=== PATIENT | male | born 1935 | race Caucasian/White ===

== ENCOUNTER → 2016-09-11 | Outpatient (CLI) | payer OTHER ==
[2016-09-11 16:39] LABS: HEMATOCRIT 44.3 % (42-52); MEAN CELL VOLUME 96.9 fL (80-100); MEAN CORPUSCULAR HEMOGLOBIN 31.5 pg (25-34); MEAN CORPUSCULAR HGB CONC 32.5 g/dl (32-36); MEAN PLATELET VOLUME 9.9 fL (7.4-10.4); PLATELET COUNT 173 K/uL (130-400); RED BLOOD COUNT 4.57 M/uL (4.7-6.1); WHITE BLOOD COUNT 7.94 K/uL (4.8-10.8)
[2016-09-11 16:55] LABS: ALB/GLOB RATIO 1.3 (0.9-2); ALKALINE PHOSPHATASE 63 U/L (45-117); ALT/SGPT 25 U/L (12-78); AST/SGOT 18 U/L (15-37); BLOOD UREA NITROGEN 26 mg/dl (7-18); BUN/CREATININE RATIO 16.5 (10-20); CALCIUM 8.9 mg/dl (8.5-10.1); CARBON DIOXIDE 25 mmol/L (21-32); CHLORIDE 108 mmol/L (98-107); GLUCOSE 122 mg/dl (70-99); HDL CHOLESTEROL 46 mg/dl; POTASSIUM 4.4 mmol/L (3.5-5.1); SODIUM 141 mmol/L (136-145)
[2016-09-11 17:07] LABS: CHOLESTEROL 115 mg/dl (0-200); CHOLESTEROL/HDL RATIO 2.5; LDL CHOLESTEROL CALCULATED 48 mg/dl; TRIGLYCERIDES 106 mg/dl (0-150); VERY LOW DENSITY LIPOPROT CALC 21 mg/dl
[2016-09-12 07:17] LABS: ESTIMATED AVERAGE GLUCOSE 134 mg/dl; HA1C FLAG Normal (Normal)
== END ==
LOC: C.LABBFT 10:20
PROVIDERS: ATTEND Internal Medicine
DX: E78.5 Hyperlipidemia, unspecified (principal); I10 Essential (primary) hypertension; E11.9 Type 2 diabetes mellitus without complications

== ENCOUNTER 2017-06-22 20:30 | Inpatient (IN) | payer OTHER ==
[~2017-06-22] VITALS: Ht 170.2 cm; Wt 76.0 kg
--- NOTE | 2017-06-22 21:04 | DIAGNOSTIC IMAGING REPORT ---
CHEST ONE VIEW PORTABLE CLINICAL HISTORY: 81 years-old Male presenting with fever. TECHNIQUE: Portable upright AP view of the chest was obtained. COMPARISON: None. FINDINGS: Atherosclerosis of aortic arch. Cardiac silhouette enlarged. Minimal basilar opacities. Apparent asymmetric radiolucency of the left [place] and upper lung may be due to the slight [place] rotated positioning. No pleural effusion or pneumothorax. Degenerative changes of the thoracic spine. Upper abdomen normal. IMPRESSION: 1. Minimal basilar atelectasis or scarring. No convincing evidence of acute cardiopulmonary disease. Electronically signed by: Jung Hayes M.D. 06/22/2017 9:02 PM Dictated Date/Time: 06/22/2017 9:01 PM
--- NOTE | 2017-06-22 21:06 | EMERGENCY ROOM VISIT NOTE ---
History First contact with patient: 20:42 Chief Complaint: FLU LIKE SX Stated Complaint: FLU SX, LOSS OF BALANCE,WEAKNESS History of Present Illness The patient is a 81 year old male who presents to the Emergency Room with complaints of fever, weakness which started a few days ago. The patient states that he has had a fever with chills, body aches and myalgias and he has been coughing and sneezing but denies any chest pain, shortness of breath, wheezing. States that he was exposed to his son who had the flu. Also states that he has been feeling extremely weak and fatigued and had multiple falls within the last 2 days but denies any injury to his head. He stated that he tripped over the carpet and fell but was not able to get himself up as he was very weak. He received the flu vaccine this year He lives with her son and has some issues with ambulation but does not use a cane or walker. Denies history of smoking/COPD/asthma. Denies any nausea, vomiting, abdominal pain, dysuria, frequency. Source of History: patient, family Associated Symptoms: + fevers, + chills, No nausea, No vomiting, No urinary symptoms Review of Systems See HPI for pertinent positives & negatives. A total of 10 systems reviewed and were otherwise negative. Past Medical/Surgical History Hypertension, diabetes, hyperlipidemia Social History Smoking Status: Former Smoker Current/Historical Medications Scheduled Amlodipine (Norvasc), 5 MG PO DAILY Glipizide (Glucotrol), 10 MG PO BID Multiple Vitamin (Multi Vitamin), 1 TAB PO DAILY Simvastatin (Zocor), 20 MG PO QPM Terazosin (Hytrin), 5 MG PO HS Physical Exam Vital Signs Date Time Temp Pulse Resp B/P (MAP) Pulse Ox O2 Delivery O2 Flow Rate FiO2 06/22/17 21:30 94 18 134/75 95 Room Air 06/22/17 20:33 38.1 113 18 131/76 96 Room Air Physical Exam GENERAL: Patient is in mild distress. HEENT: No acute trauma, normocephalic atraumatic, mucous membranes moist, no nasal congestion, no scleral icterus. NECK: No stridor, no adenopathy, no meningismus, trachea is midline. LUNGS: Clear to auscultation bilaterally, no wheeze, no rhonchi, breath sounds equal. HEART: Without murmurs gallops or rubs, tachycardia ABDOMEN: Soft, nontender, bowel sounds positive, no hernias, no peritonitis. EXTREMITIES: No cyanosis or edema, full range of motion of all the joints without pain or difficulty, no signs for acute trauma. NEUROLOGIC: Oriented x 3, no acute motor or sensory deficits, no focal weakness. SKIN: No rash, no jaundice, no diaphoresis. Medical Decision & Procedures Laboratory Results 06/22/17 21:15 Red Blood Count 4.41, Mean Corpuscular Volume 93.4, Mean Corpuscular Hemoglobin 32.4, Mean Corpuscular Hemoglobin Concent 34.7, Mean Platelet Volume 9.8, Neutrophils (%) (Auto) 72.4, Lymphocytes (%) (Auto) 14.6, Monocytes (%) (Auto) 12.7, Eosinophils (%) (Auto) 0.1, Basophils (%) (Auto) 0.1, Neutrophils # (Auto ) 4.94, Lymphocytes # (Auto) 1.00, Monocytes # (Auto) 0.87, Eosinophils # (Auto ) 0.01, Basophils # (Auto) 0.01 06/22/17 21:15 Test 06/22/17 21:15 06/22/17 21:20 06/22/17 21:24 06/22/17 21:27 White Blood Count 6.84 K/uL (4.8-10.8) Red Blood Count 4.41 M/uL (4.7-6.1) Hemoglobin 14.3 g/dL (14.0-18.0) Hematocrit 41.2 % (42-52) Mean Corpuscular Volume 93.4 fL (80-100) Mean Corpuscular Hemoglobin 32.4 pg (25-34) Mean Corpuscular Hemoglobin Concent 34.7 g/dl (32-36) Platelet Count 125 K/uL (130-400) Mean Platelet Volume 9.8 fL (7.4-10.4) Neutrophils (%) (Auto) 72.4 % Lymphocytes (%) (Auto) 14.6 % Monocytes (%) (Auto) 12.7 % Eosinophils (%) (Auto) 0.1 % Basophils (%) (Auto) 0.1 % Neutrophils # (Auto) 4.94 K/uL (1.4-6.5) Lymphocytes # (Auto) 1.00 K/uL (1.2-3.4) Monocytes # (Auto) 0.87 K/uL (0.11-0.59) Eosinophils # (Auto) 0.01 K/uL (0-0.5) Basophils # (Auto) 0.01 K/uL (0-0.2) RDW Standard Deviation 47.0 fL (36.4-46.3) RDW Coefficient of Variation 13.7 % (11.5-14.5) Immature Granulocyte % (Auto) 0.1 % Immature Granulocyte # (Auto) 0.01 K/uL (0.00-0.02) Prothrombin Time 10.9 SECONDS (9.0-12.0) Prothromb Time International Ratio 1.0 (0.9-1.1) Est Creatinine Clear Calc Drug Dose 34.4 ml/min Estimated GFR () 45.1 Estimated GFR (Non- 38.9 BUN/Creatinine Ratio 11.5 (10-20) Calcium Level 8.3 mg/dl (8.5-10.1) Magnesium Level 2.2 mg/dl (1.8-2.4) Total Bilirubin 1.2 mg/dl (0.2-1) Direct Bilirubin 0.3 mg/dl (0-0.2) Aspartate Amino Transf (AST/SGOT) 92 U/L (15-37) Alanine Aminotransferase (ALT/SGPT) 40 U/L (12-78) Alkaline Phosphatase 82 U/L (45-117) Total Creatine Kinase 2911 U/L (39-308) Creatine Kinase MB 10.1 ng/ml (0.5-3.6) Creatine Kinase MB Ratio 0.3 (0-3.0) Troponin I 0.114 ng/ml (0-0.045) Total Protein 7.0 gm/dl (6.4-8.2) Albumin 3.8 gm/dl (3.4-5.0) Influenza Type A (RT-PCR) POS for Influ A (NEG) Influenza Type B (RT-PCR) Neg for Influ B (NEG) Bedside Lactic Acid Venous 1.20 mmol/L (0.90-1.70) Bedside Hemoglobin 12.9 g/dl (14.0-18.0) Bedside Hematocrit 38 % (42-52) Bedside Sodium 138 mEq/L (135-144) Bedside Potassium 3.8 mEq/L (3.3-5.0) Bedside Chloride 102 mEq/L (101-112) Bedside Total CO2 21 mEq/l (24-31) Anion Gap 19.0 mmol/L (16-25) Bedside Blood Urea Nitrogen 19 mg/dl (7-18) Bedside Creatinine 1.5 mg/dl (0.6-1.3) Bedside Glucose (other) 104 mg/dl (70-99) Bedside Ionized Calcium ([place]) 1.08 mmol/l (1.12-1.32) Medications Administered Medications (Trade) Dose Ordered Sig/Gina Route Start Time Stop Time Status Last Admin Dose Admin Sodium Chloride 1,000 ml @ 999 mls/hr Q1H1M STAT IV 06/22/17 22:03 06/22/17 23:03 06/22/17 22:13 999 MLS/HR Acetaminophen (Tylenol Tab) 1,000 mg NOW STAT PO 06/22/17 22:03 06/22/17 22:04 DC 06/22/17 22:12 1,000 MG Oseltamivir Phosphate (Tamiflu Cap) 75 mg NOW STAT PO 06/22/17 22:03 06/22/17 22:09 DC 06/22/17 22:12 75 MG tamiflu 75 mg tylenol NSS ECG Indication: weakness Rate (beats per minute): 99 Rhythm: normal sinus Findings: other (RBBB, t wave abnormality) Medical Decision Prior records/ancillary studies reviewed. Triage Nursing notes reviewed. Additional history obtained from the patient's son The patient's history was concerning for weakness and fever. Differential diagnosis: Etiologies such as sepsis, influenza, UTI, pneumonia, metabolic, electrolyte abnormalities, cardiac sources, intracerebral event, toxicologic, neurologic, as well as others were entertained. Physical examination: As above. Vital signs reviewed and revealed temperature of 38.1F and tachycardia. ER treatment provided: CBC, CMP, UA/UC, troponin, influenza serology, PT/PTT, Blood and urine cultures were ordered CXR was also ordered On reassessment the patient vital signs improved. Diagnostics interpretation by me: ECG revealed NSR with left axis deviation, RBBB Serology was positive for influenza A. CBC is unremarkable, CMP revealed an elevated Cr at 1.6 which appears to be his baseline. CK was elevated at 2911 and trop was elevated at 0.11 Serum Lactate measurement was 1.2. Blood and urine cultures are pending. Imaging studies: Chest xray revealed : Minimal basilar atelectasis or scarring. No convincing evidence of acute cardiopulmonary disease. Consultation: A consultation was placed with the hospitalist. The case was discussed and diagnostics were reviewed. The patient was evaluated in the ER for further treatment. 81-year-old male presented with weakness, fatigue and fever associated with body aches and myalgias that started about 2 days ago. He was found to be positive for influenza A and was treated with IV fluids, Tylenol and Tamiflu. He had stated that he had tripped over a carpet and fell but was not able to pick himself up because of weakness. He was recommended to be admitted to the hospital and possible rehabilitation considering his weakness and inability to care for himself. He was found to have an elevated CPK and troponin. He will need to be admitted for further monitoring, IVF and assessment of need for rehab Impression Primary Impression: Influenza A Additional Impression: Multiple falls Departure Information Referrals Umair Adkins M.D. (PCP) Patient Instructions My [facility] Resident Tracking Resident Involvement: Resident Care Provided Care Provided: Adult ED Problem Qualifiers
[2017-06-22 21:37] LABS: HEMATOCRIT 41.2 % (42-52); HEMOGLOBIN 14.3 g/dL (14.0-18.0); MEAN CELL VOLUME 93.4 fL (80-100); MEAN CORPUSCULAR HEMOGLOBIN 32.4 pg (25-34); MEAN CORPUSCULAR HGB CONC 34.7 g/dl (32-36); MEAN PLATELET VOLUME 9.8 fL (7.4-10.4); PLATELET COUNT 125 K/uL (130-400); RED CELL DISTRIBUTION WIDTH CV 13.7 % (11.5-14.5); WHITE BLOOD COUNT 6.84 K/uL (4.8-10.8)
[2017-06-22 21:40] LABS: ISTAT CREATININE 1.5 mg/dl (0.6-1.3); ISTAT IONIZED CALCIUM 1.08 mmol/l (1.12-1.32); ISTAT POTASSIUM 3.8 mEq/L (3.3-5.0)
[2017-06-22] MEDS ORDERED: AMLO-110 PO (21:40)
[2017-06-22] MEDS ORDERED: GLIP5TAB11 PO (21:41)
[2017-06-22] MEDS ORDERED: MULT-1027 PO (21:43)
[2017-06-22] MEDS ORDERED: SIMV20TA2 PO (21:44)
[2017-06-22] MEDS ORDERED: TERA5CAP PO (21:45)
[2017-06-22 21:57] LABS: INFLUENZA A PCR POS for Influ A (NEG); INFLUENZA B PCR Neg for Influ B (NEG)
[2017-06-22 22:01] LABS: ALBUMIN 3.8 gm/dl (3.4-5.0); CALCIUM 8.3 mg/dl (8.5-10.1); CREATININE 1.62 mg/dl (0.60-1.40); POTASSIUM 3.7 mmol/L (3.5-5.1)
[2017-06-22] MEDS ORDERED: OSELTAMIVIR PHOSPHATE 75 MG CAP PO STA (22:03)
[2017-06-22] MEDS ORDERED: SODIUM CHLORIDE 0.9% 1000ML 1,000 ML IV STA (22:03)
[2017-06-22] MEDS ORDERED: ACETAMINOPHEN 500 MG TAB PO STA (22:03)
[2017-06-22] MEDS ORDERED: PATIENT'S ALLERGY INFO NEEDS ENTERED STA (22:09)
[2017-06-22 22:18] LABS: BASO % 0.1 %; BASO ABS # 0.01 K/uL (0-0.2); EOS % 0.1 %; EOS ABS # 0.01 K/uL (0-0.5); IG# 0.01 K/uL (0.00-0.02); LYMPH % 14.6 %; MONO % 12.7 %; MONO ABS # 0.87 K/uL (0.11-0.59); NEUT % 72.4 %; NEUT ABS # 4.94 K/uL (1.4-6.5)
[2017-06-22 22:20] LABS: CKMB 10.1 ng/ml (0.5-3.6)
[2017-06-22] MEDS ORDERED: D5NSS + 20MEQ KCL 1,000 ML IV SCH (23:00)
--- NOTE | 2017-06-22 23:02 | History and Physical ---
History & Physical Date & Time of Service: Jun 22, 2017 at 22:53 Chief Complaint: Flu Sx, Loss Of Balance,Weakness Primary Care Physician: Umair Adkins M.D. History of Present Illness Source: patient, hospital records 81 y/o M Hx HTN, HPL, DM II, CKD III. The pt reports a cough, fever and weakness over the past two days. He also reports multiple falls without significant trauma. He fell today however, and was unable to get up of his own accord. The pt states that his son has the flu and he was therefore exposed this past week. Initial labs are notable for a (+) influenza, an elevated CK and troponin and mild LFT abnormalities. He denies CP, denies N/V, diarrhea or dysuria. Past Medical/Surgical History 1) HTN 2) HPL 3) CKD III 4) DM II Family History Noncontributory to current case Social History No smoking history, occasional ETOH, retired [employer]or Smoking Status: Never Smoker Home Medications Scheduled Amlodipine (Norvasc), 5 MG PO DAILY Glipizide (Glucotrol), 10 MG PO BID Multiple Vitamin (Multi Vitamin), 1 TAB PO DAILY Simvastatin (Zocor), 20 MG PO QPM Terazosin (Hytrin), 5 MG PO HS Review of Systems Constitutional: + fever, + chills, + weakness, + fatigue Eyes: No worsening of vision ENT: + nasal symptoms, No hearing loss Respiratory: + cough, + sputum, + shortness of breath Cardiovascular: No chest pain, No orthopnea, No PND Abdomen: No pain, No nausea, No vomiting Musculoskeletal: No joint pain Genitourinary - Male: No hematuria, No dysuria Neurologic: + weakness, No memory loss Psychiatric: No depression symptoms Endocrine: + fatigue Hematologic / Lymphatic: No abnormal bleeding/bruising Integumentary: No rash Allergic / Immunologic: No environmental allergies Physical Exam Vital Signs Date Time Temp Pulse Resp B/P (MAP) Pulse Ox O2 Delivery O2 Flow Rate FiO2 06/22/17 22:39 38.1 06/22/17 21:30 94 18 134/75 95 Room Air 06/22/17 20:33 38.1 113 18 131/76 96 Room Air General Appearance: + pertinent finding (Irritable elderly male in no distress - does display weakness when asked to sit up) Head: normocephalic Eyes: normal inspection ENT: normal ENT inspection, pharynx normal Neck: supple, no JVD Respiratory/Chest: chest non-tender, lungs clear, no accessory muscle use Cardiovascular: regular rate, rhythm, no edema, no gallop Abdomen/GI: normal bowel sounds, non tender, soft Back: normal inspection, no CVA tenderness Extremities/Musculoskelatal: normal inspection, no calf tenderness, normal capillary refill Neurologic/Psych: senior physician II-XII nml as tested, no motor/sensory deficits, alert, oriented x 3 Skin: normal color Diagnostics Laboratory Results Results Past 24 Hours Test 06/22/17 21:15 06/22/17 21:20 06/22/17 21:24 06/22/17 21:27 Range/Units White Blood Count 6.84 4.8-10.8 K/uL Red Blood Count 4.41 4.7-6.1 M/uL Hemoglobin 14.3 14.0-18.0 g/dL Hematocrit 41.2 42-52 % Mean Corpuscular Volume 93.4 80-100 fL Mean Corpuscular Hemoglobin 32.4 25-34 pg Mean Corpuscular Hemoglobin Concent 34.7 32-36 g/dl Platelet Count 125 130-400 K/uL Mean Platelet Volume 9.8 7.4-10.4 fL Neutrophils (%) (Auto) 72.4 % Lymphocytes (%) (Auto) 14.6 % Monocytes (%) (Auto) 12.7 % Eosinophils (%) (Auto) 0.1 % Basophils (%) (Auto) 0.1 % Neutrophils # (Auto) 4.94 1.4-6.5 K/uL Lymphocytes # (Auto) 1.00 1.2-3.4 K/uL Monocytes # (Auto) 0.87 0.11-0.59 K/uL Eosinophils # (Auto) 0.01 0-0.5 K/uL Basophils # (Auto) 0.01 0-0.2 K/uL RDW Standard Deviation 47.0 36.4-46.3 fL RDW Coefficient of Variation 13.7 11.5-14.5 % Immature Granulocyte % (Auto) 0.1 % Immature Granulocyte # (Auto) 0.01 0.00-0.02 K/uL Prothrombin Time 10.9 9.0-12.0 SECONDS Prothromb Time International Ratio 1.0 0.9-1.1 Sodium Level 136 136-145 mmol/L Potassium Level 3.7 3.5-5.1 mmol/L Chloride Level 104 98-107 mmol/L Carbon Dioxide Level 21 21-32 mmol/L Anion Gap 11.0 19.0 16-25 mmol/L Blood Urea Nitrogen 19 7-18 mg/dl Creatinine 1.62 0.60-1.40 mg/dl Est Creatinine Clear Calc Drug Dose 34.4 ml/min Estimated GFR () 45.1 Estimated GFR (Non- 38.9 BUN/Creatinine Ratio 11.5 10-20 Random Glucose 98 70-99 mg/dl Calcium Level 8.3 8.5-10.1 mg/dl Magnesium Level 2.2 1.8-2.4 mg/dl Total Bilirubin 1.2 0.2-1 mg/dl Direct Bilirubin 0.3 0-0.2 mg/dl Aspartate Amino Transf (AST/SGOT) 92 15-37 U/L Alanine Aminotransferase (ALT/SGPT) 40 12-78 U/L Alkaline Phosphatase 82 45-117 U/L Total Creatine Kinase 2911 39-308 U/L Creatine Kinase MB 10.1 0.5-3.6 ng/ml Creatine Kinase MB Ratio 0.3 0-3.0 Troponin I 0.114 0-0.045 ng/ml Total Protein 7.0 6.4-8.2 gm/dl Albumin 3.8 3.4-5.0 gm/dl Influenza Type A (RT-PCR) POS for Influ A NEG Influenza Type B (RT-PCR) Neg for Influ B NEG Bedside Lactic Acid Venous 1.20 0.90-1.70 mmol/L Bedside Hemoglobin 12.9 14.0-18.0 g/dl Bedside Hematocrit 38 42-52 % Bedside Sodium 138 135-144 mEq/L Bedside Potassium 3.8 3.3-5.0 mEq/L Bedside Chloride 102 101-112 mEq/L Bedside Total CO2 21 24-31 mEq/l Bedside Blood Urea Nitrogen 19 7-18 mg/dl Bedside Creatinine 1.5 0.6-1.3 mg/dl Bedside Glucose (other) 104 70-99 mg/dl Bedside Ionized Calcium ([place]) 1.08 1.12-1.32 mmol/l Microbiology Results 06/22/17 Blood Culture, Received Pending 06/22/17 Blood Culture, Received Pending Diagnostic Radiology No infiltrates on CXR EKG Sinus tach, RBBB, ant T wv inversions Impression Assessment and Plan 81 y/o M Hx HTN, HPL, DM II, CKD III. The pt reports a cough, fever and weakness over the past two days. He also reports multiple falls without significant trauma. He fell today however, and was unable to get up of his own accord. The pt states that his son has the flu and he was therefore exposed this past week. Initial labs are notable for a (+) influenza, an elevated CK and troponin and mild LFT abnormalities. He denies CP, denies N/V, diarrhea or dysuria. 1) Fever,weakness and cough - influenza A (+) - Pt placed on Tamiflu, PRN breathing treatments, IVF and antipyretics. 2) Rhabdomyolysis - IVF provided. CK and electrolytes will be trended 3) Troponin is elevated marginally in context of high CK and renal impairment. We do not suspect acute ischemia. Trop will be trended, he will be monitored on telemetry overnight. 4) LFT elevation is likely related to rhabdo - does not report acute abdominal symptoms - will trend AM 5) DM II - placed on SS 6) CKD III - creat is at baseline 7) HPL - cont Zocor - would hold if rhabdo worsened 8) HTN - cont Norvasc Full code - Heparin prophylaxis Total time for this admit including review of labs, meds, imaging, EKG, records - discussion with pt , family , ER attending - 35 min Level of Care Med/Surg Resuscitation Status FULL RESUSCITATION VTE Prophylaxis Given or contraindicated: Unfractionated heparin SQ
[2017-06-22] MEDS ORDERED: ASPIRIN 81 MG CHEW PO STA (23:22)
[2017-06-22] MEDS ORDERED: ALUMINUM/MAGNESIUM/SIMETH (MAALOX MAX) 30 ML UDC PO PRN (23:45)
[2017-06-22] MEDS ORDERED: ALBUT/IPRATROP 3MG/0.5MG NEB 3 ML VIAL INH PRN (23:45)
[2017-06-22] MEDS ORDERED: ACETAMINOPHEN 325 MG TAB PO PRN (23:45)
[2017-06-22] MEDS ORDERED: MAGNESIUM HYDROXIDE SUSP 30 ML UDC PO PRN (23:45)
[2017-06-22] MEDS ORDERED: POLYETHYLENE (MIRALAX) 17 GM PACK PO PRN (23:45)
[2017-06-22] MEDS ORDERED: MoRPHine SULFATE 2 MG/ML CARP IV PRN (23:45)
[2017-06-22] MEDS ORDERED: ONDANSETRON INJ 2 MG/ML 2 ML VIAL IV PRN (23:45)
[2017-06-23] VITALS (10 sets, daily range): BP systolic 96–130; BP diastolic 45–70; PULSE 58–86; TEMP 36.5–37.6; O2SAT 93–98; Ht 170.2 cm; Wt 76.0 kg
[2017-06-23] MEDS ORDERED: PATIENT'S ALLERGY INFO NEEDS ENTERED STA (00:01)
--- NOTE | 2017-06-23 00:05 | EMERGENCY ROOM VISIT NOTE ---
History Report prepared by Erikaibaishwarya: Rocky Olivares Under the Supervision of: Dr. Kogn Majano D.O. First contact with patient: 20:42 Chief Complaint: FLU LIKE SX Stated Complaint: FLU SX, LOSS OF BALANCE,WEAKNESS History of Present Illness The patient is a 81 year old male who presents to the Emergency Room with complaints of intermittent falls that started yesterday. The patient states that he has had a cough for two days. He reports he has been experiencing rhinorrhea, a fever, and has a sore throat when he wakes up. The patient states that he has fallen twice in the last two days. The patient states that he fell forward and caught himself with his hands. His son states that yesterday the patient was not able to get up after falling. The patient denies LOC, hitting his head, taking blood thinners, dizziness, lightheadedness, headache, change in vision, chest pain, shortness of breath, nausea, vomiting, diarrhea, pain with urination, and melena. Source of History: patient Onset: yesterday Position: other (global) Quality: other (global) Timing: intermittent Associated Symptoms: + fevers, + sorethroat, + cough, No LOC, No chest pain , No SOB, No nausea, No vomiting, No melena, No diarrhea, No urinary symptoms Review of Systems See HPI for pertinent positives & negatives. A total of 10 systems reviewed and were otherwise negative. Past Medical & Surgical Medical Problems: (1) Diabetes (2) Hypertension (3) Rhabdomyolysis Family History Diabetes mellitus FH: cancer Hypertension Social History Smoking Status: Former Smoker Alcohol Use: occasionally Marital Status: single Housing Status: lives with family Occupation Status: retired Current/Historical Medications Scheduled Amlodipine (Norvasc), 5 MG PO DAILY Glipizide (Glucotrol), 10 MG PO BID Multiple Vitamin (Multi Vitamin), 1 TAB PO DAILY Simvastatin (Zocor), 20 MG PO QPM Terazosin (Hytrin), 5 MG PO HS Physical Exam Vital Signs Date Time Temp Pulse Resp B/P (MAP) Pulse Ox O2 Delivery O2 Flow Rate FiO2 06/22/17 23:45 37.9 75 18 91/57 95 Room Air 06/22/17 22:39 38.1 06/22/17 21:30 94 18 134/75 95 Room Air 06/22/17 20:33 38.1 113 18 131/76 96 Room Air Physical Exam GENERAL: Laying in bed, disheveled no distress, non-toxic, with an intermittent nonproductive cough EYE EXAM: normal conjunctiva. PERRL and EOM's grossly intact. OROPHARYNX: no exudate, no erythema, lips, buccal mucosa, and tongue normal and mucous membranes are dry HEAD: Normocephalic, atraumatic. NECK: supple, no nuchal rigidity, no adenopathy, non-tender LUNGS: Clear to auscultation. Normal chest wall mechanics HEART: no murmurs, S1 normal and S2 normal ABDOMEN: abdomen soft, non-tender, normo-active bowel sounds, no masses, no rebound or guarding. BACK: Back is symmetrical on inspection and there is no deformity, no midline tenderness, no CVA tenderness. SKIN: no rashes and no bruising UPPER EXTREMITIES: upper extremities are grossly normal. LOWER EXTREMITIES: No pitting edema. NEURO EXAM: Normal sensorium, cranial nerves II-XII grossly intact, normal speech, no gross weakness of arms, no gross weakness of legs. Gross sensation intact. Medical Decision & Procedures ER Provider Diagnostic Interpretation: Radiology results as stated below per my review and the radiologist's interpretation: CHEST ONE VIEW PORTABLE CLINICAL HISTORY: 81 years-old Male presenting with fever. TECHNIQUE: Portable upright AP view of the chest was obtained. COMPARISON: None. FINDINGS: Atherosclerosis of aortic arch. Cardiac silhouette enlarged. Minimal basilar opacities. Apparent asymmetric radiolucency of the left inupiat and upper lung may be due to the slight [place] rotated positioning. No pleural effusion or pneumothorax. Degenerative changes of the thoracic spine. Upper abdomen normal. IMPRESSION: 1. Minimal basilar atelectasis or scarring. No convincing evidence of acute cardiopulmonary disease. Electronically signed by: Jung Hayes M.D. 06/22/2017 9:02 PM Dictated Date/Time: 06/22/2017 9:01 PM Laboratory Results 06/22/17 21:15 Red Blood Count 4.41, Mean Corpuscular Volume 93.4, Mean Corpuscular Hemoglobin 32.4, Mean Corpuscular Hemoglobin Concent 34.7, Mean Platelet Volume 9.8, Neutrophils (%) (Auto) 72.4, Lymphocytes (%) (Auto) 14.6, Monocytes (%) (Auto) 12.7, Eosinophils (%) (Auto) 0.1, Basophils (%) (Auto) 0.1, Neutrophils # (Auto ) 4.94, Lymphocytes # (Auto) 1.00, Monocytes # (Auto) 0.87, Eosinophils # (Auto ) 0.01, Basophils # (Auto) 0.01 06/22/17 21:15 Test 06/22/17 21:15 06/22/17 21:20 06/22/17 21:24 06/22/17 21:27 White Blood Count 6.84 K/uL (4.8-10.8) Red Blood Count 4.41 M/uL (4.7-6.1) Hemoglobin 14.3 g/dL (14.0-18.0) Hematocrit 41.2 % (42-52) Mean Corpuscular Volume 93.4 fL (80-100) Mean Corpuscular Hemoglobin 32.4 pg (25-34) Mean Corpuscular Hemoglobin Concent 34.7 g/dl (32-36) Platelet Count 125 K/uL (130-400) Mean Platelet Volume 9.8 fL (7.4-10.4) Neutrophils (%) (Auto) 72.4 % Lymphocytes (%) (Auto) 14.6 % Monocytes (%) (Auto) 12.7 % Eosinophils (%) (Auto) 0.1 % Basophils (%) (Auto) 0.1 % Neutrophils # (Auto) 4.94 K/uL (1.4-6.5) Lymphocytes # (Auto) 1.00 K/uL (1.2-3.4) Monocytes # (Auto) 0.87 K/uL (0.11-0.59) Eosinophils # (Auto) 0.01 K/uL (0-0.5) Basophils # (Auto) 0.01 K/uL (0-0.2) RDW Standard Deviation 47.0 fL (36.4-46.3) RDW Coefficient of Variation 13.7 % (11.5-14.5) Immature Granulocyte % (Auto) 0.1 % Immature Granulocyte # (Auto) 0.01 K/uL (0.00-0.02) Prothrombin Time 10.9 SECONDS (9.0-12.0) Prothromb Time International Ratio 1.0 (0.9-1.1) Est Creatinine Clear Calc Drug Dose 34.4 ml/min Estimated GFR () 45.1 Estimated GFR (Non- 38.9 BUN/Creatinine Ratio 11.5 (10-20) Calcium Level 8.3 mg/dl (8.5-10.1) Magnesium Level 2.2 mg/dl (1.8-2.4) Total Bilirubin 1.2 mg/dl (0.2-1) Direct Bilirubin 0.3 mg/dl (0-0.2) Aspartate Amino Transf (AST/SGOT) 92 U/L (15-37) Alanine Aminotransferase (ALT/SGPT) 40 U/L (12-78) Alkaline Phosphatase 82 U/L (45-117) Total Creatine Kinase 2911 U/L (39-308) Creatine Kinase MB 10.1 ng/ml (0.5-3.6) Creatine Kinase MB Ratio 0.3 (0-3.0) Troponin I 0.114 ng/ml (0-0.045) Total Protein 7.0 gm/dl (6.4-8.2) Albumin 3.8 gm/dl (3.4-5.0) Influenza Type A (RT-PCR) POS for Influ A (NEG) Influenza Type B (RT-PCR) Neg for Influ B (NEG) Bedside Lactic Acid Venous 1.20 mmol/L (0.90-1.70) Bedside Hemoglobin 12.9 g/dl (14.0-18.0) Bedside Hematocrit 38 % (42-52) Bedside Sodium 138 mEq/L (135-144) Bedside Potassium 3.8 mEq/L (3.3-5.0) Bedside Chloride 102 mEq/L (101-112) Bedside Total CO2 21 mEq/l (24-31) Anion Gap 19.0 mmol/L (16-25) Bedside Blood Urea Nitrogen 19 mg/dl (7-18) Bedside Creatinine 1.5 mg/dl (0.6-1.3) Bedside Glucose (other) 104 mg/dl (70-99) Bedside Ionized Calcium (Valent[place]) 1.08 mmol/l (1.12-1.32) Laboratory results per my review. Medications Administered Medications (Trade) Dose Ordered Sig/Gina Route Start Time Stop Time Status Last Admin Dose Admin Sodium Chloride 1,000 ml @ 999 mls/hr Q1H1M STAT IV 06/22/17 22:03 06/22/17 23:03 DC 06/22/17 22:13 999 MLS/HR Acetaminophen (Tylenol Tab) 1,000 mg NOW STAT PO 06/22/17 22:03 06/22/17 22:04 DC 06/22/17 22:12 1,000 MG Oseltamivir Phosphate (Tamiflu Cap) 75 mg NOW STAT PO 06/22/17 22:03 06/22/17 22:09 DC 06/22/17 22:12 75 MG Aspirin (Aspirin Chew) 324 mg NOW STAT PO 06/22/17 23:22 06/22/17 23:23 DC 06/22/17 23:43 324 MG ECG Indication: weakness Rate (beats per minute): 99 Rhythm: sinus tachycardia Findings: Q waves (Inferior), RBBB, left axis deviation, other (Poor baseline) Change: Patient's electrocardiogram interpreted by me. ED Course ED COURSE: Vital signs were reviewed and showed The patients medical record was reviewed The above diagnostic studies were performed and reviewed. ED treatments and interventions as stated above. 2141: The patient was evaluated in room A09B. A complete history and physical examination was performed. 2203: Ordered Tamflu Cap 75 mg PO, Tylenol Tab 1000 mg PO, Sodium Chloride 1000 ml @ 999 mls/hr IV. 2220: I reevaluated the patient and he refuses to stay. He would like to go home. 2300: Ordered Potassium Chloride/ Sodium Chloride 1000 ml @ 100 mls/hr IV, Potassium Chloride/Dextrose/ Sod Cl 1000 ml @ 1000 mls/hr IV. 2322: Ordered Aspirin 324 mg PO. 2241: I discussed the patient's case with Dr. Hamilton, [facility] Hospitalist. He understands the patient's condition and agrees to accept the patient. The patient will be further evaluated. Medical Decision Differential diagnosis includes etiologies such as sepsis, UTI, pneumonia, metabolic, electrolyte abnormalities, cardiac sources, intracerebral event, toxicologic, neurologic, as well as others were entertained. Patient is an 81-year-old male who was seen independently in the resident presents to the ER for cough, runny nose and sore throat which started in the past 24-48 hours. He has also had 2 falls in the past 24 hours. He was unable to get himself up. He did lay on the floor for 3 hours. CBC and BMP were fairly unremarkable. Bili was slightly elevated. CK was elevated at 3000. Troponin was elevated at 0.1. EKG showed a right bundle branch block. Troponin is likely related to demand ischemia. Chest x-ray shows no acute infiltrate. He has no chest pain or shortness of breath while resting. Patient was given fluids and aspirin along with Tylenol. He was also given Tamiflu. He was discussed with internal medicine and admitted for influenza A, recurrent falls, demand ischemia and rhabdomyolysis. Medication Reconcilliation Current Medication List: was personally reviewed by me Blood Pressure Screening Patient's blood pressure: Elevated blood pressure Referred to Hospitalist Consults Time Called: 2237 Consulting Physician: Dr. Hamilton, [facility] Hospitalist Returned Call: 2240 I discussed the patient's case with Dr. Hamilton, [facility] Hospitalist. He understands the patient's condition and agrees to accept the patient. The patient will be further evaluated. Impression Primary Impression: Influenza A Additional Impressions: Recurrent falls Demand ischemia Rhabdomyolysis Scribe Attestation The scribe's documentation has been prepared under my direction and personally reviewed by me in its entirety. I confirm that the note above accurately reflects all work, treatment, procedures, and medical decision making performed by me. Departure Information Dispostion Being Evaluated By Hospitalist Referrals Umair Adkins M.D. (PCP) Patient Instructions My [facility] Problem Qualifiers Additional Impressions: Rhabdomyolysis Rhabdomyolysis type: non-traumatic Qualified Codes: M62.82 - Rhabdomyolysis
[2017-06-23] MEDS: NSS + 20MEQ KCL 1000ML 1,000 ML IV SCH ×2 (01:20→07:37)
[2017-06-23] MEDS ORDERED: PNEUMOCOCCAL ADMINISTRATION CHARGE ONE (01:45)
[2017-06-23] MEDS ORDERED: PNEUMOCOCCAL POLYSACCHARIDES 25 MCG/0.5 ML VIAL/SYR IM. ONE (01:45)
[2017-06-23 06:09] LABS: HEMATOCRIT 37.9 % (42-52); HEMOGLOBIN 12.9 g/dL (14.0-18.0); MEAN CELL VOLUME 94.3 fL (80-100); MEAN CORPUSCULAR HEMOGLOBIN 32.1 pg (25-34); RED CELL DISTRIBUTION WIDTH CV 13.9 % (11.5-14.5); RED CELL DISTRIBUTION WIDTH SD 47.8 fL (36.4-46.3); WHITE BLOOD COUNT 4.91 K/uL (4.8-10.8)
[2017-06-23] MEDS: HEPARIN SOD 5000 UNIT/0.5 ML CARP SQ SCH ×3 (06:23→21:18)
[2017-06-23 06:52] LABS: ALBUMIN 2.9 gm/dl (3.4-5.0); CALCIUM 7.4 mg/dl (8.5-10.1); CREATININE 1.34 mg/dl (0.60-1.40); POTASSIUM 3.5 mmol/L (3.5-5.1)
[2017-06-23 07:02] LABS: MEAN PLATELET VOLUME 9.4 fL (7.4-10.4); PLATELET COUNT 99 K/uL (130-400)
[2017-06-23 07:09] LABS: TOTAL PROTEIN 5.5 gm/dl (6.4-8.2)
[2017-06-23] MEDS: AMLODIPINE BESYLATE 5 MG TAB PO SCH (07:37)
[2017-06-23] MEDS: OSELTAMIVIR PHOSPHATE SUSP 30 MG/5 ML UDP PO SCH ×2 (07:37→21:18)
--- NOTE | 2017-06-23 10:18 | Progress Note ---
Subjective Date of Service: Jun 23, 2017. Subjective Pt evaluation today including: conversation w/ patient, physical exam Patient today is complaining of mild myalgias. Patient also has rhinorrhea. He states no significant complaints. Problem List Medical Problems: (1) Demand ischemia Status: Acute (2) Influenza A Status: Acute (3) Multiple falls Status: Acute (4) Recurrent falls Status: Acute Review of Systems Constitutional: + fever, No chills ENT: No hearing loss Respiratory: + cough, No sputum Cardiac: No chest pain, No orthopnea Abdomen: No pain, No nausea Neurologic: No memory loss Psychiatric: No depression symptoms Endo: No fatigue Skin: No rash, No itch All Other Systems: Reviewed and Negative Objective Vital Signs Date Time Temp Pulse Resp B/P (MAP) Pulse Ox O2 Delivery O2 Flow Rate FiO2 06/23/17 08:00 58 14 108/49 (68) 94 Room Air 06/23/17 08:00 Room Air 06/23/17 04:22 95 Room Air 06/23/17 04:18 58 14 96/45 (62) 96 Room Air 06/23/17 00:09 36.9 72 16 105/53 94 Room Air 06/22/17 23:45 37.9 75 18 91/57 95 Room Air 06/22/17 22:39 38.1 06/22/17 21:30 94 18 134/75 95 Room Air 06/22/17 20:33 38.1 113 18 131/76 96 Room Air Physical Exam Comments: General Appearance: WD/WN Head: normocephalic Eyes: normal inspection ENT: normal ENT inspection, pharynx normal Neck: supple, no JVD Respiratory/Chest: chest non-tender, lungs clear, no accessory muscle use Cardiovascular: regular rate, rhythm, no edema, no gallop Abdomen/GI: normal bowel sounds, non tender, soft Back: normal inspection, no CVA tenderness Extremities/Musculoskelatal: normal inspection, no calf tenderness, normal capillary refill 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, no motor/sensory deficits, alert, oriented x 3 Skin: normal color Laboratory Results Last 24 Hours Test 06/22/17 21:15 06/22/17 21:20 06/22/17 21:24 06/22/17 21:27 White Blood Count 6.84 K/uL Red Blood Count 4.41 M/uL Hemoglobin 14.3 g/dL Hematocrit 41.2 % Mean Corpuscular Volume 93.4 fL Mean Corpuscular Hemoglobin 32.4 pg Mean Corpuscular Hemoglobin Concent 34.7 g/dl Platelet Count 125 K/uL Mean Platelet Volume 9.8 fL Neutrophils (%) (Auto) 72.4 % Lymphocytes (%) (Auto) 14.6 % Monocytes (%) (Auto) 12.7 % Eosinophils (%) (Auto) 0.1 % Basophils (%) (Auto) 0.1 % Neutrophils # (Auto) 4.94 K/uL Lymphocytes # (Auto) 1.00 K/uL Monocytes # (Auto) 0.87 K/uL Eosinophils # (Auto) 0.01 K/uL Basophils # (Auto) 0.01 K/uL RDW Standard Deviation 47.0 fL RDW Coefficient of Variation 13.7 % Immature Granulocyte % (Auto) 0.1 % Immature Granulocyte # (Auto) 0.01 K/uL Prothrombin Time 10.9 SECONDS Prothromb Time International Ratio 1.0 Sodium Level 136 mmol/L Potassium Level 3.7 mmol/L Chloride Level 104 mmol/L Carbon Dioxide Level 21 mmol/L Anion Gap 11.0 mmol/L 19.0 mmol/L Blood Urea Nitrogen 19 mg/dl Creatinine 1.62 mg/dl Est Creatinine Clear Calc Drug Dose 34.4 ml/min Estimated GFR () 45.1 Estimated GFR (Non- 38.9 BUN/Creatinine Ratio 11.5 Random Glucose 98 mg/dl Calcium Level 8.3 mg/dl Magnesium Level 2.2 mg/dl Total Bilirubin 1.2 mg/dl Direct Bilirubin 0.3 mg/dl Aspartate Amino Transf (AST/SGOT) 92 U/L Alanine Aminotransferase (ALT/SGPT) 40 U/L Alkaline Phosphatase 82 U/L Total Creatine Kinase 2911 U/L Creatine Kinase MB 10.1 ng/ml Creatine Kinase MB Ratio 0.3 Troponin I 0.114 ng/ml Total Protein 7.0 gm/dl Albumin 3.8 gm/dl Influenza Type A (RT-PCR) POS for Influ A Influenza Type B (RT-PCR) Neg for Influ B Bedside Lactic Acid Venous 1.20 mmol/L Bedside Hemoglobin 12.9 g/dl Bedside Hematocrit 38 % Bedside Sodium 138 mEq/L Bedside Potassium 3.8 mEq/L Bedside Chloride 102 mEq/L Bedside Total CO2 21 mEq/l Bedside Blood Urea Nitrogen 19 mg/dl Bedside Creatinine 1.5 mg/dl Bedside Glucose (other) 104 mg/dl Bedside Ionized Calcium ([place]ent[place]) 1.08 mmol/l Test 06/23/17 00:48 06/23/17 05:56 Total Creatine Kinase 2230 U/L 1953 U/L Troponin I 0.120 ng/ml 0.120 ng/ml White Blood Count 4.91 K/uL Red Blood Count 4.02 M/uL Hemoglobin 12.9 g/dL Hematocrit 37.9 % Mean Corpuscular Volume 94.3 fL Mean Corpuscular Hemoglobin 32.1 pg Mean Corpuscular Hemoglobin Concent 34.0 g/dl RDW Standard Deviation 47.8 fL RDW Coefficient of Variation 13.9 % Platelet Count 99 K/uL Mean Platelet Volume 9.4 fL Platelet Estimate DECREASED Sodium Level 141 mmol/L Potassium Level 3.5 mmol/L Chloride Level 111 mmol/L Carbon Dioxide Level 21 mmol/L Anion Gap 9.0 mmol/L Blood Urea Nitrogen 19 mg/dl Creatinine 1.34 mg/dl Est Creatinine Clear Calc Drug Dose 39.7 ml/min Estimated GFR () 56.8 Estimated GFR (Non- 49.0 BUN/Creatinine Ratio 14.5 Random Glucose 72 mg/dl Calcium Level 7.4 mg/dl Magnesium Level 2.4 mg/dl Total Bilirubin 0.8 mg/dl Direct Bilirubin 0.3 mg/dl Aspartate Amino Transf (AST/SGOT) 65 U/L Alanine Aminotransferase (ALT/SGPT) 32 U/L Alkaline Phosphatase 66 U/L Total Protein 5.5 gm/dl Albumin 2.9 gm/dl Assessment and Plan 81 y/o M Hx HTN, HPL, DM II, CKD III. The pt reports a cough, fever and weakness over the past two days. He also reports multiple falls without significant trauma. He fell today however, and was unable to get up of his own accord. The pt states that his son has the flu and he was therefore exposed this past week. Initial labs are notable for a (+) influenza, an elevated CK and troponin and mild LFT abnormalities. He denies CP, denies N/V, diarrhea or dysuria. 1) Fever,weakness and cough - influenza A (+) - Continue on Tamiflu, PRN breathing treatments, IVF and antipyretics. -will downgrade to med/surg 2) Rhabdomyolysis - IVF provided. CK and electrolytes improved 3) Troponin is elevated marginally in context of high CK and renal impairment. We do not suspect acute ischemia. Trop will be trended, has remained at 0.12 today. 4) LFT elevation is likely related to rhabdo -improved. 5) DM II - placed on SS 6) CKD III - creat is at baseline 7) HPL - cont Zocor - would hold if rhabdo worsened 8) HTN - cont Norvasc Full code - Heparin prophylaxis will monitor overnight as patient is beginning Tamiflu and is being downgraded from unit. If he continues to do well tomorrow. will discharge. Continued [facility] stay due to: home environment unsafe for pt Discharge planning: home
[2017-06-23] MEDS ORDERED: SIMVASTATIN 20 MG TAB PO SCH (21:00)
[2017-06-24] MEDS: HEPARIN SOD 5000 UNIT/0.5 ML CARP SQ SCH (05:56)
[2017-06-24 07:10] VITALS: BP 106/64; PULSE 65; TEMP 37.4; O2SAT 97
--- NOTE | 2017-06-24 09:38 | Clinical Documentation Query ---
CLINICAL DOCUMENTATION QUERY 81 year old male who presents to the Emergency Room with complaints of fever & weakness, found to have influenza and mild rhabdo. In your clinical opinion is this patient being managed for: ( ) ROSI in setting of dehydration, rhabdo, and influenza. ( ) Not Agree ( ) Other explanation of clinical findings (Please Explain) ( ) Unable to determine (Please Define) ( ) Need to Discuss The medical record reflects the following clinical findings, treatment, and risk factors. Clinical Indicators: BUN 19, Creatinine 1.62, TCK 2911, Treatment: IVF's, daily PRP's, Risk Factors: Age, infection, rhabdo, and dehydration Please clarify and document your clinical opinion in the progress notes and discharge summary. Terms such as "probable", "suspected", "likely", "questionable", "possible", or "still to be ruled out" are acceptable. IF IN AGREEMENT, YOU MUST DOCUMENT ABOVE DIAGNOSTIC STATEMENT IN DAILY PROGRESS NOTES AND DISCHARGE SUMMARY. This document is not part of the patient's record. Thank You, Mateusz Bruno, RN [phone]
[2017-06-24] MEDS: AMLODIPINE BESYLATE 5 MG TAB PO SCH (09:58)
[2017-06-24] MEDS: OSELTAMIVIR PHOSPHATE SUSP 30 MG/5 ML UDP PO SCH (10:02)
[2017-06-24 10:44] LABS: BASO % 0.2 %; BASO ABS # 0.01 K/uL (0-0.2); EOS % 1.2 %; EOS ABS # 0.07 K/uL (0-0.5); HEMATOCRIT 39.8 % (42-52); HEMOGLOBIN 13.8 g/dL (14.0-18.0); IG# 0.01 K/uL (0.00-0.02); LYMPH % 22.5 %; LYMPH ABS # 1.33 K/uL (1.2-3.4); MEAN CELL VOLUME 93.6 fL (80-100); MEAN CORPUSCULAR HEMOGLOBIN 32.5 pg (25-34); MEAN CORPUSCULAR HGB CONC 34.7 g/dl (32-36); MEAN PLATELET VOLUME 9.6 fL (7.4-10.4); MONO % 10.5 %; MONO ABS # 0.62 K/uL (0.11-0.59); NEUT % 65.4 %; NEUT ABS # 3.87 K/uL (1.4-6.5); PLATELET COUNT 109 K/uL (130-400); RED CELL DISTRIBUTION WIDTH CV 13.8 % (11.5-14.5); RED CELL DISTRIBUTION WIDTH SD 47.1 fL (36.4-46.3); WHITE BLOOD COUNT 5.91 K/uL (4.8-10.8)
[2017-06-24 11:03] LABS: CALCIUM 8.3 mg/dl (8.5-10.1); CREATININE 1.28 mg/dl (0.60-1.40); POTASSIUM 3.9 mmol/L (3.5-5.1)
[2017-06-24] MEDS ORDERED: TMFUDL30 PO (13:44)
--- NOTE | 2017-06-24 13:45 | Discharge Instructions ---
Discharge Instructions Date of Service Jun 24, 2017. Admission Reason for Admission: Influenza A, Rhabdomyolysis Discharge Discharge Diagnosis / Problem: Influenza A, Rhadomyolysis Discharge Goals Goal(s): Decrease discomfort, Improve function, Improve disease control Activity Recommendations Activity Limitations: as noted below Lifting Limitations: gradually increase as tolerated . Current Hospital Diet Patient's current hospital diet: AHA Diet (Heart Healthy), Diabetes Type 2 Diet Discharge Diet Recommended Diet: AHA Diet (Heart Healthy), Diabetes Type 2 Diet Pending Studies Studies pending at discharge: no Medical Emergencies . Who to Call and When: Medical Emergencies: If at any time you feel your situation is an emergency, please call 911 immediately. . Non-Emergent Contact Non-Emergency issues call your: Primary Care Provider Call Non-Emergent contact if: temperature is above 101 . . "Provider Documentation" section prepared by Rich Underwood. . VTE Core Measure Inpt VTE Proph given/why not?: Unfractionated heparin SQ
[2017-06-24 14:12] VITALS: BP 106/64; PULSE 65; TEMP 37.4; O2SAT 97
--- NOTE | 2017-07-04 23:00 | Discharge Summary ---
Discharge Summary Date of Service Jun 24, 2017. Discharge Summary Admission Date: Jun 22, 2017 at 23:34 Discharge Date: Jun 24, 2017 Discharge Disposition: Home Principal Diagnosis: Flu Problems/Secondary Diagnoses: As noted below in hospital course. Medication Reconciliation New Medications: Oseltamivir Phosphate (Tamiflu) 6 Mg/Ml Bre 30 MG PO BID for 3 Days, #6 TAB 0 Refills Continued Medications: Amlodipine (Norvasc) 5 Mg Tab 5 MG PO DAILY, TAB Glipizide (Glucotrol) 5 Mg Tab 10 MG PO BID, TAB Multiple Vitamin (Multi Vitamin) 1 Tab Tab 1 TAB PO DAILY Simvastatin (Zocor) 20 Mg Tab 20 MG PO QPM, TAB Terazosin (Hytrin) 5 Mg Cap 5 MG PO HS, CAP Discharge Exam Review of Systems: Constitutional: No fever, No chills Eyes: No worsening of vision ENT: No hearing loss Respiratory: No cough, No sputum Cardiovascular: No chest pain, No orthopnea Abdomen: No pain, No nausea Musculoskeletal: No joint pain Neurologic: No memory loss Psychiatric: No depression symptoms Endocrine: No fatigue Hematologic / Lymphatic: No abnormal bleeding/bruising Integumentary: No rash Physical Exam: General Appearance: WD/WN, no apparent distress Neck: supple, no adenopathy Respiratory/Chest: chest non-tender, lungs clear, normal breath sounds Cardiovascular: regular rate, rhythm, no edema Abdomen / GI: normal bowel sounds, non tender, soft Neurologic/Psychiatric: alert, oriented x 3 Skin: normal color Lymphatic: no adenopathy Hospital Course 81 y/o M Hx HTN, HPL, DM II, CKD III. The pt reports a cough, fever and weakness over the past two days. He also reports multiple falls without significant trauma. He fell today however, and was unable to get up of his own accord. The pt states that his son has the flu and he was therefore exposed this past week. Initial labs are notable for a (+) influenza, an elevated CK and troponin and mild LFT abnormalities. He denies CP, denies N/V, diarrhea or dysuria. 1) Fever,weakness and cough - influenza A (+) - Continue on Tamiflu, PRN breathing treatments, IVF and antipyretics. -Patient continues to feel well. -No concerning events were noted during hospital stay. -will discharge. -patient refused home health. This was discussed with son. 2) Rhabdomyolysis - IVF provided. CK and electrolytes improved. 3) Troponin is elevated marginally in context of high CK and renal impairment. We do not suspect acute ischemia. Trop trended downward after peaking at .12 4) LFT elevation is likely related to rhabdo -improved. 5) DM II - placed on SS. will resume home meds. 6) CKD III - creat is at baseline 7) HPL - cont Zocor - 8) HTN - cont Norvasc Full code - Heparin prophylaxis Total Time Spent: Greater than 30 minutes This includes examination of the patient, discharge planning, medication reconciliation, and communication with other providers. Discharge Instructions Please refer to the electronic Patient Visit Report (Discharge Instructions) for additional information. Follow-Up as stated in discharged instructions.
== END 2017-06-24 14:34 | disposition home or self-care (01) | DRG 194 ==
LOC: C.EDB 20:32 → C.MSICU 23:34 → ENRESERV 23:43 → C.MSW 06-23 11:32
PROVIDERS: ADMIT Internal Medicine; ATTEND Internal Medicine Sports Medicine
DX: J10.1 Influenza due to other identified influenza virus with other respiratory manifestations (principal); M62.82 Rhabdomyolysis; R94.5 Abnormal results of liver function studies; R79.89 Other specified abnormal findings of blood chemistry; R29.6 Repeated falls; I12.9 Hypertensive chronic kidney disease with stage 1 through stage 4 chronic kidney disease, or unspecified chronic kidney disease; E11.22 Type 2 diabetes mellitus with diabetic chronic kidney disease; N18.3 Chronic kidney disease, stage 3 (moderate); E78.5 Hyperlipidemia, unspecified; Z79.84 Long term (current) use of oral hypoglycemic drugs; Z79.899 Other long term (current) drug therapy

== ENCOUNTER 2017-08-02 15:11 | Emergency (ER) | payer OTHER ==
[~2017-08-02] VITALS: Ht 167.6 cm; Wt 74.5 kg
[~2017-08-02 15:11] MED LIST: AMLO-110 PO; GLIP5TAB11 PO; MULT-1027 PO; SIMV20TA2 PO; TERA5CAP PO; TMFUDL30 PO
[2017-08-02] MEDS ORDERED: SODIUM CHLORIDE 0.9% 1000ML 1,000 ML IV STA (15:16)
--- NOTE | 2017-08-02 15:18 | EMERGENCY ROOM VISIT NOTE ---
ED Visit Note First contact with patient: 15:04 Resident Physician Supervision Note: I interviewed and examined the patient. Discussed with Dr. Gupta and agree with findings and plan as documented in the note. Documented By: Deangelo Caruso
[2017-08-02 15:20] VITALS: TEMP 37.8; Ht 167.6 cm; Wt 74.5 kg
[2017-08-02 15:32] VITALS: O2SAT 93
[2017-08-02 15:39] LABS: BASO % 0.1 %; BASO ABS # 0.01 K/uL (0-0.2); EOS % 0.1 %; EOS ABS # 0.01 K/uL (0-0.5); HEMATOCRIT 42.6 % (42-52); HEMOGLOBIN 14.7 g/dL (14.0-18.0); IG# 0.02 K/uL (0.00-0.02); MEAN CELL VOLUME 92.6 fL (80-100); MEAN CORPUSCULAR HGB CONC 34.5 g/dl (32-36); MEAN PLATELET VOLUME 9.6 fL (7.4-10.4); MONO % 4.9 %; MONO ABS # 0.33 K/uL (0.11-0.59); NEUT % 91.6 %; NEUT ABS # 6.14 K/uL (1.4-6.5); PLATELET COUNT 129 K/uL (130-400); RED CELL DISTRIBUTION WIDTH CV 14.2 % (11.5-14.5); RED CELL DISTRIBUTION WIDTH SD 47.9 fL (36.4-46.3); WHITE BLOOD COUNT 6.71 K/uL (4.8-10.8)
[2017-08-02 15:58] LABS: ALBUMIN 3.3 gm/dl (3.4-5.0); CREATININE 2.04 mg/dl (0.60-1.40); POTASSIUM 4.2 mmol/L (3.5-5.1)
[2017-08-02 16:12] LABS: CKMB 2.4 ng/ml (0.5-3.6); TOTAL PROTEIN 6.4 gm/dl (6.4-8.2)
--- NOTE | 2017-08-02 16:21 | EMERGENCY ROOM VISIT NOTE ---
History First contact with patient: 15:04 Chief Complaint: FALL Stated Complaint: FALL History of Present Illness The patient is a 81 year old male who presents to the Emergency Room with complaints of having fallen in his home earlier today. He says he was walking around his home when he suddenly felt "woozy" and lightheaded, and then weak, and then fell to his knees, and then to the ground. He denies loss of consciousness or residual weakness or hitting his head. Denies any break in his skin, or bleeding. Says that he has felt somewhat ill the day before as well, and had three bouts of loose stool. Here in the ED pt had incontinence of bowel x1 while in bed. Pt states that after he fell, he was not strong enough to get back up, and stayed on the ground for at least an hour until EMS arrived. Apparently the son had tried to call the house phone, and he did not answer, and so he called EMS. Pt lives with his son, and has done so for over ten years. Pt was recently admitted for obs here at end of Jun after he presented for weakness and multiple falls in the home and was found to be flu +. Review of Systems ROS See HPI for pertinent positives and negatives. Past Medical/Surgical History Medical Problems: (1) Diabetes (2) Hypertension (3) Rhabdomyolysis Family History Diabetes mellitus FH: cancer Hypertension Social History Smoking Status: Never Smoker Alcohol Use: occasionally Marital Status: single Housing Status: lives with family Occupation Status: retired Current/Historical Medications Scheduled Amlodipine (Norvasc), 5 MG PO DAILY Glipizide (Glucotrol), 10 MG PO BID Multiple Vitamin (Multi Vitamin), 1 TAB PO DAILY Simvastatin (Zocor), 20 MG PO QPM Terazosin (Hytrin), 5 MG PO HS Physical Exam Vital Signs Date Time Temp Pulse Resp B/P (MAP) Pulse Ox O2 Delivery O2 Flow Rate FiO2 08/02/17 16:54 98 20 118/70 96 Room Air 08/02/17 16:25 94 08/02/17 15:35 96 95/58 94/60 75/52 08/02/17 15:32 93 Room Air 08/02/17 15:20 37.8 101 20 130/61 95 Room Air Physical Exam GENERAL: Awake, alert, tired-appearing, in no distress. Moderately dry mucous membranes. HENT: Normocephalic, atraumatic. EYES: Normal conjunctiva. Sclera non-icteric. NECK: Supple. FROM. No JVD. RESPIRATORY: Clear to auscultation. CARDIAC: Regular rate, normal rhythm. Extremities warm and well perfused. Pulses equal. ABDOMEN: Soft, non-distended. No tenderness to palpation. No rebound or guarding. No masses. CHEST: No pain on palpation of ribs or chest. LOWER EXTREMITIES: Calves are equal size bilaterally and non-tender. No edema. No discoloration. NEURO: No motor deficits noted. Strength equal in all extremities. SKIN: No rash or jaundice noted. Medical Decision & Procedures Laboratory Results 08/02/17 15:25 Red Blood Count 4.60, Mean Corpuscular Volume 92.6, Mean Corpuscular Hemoglobin 32.0, Mean Corpuscular Hemoglobin Concent 34.5, Mean Platelet Volume 9.6, Neutrophils (%) (Auto) 91.6, Lymphocytes (%) (Auto) 3.0, Monocytes (%) (Auto) 4.9, Eosinophils (%) (Auto) 0.1, Basophils (%) (Auto) 0.1, Neutrophils # (Auto) 6.14, Lymphocytes # (Auto) 0.20, Monocytes # (Auto) 0.33, Eosinophils # (Auto) 0.01, Basophils # (Auto) 0.01 08/02/17 15:25 Test 08/02/17 15:25 White Blood Count 6.71 K/uL (4.8-10.8) Red Blood Count 4.60 M/uL (4.7-6.1) Hemoglobin 14.7 g/dL (14.0-18.0) Hematocrit 42.6 % (42-52) Mean Corpuscular Volume 92.6 fL (80-100) Mean Corpuscular Hemoglobin 32.0 pg (25-34) Mean Corpuscular Hemoglobin Concent 34.5 g/dl (32-36) Platelet Count 129 K/uL (130-400) Mean Platelet Volume 9.6 fL (7.4-10.4) Neutrophils (%) (Auto) 91.6 % Lymphocytes (%) (Auto) 3.0 % Monocytes (%) (Auto) 4.9 % Eosinophils (%) (Auto) 0.1 % Basophils (%) (Auto) 0.1 % Neutrophils # (Auto) 6.14 K/uL (1.4-6.5) Lymphocytes # (Auto) 0.20 K/uL (1.2-3.4) Monocytes # (Auto) 0.33 K/uL (0.11-0.59) Eosinophils # (Auto) 0.01 K/uL (0-0.5) Basophils # (Auto) 0.01 K/uL (0-0.2) RDW Standard Deviation 47.9 fL (36.4-46.3) RDW Coefficient of Variation 14.2 % (11.5-14.5) Immature Granulocyte % (Auto) 0.3 % Immature Granulocyte # (Auto) 0.02 K/uL (0.00-0.02) Anion Gap 11.0 mmol/L (3-11) Est Creatinine Clear Calc Drug Dose 25.2 ml/min Estimated GFR () 34.2 Estimated GFR (Non- 29.5 BUN/Creatinine Ratio 12.3 (10-20) Calcium Level 8.0 mg/dl (8.5-10.1) Total Bilirubin 1.0 mg/dl (0.2-1) Direct Bilirubin 0.2 mg/dl (0-0.2) Aspartate Amino Transf (AST/SGOT) 16 U/L (15-37) Alanine Aminotransferase (ALT/SGPT) 24 U/L (12-78) Alkaline Phosphatase 76 U/L (45-117) Total Creatine Kinase 177 U/L (39-308) Creatine Kinase MB 2.4 ng/ml (0.5-3.6) Creatine Kinase MB Ratio 1.4 (0-3.0) Troponin I 0.063 ng/ml (0-0.045) Total Protein 6.4 gm/dl (6.4-8.2) Albumin 3.3 gm/dl (3.4-5.0) Thyroid Stimulating Hormone (TSH) 1.010 uIu/ml (0.300-4.500) Medications Administered Medications (Trade) Dose Ordered Sig/Gina Route Start Time Stop Time Status Last Admin Dose Admin Sodium Chloride 1,000 ml @ 999 mls/hr Q1H1M STAT IV 08/02/17 15:16 08/02/17 16:16 DC 08/02/17 15:41 999 MLS/HR ED Course 1517 seen by attending, orders placed: NSS 1 L bolus x1 bag, troponin, ckmb, cpk , tsh, prp, liver profile, CBC, ECG. 1540 seen by resident. 1600 discussed results of lab work with pt and family at bedside, including elev Lasting Machine Operator 2.04. 1627 ordered ambulatory trial, which patient passed per nurse. Pt reports that he has an appointment with family PCP tomorrow, and understands that he is to keep this appointment. Pt also understands to increase his fluid intake. Medically stable for discharge. Medical Decision The patient is a 81 year old male who presents to the Emergency Room with complaints of having fallen in his home earlier today. He says he was walking around his home when he suddenly felt "woozy" and lightheaded, and then weak, and then fell to his knees, and then to the ground. He denies loss of consciousness or residual weakness or hitting his head. Denies any break in his skin, or bleeding. Says that he has felt somewhat ill the day before as well, and had three bouts of loose stool. Here in the ED pt had incontinence of bowel x1 while in bed. Pt states that after he fell, he was not strong enough to get back up, and stayed on the ground for at least an hour until EMS arrived. Apparently the son had tried to call the house phone, and he did not answer, and so he called EMS. Pt lives with his son, and has done so for over ten years. Pt was recently admitted for obs here at end of Jun after he presented for weakness and multiple falls in the home and was found to be flu +. Diff dx: diarrhea, orthostatic hypotension, viral illness, ROSI, weakness. Pt's labs remarkable for elev creatinine 2.04, and this is higher than his baseline 1.3-1.6. Pt's troponin also moderately elevated but this is lower than baseline 0.09-0.12, and pt does not report any anginal symptoms. Orthostatics are ++. Pt's ROSI likely 2/2 dehydration from decreased intake, loose stools. Pt was offered the option of staying overnight in the hospital to be observed but patient refused. Pt's family with him, and decided they could take him home, increase his fluid intake, and already has an appointment with PCP tomorrow morning that he will keep. Repeat PRP recommended at this visit to follow kidney function. Stress reaction of viral illness likely contributory to hyperglycemia (200). Recommend close follow up in outpatient setting. Medication Reconcilliation Current Medication List: was personally reviewed by me Blood Pressure Screening Patient's blood pressure: Low blood pressure Impression Primary Impression: Orthostatic hypertension Additional Impressions: Dehydration Diarrhea in adult patient Acute kidney injury Departure Information Dispostion Home / Self-Care Condition GOOD Referrals Umair Adkins M.D. (PCP) Patient Instructions [facility] Additional Instructions You were admitted due to a fall in your home. Your weakness and lightheadedness is found to be partially due to dehydration. Your kidney numbers show evidence of acute kidney injury. We gave you fluids here through your IV. We discussed with you the option of staying here for observation and more fluids. It is VERY important to maintain good fluid hydration at home. You should aim for at least 60 ounces of water intake per day. Also make sure to eat three square meals with lean meats and dark green veggies. You are likely suffering from a viral stomach bug which is giving you some loose stool. Please make sure to see your primary doctor in1-3 days. They will need to repeat a test to see how your kidney is doing. This is called a BMP test, and it is blood work. Please be careful when you are home, keep a cell phone in your pocket. Get up from lying to sitting slowly, wait a minute, and then get up slowly from sitting to standing. Resident Tracking Resident Involvement: Resident Care Provided Care Provided: Adult ED Problem Qualifiers
[2017-08-02 16:54] VITALS: BP 118/70; PULSE 98; O2SAT 96
--- NOTE | 2017-08-06 10:56 | EDITING REQUIRED CODING QUERY ---
CODING QUERY To promote full compliance with coding requirements relating to patient care, provider participation is requested in all cases of appellate law clerk uncertainty. Please assist us with the question(s) below: Coding Question(s): Primary Impression: Orthostatic Hypertension. Patient's blood pressure screening: Low blood pressure. Please clarify if Primary Impression should be Orthostatic Hypertension or Orthostatic Hypotension. Physician's Response(s): orthostatic hypotension Addendum made. Thank you Alpa Chester Principal Diagnosis: "_that condition established after study, to be chiefly responsible for occasioning the admission of the patient to the hospital for care." Co-Existing Principal Diagnosis: "_when two or more diagnoses equally meet the criteria for principal diagnosis as determined by the circumstances of admission, diagnostic work up, and/or therapy provided, and the Alphabetic Index, Tabular List, or another coding guideline does not provide sequencing direction, any one of the diagnoses may be sequenced first." "When the physician has documented what appears to be a current diagnosis in the body of the record, but has not included the diagnosis in the final diagnostic statement, the physician should be asked whether the diagnosis should be added." (Source Coding [facility] 2 QTR90. p3-4)
== END 2017-08-02 17:05 | disposition home or self-care (01) ==
LOC: EDBD 15:11 → C.EDB 15:12
DX: I95.1 Orthostatic hypotension (principal); E86.0 Dehydration; N17.9 Acute kidney failure, unspecified; R19.7 Diarrhea, unspecified; E11.65 Type 2 diabetes mellitus with hyperglycemia; Z79.84 Long term (current) use of oral hypoglycemic drugs; I10 Essential (primary) hypertension; M62.82 Rhabdomyolysis; Z83.3 Family history of diabetes mellitus; Z82.49 Family history of ischemic heart disease and other diseases of the circulatory system

== ENCOUNTER → 2017-08-11 | Outpatient (CLI) | payer OTHER ==
[~2017-08-11] MED LIST changes: -TMFUDL30 PO
[2017-08-11 13:07] LABS: BLOOD UREA NITROGEN 20 mg/dl (7-18); CARBON DIOXIDE 23 mmol/L (21-32); CREATININE 1.43 mg/dl (0.60-1.40); GLUCOSE 145 mg/dl (70-99); POTASSIUM 3.9 mmol/L (3.5-5.1); SODIUM 141 mmol/L (136-145)
== END | disposition home or self-care (01) ==
LOC: C.LABBFT 09:50
PROVIDERS: ATTEND Physician Assistant Medical
DX: N18.3 Chronic kidney disease, stage 3 (moderate) (principal)

== ENCOUNTER → 2017-09-10 | Outpatient (CLI) | payer OTHER ==
[2017-09-10 17:21] LABS: ALBUMIN 3.5 gm/dl (3.4-5.0); ALT/SGPT 25 U/L (12-78); AST/SGOT 17 U/L (15-37); BLOOD UREA NITROGEN 19 mg/dl (7-18); CALCIUM 8.8 mg/dl (8.5-10.1); CARBON DIOXIDE 24 mmol/L (21-32); CHOLESTEROL 112 mg/dl (0-200); CREATININE 1.46 mg/dl (0.60-1.40); GLUCOSE 128 mg/dl (70-99); POTASSIUM 4.1 mmol/L (3.5-5.1); SODIUM 139 mmol/L (136-145)
[2017-09-10 17:24] LABS: ALKALINE PHOSPHATASE 78 U/L (45-117); LDL CHOLESTEROL CALCULATED 45 mg/dl; TOTAL PROTEIN 6.8 gm/dl (6.4-8.2)
[2017-09-11 07:44] LABS: HEMOGLOBIN A1C 6.2 % (4.5-5.6)
== END | disposition home or self-care (01) ==
LOC: C.LABBFT 11:17
PROVIDERS: ATTEND Physician Assistant Medical
DX: E11.9 Type 2 diabetes mellitus without complications (principal)

== ENCOUNTER 2019-08-21 21:17 | Inpatient (IN) ==
[2019-08-21] MEDS ORDERED: ACETAMINOPHEN 500 MG TAB PO STA (21:29)
[2019-08-21 22:15] LABS: Appearance Urine Clear (Clear); Bilirubin Urine Negative (Negative); Blood Urine Negative (Negative); Color Urine Yellow; Glucose Urine UA Negative (Negative); Ketones Urine Trace (Negative); Leukocyte Esterase Urine Negative (Negative); Nitrite Urine Negative (Negative); Protein Urine Negative (Negative); Specific Gravity Urine 1.018 (1.000-1.030); Urobilinogen Urine Negative (Negative)
[2019-08-21 22:42] LABS: Basophils # (auto) 0.01 K/uL (0-0.2); Basophils % (auto) 0.1 %; Eosinophils # (auto) 0.02 K/uL (0-0.5); Eosinophils % (auto) 0.2 %; Hematocrit (blood only) 44.5 % (42-52); Hemoglobin 15.2 g/dL (14.0-18.0); Immature Granulocytes # (auto) 0.05 K/uL (0.00-0.02); Immature Granulocytes % (auto) 0.4 %; Lymphocytes # (auto) 0.69 K/uL (1.2-3.4); Lymphocytes % (auto) 5.2 %; Mean Corpuscular Hemoglobin 32.9 pg (25-34); Mean Corpuscular Hgb Conc 34.2 g/dL (32-36); Mean Corpuscular Volume 96.3 fL (80-100); Mean Platelet Volume 10.3 fL (7.4-10.4); Monocytes # (auto) 0.88 K/uL (0.11-0.59); Monocytes % (auto) 6.6 %; Neutrophils # (auto) 11.63 K/uL (1.4-6.5); Neutrophils % (auto) 87.5 %; Platelet Count 138 K/uL (130-400); RDW Coefficient of Variation 13.1 % (11.5-14.5); RDW Standard Deviation 45.1 fL (36.4-46.3); Red Blood Count 4.62 M/uL (4.7-6.1); White Blood Count 13.28 K/uL (4.8-10.8)
--- NOTE | 2019-08-21 22:47 | Emergency Department Note ---
History of Present Illness General Chief complaint: Weakness Stated complaint: WEAKNESS, FEVER Time Seen by Provider: 08/21/19 21:22 Source: patient Mode of arrival: EMS Limitations: no limitations History of Present Illness The patient is an 84-year-old male who presented to the emergency department for an evaluation of generalized weakness. The patient was noted to have a fever. He was not feeling well over the last 2 days. He denies having any chest pain but does complain of cough and fever. He complains of generalized weakness. He denies having any dysuria or frequency. He denies having any back pain or abdominal pain. He is had no nausea or vomiting. He has no sick contacts as far as he knows. He was not seen by his primary care physician for the symptoms. The patient states that he did not take any Motrin or Tylenol prior to arrival. He did not see his primary care physician for these complaints. Home Medications Home Medications Medication Instructions Recorded Confirmed Type glipizide 5 mg tablet 10 mg PO BID #360 tab 01/17/19 08/21/19 Rx simvastatin 20 mg tablet 20 mg PO HS #90 tab 01/30/19 08/21/19 Rx terazosin 5 mg capsule 5 mg PO HS #90 cap 02/23/19 08/21/19 Rx diclofenac sodium 4 gm TOP QID PRN 08/21/19 08/21/19 History aspirin 81 mg PO DAILY #30 tab 08/22/19 Rx doxycycline hyclate 100 mg PO BID 7 Days #14 cap 08/22/19 Rx nitroglycerin 0.4 mg SUBLINGUAL Q5M PRN #30 tab 08/22/19 Rx Allergies Allergy/AdvReac Type Severity Reaction Status Date / Time No Known Allergies Allergy Verified 08/21/19 22:07 Past Med/Surg History Medical History (Updated 08/22/19 @ 05:07 by Teofilo Paiz MD) Acute kidney injury superimposed on chronic kidney disease Bilateral knee pain (Chronic) BPH (benign prostatic hyperplasia) Controlled type 2 diabetes mellitus with chronic kidney disease Diabetes (Chronic) Gait disorder (Chronic) Hypercholesteremia (Chronic) Hypertension (Chronic) Influenza A (Inactive) Rhabdomyolysis Type 2 diabetes mellitus (Chronic) Social History Preferred Language: Sami Communication Ability: Effective 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 and A total of 10 systems reviewed and were otherwise negative Physical Exam Vital Signs Vital Signs - 24 hr 08/21/19 21:29 08/21/19 21:30 08/21/19 21:35 Temperature 38.1 C H Temperature Source Oral Pulse Rate 112 H 83 Pulse Rate [Right Finger] Pulse Rate from SpO2 Sensor Respiratory Rate 22 20 Respiratory Depth Blood Pressure 131/66 146/53 H Blood Pressure [Right Arm] Blood Pressure Mean 97 84 Blood Pressure Mean [Right Arm] Blood Pressure Position [Right Arm] Pulse Oximetry 93 Oxygen Delivery Method Room Air Room Air Sepsis Recent Fever Within 48 Hours Yes Sepsis New/Unexplained Change in Mental Status No Sepsis Action Taken by Nursing No Action Required 08/21/19 22:00 08/21/19 22:30 08/22/19 00:29 Temperature Temperature Source Pulse Rate 103 H 92 H Pulse Rate [Right Finger] 74 Pulse Rate from SpO2 Sensor 100 H 92 H Respiratory Rate 18 28 H 16 Respiratory Depth Normal Blood Pressure 132/65 116/69 Blood Pressure [Right Arm] 92/43 L Blood Pressure Mean 81 91 Blood Pressure Mean [Right Arm] 59 Blood Pressure Position [Right Arm] Lying Pulse Oximetry 95 92 94 Oxygen Delivery Method Room Air Room Air Room Air Sepsis Recent Fever Within 48 Hours Sepsis New/Unexplained Change in Mental Status Sepsis Action Taken by Nursing GENERAL: Patient is awake alert in no acute distress patient is resting comfortably and showing no signs of anxiety EYES: The conjunctivae are clear. The pupils are round and reactive. EARS, NOSE, MOUTH AND THROAT: The nose is without any evidence of any deformity. Mucous membranes are moist. Tongue is midline. NECK: The neck is nontender and supple. RESPIRATORY: Diminished breath sounds are noted at both bases. There were faint rales at the right base. There was mild tachypnea but no conversational dyspnea. CARDIOVASCULAR: Regular rate and rhythm noted there no murmurs rubs or gallops normal S1 normal S2. GASTROINTESTINAL: The abdomen is soft. Abdomen is nontender. MUSCULOSKELETAL/EXTREMITIES: There is no evidence of gross deformity full range of motion is noted in the hips and shoulders. SKIN: There is no obvious evidence of any rash. Pedal edema was noted bilaterally. NEUROLOGIC: Patient is awake alert and oriented x3. Course Course 2350: I discussed this case with Dr. Hilario. He is agreed to evaluate the patient in the emergency department for further management and disposition. Administered Medications Discontinued Medications Acetaminophen (Tylenol) 1,000 mg PO NOW [facility] Stop: 08/21/19 21:30 Last Admin: 08/21/19 22:00 Dose: 1,000 mg Documented by: [id number] Aspirin (Ecotrin Ectab) 81 mg PO QAM [facility] Stop: 09/21/19 08:59 Last Admin: 08/22/19 08:08 Dose: 81 mg Documented by: [id number] Heparin Sodium (Porcine) (Heparin Sodium (Porcine)) 5,000 units SQ Q12 [facility] Stop: 09/21/19 08:59 Last Admin: 08/22/19 08:15 Dose: 5,000 units Documented by: [id number] Cosigned by: [id number] Insulin Aspart (Novolog Flexpen) 0 units SC ACHS [facility] Stop: 09/21/19 07:29 Last Admin: 08/22/19 11:45 Dose: Not Given Documented by: [id number] Cosigned by: [id number] Admin: 08/22/19 08:15 Dose: Not Given Documented by: [id number] Cosigned by: [id number] Medical Decision Making Differential Diagnosis Viral syndrome, otitis, pharyngitis, pneumonia, influenza, meningitis, urinary tract infection, sepsis, bacteremia, as well as other pathologies. Medical Records Attestation: I reviewed the patient's medical records. Home Medications Current Medication List: was personally reviewed by me Laboratory Data Attestation: I reviewed the patient's lab results. Result diagrams: 08/22/19 05:30 08/22/19 05:30 Lab Results 08/21/19 08/21/19 08/21/19 Range/Units 21:50 21:50 22:28 WBC 13.28 H (4.8-10.8) K/uL RBC 4.62 L (4.7-6.1) M/uL Hgb 15.2 (14.0-18.0) g/dL Hct 44.5 (42-52) % MCV 96.3 (80-100) fL MCH 32.9 (25-34) pg MCHC 34.2 (32-36) g/dL RDW Std Deviation 45.1 (36.4-46.3) fL RDW Coeff of Glenn 13.1 (11.5-14.5) % Plt Count 138 (130-400) K/uL MPV 10.3 (7.4-10.4) fL Immature Gran % (Auto) 0.4 % Neut % (Auto) 87.5 % Lymph % (Auto) 5.2 % Meagher % (Auto) 6.6 % Eos % (Auto) 0.2 % Baso % (Auto) 0.1 % Immature Gran # (Auto) 0.05 H (0.00-0.02) K/uL Neut # (Auto) 11.63 H (1.4-6.5) K/uL Lymph # (Auto) 0.69 L (1.2-3.4) K/uL Meagher # (Auto) 0.88 H (0.11-0.59) K/uL Eos # (Auto) 0.02 (0-0.5) K/uL Baso # (Auto) 0.01 (0-0.2) K/uL ESR (0-14) mm/hr PT (9.0-12.0) Seconds INR (0.9-1.1) APTT (21.0-31.0) Seconds PTT Ratio Sodium (136-145) mmol/L Potassium (3.5-5.1) mmol/L Chloride (98-107) mmol/L Carbon Dioxide (21-32) mmol/L Anion Gap (3-11) BUN (7-18) mg/dl Creatinine (0.6-1.4) mg/dl Est Cr Clr Drug Dosing ml/min Est GFR ( Amer) Est GFR (Non-Af Amer) BUN/Creatinine Ratio (10-20) Glucose (70-99) mg/dl Estimat Average Glucose mg/dl Hemoglobin A1c (4.5-5.6) % Lactate (0.4-2.0) mmol/L Calcium (8.5-10.1) mg/dl Magnesium (1.8-2.4) mg/dl Total Bilirubin (0.2-1) mg/dl AST (15-37) U/L ALT (12-78) U/L Alkaline Phosphatase (45-117) U/L Troponin I (0-0.045) ng/ml C-Reactive Protein (0-0.29) mg/dl Total Protein (6.4-8.2) gm/dl Albumin (3.4-5.0) gm/dl Globulin (2.5-4.0) gm/dl Albumin/Globulin Ratio (0.9-2) Procalcitonin (0-0.5) ng/ml Urine Color Yellow Urine Appearance Clear (Clear) Urine pH 5.0 (4.5-7.5) Ur Specific [place] 1.018 (1.000-1.030) Urine Protein Negative (Negative) Urine Glucose (UA) Negative (Negative) Urine Ketones Trace H (Negative) Urine Blood Negative (Negative) Urine Nitrite Negative (Negative) Urine Bilirubin Negative (Negative) Urine Urobilinogen Negative (Negative) Ur Leukocyte Esterase Negative (Negative) Adenovirus (PCR) (NotDetected) B. pertussis DNA (PCR) (NotDetected) B.parapertussis DNA PCR (NotDetected) C. pneumoniae DNA (PCR) (NotDetected) Coronavirus OC43 (PCR) (NotDetected) Coronavirus HKU1 (PCR) (NotDetected) Coronavirus 229E (PCR) (NotDetected) Coronavirus NL63 (PCR) (NotDetected) Human Metapneumovir PCR (NotDetected) Influenza Type A (PCR) Neg for Influ A (Neg) Influenza Type B (PCR) Neg for Influ B (Neg) M. pneumoniae (PCR) (NotDetected) Parainfluenza 1 (PCR) (NotDetected) Parainfluenza 2 (PCR) (NotDetected) Parainfluenza 3 (PCR) (NotDetected) Parainfluenza 4 (PCR) (NotDetected) RSV (PCR) (NotDetected) Entero/Rhino (PCR) (NotDetected) 08/21/19 08/21/19 08/21/19 Range/Units 22:28 22:28 22:28 WBC (4.8-10.8) K/uL RBC (4.7-6.1) M/uL Hgb (14.0-18.0) g/dL Hct (42-52) % MCV (80-100) fL MCH (25-34) pg MCHC (32-36) g/dL RDW Std Deviation (36.4-46.3) fL RDW Coeff of Glenn (11.5-14.5) % Plt Count (130-400) K/uL MPV (7.4-10.4) fL Immature Gran % (Auto) % Neut % (Auto) % Lymph % (Auto) % Meagher % (Auto) % Eos % (Auto) % Baso % (Auto) % Immature Gran # (Auto) (0.00-0.02) K/uL Neut # (Auto) (1.4-6.5) K/uL Lymph # (Auto) (1.2-3.4) K/uL Meagher # (Auto) (0.11-0.59) K/uL Eos # (Auto) (0-0.5) K/uL Baso # (Auto) (0-0.2) K/uL ESR (0-14) mm/hr PT 11.8 (9.0-12.0) Seconds INR 1.1 (0.9-1.1) APTT 27.7 (21.0-31.0) Seconds PTT Ratio 1.0 Sodium 138 (136-145) mmol/L Potassium 4.1 (3.5-5.1) mmol/L Chloride 108 H (98-107) mmol/L Carbon Dioxide 21 (21-32) mmol/L Anion Gap 9.0 (3-11) BUN 27 H (7-18) mg/dl Creatinine 1.46 H (0.6-1.4) mg/dl Est Cr Clr Drug Dosing 36.2 ml/min Est GFR ( Amer) 50.1 Est GFR (Non-Af Amer) 43.2 BUN/Creatinine Ratio 18.6 (10-20) Glucose 132 H (70-99) mg/dl Estimat Average Glucose mg/dl Hemoglobin A1c (4.5-5.6) % Lactate 1.7 (0.4-2.0) mmol/L Calcium 8.5 (8.5-10.1) mg/dl Magnesium 2.1 (1.8-2.4) mg/dl Total Bilirubin 1.2 H (0.2-1) mg/dl AST 17 (15-37) U/L ALT 28 (12-78) U/L Alkaline Phosphatase 68 (45-117) U/L Troponin I 0.075 H* (0-0.045) ng/ml C-Reactive Protein 0.70 H (0-0.29) mg/dl Total Protein 6.3 L (6.4-8.2) gm/dl Albumin 3.6 (3.4-5.0) gm/dl Globulin 2.7 (2.5-4.0) gm/dl Albumin/Globulin Ratio 1.3 (0.9-2) Procalcitonin (0-0.5) ng/ml Urine Color Urine Appearance (Clear) Urine pH (4.5-7.5) Ur Specific [place] (1.000-1.030) Urine Protein (Negative) Urine Glucose (UA) (Negative) Urine Ketones (Negative) Urine Blood (Negative) Urine Nitrite (Negative) Urine Bilirubin (Negative) Urine Urobilinogen (Negative) Ur Leukocyte Esterase (Negative) Adenovirus (PCR) (NotDetected) B. pertussis DNA (PCR) (NotDetected) B.parapertussis DNA PCR (NotDetected) C. pneumoniae DNA (PCR) (NotDetected) Coronavirus OC43 (PCR) (NotDetected) Coronavirus HKU1 (PCR) (NotDetected) Coronavirus 229E (PCR) (NotDetected) Coronavirus NL63 (PCR) (NotDetected) Human Metapneumovir PCR (NotDetected) Influenza Type A (PCR) (Neg) Influenza Type B (PCR) (Neg) M. pneumoniae (PCR) (NotDetected) Parainfluenza 1 (PCR) (NotDetected) Parainfluenza 2 (PCR) (NotDetected) Parainfluenza 3 (PCR) (NotDetected) Parainfluenza 4 (PCR) (NotDetected) RSV (PCR) (NotDetected) Entero/Rhino (PCR) (NotDetected) 08/21/19 08/21/19 08/21/19 Range/Units 22:28 22:28 22:28 WBC (4.8-10.8) K/uL RBC (4.7-6.1) M/uL Hgb (14.0-18.0) g/dL Hct (42-52) % MCV (80-100) fL MCH (25-34) pg MCHC (32-36) g/dL RDW Std Deviation (36.4-46.3) fL RDW Coeff of Glenn (11.5-14.5) % Plt Count (130-400) K/uL MPV (7.4-10.4) fL Immature Gran % (Auto) % Neut % (Auto) % Lymph % (Auto) % Meagher % (Auto) % Eos % (Auto) % Baso % (Auto) % Immature Gran # (Auto) (0.00-0.02) K/uL Neut # (Auto) (1.4-6.5) K/uL Lymph # (Auto) (1.2-3.4) K/uL Meagher # (Auto) (0.11-0.59) K/uL Eos # (Auto) (0-0.5) K/uL Baso # (Auto) (0-0.2) K/uL ESR 10 (0-14) mm/hr PT (9.0-12.0) Seconds INR (0.9-1.1) APTT (21.0-31.0) Seconds PTT Ratio Sodium (136-145) mmol/L Potassium (3.5-5.1) mmol/L Chloride (98-107) mmol/L Carbon Dioxide (21-32) mmol/L Anion Gap (3-11) BUN (7-18) mg/dl Creatinine (0.6-1.4) mg/dl Est Cr Clr Drug Dosing ml/min Est GFR ( Amer) Est GFR (Non-Af Amer) BUN/Creatinine Ratio (10-20) Glucose (70-99) mg/dl Estimat Average Glucose 143 mg/dl Hemoglobin A1c 6.6 H (4.5-5.6) % Lactate (0.4-2.0) mmol/L Calcium (8.5-10.1) mg/dl Magnesium (1.8-2.4) mg/dl Total Bilirubin (0.2-1) mg/dl AST (15-37) U/L ALT (12-78) U/L Alkaline Phosphatase (45-117) U/L Troponin I (0-0.045) ng/ml C-Reactive Protein (0-0.29) mg/dl Total Protein (6.4-8.2) gm/dl Albumin (3.4-5.0) gm/dl Globulin (2.5-4.0) gm/dl Albumin/Globulin Ratio (0.9-2) Procalcitonin 0.14 (0-0.5) ng/ml Urine Color Urine Appearance (Clear) Urine pH (4.5-7.5) Ur Specific [place] (1.000-1.030) Urine Protein (Negative) Urine Glucose (UA) (Negative) Urine Ketones (Negative) Urine Blood (Negative) Urine Nitrite (Negative) Urine Bilirubin (Negative) Urine Urobilinogen (Negative) Ur Leukocyte Esterase (Negative) Adenovirus (PCR) (NotDetected) B. pertussis DNA (PCR) (NotDetected) B.parapertussis DNA PCR (NotDetected) C. pneumoniae DNA (PCR) (NotDetected) Coronavirus OC43 (PCR) (NotDetected) Coronavirus HKU1 (PCR) (NotDetected) Coronavirus 229E (PCR) (NotDetected) Coronavirus NL63 (PCR) (NotDetected) Human Metapneumovir PCR (NotDetected) Influenza Type A (PCR) (Neg) Influenza Type B (PCR) (Neg) M. pneumoniae (PCR) (NotDetected) Parainfluenza 1 (PCR) (NotDetected) Parainfluenza 2 (PCR) (NotDetected) Parainfluenza 3 (PCR) (NotDetected) Parainfluenza 4 (PCR) (NotDetected) RSV (PCR) (NotDetected) Entero/Rhino (PCR) (NotDetected) 08/22/19 Range/Units 00:53 WBC (4.8-10.8) K/uL RBC (4.7-6.1) M/uL Hgb (14.0-18.0) g/dL Hct (42-52) % MCV (80-100) fL MCH (25-34) pg MCHC (32-36) g/dL RDW Std Deviation (36.4-46.3) fL RDW Coeff of Glenn (11.5-14.5) % Plt Count (130-400) K/uL MPV (7.4-10.4) fL Immature Gran % (Auto) % Neut % (Auto) % Lymph % (Auto) % Meagher % (Auto) % Eos % (Auto) % Baso % (Auto) % Immature Gran # (Auto) (0.00-0.02) K/uL Neut # (Auto) (1.4-6.5) K/uL Lymph # (Auto) (1.2-3.4) K/uL Meagher # (Auto) (0.11-0.59) K/uL Eos # (Auto) (0-0.5) K/uL Baso # (Auto) (0-0.2) K/uL ESR (0-14) mm/hr PT (9.0-12.0) Seconds INR (0.9-1.1) APTT (21.0-31.0) Seconds PTT Ratio Sodium (136-145) mmol/L Potassium (3.5-5.1) mmol/L Chloride (98-107) mmol/L Carbon Dioxide (21-32) mmol/L Anion Gap (3-11) BUN (7-18) mg/dl Creatinine (0.6-1.4) mg/dl Est Cr Clr Drug Dosing ml/min Est GFR ( Amer) Est GFR (Non-Af Amer) BUN/Creatinine Ratio (10-20) Glucose (70-99) mg/dl Estimat Average Glucose mg/dl Hemoglobin A1c (4.5-5.6) % Lactate (0.4-2.0) mmol/L Calcium (8.5-10.1) mg/dl Magnesium (1.8-2.4) mg/dl Total Bilirubin (0.2-1) mg/dl AST (15-37) U/L ALT (12-78) U/L Alkaline Phosphatase (45-117) U/L Troponin I (0-0.045) ng/ml C-Reactive Protein (0-0.29) mg/dl Total Protein (6.4-8.2) gm/dl Albumin (3.4-5.0) gm/dl Globulin (2.5-4.0) gm/dl Albumin/Globulin Ratio (0.9-2) Procalcitonin (0-0.5) ng/ml Urine Color Urine Appearance (Clear) Urine pH (4.5-7.5) Ur Specific [place] (1.000-1.030) Urine Protein (Negative) Urine Glucose (UA) (Negative) Urine Ketones (Negative) Urine Blood (Negative) Urine Nitrite (Negative) Urine Bilirubin (Negative) Urine Urobilinogen (Negative) Ur Leukocyte Esterase (Negative) Adenovirus (PCR) Not Detected (NotDetected) B. pertussis DNA (PCR) Not Detected (NotDetected) B.parapertussis DNA PCR Not Detected (NotDetected) C. pneumoniae DNA (PCR) Not Detected (NotDetected) Coronavirus OC43 (PCR) Not Detected (NotDetected) Coronavirus HKU1 (PCR) Not Detected (NotDetected) Coronavirus 229E (PCR) Not Detected (NotDetected) Coronavirus NL63 (PCR) Not Detected (NotDetected) Human Metapneumovir PCR Not Detected (NotDetected) Influenza Type A (PCR) Not Detected (Neg) Influenza Type B (PCR) Not Detected (Neg) M. pneumoniae (PCR) Not Detected (NotDetected) Parainfluenza 1 (PCR) Not Detected (NotDetected) Parainfluenza 2 (PCR) Not Detected (NotDetected) Parainfluenza 3 (PCR) Not Detected (NotDetected) Parainfluenza 4 (PCR) Not Detected (NotDetected) RSV (PCR) Not Detected (NotDetected) Entero/Rhino (PCR) Not Detected (NotDetected) Imaging Data Radiologist's Impression: XR chest 1V portable CLINICAL HISTORY: SEPSIS dyspnea COMPARISON STUDY: 06/22/2017 FINDINGS: Minimal chronic bibasilar atelectatic/interstitial change. No evidence for an acute or superimposed infiltrate. Pulmonary apices are clear. Diaphragms are smooth. IMPRESSION: Chronic basilar change. No acute process. ACT 112: Negative or not required by law. The above report was generated using voice recognition software. It may contain grammatical, syntax or spelling errors. Electronically signed by: Cristóbal Cruz M.D. 08/21/2019 10:55 PM Dictated: [id number] Transcribed: [id number]/[id number] ECG Data Attestation: I personally reviewed and interpreted this ECG as follows: Indication: + weakness Rate (beats per minute): 96 Additional Comments: EKG was obtained in the emergency department. My interpretation is normal sinus rhythm at 96 bpm. LVH was noted by voltage criteria. Diffuse T wave abnormalities were noted. There were no PVCs. There is no significant change compared to a tracing from August 02, 2017. Blood Pressure Blood Pressure Findings: Normal blood pressure MDM Narrative The patient is an 84-year-old male who presented to the emergency department for an evaluation of generalized weakness. The patient was found to have a fever. He states his symptoms began approximately 24 hours ago. The patient denies any specific exposures. He has had no recent traveling. The patient has been complaining of a cough. He denies any dysuria or frequency. He does have an abnormal EKG with a mild elevation in troponin but his EKG shows no change from previous in a review of the patient's previous electronic medical records does show an abnormal troponin in the past. I discussed the patient's laboratory and radiographic studies with him. Given his laboratory findings I also discussed his case with the on-call [facility] hospitalist. They have agreed to evaluate the patient in the emergency department for further management and disposition. I discussed the patient's condition with his son Yane on the phone. He is aware that he has to continue to monitor any close contacts for fever or other symptoms consistent with coronavirus infection. Impression & Plan Weakness, Fever, Elevated troponin I level Discharge Plan Visit Data *Final* Discharge Date/Time: 08/22/19 01:56 Chief Complaint: Weakness Stated Complaint: WEAKNESS, FEVER ED Provider: Lorne Moe Discharge Problem: Weakness, Fever, Elevated troponin I level Patient Disposition: Admitted As Inpatient Condition: Good Discharge Instructions Interventions: ED Discharge Assessment Last Done: 08/22/19 01:56 Discharge Problem: Fever Qualifiers: Fever type: unspecified Qualified Code(s): R50.9 - Fever, unspecified
[2019-08-21 22:56] LABS: INR 1.1 (0.9-1.1); Partial Thromboplastin Time 27.7 Seconds (21.0-31.0); Prothrombin Time 11.8 Seconds (9.0-12.0)
--- NOTE | 2019-08-21 22:57 | XRay Report ---
XR chest 1V portable CLINICAL HISTORY: SEPSIS dyspnea COMPARISON STUDY: 06/22/2017 FINDINGS: Minimal chronic bibasilar atelectatic/interstitial change. No evidence for an acute or supe rimposed infiltrate. Pulmonary apices are clear. Diaphragms are smooth. IMPRESSION: Chronic basilar change. No acute process. ACT 112: Negative or not required by law. The above report was generated using voice recognition software. It may contain grammatical, syntax or spelling errors. Electronically signed by: Cristóbal Cruz M.D. 08/21/2019 10:55 PM
[2019-08-21 22:59] LABS: Albumin Level 3.6 gm/dl (3.4-5.0); Calcium 8.5 mg/dl (8.5-10.1); Magnesium 2.1 mg/dl (1.8-2.4); Potassium 4.1 mmol/L (3.5-5.1)
[2019-08-21 23:00] LABS: BUN Creatinine Ratio 18.6 (10-20); Creatinine Clr Calc Pharmacy 36.2 ml/min; Est GFR (African American) 50.1; Est GFR (Non-African American) 43.2
[2019-08-21 23:08] LABS: Albumin Globulin Ratio 1.3 (0.9-2); Bilirubin,Total 1.2 mg/dl (0.2-1); C Reactive Protein 0.7 mg/dl (0-0.29); Globulin 2.7 gm/dl (2.5-4.0); Total Protein 6.3 gm/dl (6.4-8.2); Troponin I 0.075 ng/ml (0-0.045)
[2019-08-21 23:13] LABS: Influenza A virus by PCR Neg for Influ A (Neg); Influenza B virus by PCR Neg for Influ B (Neg)
--- NOTE | 2019-08-22 01:13 | History & Physical Report ---
Date of Service August 22, 2019 Assessment & Plan (1) Elevated troponin I level: Troponin level 0.075 upon admission. Patient with febrile illness, and elevated creatinine, with signs of dehydration. The patient will be admitted to telemetry for serial cardiac enzymes, serial EKG's, cardiac rhythm monitoring and a 2-D echocardiogram with Dopplers. Consult cardiology Present on Admission?: Yes (2) Weakness: Generalized weakness with fever, cough and neutrophilic leukocytosis. No other signs of infection such as associated with BPH/UTI. Influenza a and B-. Biofire negative. We will admit to negative pressure room, to be decided by pulmonology in a.m. if COVID testing acute versus subacute will be ordered. Patient is hard of hearing, which also makes HPI/review of systems more difficult to interpret. Present on Admission?: Yes (3) Fever: See above Present on Admission?: Yes (4) Neutrophilic leukocytosis: See above Present on Admission?: Yes (5) Type 2 diabetes mellitus: Hold glipizide 10 mg p.o. twice daily. Placed on Accu-Cheks before meals and at bedtime with NovoLog coverage for scale Check hemoglobin A1c Present on Admission?: Yes (6) Acute kidney injury superimposed on chronic kidney disease: Creatinine 1.46 upon admission, with range 1.18-2.04. Gentle rehydration with normal saline, and reassess in the a.m. Present on Admission?: Yes (7) Hypercholesteremia: Continue simvastatin 20 mg at bedtime Present on Admission?: Yes (8) BPH (benign prostatic hyperplasia): Continue terazosin 5 mg at bedtime. No complaint of urinary dysfunction, and urinalysis is negative. Prostatitis can still be considered in the differential as a cause of his febrile illness. Present on Admission?: Yes Admission and Anticipated Discharge Date Admission Date: 08/22/2019 Anticipated date of discharge: 08/24/19 History of Present Illness Chief Complaint: The patient presents to the emergency department via EMS due to family concerns regarding generalized weakness, cough and fever over the past 2 days. Primary Care Provider: Umair Adkins MD The patient is an 84-year-old male with a past medical history including dialysis, hypertension, diabetes mellitus, bilateral knee pain, gait disorder, diabetes mellitus type 2, hypercholesterolemia and BPH. He presents with 2 days of generalized weakness and cough, and was found to have a temperature when checked by family at home today. He denies any recent travels or sick exposures. His son did call the answering service, and was advised to come to the emergency department if he developed any worsening symptoms. Allergies Allergy/AdvReac Type Severity Reaction Status Date / Time No Known Allergies Allergy Verified 08/21/19 22:07 Home Medications Home Medications Medication Instructions Recorded Confirmed Type glipizide 5 mg tablet 10 mg PO BID #360 tab 01/17/19 08/21/19 Rx simvastatin 20 mg tablet 20 mg PO HS #90 tab 01/30/19 08/21/19 Rx terazosin 5 mg capsule 5 mg PO HS #90 cap 02/23/19 08/21/19 Rx diclofenac sodium 4 gm TOP QID PRN 08/21/19 08/21/19 History Past Med/Surg History Social History Preferred Language: Slovenian Communication Ability: Effective Judge'S Clerk Required: No Beliefs That Will Affect Care: None marital status: / Current Living Situation: Family Other Information That Helps Us Care for You: Yes Feels Safe at Home: Yes Smoking Status: Never smoker Do You Dip or Chew Tobacco: No ; Second Hand Exposure: No ; Tobacco Cessation Education Requested by Patient: No Hx Alcohol Use: No Hx Substance Use: No Sunscreen Use: No Review of Systems Review of Systems: The patient denies chest pain, palpitations, lower extremity swelling, sore throat, chills, sweats, nausea, vomiting, diarrhea , constipation, abdominal pain, pelvic pain, blood in urine or stool, dysuria, urinary frequency or urgency, lightheadedness, dizziness, headache, loss of consciousness, rash, abnormal bruising or bleeding, imbalance, focal weakness, numbness or tingling in arms or legs, neck pain, or night sweats. The review of systems is otherwise negative other than for that already noted above, and at least 10 systems have been reviewed. Physical Exam Physical Exam: The patient is awake, alert and oriented 3, well developed and well nourished, normocephalic and atraumatic, lying in bed and in no acute distress. Hard of hearing HEENT--PERRL, EOMI, mucous membranes and oropharynx normal. Neck--supple. No JVD. No bruits. Thyroid normal, trachea midline, no adenopathy. Heart--normal S1 and S2. No murmurs, rubs or gallops. Lungs--clear bilaterally but diminished throughout. no respiratory distress, no accessory muscle use. Abdomen--normal bowel sounds and soft. Nontender. Nondistended. Extremities--no cyanosis or clubbing. No edema. Dermatologic--normal skin turgor, normal color, no abnormal lymph nodes, no rash. Neurologic--cranial nerves II through XII grossly intact. Rheumatologic--normal range of motion. Psychiatric--normal affect. Results & Data Results & Data ([facility]) Vital Signs (Past 12 Hours) Vital Signs Temp Pulse Pulse Resp BP BP Pulse Ox 08/22/19 00:29 74 16 92/43 L 94 08/21/19 22:30 92 H 28 H 116/69 92 08/21/19 22:00 103 H 18 132/65 95 08/21/19 21:35 100.6 F H 83 20 146/53 H 93 08/21/19 21:30 112 H 22 131/66 Laboratory Results Laboratory Results WBC 13.28 K/uL (4.8-10.8) H 08/21/19 22: RBC 4.62 M/uL (4.7-6.1) L 08/21/19: Hgb 15.2 g/dL (14.0-18.0) 08/21/19 22: Hct 44.5 % (42-52) 08/21/19: MCV 96.3 fL (80-100) 08/21/19: MCH 32.9 pg (25-34) 08/21/19: MCHC 34.2 g/dL (32-36) 08/21/19: RDW Std Deviation 45.1 fL (36.4-46.3) 08/21/19: RDW Coeff of Glenn 13.1 % (11.5-14.5) 08/21/19: Plt Count 138 K/uL (130-400) 08/21/19: MPV 10.3 fL (7.4-10.4) 08/21/19: Immature Gran % (Auto) 0.4 % 08/21/19: Neut % (Auto) 87.5 % 08/21/19: Lymph % (Auto) 5.2 % 08/21/19: [place] % (Auto) 6.6 % 08/21/19: Eos % (Auto) 0.2 % 08/21/19: Baso % (Auto) 0.1 % 08/21/19: Immature Gran # (Auto) 0.05 K/uL (0.00-0.02) H 08/21/19: Neut # (Auto) 11.63 K/uL (1.4-6.5) H 08/21/19: Lymph # (Auto) 0.69 K/uL (1.2-3.4) L 08/21/19: [place] # (Auto) 0.88 K/uL (0.11-0.59) H 08/21/19: Eos # (Auto) 0.02 K/uL (0-0.5) 08/21/19: Baso # (Auto) 0.01 K/uL (0-0.2) 08/21/19: ESR 10 mm/hr (0-14) 08/21/19: PT 11.8 Seconds (9.0-12.0) 08/21/19: INR 1.1 (0.9-1.1) 08/21/19: APTT 27.7 Seconds (21.0-31.0) 08/21/19: PTT Ratio 1.0 08/21/19: Sodium 138 mmol/L (136-145) 08/21/19: Potassium 4.1 mmol/L (3.5-5.1) 08/21/19: Chloride 108 mmol/L (98-107) H 08/21/19: Carbon Dioxide 21 mmol/L (21-32) 08/21/19 Anion Gap 9.0 (3-11) 08/21/19: BUN 27 mg/dl (7-18) H 08/21/19: Creatinine 1.46 mg/dl (0.6-1.4) H 08/21/19 Est Cr Clr Drug Dosing 36.2 ml/min 08/21/19 22:28 Est GFR ( Amer) 50.1 08/21/19 22:28 Est GFR (Non-Af Amer) 43.2 08/21/19 22:28 BUN/Creatinine Ratio 18.6 (10-20) 08/21/19 22:28 Glucose 132 mg/dl (70-99) H 08/21/19 22:28 Lactate 1.7 mmol/L (0.4-2.0) 08/21/19 22: Calcium 8.5 mg/dl (8.5-10.1) 08/21/19 22: Magnesium 2.1 mg/dl (1.8-2.4) 08/21/19: Total Bilirubin 1.2 mg/dl (0.2-1) H 08/21/19 22:28 AST 17 U/L (15-37) 08/21/19 22: ALT 28 U/L (12-78) 08/21/19 22: Alkaline Phosphatase 68 U/L (45-117) 08/21/19 22:28 Troponin I 0.075 ng/ml (0-0.045) H* 08/21/19 22:28 C-Reactive Protein 0.70 mg/dl (0-0.29) H 08/21/19 22:28 Total Protein 6.3 gm/dl (6.4-8.2) L 08/21/19 22:28 Albumin 3.6 gm/dl (3.4-5.0) 08/21/19: Globulin 2.7 gm/dl (2.5-4.0) 08/21/19 22: Albumin/Globulin Ratio 1.3 (0.9-2) 08/21/19 22: Procalcitonin 0.14 ng/ml (0-0.5) 08/21/19 22:28 Urine Color Yellow 08/21/19 21:50 Urine Appearance Clear (Clear) 08/21/19 21:50 Urine pH 5.0 (4.5-7.5) 08/21/19 21:50 Ur Specific [place] 1.018 (1.000-1.030) 08/21/19 21:50 Urine Protein Negative (Negative) 08/21/19 21:50 Urine Glucose (UA) Negative (Negative) 08/21/19 21:50 Urine Ketones Trace (Negative) H 08/21/19 21:50 Urine Blood Negative (Negative) 08/21/19 21:50 Urine Nitrite Negative (Negative) 08/21/19 21:50 Urine Bilirubin Negative (Negative) 08/21/19 21:50 Urine Urobilinogen Negative (Negative) 08/21/19 21:50 Ur Leukocyte Esterase Negative (Negative) 08/21/19 21:50 Adenovirus (PCR) Not Detected (NotDetected) 08/22/19 00:53 B. pertussis DNA (PCR) Not Detected (NotDetected) 08/22/19 00:53 B.parapertussis DNA PCR Not Detected (NotDetected) 08/22/19 00:53 C. pneumoniae DNA (PCR) Not Detected (NotDetected) 08/22/19 00:53 Coronavirus OC43 (PCR) Not Detected (NotDetected) 08/22/19 00:53 Coronavirus HKU1 (PCR) Not Detected (NotDetected) 08/22/19 00:53 Coronavirus 229E (PCR) Not Detected (NotDetected) 08/22/19 00:53 Coronavirus NL63 (PCR) Not Detected (NotDetected) 08/22/19 00:53 Human Metapneumovir PCR Not Detected (NotDetected) 08/22/19 00:53 Influenza Type A (PCR) Not Detected (NotDetected) 08/22/19 00:53 Influenza Type B (PCR) Not Detected (NotDetected) 08/22/19 00:53 M. pneumoniae (PCR) Not Detected (NotDetected) 08/22/19 00:53 Parainfluenza 1 (PCR) Not Detected (NotDetected) 08/22/19 00:53 Parainfluenza 2 (PCR) Not Detected (NotDetected) 08/22/19 00:53 Parainfluenza 3 (PCR) Not Detected (NotDetected) 08/22/19 00:53 Parainfluenza 4 (PCR) Not Detected (NotDetected) 08/22/19 00:53 RSV (PCR) Not Detected (NotDetected) 08/22/19 00:53 Entero/Rhino (PCR) Not Detected (NotDetected) 08/22/19 00:53 [phone] Report Patient: JOSS ROMERO Date: 08/21/19 MR#: [id number]: [id number] Acct ID:[id number]: [facility] [place] [place] [id number] Age: 84Location: ED Sex: M Room/Bed: Att Phy:Diagnosis: WEAKNESS, FEVER Brit Phy: Umair Adkins, III, MDService Date: 08/21/19 Fam Phy:Interpreting Phy: Cristóbal Cruz MD Admit Phy: Ordering Phy: Lorne Moe DO cc: ~ XR chest 1V portable CLINICAL HISTORY: SEPSIS dyspnea COMPARISON STUDY: 06/22/2017 FINDINGS: Minimal chronic bibasilar atelectatic/interstitial change. No evidence for an acute or superimposed infiltrate. Pulmonary apices are clear. Diaphragms are smooth. IMPRESSION: Chronic basilar change. No acute process. ACT 112: Negative or not required by law. The above report was generated using voice recognition software. It may contain grammatical, syntax or spelling errors. Electronically signed by: Cristóbal Cruz M.D. 08/21/2019 10:55 PM Dictated: [id number]/[id number] Transcribed: 08/21/192253 Code Status & VTE Plan Code Status Full code VTE Prophylaxis Plan VTE Prophylaxis will be ordered: Yes PG Care Time/CCT Total # of Minutes Spent Total Time Spent with Patient: Total time spent is greater than 50% in coordination of care (as documented) at patient's floor/unit and/or counseling patient: Coding Level of Care Code 17876 Initial Inpt Care Lvl 3 Diagnoses Elevated troponin I level R79.89 Weakness R53.1 Fever R50.9 Fever type: unspecified Neutrophilic leukocytosis D72.9 Type 2 diabetes mellitus E11.9 Acute kidney injury superimposed on chronic kidney disease N17.9; N18.9 Hypercholesteremia E78.00 BPH (benign prostatic hyperplasia) N40.0 (1) Fever Fever type: unspecified Qualified Code(s): R50.9 - Fever, unspecified
[2019-08-22 02:08] LABS: Adenovirus PCR Not Detected (NotDetected); Bordetella parapertussis PCR Not Detected (NotDetected); Bordetella pertussis PCR Not Detected (NotDetected); Chlamydia pneumoniae PCR Not Detected (NotDetected); Coronavirus 229E PCR Not Detected (NotDetected); Coronavirus HKU1 PCR Not Detected (NotDetected); Coronavirus NL63 PCR Not Detected (NotDetected); Coronavirus OC43PCR Not Detected (NotDetected); Human Metapneumovirus PCR Not Detected (NotDetected); Influenza A PCR Not Detected (NotDetected); Influenza B PCR Not Detected (NotDetected); Mycoplasma pneumoniae PCR Not Detected (NotDetected); Parainfluenza Virus 1 PCR Not Detected (NotDetected); Parainfluenza Virus 2 PCR Not Detected (NotDetected); Parainfluenza Virus 3 PCR Not Detected (NotDetected); Parainfluenza Virus 4 PCR Not Detected (NotDetected); Respiratory Syncytial VirusPCR Not Detected (NotDetected); Rhinovirus/Enterovirus PCR Not Detected (NotDetected)
[2019-08-22] MEDS ORDERED: DEXTROSE 50% 50 ML SYRINGE IV PRN (02:35)
[2019-08-22] MEDS ORDERED: GLUCOSE 40% GEL 15 GM TUBE PO PRN (02:35)
[2019-08-22] MEDS ORDERED: ONDANSETRON INJ 2 MG/ML 2 ML VIAL IV PRN (02:35)
[2019-08-22] MEDS ORDERED: ACETAMINOPHEN 325 MG TAB PO PRN (02:35)
[2019-08-22] MEDS ORDERED: GLUCAGON FOR INJ 1 MG VIAL SQ PRN (02:35)
[2019-08-22] MEDS ORDERED: CARBOHYDRATES FOR HYPOGLYCEMIA PO PRN (02:35)
[2019-08-22] MEDS ORDERED: GLUCOSE 10 TABS/TUBE PO PRN (02:35)
[2019-08-22] MEDS ORDERED: MAGNESIUM HYDROXIDE SUSP 30 ML UDC PO PRN (02:35)
[2019-08-22] MEDS ORDERED: ALUMINUM/MAGNESIUM SUSP 30 ML UDC PO PRN (02:35)
[2019-08-22 05:55] LABS: Basophils # (auto) 0.01 K/uL (0-0.2); Basophils % (auto) 0.1 %; Eosinophils % (auto) 0.8 %; Hematocrit (blood only) 42.7 % (42-52); Hemoglobin 14.4 g/dL (14.0-18.0); Immature Granulocytes # (auto) 0.02 K/uL (0.00-0.02); Immature Granulocytes % (auto) 0.2 %; Lymphocytes # (auto) 2.07 K/uL (1.2-3.4); Lymphocytes % (auto) 16.1 %; Mean Corpuscular Hemoglobin 32.7 pg (25-34); Mean Corpuscular Hgb Conc 33.7 g/dL (32-36); Mean Corpuscular Volume 96.8 fL (80-100); Mean Platelet Volume 10.2 fL (7.4-10.4); Monocytes # (auto) 0.94 K/uL (0.11-0.59); Monocytes % (auto) 7.3 %; Neutrophils # (auto) 9.72 K/uL (1.4-6.5); Neutrophils % (auto) 75.5 %; Platelet Count 122 K/uL (130-400); RDW Coefficient of Variation 13.1 % (11.5-14.5); RDW Standard Deviation 46.3 fL (36.4-46.3); Red Blood Count 4.41 M/uL (4.7-6.1); White Blood Count 12.86 K/uL (4.8-10.8)
[2019-08-22 06:01] LABS: Estimated Average Glucose 143 mg/dl; Hemoglobin A1C 6.6 % (4.5-5.6)
[2019-08-22 06:06] LABS: INR 1.1 (0.9-1.1); Prothrombin Time 11.9 Seconds (9.0-12.0)
[2019-08-22 06:23] LABS: Albumin Level 3.1 gm/dl (3.4-5.0); BUN Creatinine Ratio 17.8 (10-20); Calcium 8.3 mg/dl (8.5-10.1); Creatinine Clr Calc Pharmacy 36.1 ml/min; Est GFR (African American) 52.7; Est GFR (Non-African American) 45.5; Potassium 4.5 mmol/L (3.5-5.1)
[2019-08-22 06:26] LABS: Albumin Globulin Ratio 1.1 (0.9-2); Bilirubin,Total 1.4 mg/dl (0.2-1); Globulin 2.9 gm/dl (2.5-4.0)
[2019-08-22] MEDS: INSULIN ASPART 100 UNITS/ML 3 ML PEN SC SCH ×2 (08:15→11:45)
[2019-08-22] MEDS ORDERED: HEPARIN SOD 5,000 UNIT/0.5 ML VIAL SQ SCH (09:00)
[2019-08-22] MEDS ORDERED: ASPIRIN 81 MG ECTAB PO SCH (09:00)
--- NOTE | 2019-08-22 15:58 | Electrocardiogram Report ---
Test Reason : Blood Pressure : / mmHG Vent. Rate : 096 BPM Atrial Rate : 096 BPM P-R Int : 192 ms QRS Dur : 116 ms QT Int : 384 ms P-R-T Axes : 047 -47 098 degrees QTc Int : 485 ms Normal sinus rhythm Left anterior fascicular block Right bundle branch block Left ventricular hypertrophy with repolarization abnormality T wave abnormality, consider lateral ischemia Cannot rule out Septal infarct (cited on or before 02-AUG-2017) Abnormal ECG When compared with ECG of 02-AUG-2017 15:41, Questionable change in initial forces of Septal leads T wave inversion now evident in Lateral leads Confirmed by Gen Wesley ([id number]) on 08/22/2019 3:58:11 PM Referred By: REFERRED SELF Confirmed By:Gen Wesley
--- NOTE | 2019-08-22 16:34 | Discharge Summary ---
Date of Service August 22, 2019 Admission HPI Per Admitting Provider The patient is an 84-year-old male with a past medical history including dialysis, hypertension, diabetes mellitus, bilateral knee pain, gait disorder, diabetes mellitus type 2, hypercholesterolemia and BPH. He presents with 2 days of generalized weakness and cough, and was found to have a temperature when checked by family at home today. He denies any recent travels or sick exposures. His son did call the answering service, and was advised to come to the emergency department if he developed any worsening symptoms. Principal Diagnosis infectious process, mild demand ischemia - see "hospital course" Discharge Exam gen [facility] [place] at mmm breathing unlabored no accessory muscles good effort skin no rashes no pallor or icterus neuro no focal deficits skin no rashes no pallor or icterus Discharge Data Allergies Allergy/AdvReac Type Severity Reaction Status Date / Time No Known Allergies Allergy Verified 08/21/19 22:07 Consultations 08/21/19 23:47 ED Decision to Admit Stat 08/22/19 02:35 Consult Cardiology Routine Consult Case Management - Discharge Planning Routine 08/22/19 05:11 Consult Cardiology Routine Hospital Course (1) Fever: febrile illness nonspecific -flu neg, biofire negative --> d/w night coverage and covid was ordered (determination was in[facility]house vs [facility]) --> later personally d/w infection control who noted the same - that his sample was in the lab pending disposition on where to run. safe to go home with covid pending - d/w pt and son both verbally and in writing isolation precautions until test returns. clinically speaking, i am more suspicious of a bronchitis type process (fever, cough, but sl elevation in WBC, no elevation in LFT, no hypoxia, and actually through the day not much of any cough) --> given age and enough illness to cause some demand ischemia - treat for atypicals w doxycycline -again now afebrile, breathing well, able to get around in room - appearing safe to go home - but covid pending as above (2) Neutrophilic leukocytosis: See above (3) Elevated troponin I level: d/w cardiology - w covid status pending and no [place] will hold on formal consult and echo given that nominal trop and no classic angina makes need for im mediate intervention null -started asa, nitro prn - instructed on use -consider beta angelique but wtih recent weakness + age did not want to make too many med changes at once, especially since troponin elevation was nominal and sx more c/w febrile illness than angina -consider change of simvastatin to atorvastatin but will defer to outpt in this regard given age and already making med changes w asa/doxy right now (4) Weakness: Generalized weakness with fever, cough and neutrophilic leukocytosis. -see above otherwise. but feels much better/feels stronger/feels good to go home (5) Type 2 diabetes mellitus: stable for home, A1c 6.6 - can consider dc glipizide but will defer to PCP (6) Acute kidney injury superimposed on chronic kidney disease: creatinine around baseline (7) Hypercholesteremia: Continue simvastatin for now - as above noted may end up changing to atorvastatin as outpt (8) BPH (benign prostatic hyperplasia): terazosin Total Time Total Time Spent Total Time Spent (In Minutes): >30 Discharge Plan Discharge Items Patient Disposition: Home - Self-Care Reason For Visit: STEMI, FEBRILE ILLNESS Discharge Diagnosis: febrile illness (see below for more details) Condition on Discharge: Good Activity: Resume your previous activity Non-emergency contact: Primary Care Provider and Head Swamper Call non-emergency contact if: you have any medication questions Follow-up/Referrals: Umair Adkins III, MD [Primary Care Provider] - Diet: Regular Addtl Attending Provider Instructions: febrile illness: -the exact cause of your febrile illness is still a "work in progress" but it is safe to get you out of the hospital -most likely - given your fever, and slight elevation of white count, as well as a cough, it fits the best with a bronchitis type picture (and in fact, if we did not have a world where COVID19 was a pandemic, this would fit almost totally with a bronchitis) --to that end we will treat as we would for a bronchitis that was bad enough to land you in the hospital. while most bronchitis illnesses are viral, there can be enough of a propensity to have some "bacterial overgrowth" that we'll treat to cover for that. we'll have you on an antibiotic called doxycycline for the next 7 days to cover for this. Doxycycline is usually quite well tolerated - sometimes it can be upsetting to the stomach so it's OK to take with food; also in an odd way it can make you more sensitive to the sun - even to the point of getting a pretty significant sunburn even from fairly minimal exposure -- so even though it's [place] in aug[place], wear protective clothing and sunblock as though [place] -you were swabbed for COVID19, and having talked with infection control they were still determining if your test would be run in-house or sent out to [facility] -- these are decisions that are out of my hands -- but either way [facility] infection control should be getting back to you once the test is back. while it is pending, to be safe work on the assumption that this is COVID19 (even if it's not) to prevent spread to your son or other people. (see below for the more formal recommendations pulled from the CDC, but the "common sense" of it is that COVID appears predominantly spread through droplet and fomite -- which basically means that you would want to view your spit and snot as very contagious -- and each time you cough or sneeze you can spray a cloud that halos for about 6 feet around you before slowly dropping to the ground; and anything that that "cloud" settles on - as well as anything that you touch after touching your mouth, nose, or eyes - can be infectious. to that end, if you stay physically removed from y our son, and wear a mask to block spit/snot from coming out, and you guys wash any frequently touched surfaces regularly, and you try hard to not touch your face (believe me, the itch on your nose will go away on its own!) then you should do well to prevent spread of infection -again, as the COVID19 swab comes back, expect the infection control department to call with the results strain on your heart -as is frequently the case, when someone who's a little older with reasons to have some blocked arteries (in your case the diabetes and high cholesterol) gets sick with anything that causes extra physical stress, it's easy to have a little bit of strain on your heart -- think of it like a "failed stress test" but under very unfair conditions -fortunately the level of strain on your heart was minimal as evidenced by your VERY LOW levels of elevation of cardiac enzymes - which immediately came down -to protect you, we'll have you start taking an 81mg aspirin daily, and we'll get you set up with the cardiologists in the office -- from there they may add one or two other medications to take strain off your heart, probably will change control manager your simvastatin to atorvastatin, and possibly might need to do a more formal stress test (such as on a treadmill) but that will depend mostly on how you're doing otherwise -if you were to feel any chest tightness/pressure when you're doing something, sit down and rest. if sitting and resting for five minutes doesn't take the pressure away, then we'll have also sent a prescription for nitroglycerin. if the pressure or pain doesn't go away within five minutes of rest, then take a nitro under your tongue. if the pain/pressure hasn't gone away five minutes after the nitro, then take a second one. at this point if the pain/pressure doesn't immediately go away, then call 911; you can take a third nitro 5 minutes after the second one, but given this would be so "off the beaten path" for you, if you even need the second one it would be time to call 911. Formal Home Isolation COVID-19 Instructions The following information about Home Isolation is from the CDC Website: https://www.cdc.gov/coronavirus/2019-ncov/hcp/phhzsvuy-srkjehh-worsqi.html Stay home except to get medical care People who are mildly ill with COVID-19 are able to isolate at home during their illness. You should restrict activities outside your home, except for getting medical care. Do not go to work, school, or public areas. Avoid using public transportation, ride-sharing, or taxis. Separate yourself from other people and animals in your home People: As much as possible, you should stay in a specific room and away from other people in your home. Also, you should use a separate bathroom, if available. Animals: You should restrict contact with pets and other animals while you are sick with COVID-19, just like you would around other people. Although there have not been reports of pets or other animals becoming sick with COVID-19, it is still recommended that people sick with COVID-19 limit contact with animals until more information is known about the virus. When possible, have another member of your household care for your animals while you are sick. If you are sick with COVID-19, avoid contact with your pet, including petting, snuggling, being kissed or licked, and sharing food. If you must care for your pet or be around animals while you are sick, wash your hands before and after you interact with pets and wear a face mask. Call ahead before visiting your doctor If you have a medical appointment, call the healthcare provider and tell them that you have or may have COVID-19. This will help the healthcare providers office take steps to keep other people from getting infected or exposed. Wear a face mask You should wear a face mask when you are around other people (e.g., sharing a room or vehicle) or pets and before you enter a healthcare providers office. If you are not able to wear a face mask (for example, because it causes trouble breathing), then people who live with you should not stay in the same room with you, or they should wear a face mask if they enter your room. Cover your coughs and sneezes Cover your mouth and nose with a tissue when you cough or sneeze. Throw used tissues in a lined trash can. Immediately wash your hands with soap and water for at least 20 seconds or, if soap and water are not available, clean your hands with an alcohol-based hand route sales trainee that contains at least 60% alcohol. Clean your hands often Wash your hands often with soap and water for at least 20 seconds, especially after blowing your nose, coughing, or sneezing; going to the bathroom; and before eating or preparing food. If soap and water are not readily available, use an alcohol-based hand route sales trainee with at least 60% alcohol, covering all surfaces of your hands and rubbing them together until they feel dry. Soap and water are the best option if hands are visibly dirty. Avoid touching your eyes, nose, and mouth with unwashed hands. Avoid sharing personal household items You should not share dishes, drinking glasses, cups, eating utensils, towels, or bedding with other people or pets in your home. After using these items, they should be washed thoroughly with soap and water. Clean all high-touch surfaces everyday High touch surfaces include counters, tabletops, doorknobs, bathroom fixtures, toilets, phones, keyboards, tablets, and bedside tables. Also, clean any surfaces that may have blood, stool, or body fluids on them. Use a household cleaning spray or wipe, according to the label instructions. Labels contain instructions for safe and effective use of the cleaning product including precautions you should take when applying the product, such as wearing gloves and making sure you have good ventilation during use of the product. Monitor your symptoms Seek prompt medical attention if your illness is worsening (e.g., difficulty breathing).Beforeseeking care, call your healthcare provider and tell them that you have, or are being evaluated for, COVID-19. Put on a face mask before you enter the facility. These steps will help the healthcare providers office to keep other people in the office or waiting room from getting infected or exposed. Ask your healthcare provider to call the local or state health department. Persons who are placed under active monitoring or facilitated self- monitoring should follow instructions provided by their local health department or occupational health professionals, as appropriate. When working with your local health department check their available hours. If you have a medical emergency and need to call 911, notify the dispatch personnel that you have, or are being evaluated for COVID-19. If possible, put on a face mask before emergency medical services arrive. Discontinuing home isolation Patients with confirmed COVID-19 should remain under home isolation precautions until the risk of secondary transmission to others is thought to be low. The decision to discontinue home isolation precautions should be made on a [id number] basis, in consultation with healthcare providers and state and local health departments. Pending Studies at Discharge: Yes (COVID19 swab - infection control should contact w results) Stand-Alone Forms: My [facility], Smoking Cessation Medications and DC Order Prescriptions: New doxycycline hyclate 100 mg capsule 100 mg PO BID 7 Days Qty: 14 RF: 0 aspirin 81 mg tablet,delayed release (DR/EC) 81 mg PO DAILY Qty: 30 RF: 0 nitroglycerin 0.4 mg tablet, sublingual 0.4 mg sublingual Q5M PRN (Reason: chest pain) Qty: 30 RF: 0 Continued glipizide 5 mg tablet 10 mg PO BID Qty: 360 RF: 3 simvastatin 20 mg tablet 20 mg PO HS Qty: 90 RF: 3 terazosin 5 mg capsule 5 mg PO HS Qty: 90 RF: 3 diclofenac sodium 1 % gel 4 gm TOP QID PRN (Reason: Pain) RF: 0 Discharge Orders: Discharge Order (Routine); Ordered 08/22/19 Ordered By: Kong Wyatt Admission Data Admit Date/Time: 08/22/19 01:00 Attending Provider: Kong Wyatt Admit Provider: Teofilo Paiz Primary Care Provider: Umair Adkins III Other Providers: Teofilo Paiz ; Gen Wesley Other Interventions: Discharge Summary Assessment (RN) Last Done: 08/22/19 12:29 DC Date/Time DO NOT enter until pt leaves facility: 08/22/19 14:20 Coding Level of Care Code D/C Day Management >30 mins Diagnoses Fever R50.9 Fever type: unspecified Neutrophilic leukocytosis D72.9 Elevated troponin I level R79.89 Weakness R53.1 Type 2 diabetes mellitus E11.9 Acute kidney injury superimposed on chronic kidney disease N17.9; N18.9 Hypercholesteremia E78.00 BPH (benign prostatic hyperplasia) N40.0
[2019-08-22] MEDS ORDERED: SIMVASTATIN 20 MG TAB PO SCH (21:00)
[2019-08-22] MEDS ORDERED: TERAZOSIN HCL 5 MG CAP PO SCH (21:00)
[2019-08-24 04:15] LABS: SARS CoV2 RNA (COVID-19) NOT DETECTED (NOT DETECTED)
== END 2019-08-22 14:20 | disposition home or self-care (01) | DRG 864 ==
LOC: ED 21:17 → SUATTDRO 08-22 01:00 → 2S 08-22 01:00

== ENCOUNTER 2022-01-24 22:21 | Inpatient (IN) ==
[2022-01-24 23:25] LABS: Hematocrit (blood only) 42.3 % (40.1-51.0); Hemoglobin 14.5 g/dl (14.0-18.0); Mean Corpuscular Hemoglobin 32.4 pg (25.0-34.0); Mean Corpuscular Hgb Conc 34.3 g/dL (32.0-36.0); Mean Corpuscular Volume 94.6 fL (80.0-100.0); Platelet Count 127 K/uL (130-400); RDW Coefficient of Variation 13.4 % (11.5-14.5); RDW Standard Deviation 46.8 fL (36.4-46.3); Red Blood Count 4.47 M/uL (4.63-6.08); White Blood Count 6.21 K/ul (4.8-10.8)
[2022-01-24 23:39] LABS: Alanine Aminotransferase 19 U/L (7-52); Albumin Globulin Ratio 1.9 (0.9-2); Albumin Level 3.7 gm/dl (3.4-5.0); Alkaline Phosphatase 64 U/L (34-104); Anion Gap 10 (3-11); Aspartate Aminotransferase 26 U/L (13-39); BUN Creatinine Ratio 14.8 (10-20); Bilirubin,Total 1.4 mg/dl (0.2-1.0); Blood Urea Nitrogen 21 mg/dl (6-23); Calcium 8.5 mg/dl (8.5-10.1); Carbon Dioxide 21 mmol/L (21-32); Chloride 106 mmol/L (98-107); Est GFR (African American) 51.1 ml/min; Est GFR (Non-African American) 44.1 ml/min; Glucose 101 mg/dl (70-99(Fasting)); Sodium 137 mmol/L (136-145); Total Protein 5.7 gm/dl (6.0-8.3)
[2022-01-24 23:56] LABS: Basophils # (auto) 0.02 K/uL (0-0.2); Basophils % (auto) 0.3 %; Eosinophils # (auto) 0.01 K/uL (0-0.50); Eosinophils % (auto) 0.2 %; Immature Granulocytes # (auto) 0.02 K/uL (0.00-0.02); Immature Granulocytes % (auto) 0.3 %; Lymphocytes # (auto) 0.84 K/uL (1.2-3.4); Lymphocytes % (auto) 13.5 %; Monocytes % (auto) 14.5 %; Neutrophils # (auto) 4.42 K/uL (1.4-6.5); Neutrophils % (auto) 71.2 %
[2022-01-25] MEDS ORDERED: ACETAMINOPHEN 325 MG TAB PO STA (00:07)
--- NOTE | 2022-01-25 02:17 | History & Physical Report ---
Date of Service January 25, 2022 Assessment & Plan (1) COVID-19: Plan: COVID-19 infection/generalized weakness/decreased oral intake- Place on dexamethasone 6 mg IV daily for adrenal support NSS + KCl 20 mill equivalents at 60 mils per hour x1 L Nutritional support Has had intermittent brief hypoxia, would not pursue antivirals at this time Vitamin D high 25 mcg p.o. daily (2) Fever: Plan: Low-grade temp, treat subjectively with Tylenol (3) Acute kidney injury superimposed on CKD: Plan: Creatinine 1.42, with baseline 1.29 Placed on NSS + KCl 20 mill equivalents at 60 mils per hour x1 L Repeat laboratories in a.m. (4) Chronic kidney disease, stage III (moderate): Plan: See above (5) Hypertension: Plan: Continue terazosin at that time monitor for symptoms of orthostasis as possibly contributing to generalized weakness and fatigue (6) Type 2 diabetes mellitus: Plan: Hold glipizide 10 mg p.o. twice daily Is possible a part of his symptomatology may be related to episodes of hypoglycemia, and would avoid this medication in this patient Placed on Accu-Cheks before meals and at bedtime with NovoLog coverage per scale Check hemoglobin A1c (7) Hypercholesteremia: Plan: Continue simvastatin 20 mg at bedtime (8) BPH (benign prostatic hyperplasia): Plan: Continue terazosin 5 mg at bedtime History of Present Illness Chief Complaint: The patient presents to the emergency department after family notes issues with worsening fatigue, generalized weakness, shortness of breath and decreased oral intake over the past few days Primary Care Provider: Devorah Martínez DO The patient is an 86-year-old male with a past medical history including CKD stage III, laryngeal pharyngeal reflux, hypertension, that is modest type II, hypercholesterolemia and BPH. He has been exposed to multiple family numbers with COVID-19, 1 of which was a son who was reportedly very sick. Family was concerned about the patient having COVID-19, and have had more difficulty taking care of him at home due to worsening symptoms as above. Of note, post patient was COVID-19 positive in the emergency department this evening, and it did show intermittent mild hypoxia duet to a low of 91%. Main significant abnormal laboratory, was creatinine 1.42, with his base of 1.29. Patient does have pending a left lower extremity venous Doppler Allergies Allergy/AdvReac Type Severity Reaction Status Date / Time No Known Allergies Allergy Verified 11/17/21 09:27 Home Medications Medication Instructions Recorded Confirmed Type nitroglycerin 0.4 mg sublingual 0.4 mg sublingual Q5M PRN chest 08/22/19 11/17/21 Rx tablet pain #30 tabs OneTouch Verio test strips (blood #200 ea 03/14/21 11/17/21 Rx sugar diagnostic) blood-glucose meter (OneTouch #1 ea 03/14/21 11/17/21 Rx Verio Meter) lancets (OneTouch UltraSoft #200 ea 03/14/21 11/17/21 Rx Lancets) metronidazole 1 % topical gel 1 applic topical BID #60 grams 03/14/21 11/17/21 Rx glipizide 5 mg tablet 10 mg PO BID #360 tabs 10/21/21 11/17/21 Rx simvastatin 20 mg tablet 20 mg PO HS #90 tabs 11/18/21 Rx ipratropium bromide 21 mcg (0.03 2 spray intranasal TID #90 mL 11/21/21 Rx %) nasal spray terazosin 5 mg capsule See Rx Instructions .Route 01/06/22 Rx .COMPLEX #90 caps Past Med/Surg History Medical History BPH (benign prostatic hyperplasia) Controlled type 2 diabetes mellitus with chronic kidney disease Diabetes Hypercholesteremia Hypertension Neutrophilic leukocytosis Rhabdomyolysis Type 2 diabetes mellitus Surgical History History of wisdom tooth extraction Status post open reduction and internal fixation (ORIF) of fracture Family History Daughter Breast cancer Father No problems noted. Mother No problems noted. Other COPD (chronic obstructive pulmonary disease) Denies family history of Ovarian cancer Prostate cancer Myocardial infarction Colorectal cancer Social History Smoking Status: Never smoker Tobacco Type: Cigarettes Second Hand Exposure: No; Hx Alcohol Use: No Hx Substance Use: No Preferred Language: Wolof Communication Ability: Effective Visual Impairment: No Limitations Hearing Ability: Hard of Hearing Allergy And Immunology Chief Required: No Beliefs That Will Affect Care: None marital status: / Current Living Situation: Family Current Living Situation Comment: lives w/ son current occupational status: retired How many Children do You have: 3 How many Children do You have Comment: 2 sons, 1 daughter ([place]) Feels Safe at Home: Yes Childhood Exposure to Second-Hand Smoke: Yes caffeine: Yes during the past year weight has: remained stable Dental Care, Regularly: No Physical Activity Frequency: Daily Seatbelt Use: always Sunscreen Use: No Assistive Devices: None Review of Systems Review of Systems: The patient denies chest pain, palpitations, cough, sore throat, fevers, chills, sweats, nausea, vomiting, diarrhea , constipation, abdominal pain, pelvic pain, blood in urine or stool, dysuria, urinary frequency or urgency, lightheadedness, dizziness, headache, loss of consciousness, rash, abnormal bruising or bleeding, focal weakness, numbness or tingling in arms or legs, generalized arthralgias or myalgias, back or neck pain, or night sweats. The review of systems is otherwise negative other than for that already noted above, and at least 10 systems have been reviewed. Physical Exam Physical Exam: The patient is awake, alert and oriented 3, well developed and well nourished, normocephalic and atraumatic, lying in bed and in no acute distress. HEENT--PERRL, EOMI, mucous membranes and oropharynx normal Neck--supple. No JVD. No bruits. Thyroid normal, trachea midline, no adenopathy. Heart--normal S1 and S2. No murmurs, rubs or gallops. Lungs--clear bilaterally, no respiratory distress, no accessory muscle use. Abdomen--normal bowel sounds and soft. Nontender. Nondistended, no hernias or masses, no organomegaly. Extremities--no cyanosis or clubbing. 2+ left lower extremity pitting edema. There are good distal pulses b/l. Dermatologic--normal skin turgor, normal color, no abnormal lymph nodes, no rash. Neurologic--cranial nerves II through XII grossly intact. Rheumatologic--normal range of motion. Psychiatric--normal affect. Results & Data Results & Data ([facility]) Vital Signs (Past 12 Hours) Vital Signs Temp Pulse Resp BP Pulse Ox O2 Del Method 01/25/22 01:00 86 22 93 01/25/22 01:00 124/65 01/25/22 00:50 86 22 91 01/25/22 00:40 89 27 H 93 01/25/22 00:30 89 24 95 01/25/22 00:30 148/85 H 01/25/22 00:20 105 H 24 01/25/22 00:10 90 24 95 01/25/22 00:00 84 29 H 93 01/25/22 00:00 139/75 01/24/22 23:50 91 H 29 H 95 01/24/22 23:40 82 27 H 95 01/24/22 23:30 91 H 29 H 97 01/24/22 23:30 153/83 H 01/24/22 23:24 94 H 25 H 95 01/24/22 22:38 86 94 Room Air 01/24/22 22:08 37.7 C H 84 20 142/70 H 93 Room Air Laboratory Results Laboratory Results WBC 6.21 K/ul (4.8-10.8) 01/24/22 22:39 RBC 4.47 M/uL (4.63-6.08) L 01/24/22 22:39 Hgb 14.5 g/dl (14.0-18.0) 01/24/22 22:39 Hct 42.3 % (40.1-51.0) 01/24/22 22:39 MCV 94.6 fL (80.0-100.0) 01/24/22 22:39 MCH 32.4 pg (25.0-34.0) 01/24/22 22:39 MCHC 34.3 g/dL (32.0-36.0) 01/24/22 22:39 RDW Std Deviation 46.8 fL (36.4-46.3) H 01/24/22 22:39 RDW Coeff of Glenn 13.4 % (11.5-14.5) 01/24/22 22:39 Plt Count 127 K/uL (130-400) L 01/24/22 22:39 MPV 10.0 fL (9.4-12.4) 01/24/22 22:39 Immature Gran % (Auto) 0.3 % 01/24/22 22:39 Neut % (Auto) 71.2 % 01/24/22 22:39 Lymph % (Auto) 13.5 % 01/24/22 22:39 Winkler % (Auto) 14.5 % 01/24/22 22:39 Eos % (Auto) 0.2 % 01/24/22 22:39 Baso % (Auto) 0.3 % 01/24/22 22:39 Neut # (Auto) 4.42 K/uL (1.4-6.5) 01/24/22 22:39 Lymph # (Auto) 0.84 K/uL (1.2-3.4) L 01/24/22 22:39 Winkler # (Auto) 0.90 K/uL (0.24-0.82) H 01/24/22 22:39 Eos # (Auto) 0.01 K/uL (0-0.50) 01/24/22 22:39 Baso # (Auto) 0.02 K/uL (0-0.2) 01/24/22 22:39 Immature Gran # (Auto) 0.02 K/uL (0.00-0.02) 01/24/22 22:39 Sodium 137 mmol/L (136-145) 01/24/22 22:39 Potassium 4.0 mmol/L (3.5-5.1) 01/24/22 22:39 Chloride 106 mmol/L (98-107) 01/24/22 22:39 Carbon Dioxide 21 mmol/L (21-32) 01/24/22 22:39 Anion Gap 10 (3-11) 01/24/22 22:39 BUN 21 mg/dl (6-23) 01/24/22 22:39 Creatinine 1.42 mg/dl (0.6-1.4) H 01/24/22 22:39 Est Cr Clr Drug Dosing Not Reportable 01/24/22 22:39 Est GFR ( Amer) 51.1 ml/min 01/24/22 22:39 Est GFR (Non-Af Amer) 44.1 ml/min 01/24/22 22:39 BUN/Creatinine Ratio 14.8 (10-20) 01/24/22 22:39 Glucose 101 mg/dl (70-99(Fasting)) H 01/24/22 22:39 Calcium 8.5 mg/dl (8.5-10.1) 01/24/22 22:39 Total Bilirubin 1.4 mg/dl (0.2-1.0) H 01/24/22 22:39 AST 26 U/L (13-39) 01/24/22 22:39 ALT 19 U/L (7-52) 01/24/22 22:39 Alkaline Phosphatase 64 U/L (34-104) 01/24/22 22:39 Total Protein 5.7 gm/dl (6.0-8.3) L 01/24/22 22:39 Albumin 3.7 gm/dl (3.4-5.0) 01/24/22 22:39 Globulin 2.0 gm/dl (2.5-4.0) L 01/24/22 22:39 Albumin/Globulin Ratio 1.9 (0.9-2) 01/24/22 22:39 TSH 1.770 uIu/ml (0.300-4.500) 01/24/22 22:39 SARS-CoV-2 (PCR) POSITIVE (Negative) A* 01/24/22 22:58 SARS-CoV-2, RNA, NAAT Cancelled 01/24/22 23:00 Code Status & VTE Plan Code Status Full code VTE Prophylaxis Plan VTE Prophylaxis will be ordered: Yes PG Care Time/CCT Total # of Minutes Spent Total Time Spent with Patient: Total time spent is greater than 50% in coordination of care (as documented) at patient's floor/unit and/or counseling patient: Coding Level of Care Code 22730 Initial Inpt Care Lvl 3 Diagnoses COVID-19 U07.1 Fever R50.9 Acute kidney injury superimposed on CKD N17.9; N18.9 Chronic kidney disease, stage III (moderate) N18.32 Chronic kidney disease stage 3 subtype: stage 3b (GFR 30-44) Hypertension I10 Type 2 diabetes mellitus E11.9 Hypercholesteremia E78.00 BPH (benign prostatic hyperplasia) N40.1; R35.1 Lower urinary tract symptom presence: symptoms present Lower urinary tract symptom detail: nocturia (1) Chronic kidney disease, stage III (moderate) Chronic kidney disease stage 3 subtype: stage 3b (GFR 30-44) Qualified Code(s ): N18.32 - Chronic kidney disease, stage 3b (2) BPH (benign prostatic hyperplasia) Lower urinary tract symptom presence: symptoms present Lower urinary tract symptom detail: nocturia Qualified Code(s): N40.1 - Benign prostatic hyperplasia with lower urinary tract symptoms; R35.1 - Nocturia
[2022-01-25 05:33] LABS: Appearance Urine Clear (Clear); Bilirubin Urine Negative (Negative); Blood Urine Negative (Negative); Color Urine Yellow; Glucose Urine UA Negative (Negative); Ketones Urine 1+ (Negative); Leukocyte Esterase Urine Negative (Negative); Nitrite Urine Negative (Negative); Protein Urine Negative (Negative); Specific Gravity Urine 1.022 (1.000-1.030); Urobilinogen Urine Negative (Negative)
[2022-01-25] MEDS ORDERED: GLUCOSE 40% GEL 15 GM TUBE PO PRN (07:04)
[2022-01-25] MEDS ORDERED: CARBOHYDRATES FOR HYPOGLYCEMIA PO PRN (07:04)
[2022-01-25] MEDS ORDERED: ACETAMINOPHEN 325 MG TAB PO PRN (07:04)
[2022-01-25] MEDS ORDERED: GLUCAGON FOR INJ 1 MG VIAL SQ PRN (07:04)
[2022-01-25] MEDS ORDERED: GLUCOSE 10 TAB/TUBE PO PRN (07:04)
[2022-01-25] MEDS ORDERED: NITROGLYCERIN SL 0.4 MG/TAB TAB SL PRN (07:04)
[2022-01-25] MEDS ORDERED: ONDANSETRON INJ 2 MG/ML 2 ML VIAL IV PRN (07:04)
[2022-01-25] MEDS ORDERED: DEXTROSE 50% 50 ML SYRINGE IV PRN (07:04)
[2022-01-25] MEDS ORDERED: Patient's HEIGHT &/or WEIGHT Needed SCH (07:30)
--- NOTE | 2022-01-25 07:48 | XRay Report ---
XR chest 1V portable HISTORY: weakness COMPARISON: Chest 08/21/2019. FINDINGS: No pneumothorax. There are low lung volumes. Bibasilar interstitial thickening and linear d ensities persist. This is likely chronic. No new focal lung consolidations to suggest pneumonia. No e vidence for pulmonary edema. The heart remains mildly enlarged. IMPRESSION: No significant change compared to the prior study. No acute process. ACT 112: Negative or not required by law. Electronically signed by: Je Sarkar M.D. 01/25/2022 7:46 AM
[2022-01-25] MEDS ORDERED: METOPROLOL TARTRATE 1 MG/ML VIAL IV PRN (08:54)
[2022-01-25] MEDS ORDERED: NSS + 20MEQ KCL 20 MEQ/1,000 ML BAG IV SCH (09:00)
--- NOTE | 2022-01-25 09:00 | Communication Note ---
Date of Service: January 25, 2022 Patient was an after-midnight admission. Please see H+P for all history. Management otherwise as noted below: 86 yo M Hx CKD III, DM2, HTN presented with worsening fatigue, generalized weakness, shortness of breath and found to be COVID-19 positive with a mild ROSI. Exam with lungs CTA bilaterally saturating well on room air, heart RRR no murmurs, abdomen soft NTND COVID-19: Continue dexamethasone 6mg IV daily. PT and OT ordered to help with dispo planning, as patient endorsed weakness from baseline on admission. ROSI on CKD stage III: Repeat BMP tomorrow after receiving gentle fluids. HTN: not on medications for such in outpt. Lopressor 5mg IV as needed for SBP >160. Follow up outpatient regarding BP. DM2: Patient is insulin naive. Lantus 5u BID with SSI; adjust as necessary; patient is diabetic and on steroids for COVID-19. HLD: continue statin.
[2022-01-25] MEDS: dexAMETHasone 6 MG in SYRINGE 0 ML IV SCH (09:32)
[2022-01-25] MEDS: INSULIN ASPART PER UNIT SC SCH ×4 (09:32→21:09)
[2022-01-25] MEDS: CHOLECALCIFEROL 5,000 UNITS 125 MCG TAB PO SCH (11:01)
--- NOTE | 2022-01-25 11:34 | Ultrasound Report ---
US venous doppler LE LT CLINICAL HISTORY: edema of LLE TECHNIQUE: Left lower extremity real-time compression venous ultrasound with Color Doppler imaging. U tilizing real-time ultrasonic imaging multiple real time high-resolution ultrasonic images with compr ession and noncompression maneuvers of the deep venous system in addition to color doppler imaging we re performed from the common femoral vein through the proximal calf veins. COMPARISON: None available at the time of this dictation. FINDINGS: Currently there is normal compressibility of the deep venous system from the common femoral vein thro ugh the proximal calf veins. Right posterior medial knee fluid collection is seen which may represen t a popliteal cyst. Impression: No evidence of deep venous thrombus. ACT 112: Negative or not required by law. Electronically signed by: Jae Ball M.D. 01/25/2022 11:33 AM
--- NOTE | 2022-01-25 12:47 | Electrocardiogram Report ---
Test Reason : Blood Pressure : / mmHG Vent. Rate : 086 BPM Atrial Rate : 086 BPM P-R Int : 214 ms QRS Dur : 130 ms QT Int : 412 ms P-R-T Axes : 060 -67 082 degrees QTc Int : 493 ms Poor data quality, interpretation may be adversely affected Sinus rhythm with 1st degree A-V block Right bundle branch block Left anterior fascicular block Bifascicular block Septal infarct (cited on or before 02-AUG-2017) Abnormal ECG When compared with ECG of 21-AUG-2019 21:25, Right bundle branch block is now Present Confirmed by Lorne Melendrez ([id number]) on 01/25/2022 12:47:26 PM Referred By: REFERRED SELF Confirmed By:Lorne Melendrez
--- NOTE | 2022-01-25 13:11 | Emergency Department Note ---
Impression & Plan COVID-19, Fever ED Provider Note CHIEF COMPLAINT: COVID-19, fatigue HISTORY OF PRESENT ILLNESS: This 86-year-old male patient presents to the emergency department with complaints of fatigue and a recent COVID-19 diagnosis for his son with whom he lives. Patient arrives via ambulance stating he has been ill x 1-2 days. His children are concerned that he needed assistance to get to the bathroom today and was too fatigued to get up off of the couch. Pt states he may have had a fever. He only has SOB with exertion. Pt denies vomiting and diarrhea. REVIEW OF SYSTEMS: A review of systems was performed with positives and pertinent negatives listed in the history of present illness. 10 systems were reviewed and are otherwise negative. ALLERGIES: see below MEDICATIONS: see below PMH: see below SOCIAL HISTORY: see below DDx: Viral syndrome, otitis, pharyngitis, pneumonia, influenza, meningitis, urinary tract infection, sepsis, bacteremia, as well as other pathologies. PHYSICAL EXAM: Vital signs reviewed. General: Well-appearing 86 yo female, in no significant distress. HEENT: No scleral icterus, PERRLA, neck supple. MMM Cardiovascular: Regular rate and rhythm, no extra sounds. Pulmonary: Clear to auscultation bilaterally, normal work of breathing. Abdomen: Soft, nontender, nondistended, positive bowel sounds. Musculoskeletal: Atraumatic, no peripheral edema. Neurologic: Patient awake alert and oriented x 3, aware of recent events. Skin: Warm, dry, no rash EMERGENCY DEPARTMENT COURSE/MDM: This pt was evaluated and appeared to be no distress. IV access was was obtained and lab work was drawn. Pt was given tylenol for fever. He has tested positive for COVID 19. He has a mild renal insufficiency. CXR is clear. After discussions between nursing, pt's son, daughter in [place] and myself, it is clear that the pt is unable to return home as family is unable to help care for him. Dr. Hilario of the hospitalist service was consulted for further management. MONITORING: An order for cardiac monitoring was placed and the patient is noted to be in a first degree AV block at 86 beats per minute. RADIOLOGY: see below EKG:first degree AV block at 86 bpm, RBBB, left anterior fascicular block, septal infarct, Qtc 493. when compared to August 21, 2019 RBBB is now present. DISPOSITION: Admit. Past Med/Surg History Medical History BPH (benign prostatic hyperplasia) Controlled type 2 diabetes mellitus with chronic kidney disease Diabetes Hypercholesteremia Hypertension Neutrophilic leukocytosis Rhabdomyolysis Type 2 diabetes mellitus Surgical History History of wisdom tooth extraction Status post open reduction and internal fixation (ORIF) of fracture Family History Daughter Breast cancer Father No problems noted. Mother No problems noted. 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: No Beliefs That Will Affect Care: None marital status: / Current Living Situation: Family Current Living Situation Comment: lives w/ son current occupational status: retired How many Children do You have: 3 How many Children do You have Comment: 2 sons, 1 daughter ([place]) Other Information That Helps Us Care for You: No Feels Safe at Home: Yes Childhood Exposure to Second-Hand Smoke: Yes caffeine: Yes during the past year weight has: remained stable Dental Care, Regularly: No Physical Activity Frequency: Daily Seatbelt Use: always Sunscreen Use: No Assistive Devices: None Allergies Allergies Allergy/AdvReac Type Severity Reaction Status Date / Time No Known Allergies Allergy Verified 11/17/21 09:27 Home Meds Previous Rx's Medication Instructions Recorded nitroglycerin 0.4 mg sublingual 0.4 mg sublingual Q5M PRN chest 08/22/19 tablet pain #30 tabs OneTouch Verio test strips (blood #200 ea 03/14/21 sugar diagnostic) blood-glucose meter (OneTouch #1 ea 03/14/21 Verio Meter) lancets (OneTouch UltraSoft #200 ea 03/14/21 Lancets) metronidazole 1 % topical gel 1 applic topical BID #60 grams 03/14/21 glipizide 5 mg tablet 10 mg PO BID #360 tabs 10/21/21 simvastatin 20 mg tablet 20 mg PO HS #90 tabs 11/18/21 ipratropium bromide 21 mcg (0.03 2 spray intranasal TID #90 mL 11/21/21 %) nasal spray terazosin 5 mg capsule See Rx Instructions .Route 01/06/22 .COMPLEX #90 caps Results & Data (ED) Vital Signs Vital Signs - 24 hr 01/24/22 22:08 01/24/22 22:38 01/24/22 23:24 Temperature 37.7 C H Temperature Source Oral Pulse Rate 84 86 94 H Pulse Rate from SpO2 Sensor 93 H Pulse Rhythm Regular Respiratory Rate 20 25 H Respiratory Effort / Characteristics Non-Labored Respiratory Depth Normal Respiratory Pattern Regular Blood Pressure 142/70 H Blood Pressure Mean 94 Pulse Oximetry 93 94 95 Oxygen Delivery Method Room Air Room Air Sepsis Recent Fever Within 48 Hours Yes Sepsis New/Unexplained Change in Mental Status No Sepsis Action Taken by Nursing No Action Required 01/24/22 23:30 01/24/22 23:30 01/24/22 23:40 Temperature Temperature Source Pulse Rate 91 H 82 Pulse Rate from SpO2 Sensor 89 80 Pulse Rhythm Respiratory Rate 29 H 27 H Respiratory Effort / Characteristics Respiratory Depth Respiratory Pattern Blood Pressure 153/83 H Blood Pressure Mean 106 Pulse Oximetry 97 95 Oxygen Delivery Method Sepsis Recent Fever Within 48 Hours Sepsis New/Unexplained Change in Mental Status Sepsis Action Taken by Nursing 01/24/22 23:50 01/25/22 00:00 01/25/22 00:00 Temperature Temperature Source Pulse Rate 91 H 84 Pulse Rate from SpO2 Sensor 90 84 Pulse Rhythm Respiratory Rate 29 H 29 H Respiratory Effort / Characteristics Respiratory Depth Respiratory Pattern Blood Pressure 139/75 Blood Pressure Mean 96 Pulse Oximetry 95 93 Oxygen Delivery Method Sepsis Recent Fever Within 48 Hours Sepsis New/Unexplained Change in Mental Status Sepsis Action Taken by Nursing 01/25/22 00:10 01/25/22 00:20 01/25/22 00:30 Temperature Temperature Source Pulse Rate 90 105 H Pulse Rate from SpO2 Sensor 91 H Pulse Rhythm Respiratory Rate 24 24 Respiratory Effort / Characteristics Respiratory Depth Respiratory Pattern Blood Pressure 148/85 H Blood Pressure Mean 106 Pulse Oximetry 95 Oxygen Delivery Method Sepsis Recent Fever Within 48 Hours Sepsis New/Unexplained Change in Mental Status Sepsis Action Taken by Nursing 01/25/22 00:30 01/25/22 00:40 01/25/22 00:50 Temperature Temperature Source Pulse Rate 89 89 86 Pulse Rate from SpO2 Sensor 89 88 87 Pulse Rhythm Respiratory Rate 24 27 H 22 Respiratory Effort / Characteristics Respiratory Depth Respiratory Pattern Blood Pressure Blood Pressure Mean Pulse Oximetry 95 93 91 Oxygen Delivery Method Sepsis Recent Fever Within 48 Hours Sepsis New/Unexplained Change in Mental Status Sepsis Action Taken by Nursing 01/25/22 01:00 01/25/22 01:00 01/25/22 01:10 Temperature Temperature Source Pulse Rate 86 86 Pulse Rate from SpO2 Sensor 86 85 Pulse Rhythm Respiratory Rate 22 23 Respiratory Effort / Characteristics Respiratory Depth Respiratory Pattern Blood Pressure 124/65 Blood Pressure Mean 84 Pulse Oximetry 93 93 Oxygen Delivery Method Sepsis Recent Fever Within 48 Hours Sepsis New/Unexplained Change in Mental Status Sepsis Action Taken by Nursing 01/25/22 01:20 01/25/22 01:30 01/25/22 01:30 Temperature Temperature Source Pulse Rate 87 86 Pulse Rate from SpO2 Sensor 87 87 Pulse Rhythm Respiratory Rate 19 18 Respiratory Effort / Characteristics Respiratory Depth Respiratory Pattern Blood Pressure 114/60 Blood Pressure Mean 78 Pulse Oximetry 93 93 Oxygen Delivery Method Sepsis Recent Fever Within 48 Hours Sepsis New/Unexplained Change in Mental Status Sepsis Action Taken by Nursing 01/25/22 01:40 01/25/22 01:50 01/25/22 02:00 Temperature Temperature Source Pulse Rate 81 83 Pulse Rate from SpO2 Sensor 83 84 Pulse Rhythm Respiratory Rate 19 22 Respiratory Effort / Characteristics Respiratory Depth Respiratory Pattern Blood Pressure 113/61 Blood Pressure Mean 78 Pulse Oximetry 93 93 Oxygen Delivery Method Sepsis Recent Fever Within 48 Hours Sepsis New/Unexplained Change in Mental Status Sepsis Action Taken by Nursing 01/25/22 02:00 01/25/22 02:10 Temperature Temperature Source Pulse Rate 81 79 Pulse Rate from SpO2 Sensor 82 80 Pulse Rhythm Respiratory Rate 19 17 Respiratory Effort / Characteristics Respiratory Depth Respiratory Pattern Blood Pressure Blood Pressure Mean Pulse Oximetry 94 95 Oxygen Delivery Method Sepsis Recent Fever Within 48 Hours Sepsis New/Unexplained Change in Mental Status Sepsis Action Taken by Longterm Medications Current Medication List: was personally reviewed by me Laboratory Data Attestation: I reviewed the patient's lab results. Result diagrams: 01/24/22 22:39 01/24/22 22:39 Lab Results 01/24/22 01/24/22 01/24/22 Range/Units 22:39 22:39 22:39 WBC 6.21 (4.8-10.8) K/ul RBC 4.47 L (4.63-6.08) M/uL Hgb 14.5 (14.0-18.0) g/dl Hct 42.3 (40.1-51.0) % MCV 94.6 (80.0-100.0) fL MCH 32.4 (25.0-34.0) pg MCHC 34.3 (32.0-36.0) g/dL RDW Std Deviation 46.8 H (36.4-46.3) fL RDW Coeff of Glenn 13.4 (11.5-14.5) % Plt Count 127 L (130-400) K/uL MPV 10.0 (9.4-12.4) fL Immature Gran % (Auto) 0.3 % Neut % (Auto) 71.2 % Lymph % (Auto) 13.5 % [place] % (Auto) 14.5 % Eos % (Auto) 0.2 % Baso % (Auto) 0.3 % Neut # (Auto) 4.42 (1.4-6.5) K/uL Lymph # (Auto) 0.84 L (1.2-3.4) K/uL [place] # (Auto) 0.90 H (0.24-0.82) K/uL Eos # (Auto) 0.01 (0-0.50) K/uL Baso # (Auto) 0.02 (0-0.2) K/uL Immature Gran # (Auto) 0.02 (0.00-0.02) K/uL Sodium 137 (136-145) mmol/L Potassium 4.0 (3.5-5.1) mmol/L Chloride 106 (98-107) mmol/L Carbon Dioxide 21 (21-32) mmol/L Anion Gap 10 (3-11) BUN 21 (6-23) mg/dl Creatinine 1.42 H (0.6-1.4) mg/dl Est Cr Clr Drug Dosing Not Reportable Est GFR ( Amer) 51.1 ml/min Est GFR (Non-Af Amer) 44.1 ml/min BUN/Creatinine Ratio 14.8 (10-20) Glucose 101 H (70-99(Fasting)) mg/dl Calcium 8.5 (8.5-10.1) mg/dl Total Bilirubin 1.4 H (0.2-1.0) mg/dl AST 26 (13-39) U/L ALT 19 (7-52) U/L Alkaline Phosphatase 64 (34-104) U/L Total Protein 5.7 L (6.0-8.3) gm/dl Albumin 3.7 (3.4-5.0) gm/dl Globulin 2.0 L (2.5-4.0) gm/dl Albumin/Globulin Ratio 1.9 (0.9-2) TSH 1.770 (0.300-4.500) uIu/ml SARS-CoV-2 (PCR) (Negative) SARS-CoV-2, RNA, NAAT 01/24/22 01/24/22 Range/Units 22:58 23:00 WBC (4.8-10.8) K/ul RBC (4.63-6.08) M/uL Hgb (14.0-18.0) g/dl Hct (40.1-51.0) % MCV (80.0-100.0) fL MCH (25.0-34.0) pg MCHC (32.0-36.0) g/dL RDW Std Deviation (36.4-46.3) fL RDW Coeff of Glenn (11.5-14.5) % Plt Count (130-400) K/uL MPV (9.4-12.4) fL Immature Gran % (Auto) % Neut % (Auto) % Lymph % (Auto) % Stonewall % (Auto) % Eos % (Auto) % Baso % (Auto) % Neut # (Auto) (1.4-6.5) K/uL Lymph # (Auto) (1.2-3.4) K/uL [place]wall # (Auto) (0.24-0.82) K/uL Eos # (Auto) (0-0.50) K/uL Baso # (Auto) (0-0.2) K/uL Immature Gran # (Auto) (0.00-0.02) K/uL Sodium (136-145) mmol/L Potassium (3.5-5.1) mmol/L Chloride (98-107) mmol/L Carbon Dioxide (21-32) mmol/L Anion Gap (3-11) BUN (6-23) mg/dl Creatinine (0.6-1.4) mg/dl Est Cr Clr Drug Dosing Est GFR ( Amer) ml/min Est GFR (Non-Af Amer) ml/min BUN/Creatinine Ratio (10-20) Glucose (70-99(Fasting)) mg/dl Calcium (8.5-10.1) mg/dl Total Bilirubin (0.2-1.0) mg/dl AST (13-39) U/L ALT (7-52) U/L Alkaline Phosphatase (34-104) U/L Total Protein (6.0-8.3) gm/dl Albumin (3.4-5.0) gm/dl Globulin (2.5-4.0) gm/dl Albumin/Globulin Ratio (0.9-2) TSH (0.300-4.500) uIu/ml SARS-CoV-2 (PCR) POSITIVE A* (Negative) SARS-CoV-2, RNA, NAAT Cancelled Administered Medications Potassium Chloride/Sodium Chloride (Normal Saline W/20 Meq Kcl) 20 meq in 1,000 mls @ 60 mls/hr IV .[id number] ISAURO Stop: 01/26/22 01:39 Last Admin: 01/25/22 09:32 Dose: 60 mls/hr Documented By: ILIA Dexamethasone 6 mg/ Syringe 1.5 mls @ 1 mls/min IV Q24H ISAURO Stop: 02/24/22 08:59 Last Admin: 01/25/22 09:32 Dose: 1 mls/min Documented By: ILIA Insulin Aspart (Insulin Aspart Per Unit) 0 units SC ACHS ISAURO Stop: 02/24/22 07:29 Last Admin: 01/25/22 09:32 Dose: Not Given Documented By: ILIA Vitamin D (Cholecalciferol 5,000 Units 125 Mcg Tab) 5,000 units PO QAM ISAURO Stop: 02/24/22 08:59 Last Admin: 01/25/22 11:01 Dose: 5,000 units Documented By: ILIA Discontinued Medications Acetaminophen (Acetaminophen 325 Mg Tab) 650 mg PO NOW STA Stop: 01/25/22 00:08 Last Admin: 01/25/22 00:23 Dose: 650 mg Documented By: ELI Miscellaneous (Patient's Height &/Or Weight Needed) 1 each N/A Q2H ISAURO Stop: 02/24/22 07:29 Last Admin: 01/25/22 08:48 Dose: 1 each Documented By: ILIA Imaging Data Radiologist's Impression: Chest X-Ray 01/24/22 22:38 XR chest 1V portable HISTORY: weakness COMPARISON: Chest 08/21/2019. FINDINGS: No pneumothorax. There are low lung volumes. Bibasilar interstitial thickening and linear densities persist. This is likely chronic. No new focal lung consolidations to suggest pneumonia. No evidence for pulmonary edema. The heart remains mildly enlarged. IMPRESSION: No significant change compared to the prior study. No acute process. ACT 112: Negative or not required by law. Electronically signed by: Je Sarkar M.D. 01/25/2022 7:46 AM Blood Pressure Blood Pressure Findings: Elevated blood pressure Blood Pressure Disposition: elevated BP felt to be situational Discharge Plan Visit Data Chief Complaint: Illness Stated Complaint: COVID +/WEAKNESS/NOT WELL ED Provider: Mariam Ross Discharge Problem: COVID-19, Fever Patient Disposition: Home - Self-Care Condition: Good Discharge Instructions Interventions: ED Discharge Assessment Last Done: 01/25/22 06:45
[2022-01-25] MEDS: TERAZOSIN HCL 5 MG CAP PO SCH (19:45)
[2022-01-25] MEDS: SIMVASTATIN 20 MG TAB PO SCH (19:45)
[2022-01-25] MEDS: LANTUS PER UNIT CHARGE SQ SCH (21:17)
[2022-01-26 08:15] LABS: Albumin Globulin Ratio 1.9 (0.9-2); Albumin Level 3.4 gm/dl (3.4-5.0); BUN Creatinine Ratio 19.3 (10-20); Bilirubin,Total 0.9 mg/dl (0.2-1.0); Calcium 8.2 mg/dl (8.5-10.1); Creatinine Clr Calc Pharmacy 33.5 ml/min; Est GFR (Non-African American) 44.9 ml/min; Globulin 1.8 gm/dl (2.5-4.0); Potassium 4.6 mmol/L (3.5-5.1); Total Protein 5.2 gm/dl (6.0-8.3)
[2022-01-26] MEDS: INSULIN ASPART PER UNIT SC SCH ×4 (09:13→20:52)
[2022-01-26] MEDS: LANTUS PER UNIT CHARGE SQ SCH (09:14)
[2022-01-26] MEDS: dexAMETHasone 6 MG in SYRINGE 0 ML IV SCH (09:18)
[2022-01-26] MEDS: CHOLECALCIFEROL 5,000 UNITS 125 MCG TAB PO SCH (09:19)
[2022-01-26 09:20] LABS: Mean Corpuscular Hemoglobin 31.9 pg (25.0-34.0); Mean Corpuscular Hgb Conc 34.1 g/dL (32.0-36.0); Mean Corpuscular Volume 93.4 fL (80.0-100.0); Mean Platelet Volume 10.1 fL (9.4-12.4); Platelet Count 112 K/uL (130-400); RDW Coefficient of Variation 12.9 % (11.5-14.5); RDW Standard Deviation 44.3 fL (36.4-46.3); Red Blood Count 4.39 M/uL (4.63-6.08); White Blood Count 6.39 K/ul (4.8-10.8)
[2022-01-26 09:34] LABS: Basophils # (auto) 0.01 K/uL (0-0.2); Basophils % (auto) 0.2 %; Immature Granulocytes # (auto) 0.03 K/uL (0.00-0.02); Immature Granulocytes % (auto) 0.5 %; Lymphocytes # (auto) 1.23 K/uL (1.2-3.4); Lymphocytes % (auto) 19.2 %; Monocytes # (auto) 0.77 K/uL (0.24-0.82); Monocytes % (auto) 12.1 %; Neutrophils # (auto) 4.35 K/uL (1.4-6.5)
[2022-01-26 13:04] LABS: Estimated Average Glucose 146 mg/dl; Hemoglobin A1C 6.7 % (4.5-5.6)
--- NOTE | 2022-01-26 14:12 | Hospitalist Progress Note ---
Date of Service January 26, 2022 Assessment & Plan (1) COVID-19: Plan: COVID-19 infection/generalized weakness/decreased oral intake. - Nutritional support - Has had intermittent brief hypoxia, would not pursue antivirals at this time (2) Fever: Plan: Low-grade temp, treat subjectively with Tylenol (3) Acute kidney injury superimposed on CKD: Plan: Creatinine 1.3 - 1.4, CKD Stage III. - Monitor (4) Chronic kidney disease, stage III (moderate): Plan: See above (5) Hypertension: Plan: BP today is 135/85. - Continue terazosin at that time (6) Type 2 diabetes mellitus: Plan: A1c is 6.7%. - Hold glipizide - Sliding scale insulin -> 90 - 140 over last 24 hours. (7) Hypercholesteremia: Plan: - Continue simvastatin 20 mg at bedtime (8) BPH (benign prostatic hyperplasia): Plan: Denies LUTS today. - Continue terazosin 5 mg at bedtime Admission and Anticipated Discharge Date Admission Date: January 25, 2022 Subjective Doing well today. No complaints. Says that he thinks he is doing fine and wants to go home. Reports no fevers/chills, chest pain, shortness of breath, abdominal pain, nausea, or vomiting. Says he wouldn't be here except that he got Covid and minimizes any issues. Physical Exam Constitutional: WD/WN, vitals as above Eyes: EOM intact bilaterally; no conjunctival abnormality ENMT: external ear and nose normal, oropharynx normal Neck: trachea midline, no thyromegaly normal visual inspection Respiratory: normal respiratory effort, lungs clear to auscultation no respiratory distress Cardiovascular: RRR, no murmur, no edema Gastrointestinal (Abdomen): Inspection/Auscultation: abdomen normal to inspection; abdomen not distended Musculoskeletal: no cyanosis or clubbing, extremities motor strength 5/5 Skin: no rashes, warm and dry Neurologic: moves all extremities and awake Psychiatric: Orientation: alert, oriented to person and cooperative Results & Data Results & Data ([facility]) Vital Signs (Past 12 Hours) Vital Signs Temp Pulse Resp BP Pulse Ox O2 Del Method 01/26/22 12:06 36.7 C 59 L 18 136/84 96 Room Air 01/26/22 10:36 Room Air 01/26/22 07:46 36.5 C 62 18 114/57 L 97 Room Air 01/26/22 03:18 36.5 C 71 18 139/65 95 Room Air PG Care Time/CCT Total # of Minutes Spent Total Time Spent with Patient: Total time spent is greater than 50% in coordination of care (as documented) at patient's floor/unit and/or counseling patient: Coding Level of Care Code 76078 Subseq Hosp Care Lvl 3 Diagnoses COVID-19 U07.1 Fever R50.9 Acute kidney injury superimposed on CKD N17.9; N18.9 Chronic kidney disease, stage III (moderate) N18.32 Chronic kidney disease stage 3 subtype: stage 3b (GFR 30-44) Hypertension I10 Type 2 diabetes mellitus E11.9 Hypercholesteremia E78.00 BPH (benign prostatic hyperplasia) N40.1; R35.1 Lower urinary tract symptom detail: nocturia Lower urinary tract symptom presence: symptoms present (1) BPH (benign prostatic hyperplasia) Lower urinary tract symptom detail: nocturia Lower urinary tract symptom presence: symptoms present Qualified Code(s): N40.1 - Benign prostatic hyperplasia with lower urinary tract symptoms; R35.1 - Nocturia (2) Chronic kidney disease, stage III (moderate) Chronic kidney disease stage 3 subtype: stage 3b (GFR 30-44) Qualified Code(s): N18.32 - Chronic kidney disease, stage 3b
[2022-01-26] MEDS: TERAZOSIN HCL 5 MG CAP PO SCH (21:49)
[2022-01-26] MEDS: SIMVASTATIN 20 MG TAB PO SCH (21:49)
[2022-01-27 04:18] LABS: Basophils # (auto) 0.01 K/uL (0-0.2); Basophils % (auto) 0.1 %; Echinocytes 1+; Hematocrit (blood only) 43.2 % (40.1-51.0); Hemoglobin 14.9 g/dl (14.0-18.0); Immature Granulocytes # (auto) 0.06 K/uL (0.00-0.02); Immature Granulocytes % (auto) 0.6 %; Lymphocytes # (auto) 0.82 K/uL (1.2-3.4); Lymphocytes % (auto) 8.5 %; Mean Corpuscular Hgb Conc 34.5 g/dL (32.0-36.0); Mean Corpuscular Volume 92.7 fL (80.0-100.0); Mean Platelet Volume 9.9 fL (9.4-12.4); Monocytes # (auto) 0.73 K/uL (0.24-0.82); Monocytes % (auto) 7.6 %; Neutrophils # (auto) 7.98 K/uL (1.4-6.5); Neutrophils % (auto) 83.2 %; Platelet Count 117 K/uL (130-400); Platelet Estimate Decreased (Normal); RDW Coefficient of Variation 13.1 % (11.5-14.5); RDW Standard Deviation 44.5 fL (36.4-46.3); Red Blood Count 4.66 M/uL (4.63-6.08)
[2022-01-27 04:19] LABS: Albumin Globulin Ratio 1.8 (0.9-2); Albumin Level 3.5 gm/dl (3.4-5.0); BUN Creatinine Ratio 23.6 (10-20); Bilirubin,Total 0.9 mg/dl (0.2-1.0); Calcium 8.2 mg/dl (8.5-10.1); Creatinine Clr Calc Pharmacy 31.7 ml/min; Est GFR (African American) 48.6 ml/min; Est GFR (Non-African American) 41.9 ml/min; Potassium 4.1 mmol/L (3.5-5.1); Total Protein 5.5 gm/dl (6.0-8.3)
[2022-01-27] MEDS: INSULIN ASPART PER UNIT SC SCH ×3 (08:22→17:02)
[2022-01-27] MEDS ORDERED: LACTATED RINGER'S 500 ML IV ONE (14:55)
--- NOTE | 2022-01-27 14:59 | Hospitalist Progress Note ---
Date of Service January 27, 2022 Assessment & Plan (1) COVID-19: Plan: COVID-19 infection/generalized weakness/decreased oral intake. - Nutritional support - Has had intermittent brief hypoxia, would not pursue antivirals at this time. Was transiently on dexamethasone, but now he is 95% on room air, so this was stopped on 01/26. (2) Acute kidney injury superimposed on CKD: Plan: Creatinine 1.3 - 1.4, CKD Stage III. - Monitor -> Presently 1.5. Not really rising to meet ROSI definition. - Gentle IV fluids. (3) Chronic kidney disease, stage III (moderate): Plan: See above (4) Hypertension: Plan: BP today is 125/85. - Continue terazosin at that time (5) Type 2 diabetes mellitus: Plan: A1c is 6.7%. - Hold glipizide - Sliding scale insulin -> 90 - 140 over last 24 hours. (6) Hypercholesteremia: Plan: - Continue simvastatin 20 mg at bedtime (7) BPH (benign prostatic hyperplasia): Plan: Denies LUTS today. - Continue terazosin 5 mg at bedtime Admission and Anticipated Discharge Date Admission Date: January 25, 2022 Subjective Doing well today. Had some transient O2 need, but now on room air. More amenable to working with PT and OT today, I think he recognizes that he will need to work with them to convince his son he can go home. Physical Exam Constitutional: WD/WN, vitals as above Eyes: EOM intact bilaterally; no conjunctival abnormality ENMT: external ear and nose normal, oropharynx normal Neck: trachea midline, no thyromegaly normal visual inspection Respiratory: normal respiratory effort, lungs clear to auscultation no respiratory distress Cardiovascular: RRR, no murmur, no edema Gastrointestinal (Abdomen): Inspection/Auscultation: abdomen normal to inspection; abdomen not distended Musculoskeletal: no cyanosis or clubbing, extremities motor strength 5/5 Skin: no rashes, warm and dry Neurologic: moves all extremities and awake Psychiatric: Orientation: alert, oriented to person and cooperative Results & Data Results & Data ([facility]) Vital Signs (Past 12 Hours) Vital Signs Temp Pulse Pulse Resp BP Pulse Ox Pulse Ox 01/27/22 13:29 01/27/22 10:53 36.8 C 70 18 127/72 95 01/27/22 10:52 01/27/22 10:49 90 01/27/22 09:52 71 01/27/22 07:00 95 01/27/22 07:44 36.6 C 74 18 103/62 92 01/27/22 03:22 37.1 C 93 H 22 132/70 90 Pulse Ox Pulse Ox Pulse Ox O2 Del Method O2 Del Method O2 Flow Rate O2 Flow Rate 01/27/22 13:29 92 94 90 01/27/22 10:53 Nasal Cannula 2 01/27/22 10:52 Nasal Cannula 2 01/27/22 10:49 01/27/22 09:52 01/27/22 07:00 Nasal Cannula 2 01/27/22 07:44 Room Air 01/27/22 03:22 Room Air O2 Flow Rate O2 Flow Rate O2 Flow Rate 01/27/22 13:29 0 0 0 01/27/22 10:53 01/27/22 10:52 01/27/22 10:49 01/27/22 09:52 01/27/22 07:00 01/27/22 07:44 01/27/22 03:22 PG Care Time/CCT Total # of Minutes Spent Total Time Spent with Patient: Total time spent is greater than 50% in coordination of care (as documented) at patient's floor/unit and/or counseling patient: Coding Level of Care Code 35200 Subseq Hosp Care Lvl 2 Diagnoses COVID-19 U07.1 Acute kidney injury superimposed on CKD N17.9; N18.9 Chronic kidney disease, stage III (moderate) N18.32 Chronic kidney disease stage 3 subtype: stage 3b (GFR 30-44) Hypertension I10 Type 2 diabetes mellitus E11.9 Hypercholesteremia E78.00 BPH (benign prostatic hyperplasia) N40.1; R35.1 Lower urinary tract symptom presence: symptoms present Lower urinary tract symptom detail: nocturia (1) Chronic kidney disease, stage III (moderate) Chronic kidney disease stage 3 subtype: stage 3b (GFR 30-44) Qualified Code(s): N18.32 - Chronic kidney disease, stage 3b (2) BPH (benign prostatic hyperplasia) Lower urinary tract symptom presence: symptoms present Lower urinary tract symptom detail: nocturia Qualified Code(s): N40.1 - Benign prostatic hyperplasia with lower urinary tract symptoms; R35.1 - Nocturia
--- NOTE | 2022-01-27 15:33 | Discharge Summary ---
Date of Service January 27, 2022 Admission HPI Per Admitting Provider The patient is an 86-year-old male with a past medical history including CKD stage III, laryngeal pharyngeal reflux, hypertension, that is modest type II, hypercholesterolemia and BPH. He has been exposed to multiple family numbers with COVID-19, 1 of which was a son who was reportedly very sick. Family was concerned about the patient having COVID-19, and have had more difficulty taking care of him at home due to worsening symptoms as above. Of note, post patient was COVID-19 positive in the emergency department this evening, and it did show intermittent mild hypoxia duet to a low of 91%. Main significant abnormal laboratory, was creatinine 1.42, with his base of 1.29. Patient does have pending a left lower extremity venous Doppler Principal Diagnosis Covid-19 Weakness Discharge Exam Constitutional WD/WN, vitals as above Eyes EOM intact bilaterally; no conjunctival abnormality ENMT external ear and nose normal, oropharynx normal Neck trachea midline, no thyromegaly normal visual inspection Respiratory normal respiratory effort, lungs clear to auscultation no respiratory distress Cardiovascular RRR, no murmur, no edema Gastrointestinal (Abdomen) Inspection/Auscultation: abdomen normal to inspection; abdomen not distended Musculoskeletal no cyanosis or clubbing, extremities motor strength 5/5 Skin no rashes, warm and dry Neurologic moves all extremities and awake Psychiatric Orientation: alert, oriented to person and cooperative Discharge Data Allergies Allergy/AdvReac Type Severity Reaction Status Date / Time No Known Allergies Allergy Verified 11/17/21 09:27 Consultations 01/25/22 00:54 ED Decision to Admit Stat Ordered Studies 01/25/22 02:53 US venous doppler [facility] Stat Hospital Course (1) COVID-19: COVID-19 infection/generalized weakness/decreased oral intake. - Nutritional support - Has had intermittent brief hypoxia, would not pursue antivirals at this time. Was transiently on dexamethasone, but now he is 95% on room air, so this was stopped on 01/26. - Worked with PT/OT on 01/27 who recommended home with home PT/OT. Arranged by case management. (2) Acute kidney injury superimposed on CKD: Creatinine 1.3 - 1.4, CKD Stage III. - Monitor -> Presently 1.5. (3) Chronic kidney disease, stage III (moderate): See above (4) Hypertension: BP today is 125/85. - Continue terazosin at that time (5) Type 2 diabetes mellitus: A1c is 6.7%. - Held glipizide -> Reduced dose on discharge as he is on max dose for his CKD and A1c is actually below target for his age. Can f/u with PCP. (6) Hypercholesteremia: - Continue simvastatin 20 mg at bedtime (7) BPH (benign prostatic hyperplasia): Denies LUTS today. - Continue terazosin 5 mg at bedtime Total Time Total Time Spent Total Time Spent (In Minutes): 35 Discharge Plan Discharge Items Patient Disposition: Home - Home Health Services Reason For Visit: COVID-19 INFECTION, GENERALIZED WEAKNESS, HYPOXIA Discharge Diagnosis: Covid-19 infection causing weakness Condition on Discharge: Good Activity: Resume your previous activity Non-emergency contact: Primary Care Provider Call non-emergency contact if: your symptoms worsen Follow-up/Referrals: Devorah Martínez DO [Primary Care Provider] - Diet: Carb Consistent or DM2 Addtl Attending Provider Instructions: Mr. Domingo, You were admitted to the hospital with weakness from Covid-19. You were on oxygen for a very short time, but have not needed it at all today, and only a short time yesterday. As you recover from Covid, I think your strength will get better. We have arranged home PT for you to visit you at home and try to ensure you are getting some exercise and staying strong at home. One note, I would recommend you lower your dose of glipizide. At 86, the [place] [employer] recommends a looser blood sugar target because low blood sugars can actually cause more trouble than high blood sugars. Your A1c is actually slightly below goal, so to avoid low blood sugars, cutting your dose probably makes sense. If you are concerned about the change, please speak with your PCP. Pending Studies at Discharge: No Stand-Alone Forms: My [employer], Smoking Cessation Medications and DC Order Prescriptions: Continued simvastatin 20 mg tablet 20 mg PO HS Qty: 90 3RF ipratropium bromide 21 mcg (0.03 %) spray,non-aerosol 2 spray intranasal TID Qty: 90 3RF Rx Instructions: administer into each nostril terazosin 5 mg capsule See Rx Instructions .ROUTE .COMPLEX Qty: 90 3RF Dose Instruction: TAKE ONE CAPSULE BY MOUTH AT BEDTIME Rx Instructions: TAKE ONE CAPSULE BY MOUTH AT BEDTIME (DME) blood-glucose meter [OneTouch Verio Meter] Misc See Rx Instructions .Route Qty: 1 0RF Rx Instructions: As directed- test twice daily (DME) OneTouch Verio test strips Strip See Rx Instructions .Route Qty: 200 3RF Rx Instructions: use to test 2-3 times daily (DME) lancets [OneTouch UltraSoft Lancets] Misc See Rx Instructions .Route Qty: 200 3RF Rx Instructions: As directed twice per day metronidazole 1 % gel 1 applic topical BID Qty: 60 5RF nitroglycerin 0.4 mg tablet, sublingual 0.4 mg sublingual Q5M PRN (Reason: chest pain) Qty: 30 0RF Changed glipizide 5 mg tablet 5 mg PO BID Qty: 360 3RF Discharge Orders: Discharge Order (Routine); Ordered 01/27/22 Ordered By: Keyon Louis/Other Patient Handouts: High Blood Sugar (Hyperglycemia), Hypoglycemia (Low Blood Sugar), Managing Type 2 Diabetes Admission Data Admit Date/Time: 01/25/22 02:16 Attending Provider: Keyon Martinez Admit Provider: Teofilo Paiz Primary Care Provider: Devorah Martínez Other Providers: Marilee Thompson ; Teofilo Paiz Coding Level of Care Code D/C DAY MANAGEMENT >30 MINS Diagnoses COVID-19 U07.1 Acute kidney injury superimposed on CKD N17.9; N18.9 Chronic kidney disease, stage III (moderate) N18.32 Chronic kidney disease stage 3 subtype: stage 3b (GFR 30-44) Hypertension I10 Type 2 diabetes mellitus E11.9 Hypercholesteremia E78.00 BPH (benign prostatic hyperplasia) N40.1; R35.1 Lower urinary tract symptom presence: symptoms present Lower urinary tract symptom detail: nocturia
--- NOTE | 2022-01-27 16:22 | Electrocardiogram Report ---
Test Reason : Blood Pressure : / mmHG Vent. 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
== END 2022-01-27 20:28 | disposition home health service (06) | DRG 178 ==
LOC: ED 22:21 → SUATTDRO 01-25 02:16 → EDINP 01-25 02:16 → 2S 01-25 06:45 → 2W 01-26 16:21

== ENCOUNTER 2023-06-07 13:18 | Inpatient (IN) ==
--- NOTE | 2023-06-07 13:31 | Emergency Department Note ---
Impression & Plan Fall, Closed fracture of left hip, Pleural effusion on right ED Provider Note Provider: Tyler Gonzalez MD DATE OF SERVICE: 06/07/2023 CHIEF COMPLAINT: Fall, left hip pain HISTORY OF PRESENT ILLNESS: Patient is a 87-year-old gentleman history of diabetes, CKD, BPH presenting here today after fall. Evidently tripped and fell on a box earlier at home today onto his left hip. Denies striking his head. [place] loss conscious. Denies head neck or back pain. Pain localized to the left lateral hip and unable to walk. EMS noted to be somewhat shortened. Intact sensation of left leg without tenderness to left knee lower leg ankle or foot. Denies injury to the arms or the right leg or hip. No chest pain, shortness of breath, or abdominal pain reported by the patient. Patient did take some Tylenol before coming in but is not reportedly on blood thinners. No history of hip injury previously on the left. PAST MEDICAL HISTORY: As noted above MEDICATIONS: Reviewed home medications SOCIAL HISTORY: Resides at home PHYSICAL EXAM: GENERAL: alert and oriented in no acute distress on stretcher Head: normocephalic and atraumatic EYES: No injection, discharge or icterus. EOMI. NECK: Trachea midline. Supple. ENT: Mucous membranes pink and moist. LUNGS: Airway patent. No retractions. Breath sounds clear with good air entry bilaterally. HEART: Regular rate and rhythm. No chest wall tenderness or crepitus appreciated including on the right side of the chest ABDOMEN: Soft and non-tender, without guarding or rebound. SKIN: Acyanotic, warm, dry, without rashes EXTREMITIES: Without swelling, tenderness or deformity other than some swelling to the left lateral hip and pain with any ROM or palpation in this area. No open wounds here but a slight skin tear towards the right elbow. Slight skin tear to the left elbow. No tenderness to this area of the right upper extremity or left upper extremity NEUROLOGICAL: No focal deficits. No aphasia. No facial droop or slurred speech. Normal strength and tone in the extremities. Sensation to gross touch normal. EK bpm normal sinus rhythm with a right bundle branch block and left anterior fascicular block. QTc 512. Some scattered T wave changes without acute ST segment elevation. CONTINUOUS CARDIAC MONITORING: was ordered and showed a heart rate of 80s to 90s bpm in normal sinus rhythm GCS 15. Patient's laboratory studies and imaging reviewed. Differential includes Fracture, dislocation, contusion, intra-abdominal, pneumothorax, intrathoracic, intracranial, neurologic, compartment syndrome, rhabdomyolysis, as well as other pathologies. IMPRESSION/MEDICAL DECISION MAKING: Some taken by the mouth prior to arrival. Given a small Dupont fentanyl here for pain. Will obtain x-rays of the pelvis and left hip/femur as concern for fracture is high. Lower suspicion for dislocation in this 87-year-old with a the [place] hip. No evidence of any large open lacerations only very small skin tears in the bilateral forearms. No significant pelvic instability or evidence of compartment syndrome or deformity of the lower extremities otherwise noted. No evidence of significant injury to the upper extremities. Did not strike his has not a high risk anticoagulants or blood thinners. No LOC. No believe any additional imaging beyond the pelvis hip and a chest x-ray obtained. Basic labs and EKG were obtained. Based on imaging unfortunately hip appears to be broken. Discussed with patient and son. Will reach out to orthopedics. No established prior relationships. Will need to come in for surgical repair. Given a small amount of additional morphine for pain control. Leukocytosis likely reactive. Chest x-ray surprisingly shows concerning findings for possible pleural effusion and rib fractures on the right but the patient has no pain or tenderness on exam. Will complete full trauma CTs. CT head and cervical spine per report without significant traumatic injury noted. CT of the chest shows chronic/subacute right-sided rib fractures with healing subacute nondisplaced right T6-T12 transverse process fractures and a large right pleural effusion without pneumothorax. Consistent with the patient's lack of pain but does indicate he likely had more significant fall in the last month or 2. He is unable to tell me if this occurred but son states the patient has had some falls. Did reach out to pulmonary to discuss given the significant effusion and his need for hip surgery. Will evaluate for possible thoracentesis and drainage prior to surgery. Neurovascular intact in left lower extremity with intact left DP pulse. Discussed with hospitalist team for medical admission given his age and comorbidities. Discussed with orthopedics who recommended n.p.o. at midnight and likely surgery tomorrow. Orthopedics physician assistant sales director evaluating in the emergency department. DIAGNOSIS: Fall, left hip fracture, right pleural effusion with chronic rib fractures DISPOSITION: Hospitalist will evaluate Patient was agreeable with this plan. Past Med/Surg History Medical History (Updated 06/07/23 @ 18:14 by Davin Triana MD) Diabetes mellitus with neuropathy Neutrophilic leukocytosis BPH (benign prostatic hyperplasia) Controlled type 2 diabetes mellitus with chronic kidney disease Hypercholesteremia Type 2 diabetes mellitus Rhabdomyolysis Hypertension Surgical History Status post open reduction and internal fixation (ORIF) of fracture L ankle History of wisdom tooth extraction Family History Daughter Breast cancer Father No problems noted. Mother No problems noted. Other COPD (chronic obstructive pulmonary disease) Denies family history of Ovarian cancer Prostate cancer Myocardial infarction Colorectal cancer Social History Smoking Status: Never smoker Second Hand Exposure: No; Do You Dip or Chew Tobacco: No; Hx Alcohol Use: Yes Alcohol type: beer Alcohol Intake Frequency: 2-3 x/Week Alcohol Intake Frequency Comment: 1-2 cans per week Hx Substance Use: No Preferred Language: Pashto Communication Ability: Effective Visual Impairment: No Limitations Hearing Ability: Hard of Hearing Motion Picture Scene Builder Required: No Beliefs That Will Affect Care: None marital status: / Current Living Situation: Family Current Living Situation Comment: lives w/ son current occupational status: retired How many Children do You have: 3 How many Children do You have Comment: 2 sons, 1 daughter ([place]) Feels Safe at Home: Yes Childhood Exposure to Second-Hand Smoke: Yes Diet: regular Diet Comment: Regular caffeine: Yes during the past year weight has: remained stable Dental Care, Regularly: No Physical Activity Frequency: Daily Seatbelt Use: always Sunscreen Use: No Assistive Devices: Walker Allergies Allergies Allergy/AdvReac Type Severity Reaction Status Date / Time No Known Allergies Allergy Verified 06/07/23 15:29 Home Meds Home Medications Medication Instructions Recorded Confirmed glipizide 5 mg tablet 5 mg PO BID 06/07/23 06/07/23 terazosin 5 mg capsule 5 mg PO HS 06/07/23 06/07/23 Previous Rx's Medication Instructions Recorded nitroglycerin 0.4 mg sublingual 0.4 mg sublingual Q5M PRN chest 08/22/19 tablet pain #30 tabs ipratropium bromide 21 mcg (0.03 2 spray intranasal TID #90 mL 09/30/22 %) nasal spray simvastatin 20 mg tablet 20 mg PO HS #90 tabs 12/23/22 OneTouch Verio test strips (blood #200 ea 03/05/23 sugar diagnostic) blood-glucose meter #1 ea 03/05/23 lancets #200 ea 03/05/23 walker #1 ea 03/30/23 diclofenac sodium 1 % topical gel 2 g topical QID #100 grams 05/25/23 (Voltaren Arthritis Pain) Results & Data (ED) Vital Signs Vital Signs - 24 hr 06/07/23 13:28 06/07/23 13:32 06/07/23 15:27 Temperature 36.9 C Temperature Source Oral Pulse Rate 98 H 88 Pulse Rate [Right Finger] 90 Pulse Rhythm Regular Pulse Strength Normal Respiratory Rate 20 19 Respiratory Effort / Characteristics Non-Labored Spontaneous Respiratory Depth Normal Respiratory Pattern Regular Blood Pressure 122/88 Blood Pressure [Left Arm] 131/84 Blood Pressure Mean 99 Blood Pressure Mean [Left Arm] 99 Pulse Oximetry 96 97 Oxygen Delivery Method Room Air Room Air Sepsis Recent Fever Within 48 Hours No Sepsis New/Unexplained Change in Mental Status No Sepsis Action Taken by Nursing No Action Required 06/07/23 16:13 Temperature Temperature Source Pulse Rate Pulse Rate [Right Finger] 88 Pulse Rhythm Pulse Strength Respiratory Rate 16 Respiratory Effort / Characteristics Respiratory Depth Respiratory Pattern Blood Pressure Blood Pressure [Left Arm] 123/72 Blood Pressure Mean Blood Pressure Mean [Left Arm] 89 Pulse Oximetry 95 Oxygen Delivery Method Room Air Sepsis Recent Fever Within 48 Hours Sepsis New/Unexplained Change in Mental Status Sepsis Action Taken by Nursing Laboratory Data 06/07/23 13:45 06/07/23 15:02 Lab Results 06/07/23 06/07/23 Range/Units 13:45 15:02 WBC 13.99 H (4.8-10.8) K/ul RBC 4.46 L (4.70-6.10) M/uL Hgb 14.2 (14.0-18.0) g/dl Hct 43.2 (42.0-52.0) % MCV 96.9 (80.0-100.0) fL MCH 31.8 (25.0-34.0) pg MCHC 32.9 (32.0-36.0) g/dL RDW Std Deviation 46.5 H (36.4-46.3) fL RDW Coeff of Glenn 13.0 (11.5-14.5) % Plt Count 211 (130-400) K/uL MPV 9.8 (9.4-12.4) fL Immature Gran % (Auto) 0.5 % Neut % (Auto) 82.9 % Lymph % (Auto) 8.6 % Rankin % (Auto) 7.6 % Eos % (Auto) 0.1 % Baso % (Auto) 0.3 % Neut # (Auto) 11.59 H (1.40-6.50) K/uL Lymph # (Auto) 1.21 (1.20-3.40) K/uL Rankin # (Auto) 1.06 H (0.11-0.59) K/uL Eos # (Auto) 0.02 (0.00-0.50) K/uL Baso # (Auto) 0.04 (0.00-0.20) K/uL Immature Gran # (Auto) 0.07 (0.01-0.20) K/uL PT Cancelled 11.6 INR Cancelled 1.1 Sodium Cancelled 137 Potassium Cancelled 4.4 Chloride Cancelled 108 H Carbon Dioxide Cancelled 19 L Anion Gap Cancelled 10 BUN Cancelled 29 H Creatinine Cancelled 1.18 Est Cr Clr Drug Dosing Cancelled Not Reportable Est GFR ( Amer) Cancelled 63.5 Est GFR (Non-Af Amer) Cancelled 54.8 BUN/Creatinine Ratio Cancelled 24.6 H Glucose Cancelled 200 H Calcium Cancelled 8.7 Total Bilirubin Cancelled 1.2 H AST Cancelled 16 ALT Cancelled 13 Alkaline Phosphatase Cancelled 75 Total Protein Cancelled 5.3 L Albumin Cancelled 3.3 L Globulin Cancelled 2.0 L Albumin/Globulin Ratio Cancelled 1.7 SARS-CoV-2, RNA, NAAT NEGATIVE (NEGATIVE) Administered Medications Lactated Ringer's (Lr) 1,000 mls @ 125 mls/hr IV .Q8H ISAURO Stop: 07/07/23 16:59 Last Admin: 06/07/23 17:12 Dose: 125 mls/hr Documented By: ASW Discontinued Medications Fentanyl Citrate (Fentanyl Citrate Pf 100 Mcg/2 Ml Vial) 50 mcg IV NOW STA Stop: 06/07/23 13:25 Last Admin: 06/07/23 14:05 Dose: 50 mcg Documented By: ANGUS Ioversol (Optiray 320 500ml) 90 ml IV ONCE ONE Stop: 06/07/23 15:51 Last Admin: 06/07/23 15:50 Dose: 90 ml Documented By: INOCENCIO Morphine Sulfate (Morphine Sulfate 2 Mg/Ml Carp) 2 mg IV NOW STA Stop: 06/07/23 15:16 Last Admin: 06/07/23 15:27 Dose: 2 mg Documented By: CORDELIAW Imaging Data Radiologist's Impression: Chest X-Ray 06/07/23 13:23 SINGLE VIEW CHEST CLINICAL HISTORY: Fall. FINDINGS: An AP supine chest radiograph is compared to study dated 03/25/2023. The heart is enlarged noting atherosclerotic calcification of the thoracic aorta. There is prominence of the pulmonary vasculature. There is a moderate to large volume of pleural fluid on the right with atelectasis of the right lung. The left lung appears clear noting basilar atelectasis. No pneumothorax is seen. There are acute appearing right posterior rib fractures. Arthritic change is seen in the shoulders. IMPRESSION: 1. There are numerous acute-appearing right-sided rib fractures. 2. There is a moderate to large volume of pleural fluid with atelectasis of the right lung. In the setting of acute rib fractures hemothorax is not excluded. 3. No pneumothorax is identified. 4. The left lung appears clear. 5. Cardiomegaly with prominence of the pulmonary vasculature. Correlate clinically for evidence of fluid overload/congestive change. ACT 112: Negative or not required by law. Electronically signed by: Stanislaw Tang M.D. 06/07/2023 2:55 PM Femur X-Ray 06/07/23 13:23 XR femur LT 2V routine CLINICAL HISTORY: fall COMPARISON STUDY: None. FINDINGS: Comminuted and mildly displaced intertrochanteric fracture within the proximal left femur. The visualized pelvic bones are intact. The femoral fracture demonstrates up to 1.6 cm of superior displacement. No dislocation of the femoral head. Soft tissue swelling within the left hip. IMPRESSION: Comminuted and mildly displaced intertrochanteric fracture within the proximal left femur. ACT 112: Negative or not required by law. Electronically signed by: Je Sarkar M.D. 06/07/2023 3:04 PM Hip/Pelvis X-Ray 06/07/23 13:23 XR hip LT 2V w pelvis HISTORY: 87 years-old Male fall, pain acute left hip pain COMPARISON: Femur radiographs of same day TECHNIQUE: AP view of the pelvis with 2 views of the left hip FINDINGS: Mild ostial arthritis of the hips. There is acute and comminuted intratrochanteric left femoral fracture which demonstrates impaction/foreshortening with 1.6 m superior displacement. No dislocation. Mild soft tissue swelling. IMPRESSION: Acute, comminuted and displaced intertrochanteric left femoral fracture. ACT 112: Negative or not required by law. The above report was generated using voice recognition software. It may contain grammatical, syntax or spelling errors. Electronically signed by: Deny Escamilla M.D. 06/07/2023 3:[address] 06/07/23 15:31 CT cervical spine wo con CLINICAL HISTORY: 87 years-old Male with fall. Acute neck pain status post fall COMPARISON: Chest radiograph of same day. TECHNIQUE: Multiple axial CT images of the cervical spine were obtained without contrast. A dose lowering technique was utilized adhering to the principles of ALARA. FINDINGS: Right pleural effusion with right lung volume loss. Demineralized appearance of the bones. 30% superior endplate compression at T1 without retropulsion is likely chronic. Multilevel degenerative changes include severe C3-C4 and moderate C5-C6 intervertebral disc space narrowing. Moderate multilevel spondylotic spurring and facet arthrosis. No acute cervical spine fracture or subluxation identified. Unremarkable soft tissues. No acute intracranial abnormality identified. IMPRESSION: 1. No acute cervical spine fracture or subluxation identified. 2. Partially imaged large right pleural effusion. ACT 112: Negative or not required by law. The above report was generated using voice recognition software. It may contain grammatical, syntax or spelling errors. Electronically signed by: Deny Escamilla M.D. 06/07/2023 4:[address] 06/07/23 15:31 CT SCAN OF THE BRAIN WITHOUT IV CONTRAST CLINICAL HISTORY: Fall. COMPARISON STUDY: No priors. TECHNIQUE: Unenhanced axial CT scan of the brain is performed from the vertex to the skull base. A dose lowering technique was utilized adhering to the principles of ALARA. 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 There is age-related involutional change noting moderate subcortical and periventricular microangiopathic disease. There is no hemorrhage, mass effect, or evidence of acute territorial ischemia by CT criteria. Ponce-white matter differentiation is preserved. No extra-axial fluid collection is seen. Ventricles, sulci, cisterns: Prominent secondary to involutional change. Intracranial vasculature: There is atherosclerotic calcification of the cavernous carotid arteries. Calvarium: The skeletal structures are osteopenic. No depressed calvarial fracture is seen. Sinuses and mastoids: The visualized paranasal sinuses are clear. The mastoid air cells are well pneumatized. Orbits: The bony orbits are grossly intact. IMPRESSION: There is no hemorrhage, mass effect, or evidence of acute territorial ischemia by CT criteria. ACT 112: Negative or not required by law. Electronically signed by: Stanislaw Tang M.D. 06/07/2023 4:08 PM Abdomen/Pelvis CT 06/07/23 15:[address] WITH IV CONTRAST CT DOSE: HISTORY: fall TECHNIQUE: Multiaxial CT images of the abdomen and pelvis were performed following the use of intravenous contrast. A dose lowering technique was utilized adhering to the principles of ALARA. COMPARISON STUDY: None. FINDINGS: The lung bases will be reported on the same day chest CTA. There is a large right pleural effusion resulting in compressive atelectasis of the right middle lobe and right lower lobe. There are multiple subacute/healing right- sided rib fractures. There are old, healed left-sided rib fractures. No pneumoperitoneum. No pneumatosis. There are healing right seventh T8-T10 transverse process fractures noted. Small fat-containing bilateral inguinal hernias. There is a comminuted and displaced intertrochanteric fracture within the proximal left femur. The lesser trochanter fragment abuts and slightly displaces the proximal left superficial femoral artery. However, no active arterial extravasation to suggest an arterial injury. This is best seen on axial image 372. The liver, gallbladder, pancreas, spleen, and adrenal glands are unremarkable. Mild bilateral cortical renal scarring. There is a 3.5 cm left lower pole renal cyst. No hydronephrosis. The main portal vein is patent. Calcified plaque within the normal caliber abdominal aorta. No retroperitoneal hematoma or lymphadenopathy identified. The bladder is unremarkable. The prostate gland is mildly enlarged. Colonic diverticulosis. No evidence for acute diverticulitis. No bowel wall thickening or obstruction. Normal appendix. IMPRESSION: 1. Acute comminuted and displaced intertrochanteric fracture of the proximal left femur. The lesser trochanter bony fragment abuts and slightly displaces the proximal left superficial femoral artery. However, no evidence for active arterial extravasation to suggest an acute arterial injury. 2. Large right pleural effusion and multiple subacute right rib and thoracic transverse process fractures are better appreciated on the same day chest CT. 3. Additional findings as described above. ACT 112: Negative or not required by law. Electronically signed by: Je Sarkar M.D. 06/07/2023 4:[address] 06/07/23 15:[address] WITH CONTRAST CT DOSE: 2683.6 mGy.cm HISTORY: Acute chest trauma status post fall fall TECHNIQUE: Multiaxial CT images of the chest were performed following the IV administration of 90 cc of Optiray. A dose lowering technique was utilized adhering to the principles of ALARA. COMPARISON: Chest radiograph of same day FINDINGS: Unremarkable thyroid. There is no lymphadenopathy. Extensive coronary artery calcifications. The heart is mildly enlarged. Unremarkable thoracic aorta with moderate atherosclerosis. The opacified pulmonary artery is unremarkable. The study is degraded by respiratory motion. There is a large right pleural effusion. Right lung volume loss with compressive atelectasis. Near complete collapse of the right lower and middle lobes. Tracheobronchial secretions with mucous plugging. Patchy left basilar densities suggestive of atelectasis. Mild left upper lung scarring. No acute upper abdominal abnormality identified. Degenerative changes of the shoulders and spine. Subacute nondisplaced healing fractures of the right T6-T10 transverse processes. Chronic appearing nondisplaced fractures of the anterior right second, third and fourth ribs. Subacute fractures of the anterior right fifth through seventh ribs without displacement. Additionally, there are subacute mildly displaced fractures of the posterolateral right fourth through 10th ribs. No acute vertebral body fracture identified. IMPRESSION: 1. Chronic and subacute right-sided rib fractures as above with healing subacute nondisplaced fractures of the right T6-T10 transverse processes. 2. Large right pleural effusion with partial collapse of the right lung. 3. No pneumothorax. 4. Please refer to the CT abdomen and pelvis study of same day for additional findings. ACT 112: Negative or not required by law. Electronically signed by: Deny Escamilla M.D. 06/07/2023 4:14 PM Discharge Plan Visit Data Chief Complaint: Hip Pain Stated Complaint: FALL W/ lt LEG PAIN (HIP) SHORTENING/ROTATION ED Provider: Tyler Gonzalez Discharge Problem: Fall, Closed fracture of left hip, Pleural effusion on right Patient Disposition: Being Evaluated by Hospitalist Discharge Instructions Interventions: ED Discharge Assessment Last Done: 06/07/23 17:30 Discharge Problem: Fall Qualifiers: Encounter type: initial encounter Qualified Code(s): W19.XXXA - Unspecified fall, initial encounter Closed fracture of left hip Qualifiers: Encounter type: initial encounter Qualified Code(s): S72.002A - Fracture of unspecified part of neck of left femur, initial encounter for closed fracture
[2023-06-07] MEDS: fentaNYL citrate PF 100 MCG/2 ML VIAL IV STA (14:05)
[2023-06-07 14:13] LABS: Basophils # (auto) 0.04 K/uL (0.00-0.20); Basophils % (auto) 0.3 %; Eosinophils # (auto) 0.02 K/uL (0.00-0.50); Eosinophils % (auto) 0.1 %; Hematocrit (blood only) 43.2 % (42.0-52.0); Hemoglobin 14.2 g/dl (14.0-18.0); Immature Granulocytes # (auto) 0.07 K/uL (0.01-0.20); Immature Granulocytes % (auto) 0.5 %; Lymphocytes # (auto) 1.21 K/uL (1.20-3.40); Lymphocytes % (auto) 8.6 %; Mean Corpuscular Hemoglobin 31.8 pg (25.0-34.0); Mean Corpuscular Hgb Conc 32.9 g/dL (32.0-36.0); Mean Corpuscular Volume 96.9 fL (80.0-100.0); Mean Platelet Volume 9.8 fL (9.4-12.4); Monocytes # (auto) 1.06 K/uL (0.11-0.59); Monocytes % (auto) 7.6 %; Neutrophils # (auto) 11.59 K/uL (1.40-6.50); Neutrophils % (auto) 82.9 %; Platelet Count 211 K/uL (130-400); RDW Standard Deviation 46.5 fL (36.4-46.3); Red Blood Count 4.46 M/uL (4.70-6.10); White Blood Count 13.99 K/ul (4.8-10.8)
--- NOTE | 2023-06-07 14:57 | XRay Report ---
SINGLE VIEW CHEST CLINICAL HISTORY: Fall. FINDINGS: An AP supine chest radiograph is compared to study dated 03/25/2023. The heart is enlarged noting atherosclerotic calcification of the thoracic aorta. There is prominence of the pulmonary vasc ulature. There is a moderate to large volume of pleural fluid on the right with atelectasis of the ri ght lung. The left lung appears clear noting basilar atelectasis. No pneumothorax is seen. There are acute appearing right posterior rib fractures. Arthritic change is seen in the shoulders. IMPRESSION: 1. There are numerous acute-appearing right-sided rib fractures. 2. There is a moderate to large volume of pleural fluid with atelectasis of the right lung. In the se tting of acute rib fractures hemothorax is not excluded. 3. No pneumothorax is identified. 4. The left lung appears clear. 5. Cardiomegaly with prominence of the pulmonary vasculature. Correlate clinically for evidence of fl uid overload/congestive change. ACT 112: Negative or not required by law. Electronically signed by: Stanislaw Tang M.D. 06/07/2023 2:55 PM
--- NOTE | 2023-06-07 14:59 | Electrocardiogram Report ---
Test Reason : Blood Pressure : / mmHG Vent. Rate : 093 BPM Atrial Rate : 093 BPM P-R Int : 192 ms QRS Dur : 124 ms QT Int : 412 ms P-R-T Axes : 036 -51 081 degrees QTc Int : 512 ms Normal sinus rhythm Right bundle branch block Left anterior fascicular block Bifascicular block Abnormal ECG When compared with ECG of 27-JAN-2022 01:23, Fusion complexes are no longer Present Right bundle branch block has replaced RSR' pattern in V1 Confirmed by Lorne Melendrez ([id number]) on 06/07/2023 2:59:52 PM Referred By: REFERRED SELF Confirmed By:Lorne Melendrez
--- NOTE | 2023-06-07 15:05 | XRay Report ---
XR femur LT 2V routine CLINICAL HISTORY: fall COMPARISON STUDY: None. FINDINGS: Comminuted and mildly displaced intertrochanteric fracture within the proximal left femur. The visualized pelvic bones are intact. The femoral fracture demonstrates up to 1.6 cm of superior di splacement. No dislocation of the femoral head. Soft tissue swelling within the left hip. IMPRESSION: Comminuted and mildly displaced intertrochanteric fracture within the proximal left femu r. ACT 112: Negative or not required by law. Electronically signed by: Je Sarkar M.D. 06/07/2023 3:04 PM
[2023-06-07] MEDS: MoRPHine SULFATE 2 MG/ML CARP IV STA (15:27)
--- NOTE | 2023-06-07 15:27 | XRay Report ---
XR hip LT 2V w pelvis HISTORY: 87 years-old Male fall, pain acute left hip pain COMPARISON: Femur radiographs of same day TECHNIQUE: AP view of the pelvis with 2 views of the left hip FINDINGS: Mild ostial arthritis of the hips. There is acute and comminuted intratrochanteric left femoral fract ure which demonstrates impaction/foreshortening with 1.6 m superior displacement. No dislocation. Mil d soft tissue swelling. IMPRESSION: Acute, comminuted and displaced intertrochanteric left femoral fracture. ACT 112: Negative or not required by law. The above report was generated using voice recognition software. It may contain grammatical, syntax o r spelling errors. Electronically signed by: Deny Escamilla M.D. 06/07/2023 3:25 PM
[2023-06-07 15:35] LABS: Alanine Aminotransferase 13 U/L (7-52); Albumin Globulin Ratio 1.7 (0.9-2); Albumin Level 3.3 gm/dl (3.4-5.0); Alkaline Phosphatase 75 U/L (34-104); Anion Gap 10 (3-11); Aspartate Aminotransferase 16 U/L (13-39); BUN Creatinine Ratio 24.6 (10-20); Bilirubin,Total 1.2 mg/dl (0.2-1.0); Blood Urea Nitrogen 29 mg/dl (6-23); Calcium 8.7 mg/dl (8.6-10.3); Carbon Dioxide 19 mmol/L (21-32); Chloride 108 mmol/L (98-107); Est GFR (African American) 63.5 ml/min; Est GFR (Non-African American) 54.8 ml/min; Glucose 200 mg/dl (70-99(Fasting)); Potassium 4.4 mmol/L (3.5-5.1); Sodium 137 mmol/L (136-145); Total Protein 5.3 gm/dl (6.0-8.3)
[2023-06-07] MEDS: OPTIRAY 320 500ml IV ONE (15:50)
[2023-06-07 15:53] LABS: INR 1.1 (0.9-1.1); Prothrombin Time 11.6 Seconds (9.0-12.0)
--- NOTE | 2023-06-07 16:07 | CT Scan Report ---
CT cervical spine wo con CLINICAL HISTORY: 87 years-old Male with fall. Acute neck pain status post fall COMPARISON: Chest radiograph of same day. TECHNIQUE: Multiple axial CT images of the cervical spine were obtained without contrast. A dose low ering technique was utilized adhering to the principles of ALARA. FINDINGS: Right pleural effusion with right lung volume loss. Demineralized appearance of the bones. 30% superior endplate compression at T1 without retropulsion is likely chronic. Multilevel degenerati ve changes include severe C3-C4 and moderate C5-C6 intervertebral disc space narrowing. Moderate mult ilevel spondylotic spurring and facet arthrosis. No acute cervical spine fracture or subluxation iden tified. Unremarkable soft tissues. No acute intracranial abnormality identified. IMPRESSION: 1. No acute cervical spine fracture or subluxation identified. 2. Partially imaged large right pleural effusion. ACT 112: Negative or not required by law. The above report was generated using voice recognition software. It may contain grammatical, syntax o r spelling errors. Electronically signed by: Deny Escamilla M.D. 06/07/2023 4:05 PM
--- NOTE | 2023-06-07 16:10 | CT Scan Report ---
CT SCAN OF THE BRAIN WITHOUT IV CONTRAST CLINICAL HISTORY: Fall. COMPARISON STUDY: No priors. TECHNIQUE: Unenhanced axial CT scan of the brain is performed from the vertex to the skull base. A do se lowering technique was utilized adhering to the principles of ALARA. 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 Ther e is age-related involutional change noting moderate subcortical and periventricular microangiopathic disease. There is no hemorrhage, mass effect, or evidence of acute territorial ischemia by CT criter ia. Ponce-white matter differentiation is preserved. No extra-axial fluid collection is seen. Ventricles, sulci, cisterns: Prominent secondary to involutional change. Intracranial vasculature: There is atherosclerotic calcification of the cavernous carotid arteries. Calvarium: The skeletal structures are osteopenic. No depressed calvarial fracture is seen. Sinuses and mastoids: The visualized paranasal sinuses are clear. The mastoid air cells are well pneu matized. Orbits: The bony orbits are grossly intact. IMPRESSION: There is no hemorrhage, mass effect, or evidence of acute territorial ischemia by CT darnell young. ACT 112: Negative or not required by law. Electronically signed by: Stanislaw Tang M.D. 06/07/2023 4:08 PM
--- NOTE | 2023-06-07 16:15 | CT Scan Report ---
CHEST CT WITH CONTRAST CT DOSE: 2683.6 mGy.cm HISTORY: Acute chest trauma status post fall fall TECHNIQUE: Multiaxial CT images of the chest were performed following the IV administration of 90 cc of Optiray. A dose lowering technique was utilized adhering to the principles of ALARA. COMPARISON: Chest radiograph of same day FINDINGS: Unremarkable thyroid. There is no lymphadenopathy. Extensive coronary artery calcifications . The heart is mildly enlarged. Unremarkable thoracic aorta with moderate atherosclerosis. The opacif ied pulmonary artery is unremarkable. The study is degraded by respiratory motion. There is a large right pleural effusion. Right lung volume loss with compressive atelectasis. Near co mplete collapse of the right lower and middle lobes. Tracheobronchial secretions with mucous plugging . Patchy left basilar densities suggestive of atelectasis. Mild left upper lung scarring. No acute upper abdominal abnormality identified. Degenerative changes of the shoulders and spine. Sub acute nondisplaced healing fractures of the right T6-T10 transverse processes. Chronic appearing nond isplaced fractures of the anterior right second, third and fourth ribs. Subacute fractures of the ant erior right fifth through seventh ribs without displacement. Additionally, there are subacute mildly displaced fractures of the posterolateral right fourth through 10th ribs. No acute vertebral body fra cture identified. IMPRESSION: 1. Chronic and subacute right-sided rib fractures as above with healing subacute nondisplaced fractur es of the right T6-T10 transverse processes. 2. Large right pleural effusion with partial collapse of the right lung. 3. No pneumothorax. 4. Please refer to the CT abdomen and pelvis study of same day for additional findings. ACT 112: Negative or not required by law. Electronically signed by: Deny Escamilla M.D. 06/07/2023 4:14 PM
--- NOTE | 2023-06-07 16:37 | CT Scan Report ---
ABDOMEN AND PELVIS CT WITH IV CONTRAST CT DOSE: HISTORY: fall TECHNIQUE: Multiaxial CT images of the abdomen and pelvis were performed following the use of intrave nous contrast. A dose lowering technique was utilized adhering to the principles of ALARA. COMPARISON STUDY: None. FINDINGS: The lung bases will be reported on the same day chest CTA. There is a large right pleural e ffusion resulting in compressive atelectasis of the right middle lobe and right lower lobe. There are multiple subacute/healing right-sided rib fractures. There are old, healed left-sided rib fractures. No pneumoperitoneum. No pneumatosis. There are healing right seventh T8-T10 transverse process fract ures noted. Small fat-containing bilateral inguinal hernias. There is a comminuted and displaced inte rtrochanteric fracture within the proximal left femur. The lesser trochanter fragment abuts and sligh tly displaces the proximal left superficial femoral artery. However, no active arterial extravasation to suggest an arterial injury. This is best seen on axial image 372. The liver, gallbladder, pancrea s, spleen, and adrenal glands are unremarkable. Mild bilateral cortical renal scarring. There is a 3. 5 cm left lower pole renal cyst. No hydronephrosis. The main portal vein is patent. Calcified plaque within the normal caliber abdominal aorta. No retroperitoneal hematoma or lymphadenopathy identified. The bladder is unremarkable. The prostate gland is mildly enlarged. Colonic diverticulosis. No evide nce for acute diverticulitis. No bowel wall thickening or obstruction. Normal appendix. IMPRESSION: 1. Acute comminuted and displaced intertrochanteric fracture of the proximal left femur. The lesser t rochanter bony fragment abuts and slightly displaces the proximal left superficial femoral artery. Ho wever, no evidence for active arterial extravasation to suggest an acute arterial injury. 2. Large right pleural effusion and multiple subacute right rib and thoracic transverse process fract ures are better appreciated on the same day chest CT. 3. Additional findings as described above. ACT 112: Negative or not required by law. Electronically signed by: Je Sarkar M.D. 06/07/2023 4:34 PM
--- NOTE | 2023-06-07 17:10 | History & Physical Report ---
Date of Service June 07, 2023 Assessment & Plan (1) Closed fracture of left hip: Plan: Acetaminophen 1st line, morphine 2nd line for pain relief NPO after midnight, IV fluids Consult orthopedics for surgical management Defer medical clearance/optimization for surgery pending repeat CXR in AM following thoracentesis and pulmonology consult (2) Fracture of rib of right side: Plan: Multiple rib fractures without pain therefore do not suspect acute although new since 2022 Associated large right sided pleural effusion (3) Pleural effusion, right: Plan: Suspect traumatic given rib fractures Does not appear acute with no pain, shortness of breath or hypoxia although again new since March 2023 Consult pulmonology for thoracentesis (4) Fall: Plan: No concerning findings prior to falling needing further workup Skin tears following fall, will consult wound care nurse (5) Type 2 diabetes mellitus: Plan: Hemoglobin A1c 6.1 [05/25/2023], no need to repeat this Hold glipizide Novolog: --Goal BSG Range: Low 110 mg/dL, High 140 mg/dL --Correction Factor: 45 mg/dL/unit --Carbohydrate ratio = 15 g/unit --BSGs ACHS if eating, q6h if npo Add basal dosing if glucose remains high (6) Hypercholesteremia: Plan: Continue simvastatin (7) BPH (benign prostatic hyperplasia): Plan: Continue terazosin Plan VTE prophylaxis - deferred pre-operatively Diet - T2DM, NPO after midnight Disposition - admit to PCU Admission and Anticipated Discharge Date Admission Date: June 07, 2023 History of Present Illness Chief Complaint: Left hip pain Primary Care Provider: DO Jung Motta Chayo is an 87-year-old male who presents to the ER after falling and injuring his left hip. No loss of consciousness. No antiplatelets or anticoagulation. He was kicking a box of coins on the floor when he tripped and fell. No chest pain, shortness of breath or dizziness prior to the fall. In the ER his routine preop chest x-ray showed a new right-sided large pneumothorax with multiple subacute rib fractures. Subsequent CT chest confirmed these rib fractures are subacute to chronic however the presumed traumatic pleural effusion is new since chest x-ray in March 2023. ER physician discussed with pulmonology and given this is not acute this will be managed here and no need to transfer to a trauma center at this time. The patient denies any fall onto his right side, no shortness of breath, no right sided chest pain. Allergies Allergy/AdvReac Type Severity Reaction Status Date / Time No Known Allergies Allergy Verified 06/07/23 15:29 Home Medications Medication Instructions Recorded Confirmed Type nitroglycerin 0.4 mg sublingual 0.4 mg sublingual Q5M PRN chest 08/22/19 06/07/23 Rx tablet pain #30 tabs ipratropium bromide 21 mcg (0.03 2 spray intranasal TID #90 mL 09/30/22 06/07/23 Rx %) nasal spray simvastatin 20 mg tablet 20 mg PO HS #90 tabs 12/23/22 06/07/23 Rx OneTouch Verio test strips (blood #200 ea 03/05/23 06/07/23 Rx sugar diagnostic) blood-glucose meter #1 ea 03/05/23 06/07/23 Rx lancets #200 ea 03/05/23 06/07/23 Rx walker #1 ea 03/30/23 06/07/23 Rx diclofenac sodium 1 % topical gel 2 g topical QID #100 grams 05/25/23 06/07/23 Rx (Voltaren Arthritis Pain) glipizide 5 mg tablet 5 mg PO BID 06/07/23 06/07/23 History terazosin 5 mg capsule 5 mg PO HS 06/07/23 06/07/23 History Past Med/Surg History Medical History (Updated 06/07/23 @ 18:14 by Davin Triana MD) Diabetes mellitus with neuropathy Neutrophilic leukocytosis BPH (benign prostatic hyperplasia) Controlled type 2 diabetes mellitus with chronic kidney disease Hypercholesteremia Type 2 diabetes mellitus Rhabdomyolysis Hypertension Surgical History Status post open reduction and internal fixation (ORIF) of fracture L ankle History of wisdom tooth extraction Family History Daughter Breast cancer Father No problems noted. Mother No problems noted. Other COPD (chronic obstructive pulmonary disease) Denies family history of Ovarian cancer Prostate cancer Myocardial infarction Colorectal cancer Social History Smoking Status: Unknown if ever smoked Second Hand Exposure: No; Do You Dip or Chew Tobacco: No; Hx Alcohol Use: No Hx Substance Use: No Preferred Language: Hungarian Communication Ability: Effective Visual Impairment: No Limitations Hearing Ability: Hard of Hearing Electron Gun Inspector Required: No Beliefs That Will Affect Care: None marital status: / Current Living Situation: Family Current Living Situation Comment: lives w/ son current occupational status: retired How many Children do You have: 3 How many Children do You have Comment: 2 sons, 1 daughter ([place]) Feels Safe at Home: Yes Childhood Exposure to Second-Hand Smoke: Yes Diet: regular Diet Comment: Regular caffeine: Yes during the past year weight has: remained stable Dental Care, Regularly: No Physical Activity Frequency: Daily Seatbelt Use: always Sunscreen Use: No Assistive Devices: None Review of Systems Review of Systems: All systems reviewed & are unremarkable except as noted in HPI & below Physical Exam Constitutional: WD/WN, vitals as above Eyes: PERRL, conjunctivae normal, anicteric sclerae ENMT: external ear and nose normal, oropharynx normal Respiratory: normal respiratory effort; no respiratory distress Auscultation: + diminished lung sounds (right sided); breath sounds present, no crackles, no rales, no rhonchi and no wheezes Cardiovascular: RRR, no murmur, no edema Gastrointestinal (Abdomen): normal bowel sounds, soft, nontender, no hepatosplenomegaly Musculoskeletal: shortened and external rotated left leg with good DP and PT pulses Skin: no rashes, warm and dry Neurologic: moves all extremities and awake; not confused Psychiatric: A+Ox3, euthymic affect Genitourinary: no CVA tenderness Results & Data Results & Data Vital Signs (Past 12 Hours) Vital Signs Temp Pulse Pulse Resp BP BP Pulse Ox 06/07/23 16:13 88 16 123/72 95 06/07/23 15:27 90 19 131/84 97 06/07/23 13:28 36.9 C 98 H 20 122/88 96 O2 Del Method 06/07/23 16:13 Room Air 06/07/23 15:27 Room Air 06/07/23 13:28 Room Air Laboratory Results Abnormal lab results 06/07/23 06/07/23 Range/Units 13:45 15:02 WBC 13.99 H (4.8-10.8) K/ul RBC 4.46 L (4.70-6.10) M/uL RDW Std Deviation 46.5 H (36.4-46.3) fL Neut # (Auto) 11.59 H (1.40-6.50) K/uL [place] # (Auto) 1.06 H (0.11-0.59) K/uL Chloride 108 H (98-107) mmol/L Carbon Dioxide 19 L (21-32) mmol/L BUN 29 H (6-23) mg/dl BUN/Creatinine Ratio 24.6 H (10-20) Glucose 200 H (70-99(Fasting)) mg/dl Total Bilirubin 1.2 H (0.2-1.0) mg/dl Total Protein 5.3 L (6.0-8.3) gm/dl Albumin 3.3 L (3.4-5.0) gm/dl Globulin 2.0 L (2.5-4.0) gm/dl Diagnostic Findings CT SCAN OF THE BRAIN WITHOUT IV CONTRAST CLINICAL HISTORY: Fall. COMPARISON STUDY: No priors. TECHNIQUE: Unenhanced axial CT scan of the brain is performed from the vertex to the skull base. A dose lowering technique was utilized adhering to the principles of ALARA. 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 There is age-related involutional change noting moderate subcortical and periventricular microangiopathic disease. There is no hemorrhage, mass effect, or evidence of acute territorial ischemia by CT criteria. Ponce-white matter differentiation is preserved. No extra-axial fluid collection is seen. Ventricles, sulci, cisterns: Prominent secondary to involutional change. Intracranial vasculature: There is atherosclerotic calcification of the cavernous carotid arteries. Calvarium: The skeletal structures are osteopenic. No depressed calvarial fracture is seen. Sinuses and mastoids: The visualized paranasal sinuses are clear. The mastoid air cells are well pneumatized. Orbits: The bony orbits are grossly intact. IMPRESSION: There is no hemorrhage, mass effect, or evidence of acute territorial ischemia by CT criteria. CT cervical spine wo con CLINICAL HISTORY: 87 years-old Male with fall. Acute neck pain status post fall COMPARISON: Chest radiograph of same day. TECHNIQUE: Multiple axial CT images of the cervical spine were obtained without contrast. A dose lowering technique was utilized adhering to the principles of ALARA. FINDINGS: Right pleural effusion with right lung volume loss. Demineralized appearance of the bones. 30% superior endplate compression at T1 without retropulsion is likely chronic. Multilevel degenerative changes include severe C3-C4 and moderate C5-C6 intervertebral disc space narrowing. Moderate multilevel spondylotic spurring and facet arthrosis. No acute cervical spine fracture or subluxation identified. Unremarkable soft tissues. No acute intracranial abnormality identified. IMPRESSION: 1. No acute cervical spine fracture or subluxation identified. 2. Partially imaged large right pleural effusion. CHEST CT WITH CONTRAST CT DOSE: 2683.6 mGy.cm HISTORY: Acute chest trauma status post fall fall TECHNIQUE: Multiaxial CT images of the chest were performed following the IV administration of 90 cc of Optiray. A dose lowering technique was utilized adhering to the principles of ALARA. COMPARISON: Chest radiograph of same day FINDINGS: Unremarkable thyroid. There is no lymphadenopathy. Extensive coronary artery calcifications. The heart is mildly enlarged. Unremarkable thoracic aorta with moderate atherosclerosis. The opacified pulmonary artery is unremarkable. The study is degraded by respiratory motion. There is a large right pleural effusion. Right lung volume loss with compressive atelectasis. Near complete collapse of the right lower and middle lobes. Tracheobronchial secretions with mucous plugging. Patchy left basilar densities suggestive of atelectasis. Mild left upper lung scarring. No acute upper abdominal abnormality identified. Degenerative changes of the shoulders and spine. Subacute nondisplaced healing fractures of the right T6-T10 transverse processes. Chronic appearing nondisplaced fractures of the anterior right second, third and fourth ribs. Subacute fractures of the anterior right fifth through seventh ribs without displacement. Additionally, there are subacute mildly displaced fractures of the posterolateral right fourth through 10th ribs. No acute vertebral body fracture identified. IMPRESSION: 1. Chronic and subacute right-sided rib fractures as above with healing subacute nondisplaced fractures of the right T6-T10 transverse processes. 2. Large right pleural effusion with partial collapse of the right lung. 3. No pneumothorax. 4. Please refer to the CT abdomen and pelvis study of same day for additional findings. ABDOMEN AND PELVIS CT WITH IV CONTRAST CT DOSE: HISTORY: fall TECHNIQUE: Multiaxial CT images of the abdomen and pelvis were performed following the use of intravenous contrast. A dose lowering technique was utilized adhering to the principles of ALARA. COMPARISON STUDY: None. FINDINGS: The lung bases will be reported on the same day chest CTA. There is a large right pleural effusion resulting in compressive atelectasis of the right middle lobe and right lower lobe. There are multiple subacute/healing right- sided rib fractures. There are old, healed left-sided rib fractures. No pneumoperitoneum. No pneumatosis. There are healing right seventh T8-T10 transverse process fractures noted. Small fat-containing bilateral inguinal hernias. There is a comminuted and displaced intertrochanteric fracture within the proximal left femur. The lesser trochanter fragment abuts and slightly disp laces the proximal left superficial femoral artery. However, no active arterial extravasation to suggest an arterial injury. This is best seen on axial image 372. The liver, gallbladder, pancreas, spleen, and adrenal glands are unremarkable. Mild bilateral cortical renal scarring. There is a 3.5 cm left lower pole renal cyst. No hydronephrosis. The main portal vein is patent. Calcified plaque within the normal caliber abdominal aorta. No retroperitoneal hematoma or lymphadenopathy identified. The bladder is unremarkable. The prostate gland is mildly enlarged. Colonic diverticulosis. No evidence for acute diverticulitis. No bowel wall thickening or obstruction. Normal appendix. IMPRESSION: 1. Acute comminuted and displaced intertrochanteric fracture of the proximal left femur. The lesser trochanter bony fragment abuts and slightly displaces the proximal left superficial femoral artery. However, no evidence for active arterial extravasation to suggest an acute arterial injury. 2. Large right pleural effusion and multiple subacute right rib and thoracic transverse process fractures are better appreciated on the same day chest CT. 3. Additional findings as described above. Medications Administered ER medications given: Fentanyl 50 mcg IV Morphine 2 mg IV ECG Rate (beats per minute): 93 Rhythm: normal sinus Findings: + other (Bifascicular block), + LAFB and + RBBB Comparison ECG Date: from (January 27, 2022) Change: the following changes noted (Right bundle with new as QRS now greater than 120) Code Status & VTE Plan Code Status Full VTE Prophylaxis Plan VTE Prophylaxis will be ordered: Yes PG Care Time/CCT Total # of Minutes Spent Total Time Spent with Patient: Total time spent is greater than 50% in coordination of care (as documented) at patient's floor/unit and/or counseling patient: Coding Level of Care Code 87050 INT INP/OBS CARE 3/75MIN Diagnoses Closed fracture of left hip S72.002A Encounter type: initial encounter Fracture of rib of right side S22.31XA Pleural effusion, right J90 Fall W19.XXXA Encounter type: initial encounter Type 2 diabetes mellitus E11.9 Hypercholesteremia E78.00 Benign prostatic hyperplasia with nocturia N40.1; R35.1 Lower urinary tract symptom detail: nocturia Lower urinary tract symptom presence: symptoms present (1) Closed fracture of left hip Encounter type: initial encounter Qualified Code(s): S72.002A - Fracture of unspecified part of neck of left femur, initial encounter for closed fracture (4) Fall Encounter type: initial encounter Qualified Code(s): W19.XXXA - Unspecified fall, initial encounter (7) BPH (benign prostatic hyperplasia) Lower urinary tract symptom detail: nocturia Lower urinary tract symptom presence: symptoms present Qualified Code(s): N40.1 - Benign prostatic hyperplasia with lower urinary tract symptoms; R35.1 - Nocturia
[2023-06-07] MEDS: LACTATED RINGER'S 1,000 ML IV SCH (17:12)
[2023-06-07] MEDS ORDERED: NALOXONE HCL 0.4 MG/1 ML VIAL/CARP IV PRN (17:33)
[2023-06-07] MEDS ORDERED: MAGNESIUM HYDROXIDE SUSP 30 ML UDC PO PRN (17:33)
[2023-06-07] MEDS ORDERED: bisacodyL 10 MG SUPP PR PRN (17:33)
--- NOTE | 2023-06-07 17:38 | Orthopedic Consultation ---
Date of Consultation June 07, 2023 Assessment & Plan (1) Closed fracture of left hip: He has a left intertrochanteric hip fracture. This will require surgical intervention and plans for open reduction internal fixation of his left hip is for tomorrow afternoon. Patient was seen and evaluated today by myself as well as Dr. Barrow. He will need to remain bedrest until his procedure. I made him n.p.o. after midnight and prescribed preoperative antibiotics and TXA for bleeding prophylaxis. Informed consent was obtained after going over the risks and benefits which include but are not limited to infection, pain, bleeding, scarring, nerve and blood vessel damage, wound problems, weakness, stiffness, incomplete relief of symptoms, hardware failure, fracture, malunion, nonunion, tendon or ligament injury, blood clots, embolism, heart attack, stroke and . He will need something postoperatively for DVT prophylaxis. Patient understands and agrees with surgical intervention and informed consent was signed. He is not on a chronic blood thinner. He does have evidence of a pleural effusion on the right lung and some chronic healed right rib fractures. According to the emergency room physician pulmonology consult will be obtained and plans for aspiration of the effusion tomorrow morning prior to surgery. Apparently this should not delay his procedure but will wait for the pulmonology note to be present. Patient will be admitted by hospitalist service. He understands and agrees with the plan. All questions were answered today. Supervising Physician Co-Signing Physician Notes Report patient seen and evaluated with Joslyn. Further details refer to her dictation. Jung fell earlier today injuring his left hip. Radiographs show an intertrochanteric fracture. He ambulates minimally. We talked about the pros and cons of surgery versus not and he wishes to proceed with an operation. Joslyn has obtained informed consent. Plan for a rebel nail. DP and PT pulses are dopplerable. He has intact ankle dorsiflexion plantarflexion difficulty with inversion but he can linda the foot with good strength and sensation is intact. The leg is shortened and externally rotated. History of Present Illness Reason for Consultation: Left intertrochanteric hip fracture status post fall Attending Physician: Davin Triana MD History of Present Illness Patient is a pleasant 87-year-old male who was brought to the emergency room after sustaining a fall in his home. He states that he was moving boxes of coins around in his room and went to kick 1 and his shoe caught on his other shoe. He immediately fell down onto his left hip. He denies any other injuries. Denies any previous left hip pain. He states he normally walks around without any assistive device although he does have a walker if he would need it for long distances. He lives with his son. He was brought to the emergency room and had x-rays of his left hip and was found to have an intertrochanteric hip fracture. Due to these findings orthopedic consultation was obtained. Denies any loss of consciousness. Denies any lightheadedness or dizziness. He did not have chest pain or shortness of breath prior to the fall. Allergies Allergy/AdvReac Type Severity Reaction Status Date / Time No Known Allergies Allergy Verified 06/07/23 15:29 Home Medications Medication Instructions Recorded Confirmed Type nitroglycerin 0.4 mg sublingual 0.4 mg sublingual Q5M PRN chest 08/22/19 06/07/23 Rx tablet pain #30 tabs ipratropium bromide 21 mcg (0.03 2 spray intranasal TID #90 mL 09/30/22 06/07/23 Rx %) nasal spray simvastatin 20 mg tablet 20 mg PO HS #90 tabs 12/23/22 06/07/23 Rx OneTouch Verio test strips (blood #200 ea 03/05/23 06/07/23 Rx sugar diagnostic) blood-glucose meter #1 ea 03/05/23 06/07/23 Rx lancets #200 ea 03/05/23 06/07/23 Rx walker #1 ea 03/30/23 06/07/23 Rx diclofenac sodium 1 % topical gel 2 g topical QID #100 grams 05/25/23 06/07/23 Rx (Voltaren Arthritis Pain) glipizide 5 mg tablet 5 mg PO BID 06/07/23 06/07/23 History terazosin 5 mg capsule 5 mg PO HS 06/07/23 06/07/23 History Patient History Medical History (Updated 06/07/23 @ 15:18 by Tyler Gonzalez M.D.) Diabetes mellitus with neuropathy Neutrophilic leukocytosis BPH (benign prostatic hyperplasia) Controlled type 2 diabetes mellitus with chronic kidney disease Hypercholesteremia Type 2 diabetes mellitus Rhabdomyolysis Hypertension Surgical History Status post open reduction and internal fixation (ORIF) of fracture L ankle History of wisdom tooth extraction Family History Daughter Breast cancer Father No problems noted. Mother No problems noted. Other COPD (chronic obstructive pulmonary disease) Denies family history of Ovarian cancer Prostate cancer Myocardial infarction Colorectal cancer Social History Smoking Status: Never smoker Second Hand Exposure: No; Do You Dip or Chew Tobacco: No; Hx Alcohol Use: Yes Alcohol type: beer Alcohol Intake Frequency: 2-3 x/Week Alcohol Intake Frequency Comment: 1-2 cans per week Hx Substance Use: No Preferred Language: Indonesian Communication Ability: Effective Visual Impairment: No Limitations Hearing Ability: Hard of Hearing Claim Specialist Required: No Beliefs That Will Affect Care: None marital status: / Current Living Situation: Family Current Living Situation Comment: lives w/ son current occupational status: retired How many Children do You have: 3 How many Children do You have Comment: 2 sons, 1 daughter ([place]) Feels Safe at Home: Yes Childhood Exposure to Second-Hand Smoke: Yes Diet: regular Diet Comment: Regular caffeine: Yes during the past year weight has: remained stable Dental Care, Regularly: No Physical Activity Frequency: Daily Seatbelt Use: always Sunscreen Use: No Assistive Devices: Walker Review of Systems Review of Systems: As per HPI. Physical Exam Musculoskeletal: Exam of his left lower extremity: His left leg is shortened and held in external rotation position. There is no distal edema. Dorsalis pedis and posterior tibial pulses are dopplerable. Tolerates gentle range of motion of the toes and ankle. Calf is supple and nontender. His left knee is nontender with palpation with no effusion. No range of motion was attempted the left hip. His skin is healthy and intact with no skin abrasions or ecchymosis. Exam of his right leg: No edema. He has a small superficial abrasion on the anterior knee over the patella. There is no effusion to the knee joint or prepatellar effusion. He tolerates gentle active range of motion of the ankle and knee on the right side. He tolerates logrolling of the right hip. Exam of his bilateral upper extremities: He has an abrasion on the right elbow with age-indeterminate ecchymotic areas of the right wrist and forearm. He has full range of motion of the fingers bilaterally, wrist, elbow and shoulders. Results & Data Vital Signs (Past 12 Hours) Vital Signs Temp Pulse Pulse Resp BP BP Pulse Ox 06/07/23 17:12 104 H 21 132/72 95 06/07/23 16:13 88 16 123/72 95 06/07/23 15:27 90 19 131/84 97 06/07/23 13:32 88 06/07/23 13:28 36.9 C 98 H 20 122/88 96 O2 Del Method 06/07/23 17:12 Room Air 06/07/23 16:13 Room Air 06/07/23 15:27 Room Air 06/07/23 13:32 06/07/23 13:28 Room Air Laboratory Results 06/07/23 06/07/23 Range/Units 15:02 13:45 WBC 13.99 H (4.8-10.8) K/ul RBC 4.46 L (4.70-6.10) M/uL Hgb 14.2 (14.0-18.0) g/dl Hct 43.2 (42.0-52.0) % MCV 96.9 (80.0-100.0) fL MCH 31.8 (25.0-34.0) pg MCHC 32.9 (32.0-36.0) g/dL RDW Std Deviation 46.5 H (36.4-46.3) fL RDW Coeff of Glenn 13.0 (11.5-14.5) % Plt Count 211 (130-400) K/uL MPV 9.8 (9.4-12.4) fL Immature Gran % (Auto) 0.5 % Neut % (Auto) 82.9 % Lymph % (Auto) 8.6 % [place] % (Auto) 7.6 % Eos % (Auto) 0.1 % Baso % (Auto) 0.3 % Neut # (Auto) 11.59 H (1.40-6.50) K/uL Lymph # (Auto) 1.21 (1.20-3.40) K/uL [place] # (Auto) 1.06 H (0.11-0.59) K/uL Eos # (Auto) 0.02 (0.00-0.50) K/uL Baso # (Auto) 0.04 (0.00-0.20) K/uL Immature Gran # (Auto) 0.07 (0.01-0.20) K/uL PT 11.6 Cancelled INR 1.1 Cancelled Sodium 137 Cancelled Potassium 4.4 Cancelled Chloride 108 H Cancelled Carbon Dioxide 19 L Cancelled Anion Gap 10 Cancelled BUN 29 H Cancelled Creatinine 1.18 Cancelled Est Cr Clr Drug Dosing Not Reportable Cancelled Est GFR ( Amer) 63.5 Cancelled Est GFR (Non-Af Amer) 54.8 Cancelled BUN/Creatinine Ratio 24.6 H Cancelled Glucose 200 H Cancelled Calcium 8.7 Cancelled Total Bilirubin 1.2 H Cancelled AST 16 Cancelled ALT 13 Cancelled Alkaline Phosphatase 75 Cancelled Total Protein 5.3 L Cancelled Albumin 3.3 L Cancelled Globulin 2.0 L Cancelled Albumin/Globulin Ratio 1.7 Cancelled SARS-CoV-2, RNA, NAAT NEGATIVE (NEGATIVE) Diagnostic Findings CHEST CT WITH CONTRAST CT DOSE: 2683.6 mGy.cm HISTORY: Acute chest trauma status post fall fall TECHNIQUE: Multiaxial CT images of the chest were performed following the IV administration of 90 cc of Optiray. A dose lowering technique was utilized adhering to the principles of ALARA. COMPARISON: Chest radiograph of same day FINDINGS: Unremarkable thyroid. There is no lymphadenopathy. Extensive coronary artery calcifications. The heart is mildly enlarged. Unremarkable thoracic aorta with moderate atherosclerosis. The opacified pulmonary artery is unremarkable. The study is degraded by respiratory motion. There is a large right pleural effusion. Right lung volume loss with compressive atelectasis. Near complete collapse of the right lower and middle lobes. Tracheobronchial secretions with mucous plugging. Patchy left basilar densities suggestive of atelectasis. Mild left upper lung scarring. No acute upper abdominal abnormality identified. Degenerative changes of the shoulders and spine. Subacute nondisplaced healing fractures of the right T6-T10 transverse processes. Chronic appearing nondisplaced fractures of the anterior right second, third and fourth ribs. Subacute fractures of the anterior right fifth through seventh ribs without displacement. Additionally, there are subacute mildly displaced fractures of the posterolateral right fourth through 10th ribs. No acute vertebral body fracture identified. IMPRESSION: 1. Chronic and subacute right-sided rib fractures as above with healing subacute nondisplaced fractures of the right T6-T10 transverse processes. 2. Large right pleural effusion with partial collapse of the right lung. 3. No pneumothorax. 4. Please refer to the CT abdomen and pelvis study of same day for additional findings. ABDOMEN AND PELVIS CT WITH IV CONTRAST CT DOSE: HISTORY: fall TECHNIQUE: Multiaxial CT images of the abdomen and pelvis were performed following the use of intravenous contrast. A dose lowering technique was utilized adhering to the principles of ALARA. COMPARISON STUDY: None. FINDINGS: The lung bases will be reported on the same day chest CTA. There is a large right pleural effusion resulting in compressive atelectasis of the right middle lobe and right lower lobe. There are multiple subacute/healing right- sided rib fractures. There are old, healed left-sided rib fractures. No pneumoperitoneum. No pneumatosis. There are healing right seventh T8-T10 transverse process fractures noted. Small fat-containing bilateral inguinal hernias. There is a comminuted and displaced intertrochanteric fracture within the proximal left femur. The lesser trochanter fragment abuts and slightly displaces the proximal left superficial femoral artery. However, no active arterial extravasation to suggest an arterial injury. This is best seen on axial image 372. The liver, gallbladder, pancreas, spleen, and adrenal glands are unremarkable. Mild bilateral cortical renal scarring. There is a 3.5 cm left lower pole renal cyst. No hydronephrosis. The main portal vein is patent. Calcified plaque within the normal caliber abdominal aorta. No retroperitoneal hematoma or lymphadenopathy identified. The bladder is unremarkable. The prostate gland is mildly enlarged. Colonic diverticulosis. No evidence for acute diverticulitis. No bowel wall thickening or obstruction. Normal appendix. IMPRESSION: 1. Acute comminuted and displaced intertrochanteric fracture of the proximal left femur. The lesser trochanter bony fragment abuts and slightly displaces the proximal left superficial femoral artery. However, no evidence for active arterial extravasation to suggest an acute arterial injury. 2. Large right pleural effusion and multiple subacute right rib and thoracic transverse process fractures are better appreciated on the same day chest CT. 3. Additional findings as described above. CT SCAN OF THE BRAIN WITHOUT IV CONTRAST CLINICAL HISTORY: Fall. COMPARISON STUDY: No priors. TECHNIQUE: Unenhanced axial CT scan of the brain is performed from the vertex to the skull base. A dose lowering technique was utilized adhering to the principles of ALARA. 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 There is age-related involutional change noting moderate subcortical and periventricular microangiopathic disease. There is no hemorrhage, mass effect, or evidence of acute territorial ischemia by CT criteria. Ponce-white matter differentiation is preserved. No extra-axial fluid collection is seen. Ventricles, sulci, cisterns: Prominent secondary to involutional change. Intracranial vasculature: There is atherosclerotic calcification of the cav ernous carotid arteries. Calvarium: The skeletal structures are osteopenic. No depressed calvarial fracture is seen. Sinuses and mastoids: The visualized paranasal sinuses are clear. The mastoid air cells are well pneumatized. Orbits: The bony orbits are grossly intact. IMPRESSION: There is no hemorrhage, mass effect, or evidence of acute territorial ischemia by CT criteria. XR hip LT 2V w pelvis HISTORY: 87 years-old Male fall, pain acute left hip pain COMPARISON: Femur radiographs of same day TECHNIQUE: AP view of the pelvis with 2 views of the left hip FINDINGS: Mild ostial arthritis of the hips. There is acute and comminuted intratrochanteric left femoral fracture which demonstrates impaction/foreshortening with 1.6 m superior displacement. No dislocation. Mild soft tissue swelling. IMPRESSION: Acute, comminuted and displaced intertrochanteric left femoral fracture. T cervical spine wo con CLINICAL HISTORY: 87 years-old Male with fall. Acute neck pain status post fall COMPARISON: Chest radiograph of same day. TECHNIQUE: Multiple axial CT images of the cervical spine were obtained without contrast. A dose lowering technique was utilized adhering to the principles of ALARA. FINDINGS: Right pleural effusion with right lung volume loss. Demineralized appearance of the bones. 30% superior endplate compression at T1 without retropulsion is likely chronic. Multilevel degenerative changes include severe C3-C4 and moderate C5-C6 intervertebral disc space narrowing. Moderate multilevel spondylotic spurring and facet arthrosis. No acute cervical spine fracture or subluxation identified. Unremarkable soft tissues. No acute intracranial abnormality identified. IMPRESSION: 1. No acute cervical spine fracture or subluxation identified. 2. Partially imaged large right pleural effusion. XR femur LT 2V routine CLINICAL HISTORY: fall COMPARISON STUDY: None. FINDINGS: Comminuted and mildly displaced intertrochanteric fracture within the proximal left femur. The visualized pelvic bones are intact. The femoral fracture demonstrates up to 1.6 cm of superior displacement. No dislocation of the femoral head. Soft tissue swelling within the left hip. IMPRESSION: Comminuted and mildly displaced intertrochanteric fracture within the proximal left femur. SINGLE VIEW CHEST CLINICAL HISTORY: Fall. FINDINGS: An AP supine chest radiograph is compared to study dated 03/25/2023. The heart is enlarged noting atherosclerotic calcification of the thoracic aorta. There is prominence of the pulmonary vasculature. There is a moderate to large volume of pleural fluid on the right with atelectasis of the right lung. The left lung appears clear noting basilar atelectasis. No pneumothorax is seen. There are acute appearing right posterior rib fractures. Arthritic change is seen in the shoulders. IMPRESSION: 1. There are numerous acute-appearing right-sided rib fractures. 2. There is a moderate to large volume of pleural fluid with atelectasis of the right lung. In the setting of acute rib fractures hemothorax is not excluded. 3. No pneumothorax is identified. 4. The left lung appears clear. 5. Cardiomegaly with prominence of the pulmonary vasculature. Correlate clinically for evidence of fluid overload/congestive change. (1) Closed fracture of left hip Encounter type: initial encounter Qualified Code(s): S72.002A - Fracture of unspecified part of neck of left femur, initial encounter for closed fracture
[2023-06-07] MEDS ORDERED: ACETAMINOPHEN 325 MG TAB PO PRN (17:53)
[2023-06-07] MEDS ORDERED: GLUCOSE 10 TAB/TUBE PO PRN (17:54)
[2023-06-07] MEDS ORDERED: GLUCOSE 40% GEL 15 GM TUBE PO PRN (17:54)
[2023-06-07] MEDS ORDERED: CARBOHYDRATES FOR HYPOGLYCEMIA PO PRN (17:54)
[2023-06-07] MEDS ORDERED: GLUCAGON FOR INJ 1 MG VIAL SQ PRN (17:54)
--- NOTE | 2023-06-07 18:21 | Pulmonary Consultation ---
Date of Consultation June 07, 2023 Assessment & Plan (1) Pleural effusion, right: Plan Impression: 87-year-old male status post fall with left-sided hip fracture and multiple subacute right-sided rib fractures with right-sided effusion of unclear etiology. CT scan did show some cardiomegaly and prominence of the pulmonary vasculature. Recommendations: 1. Pleural effusion: The patient will undergo diagnostic/therapeutic thoracentesis on the right. Fluid will be sent for routine microbiologic and cytologic analysis. Will check chest x-ray postprocedure. Do not think this should delay his going to the OR with orthopedics for repair of his hip fracture. Additional recommendations will depend on follow-up chest x-ray and fluid characteristics. 2. Would recommend obtaining echocardiogram, assessment of BMP etc. for evaluation of pleural effusion per primary admitting service 3. From a pulmonary perspective, the patient should be able to undergo general anesthesia and the proposed orthopedic procedure. Would recommend DVT prophylaxis per operative team. Early ambulation recommended. Postoperative incentive spirometry. Will continue to follow with results of the pleural fluid as they become available. Feel free to contact us with questions or concerns. History of Present Illness Attending Physician: Davin Triana MD History of Present Illness Asked by hospitalist to assist in evaluation management this patient status post fall with large right-sided pleural effusion. History is obtained from discussion with the patient as well as review the electronic medical record. Patient is an 87-year-old male with a history of diabetes chronic kidney disease and hyperlipidemia who presented to the emergency room today after a fall. He reports this was a mechanical fall as he tripped over a box and fell onto his left hip. No loss of consciousness or head injury. No neck or back pain. Pain was localized to the left hip. He was noted to have an abnormal exam and hip fracture was verified on imaging. As part of the patient's trauma evaluation he had CTs of the head neck chest and abdomen. This revealed multiple subacute rib fractures with a large right-sided effusion. The patient was not short of breath hypoxemic or complaining of any chest discomfort and denies any chest trauma. He has been seen by orthopedics and they plan on taking him for a ORIF of his hip pending pulmonary clearance and evaluation. The patient denies any prior history of cardiac disease. He has a remote history of tobacco exposure. 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 No significant occupational or environmental exposures. Allergies Allergy/AdvReac Type Severity Reaction Status Date / Time No Known Allergies Allergy Verified 06/07/23 15:29 Home Medications Medication Instructions Recorded Confirmed Type nitroglycerin 0.4 mg sublingual 0.4 mg sublingual Q5M PRN chest 08/22/19 06/07/23 Rx tablet pain #30 tabs ipratropium bromide 21 mcg (0.03 2 spray intranasal TID #90 mL 09/30/22 06/07/23 Rx %) nasal spray simvastatin 20 mg tablet 20 mg PO HS #90 tabs 12/23/22 06/07/23 Rx OneTouch Verio test strips (blood #200 ea 03/05/23 06/07/23 Rx sugar diagnostic) blood-glucose meter #1 ea 03/05/23 06/07/23 Rx lancets #200 ea 03/05/23 06/07/23 Rx walker #1 ea 03/30/23 06/07/23 Rx diclofenac sodium 1 % topical gel 2 g topical QID #100 grams 05/25/23 06/07/23 Rx (Voltaren Arthritis Pain) glipizide 5 mg tablet 5 mg PO BID 06/07/23 06/07/23 History terazosin 5 mg capsule 5 mg PO HS 06/07/23 06/07/23 History Patient History Medical History (Updated 06/07/23 @ 18:14 by Davin Triana MD) Diabetes mellitus with neuropathy Neutrophilic leukocytosis BPH (benign prostatic hyperplasia) Controlled type 2 diabetes mellitus with chronic kidney disease Hypercholesteremia Type 2 diabetes mellitus Rhabdomyolysis Hypertension Surgical History Status post open reduction and internal fixation (ORIF) of fracture L ankle History of wisdom tooth extraction Family History Daughter Breast cancer Father No problems noted. Mother No problems noted. 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 Beliefs That Will Affect Care: None marital status: / Current Living Situation: Family Current Living Situation Comment: lives w/ son current occupational status: retired How many Children do You have: 3 How many Children do You have Comment: 2 sons, 1 daughter ([place]) Feels Safe at Home: Yes Childhood Exposure to Second-Hand Smoke: Yes Diet: regular Diet Comment: Regular caffeine: Yes during the past year weight has: remained stable Dental Care, Regularly: No Physical Activity Frequency: Daily Seatbelt Use: always Sunscreen Use: No Assistive Devices: Walker Review of Systems Review of Systems: Please refer to admission H&P. No additions or deletions Physical Exam Constitutional: WD/WN, vitals as above Neck: trachea midline, no thyromegaly Respiratory: no respiratory distress, no labored breathing, no cough and not tachypneic Auscultation: + diminished lung sounds; no crackles and no wheezes Diminished breath sounds throughout the right hemithorax Cardiovascular: RRR, no murmur, no edema Gastrointestinal (Abdomen): normal bowel sounds, soft, nontender, no hepatosplenomegaly Musculoskeletal: Left-sided hip fracture Skin: no rashes, warm and dry Neurologic: Nonfocal exam Lymphatic: no cervical lymphadenopathy Results & Data Results & Data Vital Signs (Past 12 Hours) Vital Signs Temp Pulse Pulse Resp BP BP Pulse Ox 06/07/23 17:37 06/07/23 17:37 104 H 19 94 06/07/23 17:12 104 H 21 132/72 95 06/07/23 16:13 88 16 123/72 95 06/07/23 15:27 90 19 131/84 97 06/07/23 13:32 88 06/07/23 13:28 36.9 C 98 H 20 122/88 96 Pulse Ox O2 Del Method O2 Del Method 06/07/23 17:37 94 Room Air 06/07/23 17:37 Room Air 06/07/23 17:12 Room Air 06/07/23 16:13 Room Air 06/07/23 15:27 Room Air 06/07/23 13:32 06/07/23 13:28 Room Air Critical Care Results & Data Vital Signs (Past 12 Hours) Vital Signs Temp Pulse Pulse Resp BP BP Pulse Ox 06/07/23 17:37 06/07/23 17:37 104 H 19 94 06/07/23 17:12 104 H 21 132/72 95 06/07/23 16:13 88 16 123/72 95 06/07/23 15:27 90 19 131/84 97 06/07/23 13:32 88 06/07/23 13:28 36.9 C 98 H 20 122/88 96 Pulse Ox O2 Del Method O2 Del Method 06/07/23 17:37 94 Room Air 06/07/23 17:37 Room Air 06/07/23 17:12 Room Air 06/07/23 16:13 Room Air 06/07/23 15:27 Room Air 06/07/23 13:32 06/07/23 13:28 Room Air Lab & Micro Results (Past 24 Hours) RBC 4.46 M/uL (4.70-6.10) L 06/07/23 WBC 13.99 K/ul (4.8-10.8) H 06/07/23 Hgb 14.2 g/dl (14.0-18.0) 06/07/23 Hct 43.2 % (42.0-52.0) 06/07/23 MCV 96.9 fL (80.0-100.0) 06/07/23 MCH 31.8 pg (25.0-34.0) 06/07/23 MCHC 32.9 g/dL (32.0-36.0) 06/07/23 RDW Standard Deviation 46.5 fL (36.4-46.3) H 06/07/23 RDW Coefficient of Variation 13.0 % (11.5-14.5) 06/07/23 Plt Count 211 K/uL (130-400) 06/07/23 MPV 9.8 fL (9.4-12.4) 06/07/23 Neutrophils (%) (Auto) 82.9 % 06/07/23 Lymphocytes (%) (Auto) 8.6 % 06/07/23 Monocytes # (Auto) 1.06 K/uL (0.11-0.59) H 06/07/23 Eosinophils # (Auto) 0.02 K/uL (0.00-0.50) 06/07/23 Immature Granulocyte % (Auto) 0.5 % 06/07/23 Neutrophils # (Auto) 11.59 K/uL (1.40-6.50) H 06/07/23 Lymphocytes # (Auto) 1.21 K/uL (1.20-3.40) 06/07/23 Monocytes # (Auto) 1.06 K/uL (0.11-0.59) H 06/07/23 Eosinophils # (Auto) 0.02 K/uL (0.00-0.50) 06/07/23 Basophils # (Auto) 0.04 K/uL (0.00-0.20) 06/07/23 Immature Granulocyte # (Auto) 0.07 K/uL (0.01-0.20) 4 Na 137 mmol/L (136-145) 06/07/23 K 4.4 mmol/L (3.5-5.1) 06/07/23 Cl 108 mmol/L (98-107) H 06/07/23 CO2 19 mmol/L (21-32) L 06/07/23 Anion Gap 10 (3-11) 06/07/23 BUN 29 mg/dl (6-23) H 06/07/23 Creatinine 1.18 mg/dl (0.6-1.4) 06/07/23 Estimated GFR ( Amer) 63.5 ml/min 06/07/23 Estimated GFR (Non-Af Amer) 54.8 ml/min 06/07/23 BUN/Creatinine Ratio 24.6 (10-20) H 06/07/23 Glu 200 mg/dl (70-99(Fasting)) H 06/07/23 Ca 8.7 mg/dl (8.6-10.3) 06/07/23 Total Bilirubin 1.2 mg/dl (0.2-1.0) H 06/07/23 AST 16 U/L (13-39) 06/07/23 ALT 13 U/L (7-52) 06/07/23 Alkaline Phosphatase 75 U/L (34-104) 06/07/23 TP 5.3 gm/dl (6.0-8.3) L 06/07/23 Albumin 3.3 gm/dl (3.4-5.0) L 06/07/23 Globulin 2.0 gm/dl (2.5-4.0) L 06/07/23 Albumin/Globulin Ratio 1.7 (0.9-2) 06/07/23 Calcium Level 8.7 mg/dl (8.6-10.3) 06/07/23 15:02 Prothromb Time International Ratio 1.1 (0.9-1.1) 06/07/23 15:0 2 Diagnostic Findings (Past 24 Hours) Chest X-Ray 06/07/23 13:23 SINGLE VIEW CHEST CLINICAL HISTORY: Fall. FINDINGS: An AP supine chest radiograph is compared to study dated 03/25/2023. The heart is enlarged noting atherosclerotic calcification of the thoracic aor ta. There is prominence of the pulmonary vasculature. There is a moderate to large volume of pleural fluid on the right with atelectasis of the right lung. The left lung appears clear noting basilar atelectasis. No pneumothorax is seen. There are acute appearing right posterior rib fractures. Arthritic change is seen in the shoulders. IMPRESSION: 1. There are numerous acute-appearing right-sided rib fractures. 2. There is a moderate to large volume of pleural fluid with atelectasis of the right lung. In the setting of acute rib fractures hemothorax is not excluded. 3. No pneumothorax is identified. 4. The left lung appears clear. 5. Cardiomegaly with prominence of the pulmonary vasculature. Correlate clinically for evidence of fluid overload/congestive change. ACT 112: Negative or not required by law. Electronically signed by: Stanislaw Tang M.D. 06/07/2023 2:55 PM Femur X-Ray 06/07/23 13:23 XR femur LT 2V routine CLINICAL HISTORY: fall COMPARISON STUDY: None. FINDINGS: Comminuted and mildly displaced intertrochanteric fracture within the proximal left femur. The visualized pelvic bones are intact. The femoral fracture demonstrates up to 1.6 cm of superior displacement. No dislocation of the femoral head. Soft tissue swelling within the left hip. IMPRESSION: Comminuted and mildly displaced intertrochanteric fracture within the proximal left femur. ACT 112: Negative or not required by law. Electronically signed by: Je Sarkar M.D. 06/07/2023 3:04 PM Hip/Pelvis X-Ray 06/07/23 13:23 XR hip LT 2V w pelvis HISTORY: 87 years-old Male fall, pain acute left hip pain COMPARISON: Femur radiographs of same day TECHNIQUE: AP view of the pelvis with 2 views of the left hip FINDINGS: Mild ostial arthritis of the hips. There is acute and comminuted intratrochanteric left femoral fracture which demonstrates impaction/foreshortening with 1.6 m superior displacement. No dislocation. Mild soft tissue swelling. IMPRESSION: Acute, comminuted and displaced intertrochanteric left femoral fracture. ACT 112: Negative or not required by law. The above report was generated using voice recognition software. It may contain grammatical, syntax or spelling errors. Electronically signed by: Deny Escamilla M.D. 06/07/2023 3:[address] 06/07/23 15:31 CT cervical spine wo con CLINICAL HISTORY: 87 years-old Male with fall. Acute neck pain status post fall COMPARISON: Chest radiograph of same day. TECHNIQUE: Multiple axial CT images of the cervical spine were obtained without contrast. A dose lowering technique was utilized adhering to the principles of ALARA. FINDINGS: Right pleural effusion with right lung volume loss. Demineralized appearance of the bones. 30% superior endplate compression at T1 without retropulsion is likely chronic. Multilevel degenerative changes include severe C3-C4 and moderate C5-C6 intervertebral disc space narrowing. Moderate multilevel spondylotic spurring and facet arthrosis. No acute cervical spine fracture or subluxation identified. Unremarkable soft tissues. No acute intracranial abnormality identified. IMPRESSION: 1. No acute cervical spine fracture or subluxation identified. 2. Partially imaged large right pleural effusion. ACT 112: Negative or not required by law. The above report was generated using voice recognition software. It may contain grammatical, syntax or spelling errors. Electronically signed by: Deny Escamilla M.D. 06/07/2023 4:[address] 06/07/23 15:31 CT SCAN OF THE BRAIN WITHOUT IV CONTRAST CLINICAL HISTORY: Fall. COMPARISON STUDY: No priors. TECHNIQUE: Unenhanced axial CT scan of the brain is performed from the vertex to the skull base. A dose lowering technique was utilized adhering to the principles of ALARA. 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 There is age-related involutional change noting moderate subcortical and periventricular microangiopathic disease. There is no hemorrhage, mass effect, or evidence of acute territorial ischemia by CT criteria. Ponce-white matter differentiation is preserved. No extra-axial fluid collection is seen. Ventricles, sulci, cisterns: Prominent secondary to involutional change. Intracranial vasculature: There is atherosclerotic calcification of the cavernous carotid arteries. Calvarium: The skeletal structures are osteopenic. No depressed calvarial fracture is seen. Sinuses and mastoids: The visualized paranasal sinuses are clear. The mastoid air cells are well pneumatized. Orbits: The bony orbits are grossly intact. IMPRESSION: There is no hemorrhage, mass effect, or evidence of acute territorial ischemia by CT criteria. ACT 112: Negative or not required by law. Electronically signed by: Stanislaw Tang M.D. 06/07/2023 4:08 PM Abdomen/Pelvis CT 06/07/23 15:[address] WITH IV CONTRAST CT DOSE: HISTORY: fall TECHNIQUE: Multiaxial CT images of the abdomen and pelvis were performed following the use of intravenous contrast. A dose lowering technique was utilized adhering to the principles of ALARA. COMPARISON STUDY: None. FINDINGS: The lung bases will be reported on the same day chest CTA. There is a large right pleural effusion resulting in compressive atelectasis of the right middle lobe and right lower lobe. There are multiple subacute/healing right- sided rib fractures. There are old, healed left-sided rib fractures. No pneumoperitoneum. No pneumatosis. There are healing right seventh T8-T10 transverse process fractures noted. Small fat-containing bilateral inguinal hernias. There is a comminuted and displaced intertrochanteric fracture within the proximal left femur. The lesser trochanter fragment abuts and slightly displaces the proximal left superficial femoral artery. However, no active arterial extravasation to suggest an arterial injury. This is best seen on axial image 372. The liver, gallbladder, pancreas, spleen, and adrenal glands are unremarkable. Mild bilateral cortical renal scarring. There is a 3.5 cm left lower pole renal cyst. No hydronephrosis. The main portal vein is patent. Calcified plaque within the normal caliber abdominal aorta. No retroperitoneal hematoma or lymphadenopathy identified. The bladder is unremarkable. The prostate gland is mildly enlarged. Colonic diverticulosis. No evidence for acute diverticulitis. No bowel wall thickening or obstruction. Normal appendix. IMPRESSION: 1. Acute comminuted and displaced intertrochanteric fracture of the proximal left femur. The lesser trochanter bony fragment abuts and slightly displaces the proximal left superficial femoral artery. However, no evidence for active arterial extravasation to suggest an acute arterial injury. 2. Large right pleural effusion and multiple subacute right rib and thoracic transverse process fractures are better appreciated on the same day chest CT. 3. Additional findings as described above. ACT 112: Negative or not required by law. Electronically signed by: Je Sarkar M.D. 06/07/2023 4:[address] 06/07/23 15:[address] WITH CONTRAST CT DOSE: 2683.6 mGy.cm HISTORY: Acute chest trauma status post fall fall TECHNIQUE: Multiaxial CT images of the chest were performed following the IV administration of 90 cc of Optiray. A dose lowering technique was utilized adhering to the principles of ALARA. COMPARISON: Chest radiograph of same day FINDINGS: Unremarkable thyroid. There is no lymphadenopathy. Extensive coronary artery calcifications. The heart is mildly enlarged. Unremarkable thoracic aorta with moderate atherosclerosis. The opacified pulmonary artery is unremarkable. The study is degraded by respiratory motion. There is a large right pleural effusion. Right lung volume loss with compressive atelectasis. Near complete collapse of the right lower and middle lobes. Tracheobronchial secretions with mucous plugging. Patchy left basilar densities suggestive of atelectasis. Mild left upper lung scarring. No acute upper abdominal abnormality identified. Degenerative changes of the shoulders and spine. Subacute nondisplaced healing fractures of the right T6-T10 transverse processes. Chronic appearing nondisplaced fractures of the anterior right second, third and fourth ribs. Subacute fractures of the anterior right fifth through seventh ribs without displacement. Additionally, there are subacute mildly displaced fractures of the posterolateral right fourth through 10th ribs. No acute vertebral body fracture identified. IMPRESSION: 1. Chronic and subacute right-sided rib fractures as above with healing subacute nondisplaced fractures of the right T6-T10 transverse processes. 2. Large right pleural effusion with partial collapse of the right lung. 3. No pneumothorax. 4. Please refer to the CT abdomen and pelvis study of same day for additional findings. ACT 112: Negative or not required by law. Electronically signed by: Deny Escamilla M.D. 06/07/2023 4:14 PM RT Ventilator Mngmt (Last Documented) Ventilator Ordered Settings Respiratory Rate 19 06/07/23 17:37 Ventilator - PT Measurements Respiratory Rate 19 PG Care Time/CCT Total # of Minutes Spent Total Time Spent with Patient: Total time spent is greater than 50% in coordination of care (as documented) at patient's floor/unit and/or counseling patient: Coding Level of Care Code 83227 IN/OBS CONSULT LVL 4,60M Diagnoses Pleural effusion, right J90
--- NOTE | 2023-06-07 18:22 | Procedure Note ---
Procedure Note Date of Service June 07, 2023 Note Procedure: Diagnostic therapeutic ultrasound-guided catheter thoracentesis, right Bandmill Operator: Dr. Jourdan Jiménez Indication: Pleural effusion Consent: Signed by patient and verified with timeout prior to procedure Anesthesia: 8 mL's 1% lidocaine without epinephrine local. Procedure: Consent was verified and timeout performed. Appropriate imaging studies were reviewed prior to the procedure. Given the patient's hip fracture, he was placed in an upright seated position and thoracic ultrasound was performed in the anterior and mid axillary lines lateral to the nipple. Fluid was identified with lung flap noted. Site appropriate for thoracentesis was selected. The skin was prepped and draped in normal sterile fashion. Lidocaine was used for local analgesia. Fluid was aspirated via the finder needle. A small skin reyna was made with the scalpel and the catheter over the needle apparatus was advanced over the rib into the pleural space. Using the syringe one-way valve system, a total of 1700 mL's of loy-brown fluid was removed. Procedure was terminated due to having withdrawn over 1.5 L. The catheter was removed and observed to be intact. A sterile dressing was applied. Post procedure chest x- ray was ordered. Fluid was sent for cytology, cell count differential, Gram stain and culture, LDH, pH, total protein, and glucose. The patient tolerated the procedure well without obvious complication Coding CPT Codes Pulmonary/Thoracic - Pulmonary and Thoracic: 76003 Thoracentesis w imaging ([id number]) [facility] [place]odes (Charges) Pulmonary/Thoracic Procedure 1: Pulmonary and Thoracic: 04593 Thoracentesis w imaging
[2023-06-07 19:11] LABS: Total Protein Pleural Fluid 3.4 gm/dl
[2023-06-07 19:28] LABS: Appearance Pleural Fluid Hazy; Color Pleural Fluid Amber; Eosinophils, Fluid 15 %; Lymphocytes, Fluid 57 %; Mono,Macrophage,Mesothelial 28 %; Neutrophils, Fluid 0 %; RBC Pleural Fluid Auto 37000 /uL; Source Pleural Fluid Right Lung; WBC Pleural Fluid Auto 230 /uL
--- NOTE | 2023-06-07 19:47 | XRay Report ---
SINGLE VIEW CHEST CLINICAL HISTORY: Status post right thoracentesis FINDINGS: An AP, portable, upright chest radiograph is compared to chest x-ray and chest CT performed earlier the same day 06/07/2023. The heart is top normal for projection noting atherosclerotic calcif ication of the thoracic aorta. The pulmonary vasculature is noncongested. There is a small residual r ight pleural effusion with right basilar consolidation. The left lung appears clear noting basilar sc arring/atelectasis. No pneumothorax is seen. There are acute to subacute appearing right posterior ri b fractures. Arthritic change is seen in the shoulders. IMPRESSION: 1. There is a small residual right pleural effusion with right basilar consolidation. 2. No pneumothorax is identified post procedure. 3. Acute to subacute appearing right-sided rib fractures are again noted. ACT 112: Negative or not required by law. Electronically signed by: Stanislaw Tang M.D. 06/07/2023 7:46 PM
[2023-06-07] MEDS: LACTATED RINGER'S 1,000 ML IV ONE (21:48)
[2023-06-07] MEDS: SIMVASTATIN 20 MG TAB PO SCH (22:01)
[2023-06-07] MEDS: INSULIN ASPART PER UNIT CHARGE SC SCH (22:02)
[2023-06-07] MEDS: TERAZOSIN HCL 5 MG CAP PO SCH (22:21)
[2023-06-07] MEDS: LACTATED RINGER'S 500 ML IV ONE (22:29)
[2023-06-08] MEDS ORDERED: ceFAZolin 2000MG 2,000 MG/15 ML SYR IV ONE (06:00)
[2023-06-08 07:43] LABS: Hematocrit (blood only) 32.9 % (42.0-52.0); Hemoglobin 10.8 g/dl (14.0-18.0); Mean Corpuscular Hemoglobin 31.8 pg (25.0-34.0); Mean Corpuscular Hgb Conc 32.8 g/dL (32.0-36.0); Mean Corpuscular Volume 96.8 fL (80.0-100.0); Mean Platelet Volume 10.1 fL (9.4-12.4); Platelet Count 184 K/uL (130-400); RDW Coefficient of Variation 13.3 % (11.5-14.5); RDW Standard Deviation 47.2 fL (36.4-46.3); White Blood Count 8.05 K/ul (4.8-10.8)
[2023-06-08 07:44] LABS: Basophils # (auto) 0.02 K/uL (0.00-0.20); Basophils % (auto) 0.2 %; Eosinophils # (auto) 0.04 K/uL (0.00-0.50); Eosinophils % (auto) 0.5 %; Immature Granulocytes # (auto) 0.03 K/uL (0.01-0.20); Immature Granulocytes % (auto) 0.4 %; Lymphocytes # (auto) 1.72 K/uL (1.20-3.40); Lymphocytes % (auto) 21.4 %; Monocytes # (auto) 1.09 K/uL (0.11-0.59); Monocytes % (auto) 13.5 %; Neutrophils # (auto) 5.15 K/uL (1.40-6.50)
--- NOTE | 2023-06-08 07:45 | XRay Report ---
XR chest 1V portable HISTORY: s/p thoracentesis COMPARISON: Chest 06/07/2023. FINDINGS: No pneumothorax. A small right pleural effusion and basilar consolidation persists. Right-s ided rib fractures are again noted. The left lung is essentially clear. The heart remains mildly enla rged. No evidence for pulmonary edema. IMPRESSION: 1. No significant change compared to the prior study. 2. Small right pleural effusion and right basilar densities persist. 3. No pneumothorax. 4. Right-sided rib fractures again noted. ACT 112: Negative or not required by law. Electronically signed by: Je Sarkar M.D. 06/08/2023 7:43 AM
[2023-06-08 07:54] LABS: BUN Creatinine Ratio 23.4 (10-20); Calcium 8.5 mg/dl (8.6-10.3); Creatinine Clr Calc Pharmacy 32.7 ml/min; Est GFR (African American) 51.2 ml/min; Est GFR (Non-African American) 44.2 ml/min; Potassium 4.7 mmol/L (3.5-5.1)
[2023-06-08] MEDS ORDERED: Nursing to Pharmacy Communication SCH ×2 (08:15→20:45)
--- NOTE | 2023-06-08 08:16 | Pulmonology Progress Note ---
Date of Service June 08, 2023 Assessment & Plan (1) Pleural effusion, right: Plan Impression: 87-year-old male status post fall with left-sided hip fracture and multiple subacute right-sided rib fractures with right-sided effusion of unclear etiology. CT scan did show some cardiomegaly and prominence of the pulmonary vasculature. Recommendations: 1. Pleural effusion: Underwent diagnostic/therapeutic thoracentesis yesterday with removal of 1700 mL of loy-brown fluid. Final cultures pending at this time. Chest x-ray this morning shows stability and improvement of effusion status post thoracentesis. 2. Continue workup for assessment of source of effusion as per previously discussed. 3. From a pulmonary perspective, the patient should be able to undergo general anesthesia and the proposed orthopedic procedure. Would recommend DVT prophylaxis per operative team. Early ambulation recommended. Postoperative incentive spirometry. Will continue to follow with results of the pleural fluid as they become available. Thank you for allowing us to participate in the care of this pleasant patient. Pulmonary medicine will sign off at this time. Admission and Anticipated Discharge Date Admission Date: June 07, 2023 Supervising Physician Co-Signing Physician Notes Patient seen and examined. EMR reviewed. Discussed with critical care DEION. The patient is doing well this morning. He is n.p.o. for surgery. He is to go to the OR around 2 or 3:00 this afternoon. His pain is reasonably well-controlled. He is not having any chest pain or shortness of breath. His exam demonstrates the thoracentesis site to be clean dry and intact. Postprocedure chest x-ray was reviewed which shows improved aeration of the right lung with some residual pleural fluid. Pleural fluid studies including cytology are pending but it appears to be a lymphocytic exudate. 15% eosinophils were noted which can be related with pleural blood potentially related to the patient's history of rib fractures. Await cytology and cultures. Will follow peripherally once pleural fluid studies are available to update the patient with. Feel free to contact us with new or progressive respiratory issues Subjective Patient seen and evaluated at bedside today. He reports no complaints of shortness of breath, however notes that he did not have any significant shortness of breath prior to admission either. He offers no complaints of pain at this time. Offers no concerns otherwise. Review of Systems Review of Systems: As per HPI. Physical Exam Physical Exam: VITAL SIGNS - Vital signs and nursing notes were reviewed. GENERAL - 87-year-old male appearing his stated age who is in no acute distress. Communicates well with provider and answers questions appropriately. LUNGS - Chest wall evaluation demonstrates normal chest wall A:P diameter. Auscultation reveals clear breath sounds slightly diminished at the RIGHT sided base. CARDIAC - RRR with S1/S2. No murmur, rubs, or gallops appreciated. ABDOMEN - Abdominal inspection demonstrates no TTP. BS normoactive all four q uadrants. PSYCH - A&Ox3 and cooperates fully with examiner. Pt is very pleasant and interacts well with examiner. Results & Data Results & Data Vital Signs (Past 12 Hours) Vital Signs Temp Pulse Pulse Resp BP Pulse Ox Pulse Ox 06/08/23 07:08 36.6 C 76 17 108/61 91 06/08/23 05:00 95 06/08/23 04:22 36.5 C 86 18 123/68 95 06/08/23 01:00 95 06/07/23 23:34 95 H 06/07/23 22:36 86 16 126/101 H 98 O2 Del Method O2 Del Method 06/08/23 07:08 Room Air 06/08/23 05:00 Room Air 06/08/23 04:22 Room Air 06/08/23 01:00 Room Air 06/07/23 23:34 06/07/23 22:36 Room Air PG Care Time/CCT Total # of Minutes Spent Total Time Spent with Patient: Total time spent is greater than 50% in coordination of care (as documented) at patient's floor/unit and/or counseling patient: Coding Level of Care Code 47263 SUB INP/OBS CARE 2/35MIN Diagnoses Pleural effusion, right J90
--- NOTE | 2023-06-08 10:12 | Orthopedic Progress Note ---
Date of Service June 08, 2023 Assessment & Plan (1) Closed fracture of left hip: Plan: He has a left intertrochanteric hip fracture. He will need to remain bedrest until his procedure. I N.p.o. Orders for preoperative antibiotics and TXA have been placed. Informed consent was obtained yesterday Had thoracentesis performed yesterday by the pulmonary service and is cleared for surgical intervention today. Patient is admitted by hospitalist service. He understands and agrees with the plan. All questions were answered today. Admission and Anticipated Discharge Date Admission Date: June 07, 2023 Subjective This 87-year-old male is seen today for follow-up of a left hip fracture. Patient is on the OR schedule for later today. Currently he is resting comfortably in his bed. He denies chest pain, shortness of breath, fever, chills, sweats or numbness or tingling in his left lower extremity. He states that he only has pain if his leg is moved. He also denies nausea, vomiting, diarrhea or difficulty voiding. Consent has already been obtained. Review of Systems Review of Systems: All systems reviewed & are unremarkable except as noted in Subjective Physical Exam Physical Exam: Left lower extremity: Shortened and externally rotated. Knee is slightly flexed. Patient is able to actively dorsi and plantarflex foot. He does not tolerate light logroll testing. I did not attempt to flex his hip or internally, externally rotate. He does have tenderness to palpation just superior to the greater trochanter. He is able to detect light sensation to touch in the L 4, L5 and S1 dermatomes. He is neurovascularly intact in left lower extremity. Results & Data Vital Signs (Past 12 Hours) Vital Signs Temp Pulse Pulse Resp BP Pulse Ox Pulse Ox 06/08/23 07:08 36.6 C 76 17 108/61 91 06/08/23 05:00 95 06/08/23 04:22 36.5 C 86 18 123/68 95 06/08/23 01:00 95 06/07/23 23:34 95 H 06/07/23 22:36 86 16 126/101 H 98 O2 Del Method O2 Del Method 06/08/23 07:08 Room Air 06/08/23 05:00 Room Air 06/08/23 04:22 Room Air 06/08/23 01:00 Room Air 06/07/23 23:34 06/07/23 22:36 Room Air Diagnostic Findings Laboratory Results WBC 8.05 K/ul (4.8-10.8) 06/08/23 07:10 RBC 3.40 M/uL (4.70-6.10) L 06/08/23 07:10 Hgb 10.8 g/dl (14.0-18.0) L D 06/08/23 07:10 Hct 32.9 % (42.0-52.0) L 06/08/23 07:10 MCV 96.8 fL (80.0-100.0) 06/08/23 07:10 MCH 31.8 pg (25.0-34.0) 06/08/23 07:10 MCHC 32.8 g/dL (32.0-36.0) 06/08/23 07:10 RDW Std Deviation 47.2 fL (36.4-46.3) H 06/08/23 07:10 RDW Coeff of Glenn 13.3 % (11.5-14.5) 06/08/23 07:10 Plt Count 184 K/uL (130-400) 06/08/23 07:10 MPV 10.1 fL (9.4-12.4) 06/08/23 07:10 Immature Gran % (Auto) 0.4 % 06/08/23 07:10 Neut % (Auto) 64.0 % 06/08/23 07:10 Lymph % (Auto) 21.4 % 06/08/23 07:10 [place] % (Auto) 13.5 % 06/08/23 07:10 Eos % (Auto) 0.5 % 06/08/23 07:10 Baso % (Auto) 0.2 % 06/08/23 07:10 Neut # (Auto) 5.15 K/uL (1.40-6.50) 06/08/23 07:10 Lymph # (Auto) 1.72 K/uL (1.20-3.40) 06/08/23 07:10 [place] # (Auto) 1.09 K/uL (0.11-0.59) H 06/08/23 07:10 Eos # (Auto) 0.04 K/uL (0.00-0.50) 06/08/23 07:10 Baso # (Auto) 0.02 K/uL (0.00-0.20) 06/08/23 07:10 Immature Gran # (Auto) 0.03 K/uL (0.01-0.20) 06/08/23 07:10 PT 11.6 Seconds (9.0-12.0) 06/07/23 15:02 INR 1.1 (0.9-1.1) 06/07/23 15:02 Sodium 137 mmol/L (136-145) 06/08/23 07:10 Potassium 4.7 mmol/L (3.5-5.1) 06/08/23 07:10 Chloride 106 mmol/L (98-107) 06/08/23 07:10 Carbon Dioxide 25 mmol/L (21-32) 06/08/23 07:10 Anion Gap 6 (3-11) 06/08/23 07:10 BUN 33 mg/dl (6-23) H 06/08/23 07:10 Creatinine 1.41 mg/dl (0.6-1.4) H 06/08/23 07:10 Est Cr Clr Drug Dosing 32.7 ml/min 06/08/23 07:10 Est GFR ( Amer) 51.2 ml/min 06/08/23 07:10 Est GFR (Non-Af Amer) 44.2 ml/min 06/08/23 07:10 BUN/Creatinine Ratio 23.4 (10-20) H 06/08/23 07:10 Glucose 152 mg/dl (70-99(Fasting)) H 06/08/23 07:10 POC Glucose 168 mg/dl (70-99) H 06/07/23 21:43 Calcium 8.5 mg/dl (8.6-10.3) L 06/08/23 07:10 Total Bilirubin 1.2 mg/dl (0.2-1.0) H 06/07/23 15:02 AST 16 U/L (13-39) 06/07/23 15:02 ALT 13 U/L (7-52) 06/07/23 15:02 Alkaline Phosphatase 75 U/L (34-104) 06/07/23 15:02 Total Protein 5.3 gm/dl (6.0-8.3) L 06/07/23 15:02 Albumin 3.3 gm/dl (3.4-5.0) L 06/07/23 15:02 Globulin 2.0 gm/dl (2.5-4.0) L 06/07/23 15:02 Albumin/Globulin Ratio 1.7 (0.9-2) 06/07/23 15:02 25-OH Vitamin D Total 8.8 ng/ml (30-100) L 06/08/23 07:10 Procalcitonin 0.06 ng/ml (0-0.5) 06/07/23 13:45 Fluid Neutrophils % 0 % 06/07/23 Unknown Fluid Lymphocytes % 57 % 06/07/23 Unknown Fluid Eosinophils % 15 % 06/07/23 Unknown Fluid Meso/Macro/[place] % 28 % 06/07/23 Unknown Fluid Comment 06/07/23 Unknown Pleural Fluid Source Right Lung 06/07/23 Unknown Pleural Color Katya 06/07/23 Unknown Pleural Appearance Hazy 06/07/23 Unknown Pleural pH 7.44 (7.3-7.4) H 06/07/23 Unknown Pleural WBC (Auto) 230 /uL 06/07/23 Unknown Pleural RBC (Auto) 12325 /uL 06/07/23 Unknown Pleural Total Protein 3.4 gm/dl 06/07/23 Unknown Pleural LDH 147 U/L 06/07/23 Unknown Pleural Glucose 159 mg/dl 06/07/23 Unknown Nasal Screen MRSA (PCR) Negative (Negative) 06/07/23 Unknown SARS-CoV-2, RNA, NAAT NEGATIVE (NEGATIVE) 06/07/23 13:45 Impressions Femur X-Ray 06/07/23 13:23 XR femur LT 2V routine CLINICAL HISTORY: fall COMPARISON STUDY: None. FINDINGS: Comminuted and mildly displaced intertrochanteric fracture within the proximal left femur. The visualized pelvic bones are intact. The femoral fracture demonstrates up to 1.6 cm of superior displacement. No dislocation of the femoral head. Soft tissue swelling within the left hip. IMPRESSION: Comminuted and mildly displaced intertrochanteric fracture within the proximal left femur. ACT 112: Negative or not required by law. Electronically signed by: Je Sarkar M.D. 06/07/2023 3:04 PM Hip/Pelvis X-Ray 06/07/23 13:23 XR hip LT 2V w pelvis HISTORY: 87 years-old Male fall, pain acute left hip pain COMPARISON: Femur radiographs of same day TECHNIQUE: AP view of the pelvis with 2 views of the left hip FINDINGS: Mild ostial arthritis of the hips. There is acute and comminuted intratrochanteric left femoral fracture which demonstrates impaction/foresh ortening with 1.6 m superior displacement. No dislocation. Mild soft tissue swelling. IMPRESSION: Acute, comminuted and displaced intertrochanteric left femoral fracture. ACT 112: Negative or not required by law. The above report was generated using voice recognition software. It may contain grammatical, syntax or spelling errors. Electronically signed by: Deny Escamilla M.D. 06/07/2023 3:[address] 06/07/23 15:31 CT cervical spine wo con CLINICAL HISTORY: 87 years-old Male with fall. Acute neck pain status post fall COMPARISON: Chest radiograph of same day. TECHNIQUE: Multiple axial CT images of the cervical spine were obtained without contrast. A dose lowering technique was utilized adhering to the principles of ALARA. FINDINGS: Right pleural effusion with right lung volume loss. Demineralized appearance of the bones. 30% superior endplate compression at T1 without retropulsion is likely chronic. Multilevel degenerative changes include severe C3-C4 and moderate C5-C6 intervertebral disc space narrowing. Moderate multilevel spondylotic spurring and facet arthrosis. No acute cervical spine fracture or subluxation identified. Unremarkable soft tissues. No acute intracranial abnormality identified. IMPRESSION: 1. No acute cervical spine fracture or subluxation identified. 2. Partially imaged large right pleural effusion. ACT 112: Negative or not required by law. The above report was generated using voice recognition software. It may contain grammatical, syntax or spelling errors. Electronically signed by: Deny Escamilla M.D. 06/07/2023 4:[address] 06/07/23 15:31 CT SCAN OF THE BRAIN WITHOUT IV CONTRAST CLINICAL HISTORY: Fall. COMPARISON STUDY: No priors. TECHNIQUE: Unenhanced axial CT scan of the brain is performed from the vertex to the skull base. A dose lowering technique was utilized adhering to the principles of ALARA. 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 There is age-related involutional change noting moderate subcortical and periventricular microangiopathic disease. There is no hemorrhage, mass effect, or evidence of acute territorial ischemia by CT criteria. Ponce-white matter differentiation is preserved. No extra-axial fluid collection is seen. Ventricles, sulci, cisterns: Prominent secondary to involutional change. Intracranial vasculature: There is atherosclerotic calcification of the cavernous carotid arteries. Calvarium: The skeletal structures are osteopenic. No depressed calvarial fracture is seen. Sinuses and mastoids: The visualized paranasal sinuses are clear. The mastoid air cells are well pneumatized. Orbits: The bony orbits are grossly intact. IMPRESSION: There is no hemorrhage, mass effect, or evidence of acute territorial ischemia by CT criteria. ACT 112: Negative or not required by law. Electronically signed by: Stanislaw Tang M.D. 06/07/2023 4:08 PM Abdomen/Pelvis CT 06/07/23 15:[address] WITH IV CONTRAST CT DOSE: HISTORY: fall TECHNIQUE: Multiaxial CT images of the abdomen and pelvis were performed following the use of intravenous contrast. A dose lowering technique was utilized adhering to the principles of ALARA. COMPARISON STUDY: None. FINDINGS: The lung bases will be reported on the same day chest CTA. There is a large right pleural effusion resulting in compressive atelectasis of the right middle lobe and right lower lobe. There are multiple subacute/healing right- sided rib fractures. There are old, healed left-sided rib fractures. No pneumoperitoneum. No pneumatosis. There are healing right seventh T8-T10 t ransverse process fractures noted. Small fat-containing bilateral inguinal hernias. There is a comminuted and displaced intertrochanteric fracture within the proximal left femur. The lesser trochanter fragment abuts and slightly displaces the proximal left superficial femoral artery. However, no active arterial extravasation to suggest an arterial injury. This is best seen on axial image 372. The liver, gallbladder, pancreas, spleen, and adrenal glands are unremarkable. Mild bilateral cortical renal scarring. There is a 3.5 cm left lower pole renal cyst. No hydronephrosis. The main portal vein is patent. Calcified plaque within the normal caliber abdominal aorta. No retroperitoneal hematoma or lymphadenopathy identified. The bladder is unremarkable. The prostate gland is mildly enlarged. Colonic diverticulosis. No evidence for acute diverticulitis. No bowel wall thickening or obstruction. Normal appendix. IMPRESSION: 1. Acute comminuted and displaced intertrochanteric fracture of the proximal left femur. The lesser trochanter bony fragment abuts and slightly displaces the proximal left superficial femoral artery. However, no evidence for active arterial extravasation to suggest an acute arterial injury. 2. Large right pleural effusion and multiple subacute right rib and thoracic transverse process fractures are better appreciated on the same day chest CT. 3. Additional findings as described above. ACT 112: Negative or not required by law. Electronically signed by: Je Sarkar M.D. 06/07/2023 4:[address] 06/07/23 15:[address] WITH CONTRAST CT DOSE: 2683.6 mGy.cm HISTORY: Acute chest trauma status post fall fall TECHNIQUE: Multiaxial CT images of the chest were performed following the IV administration of 90 cc of Optiray. A dose lowering technique was utilized adhering to the principles of ALARA. COMPARISON: Chest radiograph of same day FINDINGS: Unremarkable thyroid. There is no lymphadenopathy. Extensive coronary artery calcifications. The heart is mildly enlarged. Unremarkable thoracic aorta with moderate atherosclerosis. The opacified pulmonary artery is unremarkable. The study is degraded by respiratory motion. There is a large right pleural effusion. Right lung volume loss with compressive atelectasis. Near complete collapse of the right lower and middle lobes. Tracheobronchial secretions with mucous plugging. Patchy left basilar densities suggestive of atelectasis. Mild left upper lung scarring. No acute upper abdominal abnormality identified. Degenerative changes of the shoulders and spine. Subacute nondisplaced healing fractures of the right T6-T10 transverse processes. Chronic appearing nondisplaced fractures of the anterior right second, third and fourth ribs. Subacute fractures of the anterior right fifth through seventh ribs without displacement. Additionally, there are subacute mildly displaced fractures of the posterolateral right fourth through 10th ribs. No acute vertebral body fracture identified. IMPRESSION: 1. Chronic and subacute right-sided rib fractures as above with healing subacute nondisplaced fractures of the right T6-T10 transverse processes. 2. Large right pleural effusion with partial collapse of the right lung. 3. No pneumothorax. 4. Please refer to the CT abdomen and pelvis study of same day for additional findings. ACT 112: Negative or not required by law. Electronically signed by: Deny Escamilla M.D. 06/07/2023 4:14 PM Chest X-Ray 06/08/23 07:00 XR chest 1V portable HISTORY: s/p thoracentesis COMPARISON: Chest 06/07/2023. FINDINGS: No pneumothorax. A small right pleural effusion and basilar consolidation persists. Right-sided rib fractures are again noted. The left lung is essentially clear. The heart remains mildly enlarged. No evidence for pulmonary edema. IMPRESSION: 1. No significant change compared to the prior study. 2. Small right pleural effusion and right basilar densities persist. 3. No pneumothorax. 4. Right-sided rib fractures again noted. ACT 112: Negative or not required by law. Electronically signed by: Je Sarkar M.D. 06/08/2023 7:43 AM (1) Closed fracture of left hip Encounter type: initial encounter Qualified Code(s): S72.002A - Fracture of unspecified part of neck of left femur, initial encounter for closed fracture
[2023-06-08] MEDS: MoRPHine SULFATE 4 MG/ML 1 ML CARP\\VIAL IV PRN (11:26)
[2023-06-08] MEDS: INSULIN ASPART PER UNIT CHARGE SC SCH ×2 (11:49→21:25)
--- NOTE | 2023-06-08 12:10 | Electrocardiogram Report ---
Test Reason : Blood Pressure : / mmHG Vent. Rate : 096 BPM Atrial Rate : 096 BPM P-R Int : 190 ms QRS Dur : 120 ms QT Int : 406 ms P-R-T Axes : 010 -55 069 degrees QTc Int : 512 ms Normal sinus rhythm Right bundle branch block Left anterior fascicular block Bifascicular block Minimal voltage criteria for LVH, may be normal variant ( R in aVL ) Abnormal ECG When compared with ECG of 07-JUN-2023 13:40, No significant change was found Confirmed by Lorne Melendrez ([id number]) on 06/08/2023 12:10:11 PM Referred By: REFERRED SELF Confirmed By:Lorne Melendrez
[2023-06-08] MEDS ORDERED: ATROPINE SULFATE 0.1 MG/ML 10ML SYR IV PRN (15:14)
[2023-06-08] MEDS ORDERED: ePHEDrine sulfate 50 MG/ML AMP IV PRN (15:14)
[2023-06-08] MEDS ORDERED: ONDANSETRON INJ 2 MG/ML 2 ML VIAL IV PRN (15:14)
[2023-06-08] MEDS ORDERED: fentaNYL citrate PF 100 MCG/2 ML VIAL IV PRN (15:14)
--- NOTE | 2023-06-08 15:14 | Anesthesiology Consultation ---
Date of Service June 08, 2023 Assessment & Plan (1) Encounter for pre-operative examination: Chart Review Chart Review: Acceptable Risk for Surgery and Patient NOT seen in Pre Admission Testing Consults Requested none History Surgery Operation Date: 06/08/23 08:25 Proposed Procedures p Left Hip Open Reduction Internal Fixation - Jung Barrow MD Height/Weight Height: 5 ft 6 in Weight: 65.5 kg Allergies Allergy/AdvReac Type Severity Reaction Status Date / Time No Known Allergies Allergy Verified 06/07/23 15:29 Medications Home Medications Medication Instructions Recorded Confirmed Last Taken nitroglycerin 0.4 mg sublingual 0.4 mg sublingual Q5M PRN chest 08/22/19 06/07/23 Unknown tablet pain #30 tabs ipratropium bromide 21 mcg (0.03 2 spray intranasal TID #90 mL 09/30/22 06/07/23 Unknown %) nasal spray simvastatin 20 mg tablet 20 mg PO HS #90 tabs 12/23/22 06/07/23 Unknown OneTouch Verio test strips (blood #200 ea 03/05/23 06/07/23 Unknown sugar diagnostic) blood-glucose meter #1 ea 03/05/23 06/07/23 Unknown lancets #200 ea 03/05/23 06/07/23 Unknown walker #1 ea 03/30/23 06/07/23 Unknown diclofenac sodium 1 % topical gel 2 g topical QID #100 grams 05/25/23 06/07/23 Unknown (Voltaren Arthritis Pain) glipizide 5 mg tablet 5 mg PO BID 06/07/23 06/07/23 Unknown terazosin 5 mg capsule 5 mg PO HS 06/07/23 06/07/23 Unknown Active Medications Generic Name Dose Route Start Last Admin Trade Name Freq PRN Reason Stop Dose Admin Lactated Ringer's 1,000 mls @ 125 mls/hr 06/07/23 17:00 06/08/23 08:57 Lr IV 07/07/23 16:59 125 mls/hr .Q8H ISAURO Administration Insulin Aspart 0 units 06/08/23 12:00 06/08/23 11:49 Insulin Aspart Per Unit Charge SC 07/07/23 20:59 Not Given Q6 ISAURO Morphine Sulfate 4 mg 06/07/23 17:33 06/08/23 11:26 Morphine Sulfate 4 Mg/Ml 1 Ml Carp\Vial IV 06/21/23 17:32 4 mg Q3H PRN Administration Pain (6,7,8,9,10) Simvastatin 20 mg 06/07/23 21:00 06/07/23 22:01 Simvastatin 20 Mg Tab PO 07/07/23 20:59 20 mg HS ISAURO Administration NPO Date Last Intake of Fluids: 06/07/23 Time Last Intake of Fluids: 00:00 Date Last Intake of Solids: 06/07/23 Time Last Intake of Solids: 00:00 Past Medical History Medical History Diabetes mellitus with neuropathy Neutrophilic leukocytosis BPH (benign prostatic hyperplasia) Controlled type 2 diabetes mellitus with chronic kidney disease Hypercholesteremia Type 2 diabetes mellitus Rhabdomyolysis Hypertension Past Family History Family History Daughter Breast cancer Father No problems noted. Mother No problems noted. Other COPD (chronic obstructive pulmonary disease) Denies family history of Ovarian cancer Prostate cancer Myocardial infarction Colorectal cancer Past Surgical History Surgical History Status post open reduction and internal fixation (ORIF) of fracture L ankle History of wisdom tooth extraction Social History Smoking Status: Unknown if ever smoked Do You Dip or Chew Tobacco: No Hx Alcohol Use: No Alcohol type: beer alcohol intake frequency: a few times a month Hx Substance Use: No Physical Exam Vital Signs Last Vital Signs Temp 98.4 F 06/08/23 15:05 Pulse 90 06/08/23 15:05 Resp 20 06/08/23 15:05 BP 150/71 H 06/08/23 15:05 Pulse Ox 95 06/08/23 15:05 O2 Del Method Room Air 06/08/23 15:05 Testing Laboratory Results 06/08/23 07:10 06/08/23 07:10 PT 11.6 Seconds (9.0-12.0) 06/07/23 15:02 INR 1.1 (0.9-1.1) 06/07/23 15:02 06/07/23 Unknown Gram Stain - Final Pleural Fluid Aerobic and Anaerobic Culture - Preliminary No growth to date. 06/08/23 06/08/23 15:09 11:40 POC Glucose 142 H 140 H Electrocardiogram Date: 06/07/23 Findings: + NSR @, + LBBB and + RBBB Chest X-Ray Date: 06/07/23 Findings: + NAD Small right pleural effusion and right basilar densities persist. 3. No pneumothorax. 4. Right-sided rib fractures again noted.
[2023-06-08] MEDS ORDERED: fentaNYL citrate PF 100 MCG/2 ML VIAL ONE ×2 (15:35→16:45)
[2023-06-08] MEDS ORDERED: ROCURONIUM BROMIDE 10 MG/ML 5 ML VIAL IV ONE (15:45)
[2023-06-08] MEDS ORDERED: LIDOCAINE 2% 2 ML VIAL/AMP(20MG/ML) INFIL ONE (15:45)
[2023-06-08] MEDS ORDERED: PROPOFOL IV EMULSION 10 MG/ML 20 ML VIAL IV ONE (15:45)
[2023-06-08] MEDS ORDERED: DEXAMETHASONE SOD INJ 4 MG/ML VIAL ONE (15:45)
[2023-06-08] MEDS ORDERED: ONDANSETRON INJ 2 MG/ML 2 ML VIAL ONE (15:45)
[2023-06-08] MEDS: ceFAZolin 2000MG 2,000 MG/15 ML SYR IV ONE (15:59)
[2023-06-08] MEDS: TRANEXAMIC ACID / 0.7% NACL 1,000 MG/100 ML BAG IV ONE (15:59)
[2023-06-08] MEDS ORDERED: ePHEDrine sulfate 50 MG/5 ML SYR ONE (16:42)
[2023-06-08] MEDS ORDERED: PHENYLEPHRINE HCL 10 MG/ML VIAL ONE (16:42)
[2023-06-08] MEDS ORDERED: ceFAZolin 330 MG/ML 1 GM VIAL ONE (16:56)
[2023-06-08] MEDS: ceFAZolin 1000MG 1,000 MG/7.5 ML SYR IV STA (17:03)
[2023-06-08] MEDS ORDERED: SUGAMMADEX SODIUM 200 MG/2 ML VIAL IV ONE (17:52)
[2023-06-08] MEDS: LIDOCAINE 1% LOCAL 20 ML VIAL ONE (18:06)
[2023-06-08] MEDS: BUPIVACAINE 0.5 % 5 MG/1 ML MPF 30ML VIAL ONE (18:06)
[2023-06-08] MEDS: TRANEXAMIC ACID / 0.7% NACL 1000MG/100ML BAG IV ONE (18:10)
--- NOTE | 2023-06-08 18:12 | Fluoroscopy Report ---
FL hip LT 2-3V CLINICAL HISTORY: LEFT TROCHNAIL COMPARISON STUDY: CT left femur 06/07/2023 FLUOROSCOPY TIME: 168.9 seconds FLUOROSCOPY IMAGES: 5 EXPOSURE DOSE: 37.11 mGy FINDINGS: Status post placement of an intratrochanteric nail with medullary karel fixating the acute in tertrochanteric fracture. There is persistent displacement of the lesser trochanteric fracture fragme nt. Expected postoperative soft tissue swelling with deep tissue air. Radiopaque sponge projects over the distal thigh on image 2. IMPRESSION: Fluoroscopic assistance as above. ACT 112: Negative or not required by law. Electronically signed by: Deny Escamilla M.D. 06/08/2023 6:11 PM
--- NOTE | 2023-06-08 18:14 | Operative Report ---
Post Operative Report Pre & Post Diagnosis Operation Date: 06/08/23 08:25 Pre-Op Diagnosis: Comminuted left intertrochanteric hip fracture Post-Op Diagnosis: Same I identified the patient and participated in the time-out.: Yes Procedure Operation Date: 06/08/23 08:25 Actual Procedures p Left Hip Closed reduction internal fixation with long trochanteric femoral nail(Left) - Jung Barrow MD Surgeon Jung Barrow MD Wall Taper Helper Joslyn Sorto no resident or fellow available Estimated Blood Loss 25 Findings Consistent with Post-Op Diagnosis Specimens None Drains None Anesthesia Type General Regional Complications none Disposition Accompanied Patient To Recovery: No Disposition: Recovery Room Indications Jung is 87. He fell and sustained a comminuted left hip intertrochanteric fracture. We talked about his options and he wishes to proceed with surgery. Description of Procedure Informed consent. Patient identified. He identified the operative site. I marked with my initials. A preop surgical timeout was performed. A preop dose of IV antibiotics was given. He was taken to the operating room positioned supine on the OR table. The anesthetic was administered. He was positioned supine. A padded perineal post used for traction. A Ross catheter was inserted. The arms were folded across his chest with padding and the IV was ensured to be functioning. The torso was secured to the table with 3 straps of silk tape with padding underneath. He initially was placed in longitudinal traction with the left lower extremity out straight and the right leg in 9090 position. He did not have much in the way of hip abduction or external rotation and therefore this made visualization difficult and I switched to the contralateral leg extended with scissors. The left leg was elevated. The right leg was lowered. Both legs were 80 ducted. Longitudinal traction and internal rotation were applied. The table was airplaned about 10 to 15 degrees away from the operative side. There was good alignment on the AP but posterior sag on the lateral which was easily corrected with a posterior to anterior directed force over the trochanter fracture site. Traction applied. The feet were abundantly padded. Scrub was done followed by routine prep and drape. DVT prophylaxis with SCDs intraoperatively. Postoperatively mobility mechanical devices and Eliquis.TXA given. Fluoroscopic guidance was utilized to localize the area of the incision. A 5 to 6 cm incision was made just proximal to and in line with the greater trochanter. Electrocautery was utilized down to the subcutaneous tissues and the gluteal fascia was divided in line with the incision. A guidewire was inserted by hand power and adjusted x 2 to be intramedullary in AP and lateral views. Pretty much at all times a posteriorly to anteriorly directed force over the trochanter was done to aid in reduction of the fracture. The large reamer was inserted followed by intramedullary guide karel confirmed to be within the canal and AP and lateral planes. The length of the karel was determined to be 360 and this karel was easily inserted after passing a 12.5 mm reamer. This was an 11 mm diameter by 360 mm karel. This was advanced down to the appropriate level in the rotation was determined on lateral view x-ray. The insertion arm was applied and an accessory and lateral incision was made and the trocar was introduced. The guidepin was adjusted x 2 to be more central in both the AP and lateral planes. This was confirmed fluoroscopically. A 105 mm length was selected. The lateral reamer followed by the triple reamer and then the 105 mm spiral bolt was inserted. Tip of the blade was within 7 mm of the apex of the femoral head in both the AP and lateral planes. The locking bolt bolt was advanced and then backed off a half turn for dynamic mode. Prior to that minor compression was applied. The proximal construct was removed and medical detail representative images were obtained. A distal interlocking screw was inserted in the static mode using the standard fashion with perfect circles and radiolucent drill. AP and lateral images were obtained. Irrigation performed. Hemostasis achieved. The distal 2 incisions were closed with 2-0 Vicryl and kristyn. The proximal incision was closed with #1 Vicryl on the gluteal fascia 0 on the fatty layer and 2-0 Vicryl in the dermal layer followed by kristyn. Local anesthetic was injected to the skin and subcu of the incisions. The leg was cleaned with wet dry sponges and a soft sterile dressing was applied Xeroform 4 x 4's ABD Tegaderm. Prior to inserting the distal interlocking screw traction was relieved and the leg was placed into neutral position. Patient was taken off the fracture table back onto the hospital bed. He was taken to recovery room in stable condition. No specimens or complications. Counts correct and blood loss estimated to be 25 cc. At the conclusion of the operation I spoke to patient's family informed of my findings postop instructions were given. Eliquis can begin the morning after surgery. He can weight-bear as tolerated. He may need acute care rehab versus intermediate. The components inserted were the Synthes 11 mm x 130 degree titanium trochanteric femoral nail 360 mm left a 105 mm blade and a 38 mm long by 5 mm diameter distal interlocking screw. I attest to the content of the Intraoperative Record and any orders documented therein. Any exceptions are noted below.
--- NOTE | 2023-06-08 18:34 | Operative Report ---
Post Operative Report Pre & Post Diagnosis Operation Date: 06/08/23 08:25 Pre-Op Diagnosis: Left hip fracture Post-Op Diagnosis: Left hip fracture I identified the patient and participated in the time-out.: Yes Procedure Operation Date: 06/08/23 08:25 Actual Procedures p Left Hip Open Reduction Internal Fixation(Left) - Jung Barrow MD Surgeon Jung Barrow M.D. Tile Mechanic Helper Joslyn Sorto no resident or fellow available Estimated Blood Loss 25 Findings Consistent with Post-Op Diagnosis left intertrochanteric hip fracture Specimens none Anesthesia Type General Description of Procedure Patient was taken to the operating room, placed under general anesthesia, time out performed, given 2 gm IV Ancef for surgical prophylaxis. Given 1gm IV TXA preoperatively for bleeding prophylaxis. I was present during the entire case, please see Dr. Barrow's operative report for further detail. Patient was awakened and taken to the recovery room in stable condition. I attest to the content of the Intraoperative Record and any orders documented therein. Any exceptions are noted below.
[2023-06-08] MEDS ORDERED: COUGH DROP (SUGAR FREE) LOZ 24 LOZ/1 BOX BUCCAL PRN (19:41)
--- NOTE | 2023-06-08 20:22 | Hospitalist Progress Note ---
Date of Service June 08, 2023 Assessment & Plan (1) Closed fracture of left hip: Plan: s/p mechanical fall now s/p ORIF 06/[address] Barrow Continue post op pain control with tylenol, oxycodone, and morphine prn DVT prophylaxis with SCDs and Eliquis 2.5mg po bid Follow CBC, BMP in AM PT/OT consults placed, will likely need rehab Ross to be removed once mobile-likely tomorrow Bowel regimen as needed Appreciate Orthopedics management (2) Fracture of rib of right side: Plan: Multiple rib fractures without pain therefore do not suspect acute although new since 2022 Associated large right sided pleural effusion now drained (3) Pleural effusion, right: Plan: Large right sided plerual effusion with compressive atelectasis found on admission Suspect traumatic given rib fractures Does not appear acute with no pain, shortness of breath or hypoxia although again new since March 2023 Consult pulmonology for thoracentesis appreciated-removed 1.7 L loy cloudy fluid, exudative, with cultures and cytology pending-likely from rib fractures Check ECHO, BNP in AM, follow cytology and pleural fluid cxs (4) Fall: Plan: No concerning findings prior to falling needing further workup Skin tears following fall, will consult wound care nurse (5) Type 2 diabetes mellitus: Plan: Hemoglobin A1c 6.1 [05/25/2023], no need to repeat this Hold glipizide Novolog: --Goal BSG Range: Low 110 mg/dL, High 140 mg/dL --Correction Factor: 45 mg/dL/unit --Carbohydrate ratio = 15 g/unit --BSGs ACHS if eating, q6h if npo Add basal dosing if glucose remains high (6) Hypercholesteremia: Plan: Continue simvastatin (7) BPH (benign prostatic hyperplasia): Plan: Continue terazosin Plan VTE prophylaxis -Eliquis, SCDs Disposition - continued stay on PCU but can likely downgrade to med/surg tomorrow if stable from PULM standpoint Admission and Anticipated Discharge Date Admission Date: June 07, 2023 Subjective Pt seen after return from hip surgery. He is sleeping but wakes up easily. Denies SOB. Has minimal pain in hip, denies pain elsewhere. Tele with sinus rhythm, 1st degree AVB, rates 70-80s Physical Exam Constitutional: WD/WN, vitals as above Respiratory: normal respiratory effort, lungs clear to auscultation Cardiovascular: RRR, no murmur, no edema Chest (Breasts): Chest: normal inspection of chest Gastrointestinal (Abdomen): normal bowel sounds, soft, nontender, no hepatosplenomegaly Musculoskeletal: Extremities: + extremities abnormal to inspection (left hip with dressing c/d/i), no cyanosis and no clubbing Skin: no rashes, warm and dry Neurologic: moves all extremities and awake; no focal motor deficits Lymphatic: no lymphedema Results & Data Results & Data Vital Signs (Past 12 Hours) Vital Signs Temp Pulse Pulse Pulse Resp BP BP 06/08/23 20:00 98 H 16 06/08/23 19:50 95 H 13 06/08/23 19:45 132/91 06/08/23 19:45 96 H 14 06/08/23 19:40 95 H 12 06/08/23 19:35 146/81 H 06/08/23 19:35 94 H 13 06/08/23 19:30 96 H 12 06/08/23 19:29 148/82 H 06/08/23 19:00 36.3 C L 90 16 139/70 06/08/23 18:50 87 12 124/67 06/08/23 18:40 88 12 122/70 06/08/23 18:30 90 16 129/73 06/08/23 18:23 36.0 C L 88 12 147/79 H 06/08/23 15:05 36.9 C 90 20 150/71 H 06/08/23 14:56 102 H 17 06/08/23 14:50 97 H 16 06/08/23 14:40 108 H 18 06/08/23 14:30 92 H 18 06/08/23 14:20 107 H 19 06/08/23 14:10 82 15 06/08/23 14:00 83 11 L 06/08/23 13:50 83 06/08/23 13:40 81 14 06/08/23 13:30 84 06/08/23 13:20 82 06/08/23 13:10 85 12 06/08/23 13:00 83 06/08/23 13:00 06/08/23 12:50 83 06/08/23 12:40 84 06/08/23 12:30 82 06/08/23 12:20 83 06/08/23 12:10 81 06/08/23 12:00 81 06/08/23 12:00 119/63 06/08/23 11:50 84 06/08/23 11:40 87 15 06/08/23 11:38 109/65 06/08/23 11:38 86 06/08/23 11:38 36.5 C 87 18 109/65 06/08/23 11:30 94 H 15 06/08/23 11:20 91 H 18 06/08/23 11:10 102 H 22 06/08/23 11:00 93 H 18 06/08/23 10:50 95 H 21 06/08/23 10:40 93 H 06/08/23 10:30 82 13 06/08/23 10:20 85 06/08/23 10:10 81 13 06/08/23 10:00 84 06/08/23 09:50 95 H 18 06/08/23 09:40 81 14 06/08/23 09:30 78 13 06/08/23 09:20 77 12 06/08/23 09:10 77 12 06/08/23 09:00 81 11 L 06/08/23 09:00 06/08/23 08:50 82 12 Pulse Ox Pulse Ox O2 Del Method O2 Del Method O2 Flow Rate 06/08/23 20:00 93 06/08/23 19:50 94 06/08/23 19:45 06/08/23 19:45 92 06/08/23 19:40 92 06/08/23 19:35 06/08/23 19:35 93 06/08/23 19:30 06/08/23 19:29 06/08/23 19:00 91 Room Air 06/08/23 18:50 91 Room Air 06/08/23 18:40 92 Room Air 06/08/23 18:30 94 Room Air 06/08/23 18:23 98 Oxymask 11 06/08/23 15:05 95 Room Air 06/08/23 14:56 06/08/23 14:50 06/08/23 14:40 06/08/23 14:30 06/08/23 14:20 06/08/23 14:10 95 06/08/23 14:00 94 06/08/23 13:50 94 06/08/23 13:40 95 06/08/23 13:30 95 06/08/23 13:20 95 06/08/23 13:10 95 06/08/23 13:00 96 06/08/23 13:00 95 Room Air 06/08/23 12:50 95 06/08/23 12:40 94 06/08/23 12:30 94 06/08/23 12:20 94 06/08/23 12:10 93 06/08/23 12:00 92 06/08/23 12:00 06/08/23 11:50 92 06/08/23 11:40 92 06/08/23 11:38 06/08/23 11:38 91 06/08/23 11:38 92 Room Air 06/08/23 11:30 92 06/08/23 11:20 93 06/08/23 11:10 06/08/23 11:00 93 06/08/23 10:50 06/08/23 10:40 95 06/08/23 10:30 06/08/23 10:20 06/08/23 10:10 06/08/23 10:00 06/08/23 09:50 06/08/23 09:40 06/08/23 09:30 100 06/08/23 09:20 100 06/08/23 09:10 98 06/08/23 09:00 98 06/08/23 09:00 95 Room Air 06/08/23 08:50 97 Laboratory Results CBC, BMP, pleural fluid cx and cell count, LDH, TProt reviewed PG Care Time/CCT Total # of Minutes Spent Total Time Spent with Patient: Total time spent is greater than 50% in coordination of care (as documented) at patient's floor/unit and/or counseling patient: Coding Level of Care Code 88927 SUB INP/OBS CARE 2/35MIN Diagnoses Closed fracture of left hip S72.002A Encounter type: initial encounter Fracture of rib of right side S22.31XA Pleural effusion, right J90 Fall W19.XXXA Encounter type: initial encounter Type 2 diabetes mellitus E11.9 Hypercholesteremia E78.00 Benign prostatic hyperplasia with nocturia N40.1; R35.1 Lower urinary tract symptom detail: nocturia Lower urinary tract symptom presence: symptoms present (1) Closed fracture of left hip Encounter type: initial encounter Qualified Code(s): S72.002A - Fracture of unspecified part of neck of left femur, initial encounter for closed fracture (4) Fall Encounter type: initial encounter Qualified Code(s): W19.XXXA - Unspecified fall, initial encounter (7) BPH (benign prostatic hyperplasia) Lower urinary tract symptom detail: nocturia Lower urinary tract symptom presence: symptoms present Qualified Code(s): N40.1 - Benign prostatic hyperplasia with lower urinary tract symptoms; R35.1 - Nocturia
--- NOTE | 2023-06-08 21:18 | Anesthesiology Progress Note ---
Date of Service June 08, 2023 Anesthesia Post Procedure Vital Signs Vital Signs: Temp Pulse Pulse Pulse Resp BP BP 06/08/23 20:00 98 H 16 06/08/23 19:50 95 H 13 06/08/23 19:45 132/91 06/08/23 19:45 96 H 14 06/08/23 19:40 95 H 12 06/08/23 19:35 146/81 H 06/08/23 19:35 94 H 13 06/08/23 19:30 96 H 12 06/08/23 19:29 148/82 H 06/08/23 19:00 97.3 F L 90 16 139/70 06/08/23 18:50 87 12 124/67 06/08/23 18:40 88 12 122/70 06/08/23 18:30 90 16 129/73 06/08/23 18:23 96.8 F L 88 12 147/79 H 06/08/23 15:05 98.4 F 90 20 150/71 H 06/08/23 14:56 102 H 17 06/08/23 14:50 97 H 16 06/08/23 14:40 108 H 18 06/08/23 14:30 92 H 18 06/08/23 14:20 107 H 19 06/08/23 14:10 82 15 06/08/23 14:00 83 11 L 06/08/23 13:50 83 06/08/23 13:40 81 14 06/08/23 13:30 84 06/08/23 13:20 82 06/08/23 13:10 85 12 06/08/23 13:00 83 06/08/23 13:00 06/08/23 12:50 83 06/08/23 12:40 84 06/08/23 12:30 82 06/08/23 12:20 83 06/08/23 12:10 81 06/08/23 12:00 81 06/08/23 12:00 119/63 06/08/23 11:50 84 06/08/23 11:40 87 15 06/08/23 11:38 109/65 06/08/23 11:38 86 06/08/23 11:38 97.7 F 87 18 109/65 06/08/23 11:30 94 H 15 06/08/23 11:20 91 H 18 06/08/23 11:10 102 H 22 06/08/23 11:00 93 H 18 06/08/23 10:50 95 H 21 06/08/23 10:40 93 H 06/08/23 10:30 82 13 06/08/23 10:20 85 06/08/23 10:10 81 13 06/08/23 10:00 84 06/08/23 09:50 95 H 18 06/08/23 09:40 81 14 06/08/23 09:30 78 13 06/08/23 09:20 77 12 06/08/23 09:10 77 12 06/08/23 09:00 81 11 L 06/08/23 09:00 06/08/23 08:50 82 12 06/08/23 08:00 80 06/08/23 07:08 97.9 F 76 17 108/61 06/08/23 05:00 06/08/23 04:22 97.7 F 86 18 123/68 06/08/23 01:00 06/07/23 23:34 95 H 06/07/23 22:36 86 16 126/101 H Pulse Ox Pulse Ox O2 Del Method O2 Del Method O2 Flow Rate 06/08/23 20:00 93 06/08/23 19:50 94 06/08/23 19:45 06/08/23 19:45 92 06/08/23 19:40 92 06/08/23 19:35 06/08/23 19:35 93 06/08/23 19:30 06/08/23 19:29 06/08/23 19:00 91 Room Air 06/08/23 18:50 91 Room Air 06/08/23 18:40 92 Room Air 06/08/23 18:30 94 Room Air 06/08/23 18:23 98 Oxymask 11 06/08/23 15:05 95 Room Air 06/08/23 14:56 06/08/23 14:50 06/08/23 14:40 06/08/23 14:30 06/08/23 14:20 06/08/23 14:10 95 06/08/23 14:00 94 06/08/23 13:50 94 06/08/23 13:40 95 06/08/23 13:30 95 06/08/23 13:20 95 06/08/23 13:10 95 06/08/23 13:00 96 06/08/23 13:00 95 Room Air 06/08/23 12:50 95 06/08/23 12:40 94 06/08/23 12:30 94 06/08/23 12:20 94 06/08/23 12:10 93 06/08/23 12:00 92 06/08/23 12:00 06/08/23 11:50 92 06/08/23 11:40 92 06/08/23 11:38 06/08/23 11:38 91 06/08/23 11:38 92 Room Air 06/08/23 11:30 92 06/08/23 11:20 93 06/08/23 11:10 06/08/23 11:00 93 06/08/23 10:50 06/08/23 10:40 95 06/08/23 10:30 06/08/23 10:20 06/08/23 10:10 06/08/23 10:00 06/08/23 09:50 06/08/23 09:40 06/08/23 09:30 100 06/08/23 09:20 100 06/08/23 09:10 98 06/08/23 09:00 98 06/08/23 09:00 95 Room Air 06/08/23 08:50 97 06/08/23 08:00 06/08/23 07:08 91 Room Air 06/08/23 05:00 95 Room Air 06/08/23 04:22 95 Room Air 06/08/23 01:00 95 Room Air 06/07/23 23:34 06/07/23 22:36 98 Room Air Pain Intensity Left Hip: Pain Intensity: 4 Transfer of Care Handoff Completed per policy Notes Mental Status: alert / awake / arousable and participated in evaluation Patient Amnestic to Procedure: Yes Nausea / Vomiting: adequately controlled Pain: adequately controlled Airway Patency, RR, SpO2: stable & adequate BP & HR: stable & adequate Hydration State: stable & adequate Anesthetic Complications: no major complications apparent and Pt Satisfied with anesthetic care
[2023-06-08] MEDS: TERAZOSIN HCL 5 MG CAP PO SCH (21:25)
[2023-06-09] MEDS: oxyCODONE HCL IR 5 MG TAB (IMMEDIATE RELEASE) PO PRN (00:54)
[2023-06-09] MEDS: TRANEXAMIC ACID / 0.7% NACL 1,000 MG/100 ML BAG IV SCH (00:55)
[2023-06-09] MEDS: ceFAZolin 1000MG 1,000 MG/7.5 ML SYR IV SCH (00:55)
[2023-06-09] MEDS: SODIUM CHLORIDE 0.9% 500 ML IV SCH (01:49)
[2023-06-09] MEDS ORDERED: ceFAZolin 2000MG 2,000 MG/15 ML SYR IV ONE ×2 (06:00)
[2023-06-09 07:01] LABS: Hematocrit (blood only) 27.8 % (42.0-52.0); Hemoglobin 9.1 g/dl (14.0-18.0); Immature Granulocytes # (auto) 0.03 K/uL (0.01-0.20); Immature Granulocytes % (auto) 0.3 %; Lymphocytes # (auto) 0.95 K/uL (1.20-3.40); Lymphocytes % (auto) 9.7 %; Mean Corpuscular Hemoglobin 31.6 pg (25.0-34.0); Mean Corpuscular Hgb Conc 32.7 g/dL (32.0-36.0); Mean Corpuscular Volume 96.5 fL (80.0-100.0); Mean Platelet Volume 10.4 fL (9.4-12.4); Monocytes # (auto) 1.02 K/uL (0.11-0.59); Monocytes % (auto) 10.4 %; Neutrophils # (auto) 7.84 K/uL (1.40-6.50); Neutrophils % (auto) 79.6 %; Platelet Count 159 K/uL (130-400); RDW Coefficient of Variation 12.9 % (11.5-14.5); RDW Standard Deviation 46.4 fL (36.4-46.3); Red Blood Count 2.88 M/uL (4.70-6.10); White Blood Count 9.84 K/ul (4.8-10.8)
[2023-06-09 07:03] LABS: BUN Creatinine Ratio 21.1 (10-20); Calcium 8.2 mg/dl (8.6-10.3); Creatinine Clr Calc Pharmacy 23.2 ml/min; Est GFR (African American) 33.7 ml/min; Est GFR (Non-African American) 29.1 ml/min; Potassium 5.2 mmol/L (3.5-5.1)
[2023-06-09] MEDS: CHOLECALCIFEROL 25 MCG (1000 UNITS) TAB PO SCH (08:00)
[2023-06-09] MEDS: APIXABAN 2.5 MG TAB PO SCH (08:00)
--- NOTE | 2023-06-09 09:20 | Orthopedic Progress Note ---
Date of Service June 09, 2023 Assessment & Plan (1) Closed fracture of left hip: Plan: Postop day 1-status post ORIF left hip with Dr. Barrow May be out of bed with assistance of walker today. Weight-bear as tolerated left lower extremity. No hip or questions necessary. May do full range of motion of the left hip, knee and ankle as tolerated. Keep dressings clean and intact. Reinforce as needed. Will plan to do dressing change tomorrow. Eliquis 2.5 mg twice daily started this morning for DVT prophylaxis. This will be continued for 2 to 4 weeks after surgery. Continue SCDs and RUBEN stockings bilateral lower extremities for DVT prophylaxis. PT and OT to start today. Ice and elevate left leg as needed for pain and swelling. Encourage patient to do exercises with gentle bending of the knee, gluteal squeezes and ankle pumps when in bed. Will continue to follow. Dr. Barrow present for today's visit. Case management for disposition. All questions were answered. Patient understands and agrees with plan. Admission and Anticipated Discharge Date Admission Date: June 07, 2023 Subjective Patient is sitting up in bed. Comfortable. States no significant pain in his left hip with no movement. States he is breathing fine. Denies any chest pain or shortness of breath. Physical Exam Musculoskeletal: Exam of his left lower extremity: Surgical dressings are clean, dry and intact. He does have some edema of his left thigh and into the knee. No distal edema into the foot or ankle. Dorsalis pedis pulse is 1+., Trace posterior tibial pulse. Limited ankle range of motion due to his previous injury. He is able to dorsiflex, plantarflex and linda the left foot. Strength is 5/5. Distal sensation is normal. Cap refill is brisk. Calf is supple and nontender. SCD in place. He is gently able to actively flex his knee about 5 degrees. This does reproduce pain in the hip and knee area. Results & Data Vital Signs (Past 12 Hours) Vital Signs Temp Pulse Pulse Resp BP BP Pulse Ox 06/09/23 07:21 36.5 C 94 H 16 110/64 94 06/09/23 04:39 06/09/23 04:00 94 H 06/09/23 04:00 128/71 06/09/23 03:47 36.4 C L 98 H 16 115/66 93 06/09/23 03:46 115/66 06/09/23 03:46 98 H 20 06/09/23 03:00 97 H 21 06/09/23 02:00 99 H 21 06/09/23 01:00 103 H 17 94 06/09/23 01:00 06/09/23 00:00 124/74 06/09/23 00:00 124/74 06/09/23 00:00 101 H 18 94 06/08/23 23:37 120/73 06/08/23 23:37 103 H 13 95 06/08/23 23:37 36.4 C L 105 H 14 120/73 95 06/08/23 23:00 105 H 14 93 06/08/23 22:00 112 H 15 93 Pulse Ox O2 Del Method O2 Del Method 06/09/23 07:21 Room Air 06/09/23 04:39 95 Room Air 06/09/23 04:00 06/09/23 04:00 06/09/23 03:47 Room Air 06/09/23 03:46 06/09/23 03:46 06/09/23 03:00 06/09/23 02:00 06/09/23 01:00 06/09/23 01:00 98 Room Air 06/09/23 00:00 06/09/23 00:00 06/09/23 00:00 06/08/23 23:37 06/08/23 23:37 06/08/23 23:37 Room Air 06/08/23 23:00 06/08/23 22:00 Laboratory Results 06/09/23 06/09/23 06/09/23 Range/Units 07:23 06:06 05:50 WBC 9.84 (4.8-10.8) K/ul RBC 2.88 L (4.70-6.10) M/uL Hgb 9.1 L (14.0-18.0) g/dl Hct 27.8 L (42.0-52.0) % MCV 96.5 (80.0-100.0) fL MCH 31.6 (25.0-34.0) pg MCHC 32.7 (32.0-36.0) g/dL RDW Std Deviation 46.4 H (36.4-46.3) fL RDW Coeff of Glenn 12.9 (11.5-14.5) % Plt Count 159 (130-400) K/uL MPV 10.4 (9.4-12.4) fL Immature Gran % (Auto) 0.3 % Neut % (Auto) 79.6 % Lymph % (Auto) 9.7 % Wirt % (Auto) 10.4 % Eos % (Auto) 0.0 % Baso % (Auto) 0.0 % Neut # (Auto) 7.84 H (1.40-6.50) K/uL Lymph # (Auto) 0.95 L (1.20-3.40) K/uL Wirt # (Auto) 1.02 H (0.11-0.59) K/uL Eos # (Auto) 0.00 (0.00-0.50) K/uL Baso # (Auto) 0.00 (0.00-0.20) K/uL Immature Gran # (Auto) 0.03 (0.01-0.20) K/uL Sodium 136 (136-145) mmol/L Potassium 5.2 H (3.5-5.1) mmol/L Chloride 104 (98-107) mmol/L Carbon Dioxide 23 (21-32) mmol/L Anion Gap 9 (3-11) BUN 42 H (6-23) mg/dl Creatinine 1.99 H D (0.6-1.4) mg/dl Est Cr Clr Drug Dosing 23.2 ml/min Est GFR ( Amer) 33.7 ml/min Est GFR (Non-Af Amer) 29.1 ml/min BUN/Creatinine Ratio 21.1 H (10-20) Glucose 206 H (70-99(Fasting)) mg/dl POC Glucose 186 H 215 H (70-99) mg/dl Calcium 8.2 L (8.6-10.3) mg/dl B-Natriuretic Peptide 48 (0-100) pg/ml 06/08/23 06/08/23 06/08/23 Range/Units 20:39 18:55 15:09 WBC (4.8-10.8) K/ul RBC (4.70-6.10) M/uL Hgb (14.0-18.0) g/dl Hct (42.0-52.0) % MCV (80.0-100.0) fL MCH (25.0-34.0) pg MCHC (32.0-36.0) g/dL RDW Std Deviation (36.4-46.3) fL RDW Coeff of Glenn (11.5-14.5) % Plt Count (130-400) K/uL MPV (9.4-12.4) fL Immature Gran % (Auto) % Neut % (Auto) % Lymph % (Auto) % Wirt % (Auto) % Eos % (Auto) % Baso % (Auto) % Neut # (Auto) (1.40-6.50) K/uL Lymph # (Auto) (1.20-3.40) K/uL Wirt # (Auto) (0.11-0.59) K/uL Eos # (Auto) (0.00-0.50) K/uL Baso # (Auto) (0.00-0.20) K/uL Immature Gran # (Auto) (0.01-0.20) K/uL Sodium (136-145) mmol/L Potassium (3.5-5.1) mmol/L Chloride (98-107) mmol/L Carbon Dioxide (21-32) mmol/L Anion Gap (3-11) BUN (6-23) mg/dl Creatinine (0.6-1.4) mg/dl Est Cr Clr Drug Dosing ml/min Est GFR ( Amer) ml/min Est GFR (Non-Af Amer) ml/min BUN/Creatinine Ratio (10-20) Glucose (70-99(Fasting)) mg/dl POC Glucose 160 H 153 H 142 H (70-99) mg/dl Calcium (8.6-10.3) mg/dl B-Natriuretic Peptide (0-100) pg/ml 06/08/23 Range/Units 11:40 WBC (4.8-10.8) K/ul RBC (4.70-6.10) M/uL Hgb (14.0-18.0) g/dl Hct (42.0-52.0) % MCV (80.0-100.0) fL MCH (25.0-34.0) pg MCHC (32.0-36.0) g/dL RDW Std Deviation (36.4-46.3) fL RDW Coeff of Glenn (11.5-14.5) % Plt Count (130-400) K/uL MPV (9.4-12.4) fL Immature Gran % (Auto) % Neut % (Auto) % Lymph % (Auto) % Wirt % (Auto) % Eos % (Auto) % Baso % (Auto) % Neut # (Auto) (1.40-6.50) K/uL Lymph # (Auto) (1.20-3.40) K/uL Wirt # (Auto) (0.11-0.59) K/uL Eos # (Auto) (0.00-0.50) K/uL Baso # (Auto) (0.00-0.20) K/uL Immature Gran # (Auto) (0.01-0.20) K/uL Sodium (136-145) mmol/L Potassium (3.5-5.1) mmol/L Chloride (98-107) mmol/L Carbon Dioxide (21-32) mmol/L Anion Gap (3-11) BUN (6-23) mg/dl Creatinine (0.6-1.4) mg/dl Est Cr Clr Drug Dosing ml/min Est GFR ( Amer) ml/min Est GFR (Non-Af Amer) ml/min BUN/Creatinine Ratio (10-20) Glucose (70-99(Fasting)) mg/dl POC Glucose 140 H (70-99) mg/dl Calcium (8.6-10.3) mg/dl B-Natriuretic Peptide (0-100) pg/ml (1) Closed fracture of left hip Encounter type: initial encounter Qualified Code(s): S72.002A - Fracture of unspecified part of neck of left femur, initial encounter for closed fracture
--- NOTE | 2023-06-09 11:04 | Pulmonology Progress Note ---
Date of Service June 09, 2023 Assessment & Plan (1) Pleural effusion, right: Plan Impression: 87-year-old male status post fall with left-sided hip fracture and multiple subacute right-sided rib fractures with right-sided effusion of unclear etiology. CT scan did show some cardiomegaly and prominence of the pulmonary vasculature. Pleural fluid showed borderline lymphocytic exudate with negative cytology Recommendations: 1. Pleural effusion: Underwent diagnostic/therapeutic thoracentesis. Discussed with pathology. Cytology is negative. Likely secondary to rib fractures. Would recommend follow-up chest x-ray in 2 to 4 weeks to ensure fluid is not reaccumulating. Pulmonary will sign off at this point in time. Feel free to contact us with questions or concerns Admission and Anticipated Discharge Date Admission Date: June 07, 2023 Subjective Patient seen and examined. EMR reviewed. The patient is status post ORIF of his hip. He did well postoperatively. He is not complaining of any chest pain or shortness of breath. He remains on room air. He is not coughing wheezing or expectorating any phlegm. Review of Systems 2 Review of Systems: All systems reviewed & are unremarkable except as noted in Subjective Physical Exam 2 Constitutional: WD/WN, vitals as above Neck: trachea midline, no thyromegaly Respiratory: no respiratory distress, no labored breathing, no cough and not tachypneic Auscultation: + diminished lung sounds; no crackles and no wheezes Cardiovascular: RRR, no murmur, no edema Gastrointestinal (Abdomen): normal bowel sounds, soft, nontender, no hepatosplenomegaly Skin: no rashes, warm and dry Lymphatic: no cervical lymphadenopathy Results & Data Results & Data Vital Signs (Past 12 Hours) Vital Signs Temp Pulse Pulse Resp BP BP Pulse Ox 06/09/23 07:56 98 H 06/09/23 07:21 36.5 C 94 H 16 110/64 94 06/09/23 04:39 06/09/23 04:00 94 H 06/09/23 04:00 128/71 06/09/23 03:47 36.4 C L 98 H 16 115/66 93 06/09/23 03:46 115/66 06/09/23 03:46 98 H 20 06/09/23 03:00 97 H 21 06/09/23 02:00 99 H 21 06/09/23 01:00 103 H 17 94 06/09/23 01:00 06/09/23 00:00 124/74 06/09/23 00:00 124/74 06/09/23 00:00 101 H 18 94 06/08/23 23:37 120/73 06/08/23 23:37 103 H 13 95 06/08/23 23:37 36.4 C L 105 H 14 120/73 95 Pulse Ox O2 Del Method O2 Del Method 06/09/23 07:56 06/09/23 07:21 Room Air 06/09/23 04:39 95 Room Air 06/09/23 04:00 06/09/23 04:00 06/09/23 03:47 Room Air 06/09/23 03:46 06/09/23 03:46 06/09/23 03:00 06/09/23 02:00 06/09/23 01:00 06/09/23 01:00 98 Room Air 06/09/23 00:00 06/09/23 00:00 06/09/23 00:00 06/08/23 23:37 06/08/23 23:37 06/08/23 23:37 Room Air Laboratory Results 06/09/23 05:50 06/09/23 05:50 PG Care Time/CCT Total # of Minutes Spent Total Time Spent with Patient: Total time spent is greater than 50% in coordination of care (as documented) at patient's floor/unit and/or counseling patient: Coding Level of Care Code 54905 SUB INP/OBS CARE 2/35MIN Diagnoses Pleural effusion, right J90
[2023-06-09] MEDS: MoRPHine SULFATE 2 MG/ML CARP IV PRN (12:14)
[2023-06-09] MEDS: SODIUM CHLORIDE 0.9% 250 ML IV ONE (14:31)
--- NOTE | 2023-06-09 14:32 | Hospitalist Progress Note ---
Date of Service June 09, 2023 Assessment & Plan (1) Closed fracture of left hip: Plan: s/p mechanical fall now s/p ORIF 06/[address] Barrow Continue post op pain control with tylenol, oxycodone, and morphine prn DVT prophylaxis with SCDs and Eliquis 2.5mg po bid Follow CBC, BMP in AM PT/OT consults placed, will need rehab Tomas to be removed once mobile and once ROSI and oliguria improve Bowel regimen as needed Appreciate Orthopedics management-WBAT, no hip restrictions (2) Acute kidney injury: Plan: [employer] further up today to 1.99 with associated hyperkalemia Tomas draining but has minimal output and bladder scan zero mL With orthostasis, drop in hgb--> hypovolemic Received 1000mL NS overnight into today--> will give NS 250mL bolus followed by another 1 L NS at 100 mL/hr Check BMP this afternoon and then again in AM If K+ further elevated, will treat Maintain Tomas (3) Acute blood loss anemia: Plan: hgb down further to 9.1 from 10.8 yesterday, with orthostasis 2/2 blood loss from hip fracture Giving IVFs Follow CBC in AM, transfuse if hgb<7-8 if remains symptomatic (4) Fracture of rib of right side: Plan: Multiple rib fractures without pain therefore do not suspect acute although new since 2022 Associated large right sided pleural effusion now drained (5) Pleural effusion, right: Plan: Large right sided plerual effusion with compressive atelectasis found on admission Suspect traumatic given rib fractures BNP normal, ECHP pending, but do not suspect from CHF Does not appear acute with no pain, shortness of breath or hypoxia although again new since March 2023 Consult pulmonology for thoracentesis appreciated-removed 1.7 L loy cloudy fluid, exudative, with cultures and cytology negative-likely from rib fractures Follow pleural fluid cxs Check CXR in 2-4 weeks as per PULM Appreciate PULM consult (6) Fall: Plan: No concerning findings prior to falling needing further workup Skin tears on elbow following fall, appreciate wound care nurse management (7) Type 2 diabetes mellitus: Plan: Hemoglobin A1c 6.1 [05/25/2023], no need to repeat this Hold glipizide Novolog: --Goal BSG Range: Low 110 mg/dL, High 140 mg/dL --Correction Factor: 45 mg/dL/unit --Carbohydrate ratio = 15 g/unit --BSGs ACHS if eating, q6h if npo Add basal dosing if glucose remains high (8) Hypercholesteremia: Plan: Continue simvastatin (9) BPH (benign prostatic hyperplasia): Plan: Continue terazosin Tomas in place Plan VTE prophylaxis -Milly Coulter Disposition - continued stay on PCU for ROSI, hyperkalemia, orthostasis PT/OT recommending acute rehab, needs referrals placed Admission and Anticipated Discharge Date Admission Date: June 07, 2023 Subjective Pt has some pain in hip but controlled with pain med. Stood up with PT and felt lightheaded, BP dropped to 70 systolic. He also has had very minimal urine output today and IVFs were given He denies CP, SOB Tele with NSR, PACs, rates 90s Physical Exam Constitutional: WD/WN, vitals as above Respiratory: normal respiratory effort, lungs clear to auscultation Cardiovascular: RRR, no murmur, no edema Chest (Breasts): Chest: normal inspection of chest Gastrointestinal (Abdomen): normal bowel sounds, soft, nontender, no hepatosplenomegaly Musculoskeletal: Extremities: + extremities abnormal to inspection (left hip with dressing c/d/i), no cyanosis and no clubbing Skin: no rashes, warm and dry Neurologic: moves all extremities and awake; no focal motor deficits Lymphatic: no lymphedema Results & Data Results & Data Vital Signs (Past 12 Hours) Vital Signs Temp Pulse Pulse Resp BP BP Pulse Ox 06/09/23 11:19 36.4 C L 103 H 16 127/71 92 06/09/23 07:56 98 H 06/09/23 07:21 36.5 C 94 H 16 110/64 94 06/09/23 04:39 06/09/23 04:00 94 H 06/09/23 04:00 128/71 06/09/23 03:47 36.4 C L 98 H 16 115/66 93 06/09/23 03:46 115/66 06/09/23 03:46 98 H 20 06/09/23 03:00 97 H 21 Pulse Ox O2 Del Method O2 Del Method 06/09/23 11:19 Room Air 06/09/23 07:56 06/09/23 07:21 Room Air 06/09/23 04:39 95 Room Air 06/09/23 04:00 06/09/23 04:00 06/09/23 03:47 Room Air 06/09/23 03:46 06/09/23 03:46 06/09/23 03:00 Laboratory Results CBC, BMP, BNP reviewed PG Care Time/CCT Total # of Minutes Spent Total Time Spent with Patient: Total time spent is greater than 50% in coordination of care (as documented) at patient's floor/unit and/or counseling patient: Coding Level of Care Code 96262 SUB INP/OBS CARE 3/50MIN Diagnoses Closed fracture of left hip S72.002A Encounter type: initial encounter Acute kidney injury N17.9 Acute blood loss anemia D62 Fracture of rib of right side S22.31XA Pleural effusion, right J90 Fall W19.XXXA Encounter type: initial encounter Type 2 diabetes mellitus E11.9 Hypercholesteremia E78.00 Benign prostatic hyperplasia with nocturia N40.1; R35.1 Lower urinary tract symptom presence: symptoms present Lower urinary tract symptom detail: nocturia (1) Closed fracture of left hip Encounter type: initial encounter Qualified Code(s): S72.002A - Fracture of unspecified part of neck of left femur, initial encounter for closed fracture (6) Fall Encounter type: initial encounter Qualified Code(s): W19.XXXA - Unspecified fall, initial encounter (9) BPH (benign prostatic hyperplasia) Lower urinary tract symptom presence: symptoms present Lower urinary tract symptom detail: nocturia Qualified Code(s): N40.1 - Benign prostatic hyperplasia with lower urinary tract symptoms; R35.1 - Nocturia
[2023-06-09] MEDS: SODIUM CHLORIDE 0.9% 1,000 ML IV SCH (14:52)
[2023-06-09 15:21] LABS: Potassium 4.7 mmol/L (3.5-5.1)
[2023-06-09 15:31] LABS: BUN Creatinine Ratio 20.2 (10-20); Creatinine Clr Calc Pharmacy 20.7 ml/min; Est GFR (African American) 29.4 ml/min; Est GFR (Non-African American) 25.4 ml/min
--- NOTE | 2023-06-09 19:45 | XCELERA ---
[id number]
[2023-06-10 10:42] LABS: Basophils # (auto) 0.01 K/uL (0.00-0.20); Basophils % (auto) 0.1 %; Eosinophils # (auto) 0.05 K/uL (0.00-0.50); Eosinophils % (auto) 0.5 %; Hematocrit (blood only) 23.1 % (42.0-52.0); Hemoglobin 7.5 g/dl (14.0-18.0); Immature Granulocytes # (auto) 0.05 K/uL (0.01-0.20); Immature Granulocytes % (auto) 0.5 %; Lymphocytes # (auto) 0.89 K/uL (1.20-3.40); Lymphocytes % (auto) 9.3 %; Mean Corpuscular Hemoglobin 31.5 pg (25.0-34.0); Mean Corpuscular Hgb Conc 32.5 g/dL (32.0-36.0); Mean Corpuscular Volume 97.1 fL (80.0-100.0); Monocytes # (auto) 0.88 K/uL (0.11-0.59); Monocytes % (auto) 9.2 %; Neutrophils # (auto) 7.67 K/uL (1.40-6.50); Neutrophils % (auto) 80.4 %; Platelet Count 153 K/uL (130-400); RDW Standard Deviation 45.8 fL (36.4-46.3); Red Blood Count 2.38 M/uL (4.70-6.10); White Blood Count 9.55 K/ul (4.8-10.8)
--- NOTE | 2023-06-10 10:52 | Orthopedic Progress Note ---
Date of Service June 10, 2023 Assessment & Plan (1) Closed fracture of left hip: Plan: Continue with PT. Continue DVT prophylaxis. His dressing was changed today by me. Wounds look good. He will likely need placement postoperatively. He continues to struggle with therapy. Will reevaluate tomorrow morning. Admission and Anticipated Discharge Date Admission Date: June 07, 2023 Subjective This 87-year-old male is seen today in his room. He is 2 days status post left hip ORIF. He has just finished working with therapy. He was not able to participate much secondary to dizziness and low BP. He states he is feeling okay. He is having some pain. He denies any nausea or vomiting. No chest pain or shortness of breath. No numbness or tingling. No other complaints. Physical Exam Physical Exam: General: Frail, elderly male, in no acute distress. Laying in bed. Alert and oriented. Conversive. Skin: Warm and dry with fair turgor. No rashes. He has postsurgical dressings in place on the left hip and thigh. Upon removal, there is a mild amount of drainage on the dressings. Margarita are in place. Wound edges are well- approximated. No erythema or warmth. No active bleeding. No active drainage. Expected postoperative ecchymosis. Minimal edema. Musculoskeletal: The patient has intact motor function to the left hip, knee, and ankle. He is able to actively flex and extend his hip and knee. Mild discomfort with logrolling of the hip. Neurologic: Gross sensation is intact across the lower extremities by soft touch. Full pulses are 2+. Results & Data Vital Signs (Past 12 Hours) Vital Signs Temp Pulse Resp BP Pulse Ox O2 Del Method O2 Flow Rate 06/10/23 08:00 Room Air 06/10/23 07:43 36.8 C 107 H 18 111/55 L 91 Room Air 06/10/23 03:36 37.0 C 97 H 16 115/62 93 Nasal Cannula 1.0 06/09/23 23:01 36.8 C 98 H 16 110/69 97 Nasal Cannula 1.0 Laboratory Results CBC obtained today shows a white count of 9.55. H&H of 7.5 and 23.1. This is dropped from yesterday with counts at 9.1 and 27.8. Platelets today are 153,00 0. BMP remains pending. (1) Closed fracture of left hip Encounter type: initial encounter Qualified Code(s): S72.002A - Fracture of unspecified part of neck of left femur, initial encounter for closed fracture
[2023-06-10 11:09] LABS: BUN Creatinine Ratio 23.3 (10-20); Calcium 7.3 mg/dl (8.6-10.3); Creatinine Clr Calc Pharmacy 20.3 ml/min; Est GFR (African American) 28.8 ml/min; Est GFR (Non-African American) 24.8 ml/min; Potassium 4.4 mmol/L (3.5-5.1)
[2023-06-10 11:40] LABS: Polychromasia 1+
[2023-06-10] MEDS ORDERED: SODIUM CHLORIDE 0.9% 250 ML IV PRN (12:54)
--- NOTE | 2023-06-10 12:58 | Hospitalist Progress Note ---
Date of Service June 10, 2023 Assessment & Plan (1) Closed fracture of left hip: Plan: s/p mechanical fall now s/p ORIF 06/[address] 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 and metabolic acidosis-hyperkalemia now improved Tomas draining and oliguria starting to improve With ongoing orthostasis, drop in hgb further to7.5--> hypovolemic despite 2 L NS yesterday Transfusing 1 unit PRBCs, no further IVFs today Maintain Tomas Follow BMP (3) Acute blood loss anemia: Plan: hgb down further to 7.5 with ongoing orthostasis, no new bleeding but likely from hip fracture Transfuse 1 unit PRBCs today Follow CBC in AM (4) Fracture of rib of right side: Plan: Multiple rib fractures without pain therefore do not suspect acute although new since 2022 Associated large right sided pleural effusion now drained (5) Pleural effusion, right: Plan: Large right sided pleural effusion with compressive atelectasis found on admission Suspect traumatic given rib fractures BNP normal, ECHO normal Does not appear acute with no pain, shortness of breath or hypoxia although again new since March 2023 Consult pulmonology for thoracentesis appreciated-removed 1.7 L loy cloudy fluid, exudative, with cultures and cytology negative-likely from rib fractures Follow pleural fluid cxs-no growth Check CXR in 2-4 weeks as per PULM Appreciate PULM consult (6) Fall: Plan: No concerning findings prior to falling needing further workup Skin tears on elbow following fall, appreciate wound care nurse management (7) Type 2 diabetes mellitus: Plan: Hemoglobin A1c 6.1 [05/25/2023], no need to repeat this Hold glipizide Novolog: --Goal BSG Range: Low 110 mg/dL, High 140 mg/dL --Correction Factor: 45 mg/dL/unit --Carbohydrate ratio = 15 g/unit --BSGs ACHS if eating, q6h if npo Add basal dosing if glucose remains high (8) Hypercholesteremia: Plan: Continue simvastatin (9) BPH (benign prostatic hyperplasia): Plan: Continue terazosin Tomas in place (10) Vitamin D deficiency: Plan: Vit D level severely low at 8 Started Vitamin D 1000uits once daily Plan VTE prophylaxis -Eliquis, SCDs Disposition - continued stay on PCU for ROSI, orthostasis PT/OT recommending acute rehab, needs referrals placed Discussed care with son at bedside on 06/10 Admission and Anticipated Discharge Date Admission Date: June 07, 2023 Subjective Pt had orthostasis again today with PT, BP dropped to 70s systolic w/ standing. Denies CP, SOB. He is agreeable to a blood transfusion No BM today Tele with NSR an ST, rates 90-120s Physical Exam Constitutional: WD/WN, vitals as above Respiratory: normal respiratory effort, lungs clear to auscultation Cardiovascular: RRR, no murmur, no edema Chest (Breasts): Chest: normal inspection of chest Gastrointestinal (Abdomen): normal bowel sounds, soft, nontender, no hepatosplenomegaly Musculoskeletal: Extremities: + extremities abnormal to inspection (left hip with dressing c/d/i), no cyanosis and no clubbing Skin: no rashes, warm and dry (no hematoma) Neurologic: moves all extremities and awake; no focal motor deficits Lymphatic: no lymphedema Results & Data Results & Data Vital Signs (Past 12 Hours) Vital Signs Temp Pulse Resp BP Pulse Ox O2 Del Method O2 Flow Rate 06/10/23 11:52 37.0 C 102 H 18 98/61 L 92 Room Air 06/10/23 08:00 Room Air 06/10/23 07:43 36.8 C 107 H 18 111/55 L 91 Room Air 06/10/23 03:36 37.0 C 97 H 16 115/62 93 Nasal Cannula 1.0 Laboratory Results CBC, BMP, Mag reviewed PG Care Time/CCT Total # of Minutes Spent Total Time Spent with Patient: Total time spent is greater than 50% in coordination of care (as documented) at patient's floor/unit and/or counseling patient: Coding Level of Care Code 70153 SUB INP/OBS CARE 3/50MIN Diagnoses Closed fracture of left hip S72.002A Encounter type: initial encounter Acute kidney injury N17.9 Acute blood loss anemia D62 Fracture of rib of right side S22.31XA Pleural effusion, right J90 Fall W19.XXXA Encounter type: initial encounter Type 2 diabetes mellitus E11.9 Hypercholesteremia E78.00 Benign prostatic hyperplasia with nocturia N40.1; R35.1 Lower urinary tract symptom presence: symptoms present Lower urinary tract symptom detail: nocturia Vitamin D deficiency E55.9 (1) Closed fracture of left hip Encounter type: initial encounter Qualified Code(s): S72.002A - Fracture of unspecified part of neck of left femur, initial encounter for closed fracture (6) Fall Encounter type: initial encounter Qualified Code(s): W19.XXXA - Unspecified fall, initial encounter (9) BPH (benign prostatic hyperplasia) Lower urinary tract symptom presence: symptoms present Lower urinary tract symptom detail: nocturia Qualified Code(s): N40.1 - Benign prostatic hyperplasia with lower urinary tract symptoms; R35.1 - Nocturia
[2023-06-11] MEDS: FUROSEMIDE INJ 20 MG/2 ML VIAL IV ONE ×2 (00:37→10:13)
--- NOTE | 2023-06-11 00:55 | Communication Note ---
Date of Service: June 11, 2023 Notified of patient's oxygen requirement increasing. Chest xray ordered- no significantly worsened from prior per my interpretation. Went to bedside, nolan swanson notes that patient is recorded as up >3kg in the past day and has visually appeared edematous. Per chart review, patient has right rib fractures and had ~1.7L removed from pleural effusion earlier in this admission. On physical exam, patient unable to take deep breaths during auscultation (likely due to his rib fractures) but did sound a bit wet. Per chart review, patient also received 1u PRBCs in the afternoon due to hgb of 7.5- is still within window of respiratory status change secondary to transfusion reaction. Reviewed most recent metabolic panel (patient does have an ROSI), ultimately decided to give dose of IV lasix to see if oxygen requirement improved with diuresis. Patient was also placed on HFNC at that time and oxygen saturation did improve. Resident Activity Tracking Resident Involvement: Resident Care Provided Care Provided: [facility]
[2023-06-11] MEDS: CHOLECALCIFEROL 25 MCG (1000 UNITS) TAB PO SCH (07:51)
--- NOTE | 2023-06-11 08:17 | XRay Report ---
SINGLE VIEW CHEST CLINICAL HISTORY: Dyspnea. FINDINGS: An AP, portable, upright chest radiograph is compared to study dated 06/08/2023 and correlat ed with chest CT dated 06/07/2023. The examination is degraded by portable technique and patient rotat ion. The cardiomediastinal silhouette is top normal for projection. Chronic interstitial thickening i s similar to previous. There are right larger than left pleural effusions with dependent consolidatio n. Fluid is seen along the minor fissure. No pneumothorax is seen. The skeletal structures are osteop enic. There are acute subacute right-sided rib fractures. Arthritic change is noted in the shoulders. IMPRESSION: 1. Right larger than left pleural effusions with dependent consolidation. 2. Right-sided rib fractures are again noted. ACT 112: Negative or not required by law. Electronically signed by: Stanislaw Tang M.D. 06/11/2023 8:16 AM
[2023-06-11 09:28] LABS: BUN Creatinine Ratio 26.9 (10-20); Calcium 7.6 mg/dl (8.6-10.3); Creatinine Clr Calc Pharmacy 26.3 ml/min; Est GFR (African American) 39.4 ml/min; Potassium 4.2 mmol/L (3.5-5.1)
[2023-06-11 09:30] LABS: Hematocrit (blood only) 27.7 % (42.0-52.0); Hemoglobin 9.6 g/dl (14.0-18.0); Immature Granulocytes # (auto) 0.03 K/uL (0.01-0.20); Immature Granulocytes % (auto) 0.3 %; Lymphocytes # (auto) 0.76 K/uL (1.20-3.40); Lymphocytes % (auto) 7.8 %; Mean Corpuscular Hemoglobin 31.9 pg (25.0-34.0); Mean Corpuscular Hgb Conc 34.7 g/dL (32.0-36.0); Mean Platelet Volume 9.9 fL (9.4-12.4); Monocytes # (auto) 0.68 K/uL (0.11-0.59); Monocytes % (auto) 6.9 %; Neutrophils # (auto) 8.32 K/uL (1.40-6.50); Platelet Count 171 K/uL (130-400); RDW Coefficient of Variation 14.1 % (11.5-14.5); RDW Standard Deviation 47.7 fL (36.4-46.3); Red Blood Count 3.01 M/uL (4.70-6.10); White Blood Count 9.79 K/ul (4.8-10.8)
--- NOTE | 2023-06-11 10:04 | Hospitalist Progress Note ---
Date of Service June 11, 2023 Assessment & Plan (1) Closed fracture of left hip: Plan: s/p mechanical fall now s/p ORIF 06/[address] Barrow Had orthostasis from acute blood loss anemia preventing PT. Transfused 1 unit PRBCs, now with pulm edema, pleural effusions, hypoxia Hgb now improved up to 9.6 Continue post op pain control with tylenol, oxycodone,but will discontinue morphine as this is causing worsening respiratory depression and confusion/drowsiness DVT prophylaxis with SCDs and Eliquis 2.5mg po bid Follow CBC, BMP in AM PT/OT consults placed, will need rehab Ross to be removed once mobile and once ROSI and respiratory failure improve Bowel regimen as needed Appreciate Orthopedics management-WBAT, no hip restrictions (2) Acute kidney injury: Plan: Chicken Cutter up to 2.27 with associated hyperkalemia and metabolic acidosis-hyperkalemia now improved, machine rigger trending downward to 1.7 after PRBC transfusion and resolution of orthostasis UOP improving with IV lasix given for respiratory failure Ross in place since prior to surgery-maintain for now Follow BMP Avoid nephrotoxins, renally dose meds (3) Acute blood loss anemia: Plan: hgb dropped to 7.5 from 14 on admission, with orthostasis post-op with SBPs in 70s with standing, no new bleeding but likely from prior hip fracture Transfused 1 unit PRBCs 06/10 Now hgb up to 9.6 and with volume overload -diuresing Follow CBC in AM Ok to continue ELiquis (4) Acute respiratory failure with hypoxia: Plan: developed overnight 06/10-06/11, requiring 15L NC CXR with pleural effusions R>L, some atelectasis Secondary to acute on chronic HFpEF as well as atelectasis from being bedridden. Echo performed earlier this hospitalization with preserved EF Was given Lasix 20 Mg IV x 1 overnight on 06/10, will give another dose of Lasix 20 Mg IV x 1 on 06/11 Monitor I's and O's Wean supplemental O2 down as able to, maintain pulse ox greater than 92%- currently down to 10 LNC Encourage incentive spirometry Discussed care with pulmonology on 06/11 who agrees with diuresis, pulmonary toilet, get patient out of bed with physical therapy. Effusion not amenable to repeat thoracentesis Consulted speech therapy as nurse noted coughing with eating-speech therapy reports patient had overt deb aspiration with clear liquids-make n.p.o. for now except ice chips and reassess daily Change p.o. meds to IV form where possible and hold other p.o. meds for now Follow chest x-ray (5) Fracture of rib of right side: Plan: Multiple rib fractures without pain therefore do not suspect acute although new since March 2023 He was not having any pain in the ribs prior to admission Associated large right sided pleural effusion now drained (6) Pleural effusion, right: Plan: Large right sided pleural effusion with compressive atelectasis found on admission Suspect traumatic given rib fractures BNP normal, ECHO normal Does not appear acute with no pain, shortness of breath or hypoxia on admission Consult pulmonology for thoracentesis appreciated-removed 1.7 L loy cloudy, bloody fluid, exudative, with cultures no growth to date, and cytology negative- likely from rib fractures Follow pleural fluid cxs-no growth Check CXR in 2-4 weeks as per PULM Appreciate PULM consult (7) Fall: Plan: No concerning findings prior to falling needing further workup Skin tears on elbow following fall, appreciate wound care nurse management (8) Type 2 diabetes mellitus: Plan: Hemoglobin A1c 6.1 [05/25/2023], no need to repeat this Hold glipizide Continue NovoLog supplemental insulin as needed (9) Hypercholesteremia: Plan: simvastatin placed on hold while n.p.o. (10) BPH (benign prostatic hyperplasia): Plan: terazosin placed on hold while n.p.o. Ross in place (11) Vitamin D deficiency: Plan: Vit D level severely low at 8 Started Vitamin D 1000uits once daily but now placed on hold while n.p.o. Plan VTE prophylaxis -Eliquis placed on hold while n.p.o., start Lovenox 40 Mg SQ on ce daily until can take p.o. NESSA [employer] Of note, the Eliquis is to be given for 2 to 4 weeks postoperatively as per orthopedic surgery Disposition - continued stay on PCU PT/OT recommending acute rehab, needs referrals placed but not medically stable for discharge Discussed care with son at bedside on 06/10. Will call son with update on 06/11 Admission and Anticipated Discharge Date Admission Date: June 07, 2023 Subjective Pt had respiratory decline overnight, became SOB, hypoxic requiring 15L HFNC. Was seen overnight by resident and given IV lasix. He is weaned down to 10LNC when I saw him and tells me he is feeling "not good." He also received a dose of IV morphine overnight. He is putting out more urine, BPs are improved from yesterdya, and his POx improves with using ICS which nurse is encouraging frequently. Tele with NSR, ST rates 90-100s Physical Exam Constitutional: WD/WN, vitals as above + ill appearing Eyes: + anicteric sclerae Respiratory: normal respiratory effort; no cough Auscultation: + diminished lung sounds (at right base) and + crackles (bilateral lower and middle lung li); no wheezes Cardiovascular: RRR, no murmur, no edema Chest (Breasts): Chest: normal inspection of chest Gastrointestinal (Abdomen): normal bowel sounds, soft, nontender, no hepatosplenomegaly Musculoskeletal: Extremities: + extremities abnormal to inspection (left hip with dressing c/d/i), no cyanosis and no clubbing some edema around left hip incision, bruising on left hip Skin: no rashes, warm and dry Neurologic: moves all extremities and awake; no focal motor deficits Psychiatric: Orientation: oriented to person and oriented to place; + not alert (frequently falls asleep while talking to him) Genitourinary: Ross cath in place Lymphatic: no lymphedema Results & Data Results & Data Vital Signs (Past 12 Hours) Vital Signs Temp Pulse Resp BP Pulse Ox O2 Del Method O2 Flow Rate 06/11/23 08:01 37.1 C 112 H 18 120/41 L 93 High Flow Nasal Cannula 10 06/11/23 03:35 37.1 C 112 H 24 116/69 92 High Flow Nasal Cannula 15.0 06/11/23 00:28 96 Oxymask 8.0 06/10/23 23:29 37.0 C 97 H 20 101/60 87 L Nasal Cannula 5.0 Laboratory Results CBC, BMP, magnesium reviewed Diagnostic Findings CXR image reviewed from this AM prior to Rad official read and given further IV lasix for diuresis due to pleural effusions PG Care Time/CCT Total # of Minutes Spent Total Time Spent with Patient: Total time spent is greater than 50% in coordination of care (as documented) at patient's floor/unit and/or counseling patient: Coding Level of Care Code 74441 SUB INP/OBS CARE MIN Diagnoses Closed fracture of left hip S72.002A Encounter type: initial encounter Acute kidney injury N17.9 Acute blood loss anemia D62 Acute respiratory failure with hypoxia J96.01 Fracture of rib of right side S22.31XA Pleural effusion, right J90 Fall W19.XXXA Encounter type: initial encounter Type 2 diabetes mellitus E11.9 Hypercholesteremia E78.00 Benign prostatic hyperplasia with nocturia N40.1; R35.1 Lower urinary tract symptom detail: nocturia Lower urinary tract symptom presence: symptoms present Vitamin D deficiency E55.9 (1) Closed fracture of left hip Encounter type: initial encounter Qualified Code(s): S72.002A - Fracture of unspecified part of neck of left femur, initial encounter for closed fracture (7) Fall Encounter type: initial encounter Qualified Code(s): W19.XXXA - Unspecified fall, initial encounter (10) BPH (benign prostatic hyperplasia) Lower urinary tract symptom detail: nocturia Lower urinary tract symptom presence: symptoms present Qualified Code(s): N40.1 - Benign prostatic hyperplasia with lower urinary tract symptoms; R35.1 - Nocturia
--- NOTE | 2023-06-11 11:29 | Orthopedic Progress Note ---
Date of Service June 11, 2023 Assessment & Plan (1) Closed fracture of left hip: Plan: Continue with PT. Continue DVT prophylaxis. Dressings are clean, dry and intact. He will likely need placement postoperatively. He continues to struggle with therapy. Admission and Anticipated Discharge Date Admission Date: June 07, 2023 Subjective This 87-year-old male seen in follow-up for trip nailing of his left femur after sustaining a fracture earlier this week. Surgery was performed on Wednesday by Dr. Barrow. Patient is currently in med telemetry with hypotension, productive cough, weakness. He states that his pain is well-controlled with the medication he has been given. He states that he has not been able to perform any physical or occupational therapy since the surgery. Patient is being treated with Lasix because he is retaining fluid. He was transfused yesterday. Currently he denies chest pain, nausea, numbness or tingling in his left lower extremity. He also denies shortness of breath or difficulty voiding. Review of Systems Review of Systems: All systems reviewed & are unremarkable except as noted in Subjective Physical Exam Physical Exam: Left lower extremity: Patient is unable to perform an active straight leg raise test, however he can actively dorsi and plantarflex his foot. Knee is slightly flexed. Patient is able to actively dorsi and plantarflex foot. He tolerates light logroll testing. Passive hip flexion to 80 degrees does not cause pain. He has pulling sensation with passive light internal and external hip rotation. All dressings were clean, dry and intact. They were left in place. He is able to detect light sensation to touch in the L 4, L5 and S1 dermatomes. He is neurovascularly intact in left lower extremity. Results & Data Vital Signs (Past 12 Hours) Vital Signs Temp Pulse Resp BP Pulse Ox O2 Del Method O2 Flow Rate 06/11/23 08:01 37.1 C 112 H 18 120/41 L 93 High Flow Nasal Cannula 10 06/11/23 03:35 37.1 C 112 H 24 116/69 92 High Flow Nasal Cannula 15.0 06/11/23 00:28 96 Oxymask 8.0 Diagnostic Findings Laboratory Results WBC 9.79 K/ul (4.8-10.8) 06/11/23 08:06 RBC 3.01 M/uL (4.70-6.10) L 06/11/23 08:06 Hgb 9.6 g/dl (14.0-18.0) L 06/11/23 08:06 Hct 27.7 % (42.0-52.0) L 06/11/23 08:06 MCV 92.0 fL (80.0-100.0) D 06/11/23 08:06 MCH 31.9 pg (25.0-34.0) 06/11/23 08:06 MCHC 34.7 g/dL (32.0-36.0) 06/11/23 08:06 RDW Std Deviation 47.7 fL (36.4-46.3) H 06/11/23 08:06 RDW Coeff of Glenn 14.1 % (11.5-14.5) 06/11/23 08:06 Plt Count 171 K/uL (130-400) 06/11/23 08:06 MPV 9.9 fL (9.4-12.4) 06/11/23 08:06 Immature Gran % (Auto) 0.3 % 06/11/23 08:06 Neut % (Auto) 85.0 % 06/11/23 08:06 Lymph % (Auto) 7.8 % 06/11/23 08:06 [place] % (Auto) 6.9 % 06/11/23 08:06 Eos % (Auto) 0.0 % 06/11/23 08:06 Baso % (Auto) 0.0 % 06/11/23 08:06 Neut # (Auto) 8.32 K/uL (1.40-6.50) H 06/11/23 08:06 Lymph # (Auto) 0.76 K/uL (1.20-3.40) L 06/11/23 08:06 [place] # (Auto) 0.68 K/uL (0.11-0.59) H 06/11/23 08:06 Eos # (Auto) 0.00 K/uL (0.00-0.50) 06/11/23 08:06 Baso # (Auto) 0.00 K/uL (0.00-0.20) 06/11/23 08:06 Immature Gran # (Auto) 0.03 K/uL (0.01-0.20) 06/11/23 08:06 Polychromasia 1+ 06/10/23 10:20 PT 11.6 Seconds (9.0-12.0) 06/07/23 15:02 INR 1.1 (0.9-1.1) 06/07/23 15:02 Sodium 134 mmol/L (136-145) L 06/11/23 08:06 Potassium 4.2 mmol/L (3.5-5.1) 06/11/23 08:06 Chloride 104 mmol/L (98-107) 06/11/23 08:06 Carbon Dioxide 20 mmol/L (21-32) L 06/11/23 08:06 Anion Gap 10 (3-11) 06/11/23 08:06 BUN 47 mg/dl (6-23) H 06/11/23 08:06 Creatinine 1.75 mg/dl (0.6-1.4) H D 06/11/23 08:06 Est Cr Clr Drug Dosing 26.3 ml/min 06/11/23 08:06 Est GFR ( Amer) 39.4 ml/min 06/11/23 08:06 Est GFR (Non-Af Amer) 34.0 ml/min 06/11/23 08:06 BUN/Creatinine Ratio 26.9 (10-20) H 06/11/23 08:06 Glucose 199 mg/dl (70-99(Fasting)) H 06/11/23 08:06 POC Glucose 186 mg/dl (70-99) H 06/11/23 11:29 Calcium 7.6 mg/dl (8.6-10.3) L 06/11/23 08:06 Magnesium 2.0 mg/dl (1.7-2.4) 06/11/23 08:06 Total Bilirubin 1.2 mg/dl (0.2-1.0) H 06/07/23 15:02 AST 16 U/L (13-39) 06/07/23 15:02 ALT 13 U/L (7-52) 06/07/23 15:02 Alkaline Phosphatase 75 U/L (34-104) 06/07/23 15:02 B-Natriuretic Peptide 48 pg/ml (0-100) 06/09/23 05:50 Total Protein 5.3 gm/dl (6.0-8.3) L 06/07/23 15:02 Albumin 3.3 gm/dl (3.4-5.0) L 06/07/23 15:02 Globulin 2.0 gm/dl (2.5-4.0) L 06/07/23 15:02 Albumin/Globulin Ratio 1.7 (0.9-2) 06/07/23 15:02 25-OH Vitamin D Total 8.8 ng/ml (30-100) L 06/08/23 07:10 Procalcitonin 0.06 ng/ml (0-0.5) 06/07/23 13:45 Fluid Neutrophils % 0 % 06/07/23 Unknown Fluid Lymphocytes % 57 % 06/07/23 Unknown Fluid Eosinophils % 15 % 06/07/23 Unknown Fluid Meso/Macro/[place] % 28 % 06/07/23 Unknown Fluid Comment 06/07/23 Unknown Pleural Fluid Source Right Lung 06/07/23 Unknown Pleural Color Katya 06/07/23 Unknown Pleural Appearance Hazy 06/07/23 Unknown Pleural pH 7.44 (7.3-7.4) H 06/07/23 Unknown Pleural WBC (Auto) 230 /uL 06/07/23 Unknown Pleural RBC (Auto) 48875 /uL 06/07/23 Unknown Pleural Total Protein 3.4 gm/dl 06/07/23 Unknown Pleural LDH 147 U/L 06/07/23 Unknown Pleural Glucose 159 mg/dl 06/07/23 Unknown Nasal Screen MRSA (PCR) Negative (Negative) 06/07/23 Unknown SARS-CoV-2, RNA, NAAT NEGATIVE (NEGATIVE) 06/07/23 13:45 Blood Type A Positive 06/10/23 13:31 Blood Type Recheck A Positive 06/07/23 15:02 Antibody Screen NEGATIVE 06/10/23 13:31 Crossmatch See Detail 06/10/23 13:31 Impressions Femur X-Ray 06/07/23 13:23 XR femur LT 2V routine CLINICAL HISTORY: fall COMPARISON STUDY: None. FINDINGS: Comminuted and mildly displaced intertrochanteric fracture within the proximal left femur. The visualized pelvic bones are intact. The femoral fracture demonstrates up to 1.6 cm of superior displacement. No dislocation of the femoral head. Soft tissue swelling within the left hip. IMPRESSION: Comminuted and mildly displaced intertrochanteric fracture within the proximal left femur. ACT 112: Negative or not required by law. Electronically signed by: Je Sarkar M.D. 06/07/2023 3:04 PM Hip/Pelvis X-Ray 06/07/23 13:23 XR hip LT 2V w pelvis HISTORY: 87 years-old Male fall, pain acute left hip pain COMPARISON: Femur radiographs of same day TECHNIQUE: AP view of the pelvis with 2 views of the left hip FINDINGS: Mild ostial arthritis of the hips. There is acute and comminuted intratrochanteric left femoral fracture which demonstrates impaction/foreshortening with 1.6 m superior displacement. No dislocation. Mild soft tissue swelling. IMPRESSION: Acute, comminuted and displaced intertrochanteric left femoral fracture. ACT 112: Negative or not required by law. The above report was generated using voice recognition software. It may contain grammatical, syntax or spelling errors. Electronically signed by: Deny Escamilla M.D. 06/07/2023 3:[address] 06/07/23 15:31 CT cervical spine wo con CLINICAL HISTORY: 87 years-old Male with fall. Acute neck pain status post fall COMPARISON: Chest radiograph of same day. TECHNIQUE: Multiple axial CT images of the cervical spine were obtained without contrast. A dose lowering technique was utilized adhering to the principles of ALARA. FINDINGS: Right pleural effusion with right lung volume loss. Demineralized appearance of the bones. 30% superior endplate compression at T1 without retropulsion is likely chronic. Multilevel degenerative changes include severe C3-C4 and moderate C5-C6 intervertebral disc space narrowing. Moderate multilevel spondylotic spurring and facet arthrosis. No acute cervical spine fracture or subluxation identified. Unremarkable soft tissues. No acute intracranial abnormality identified. IMPRESSION: 1. No acute cervical spine fracture or subluxation identified. 2. Partially imaged large right pleural effusion. ACT 112: Negative or not required by law. The above report was generated using voice recognition software. It may contain grammatical, syntax or spelling errors. Electronically signed by: Deny Escamilla M.D. 06/07/2023 4:[address] 06/07/23 15:31 CT SCAN OF THE BRAIN WITHOUT IV CONTRAST CLINICAL HISTORY: Fall. COMPARISON STUDY: No priors. TECHNIQUE: Unenhanced axial CT scan of the brain is performed from the vertex to the skull base. A dose lowering technique was utilized adhering to the principles of ALARA. 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 There is age-related involutional change noting moderate subcortical and periventricular microangiopathic disease. There is no hemorrhage, mass effect, or evidence of acute territorial ischemia by CT criteria. Ponce-white matter differentiation is preserved. No extra-axial fluid collection is seen. Ventricles, sulci, cisterns: Prominent secondary to involutional change. Intracranial vasculature: There is atherosclerotic calcification of the cavernous carotid arteries. Calvarium: The skeletal structures are osteopenic. No depressed calvarial fracture is seen. Sinuses and mastoids: The visualized paranasal sinuses are clear. The mastoid air cells are well pneumatized. Orbits: The bony orbits are grossly intact. IMPRESSION: There is no hemorrhage, mass effect, or evidence of acute territorial ischemia by CT criteria. ACT 112: Negative or not required by law. Electronically signed by: Stanislaw Tang M.D. 06/07/2023 4:08 PM Abdomen/Pelvis CT 06/07/23 15:[address] WITH IV CONTRAST CT DOSE: HISTORY: fall TECHNIQUE: Multiaxial CT images of the abdomen and pelvis were performed following the use of intravenous contrast. A dose lowering technique was u tilized adhering to the principles of ALARA. COMPARISON STUDY: None. FINDINGS: The lung bases will be reported on the same day chest CTA. There is a large right pleural effusion resulting in compressive atelectasis of the right middle lobe and right lower lobe. There are multiple subacute/healing right- sided rib fractures. There are old, healed left-sided rib fractures. No pneumoperitoneum. No pneumatosis. There are healing right seventh T8-T10 transverse process fractures noted. Small fat-containing bilateral inguinal hernias. There is a comminuted and displaced intertrochanteric fracture within the proximal left femur. The lesser trochanter fragment abuts and slightly displaces the proximal left superficial femoral artery. However, no active arterial extravasation to suggest an arterial injury. This is best seen on axial image 372. The liver, gallbladder, pancreas, spleen, and adrenal glands are unremarkable. Mild bilateral cortical renal scarring. There is a 3.5 cm left lower pole renal cyst. No hydronephrosis. The main portal vein is patent. Calcified plaque within the normal caliber abdominal aorta. No retroperitoneal hematoma or lymphadenopathy identified. The bladder is unremarkable. The prostate gland is mildly enlarged. Colonic diverticulosis. No evidence for acute diverticulitis. No bowel wall thickening or obstruction. Normal appendix. IMPRESSION: 1. Acute comminuted and displaced intertrochanteric fracture of the proximal left femur. The lesser trochanter bony fragment abuts and slightly displaces the proximal left superficial femoral artery. However, no evidence for active arterial extravasation to suggest an acute arterial injury. 2. Large right pleural effusion and multiple subacute right rib and thoracic transverse process fractures are better appreciated on the same day chest CT. 3. Additional findings as described above. ACT 112: Negative or not required by law. Electronically signed by: Je Sarkar M.D. 06/07/2023 4:[address] 06/07/23 15:[address] WITH CONTRAST CT DOSE: 2683.6 mGy.cm HISTORY: Acute chest trauma status post fall fall TECHNIQUE: Multiaxial CT images of the chest were performed following the IV administration of 90 cc of Optiray. A dose lowering technique was utilized adhering to the principles of ALARA. COMPARISON: Chest radiograph of same day FINDINGS: Unremarkable thyroid. There is no lymphadenopathy. Extensive coronary artery calcifications. The heart is mildly enlarged. Unremarkable thoracic aorta with moderate atherosclerosis. The opacified pulmonary artery is unremarkable. The study is degraded by respiratory motion. There is a large right pleural effusion. Right lung volume loss with compressive atelectasis. Near complete collapse of the right lower and middle lobes. Tracheobronchial secretions with mucous plugging. Patchy left basilar densities suggestive of atelectasis. Mild left upper lung scarring. No acute upper abdominal abnormality identified. Degenerative changes of the shoulders and spine. Subacute nondisplaced healing fractures of the right T6-T10 transverse processes. Chronic appearing nondisplaced fractures of the anterior right second, third and fourth ribs. Subacute fractures of the anterior right fifth through seventh ribs without displacement. Additionally, there are subacute mildly displaced fractures of the posterolateral right fourth through 10th ribs. No acute vertebral body fracture identified. IMPRESSION: 1. Chronic and subacute right-sided rib fractures as above with healing subacute nondisplaced fractures of the right T6-T10 transverse processes. 2. Large right pleural effusion with partial collapse of the right lung. 3. No pneumothorax. 4. Please refer to the CT abdomen and pelvis study of same day for additional findings. ACT 112: Negative or not required by law. Electronically signed by: Deny Escamilla M.D. 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 There is persistent displacement of the lesser trochanteric fracture fragment. Expected postoperative soft tissue swelling with deep tissue air. Radiopaque sponge projects over the distal thigh on image 2. IMPRESSION: Fluoroscopic assistance as above. ACT 112: Negative or not required by law. Electronically signed by: Deny Escamilla M.D. 06/08/2023 6:11 PM Chest X-Ray 06/10/23 23:51 SINGLE VIEW CHEST CLINICAL HISTORY: Dyspnea. FINDINGS: An AP, portable, upright chest radiograph is compared to study dated 06/08/2023 and correlated with chest CT dated 06/07/2023. The examination is degraded by portable technique and patient rotation. The cardiomediastinal silhouette is top normal for projection. Chronic interstitial thickening is similar to previous. There are right larger than left pleural effusions with dependent consolidation. Fluid is seen along the minor fissure. No pneumothorax is seen. The skeletal structures are osteopenic. There are acute subacute right- sided rib fractures. Arthritic change is noted in the shoulders. IMPRESSION: 1. Right larger than left pleural effusions with dependent consolidation. 2. Right-sided rib fractures are again noted. ACT 112: Negative or not required by law. Electronically signed by: Stanislaw Tang M.D. 06/11/2023 8:16 AM (1) Closed fracture of left hip Encounter type: initial encounter Qualified Code(s): S72.002A - Fracture of unspecified part of neck of left femur, initial encounter for closed fracture
[2023-06-11] MEDS: FUROSEMIDE 40 MG/4 ML VIAL IV ONE ×2 (15:06→15:16)
[2023-06-11 15:20] LABS: iSTAT Arterial Blood Gas HCO3 20 meg/L (19-24); iSTAT Arterial Blood Gas pCO2 31 mmHg (35-46); iSTAT Arterial Blood Gas pH 7.41 (7.35-7.45); iSTAT Arterial Blood Gas pO2 68 mmHg (80-95); iSTAT Carbon Dioxide 21 mmol/L (24-31); iSTAT Hematocrit 27 % (42-52); iSTAT Hemoglobin 9.2 g/dl (14.0-18.0); iSTAT Potassium 3.9 mmol/L (3.3-5.0); iSTAT Sodium 138 mmol/L (135-144)
--- NOTE | 2023-06-11 15:37 | XRay Report ---
SINGLE VIEW CHEST CLINICAL HISTORY: Respiratory distress. FINDINGS: 2 AP, portable, upright chest radiographs are compared to study performed earlier the same day 06/11/2023 and correlated with chest CT dated 06/07/2023. The examination is degraded by portable te chnique and patient rotation. The cardiomediastinal silhouette is top normal for projection. Chronic interstitial thickening is similar to previous. There are right larger than left pleural effusions wi th dependent consolidation. Fluid is seen along the minor fissure. No pneumothorax is seen. The skele lyndsey structures are osteopenic. There are acute subacute right-sided rib fractures. Arthritic change i s noted in the shoulders. IMPRESSION: 1. Right larger than left pleural effusions with dependent consolidation. This is similar to today's earlier examination. 2. Right-sided rib fractures are again noted. ACT 112: Negative or not required by law. Electronically signed by: Stanislaw Tang M.D. 06/11/2023 3:36 PM
[2023-06-11 15:40] LABS: Base Excess ABG -0.9 mEq/L (-9-1.8); HCO3 ABG 22 mmol/L (19-24); Oxygen Saturation ABG 98.9 % (90-95); PCO2 ABG 31 mmHg (35-46); PO2 ABG 138 mmHg (80-95); pH ABG 7.46 (7.35-7.45)
[2023-06-11 15:42] LABS: Allen Test Pos (Pos)
[2023-06-11 16:02] LABS: BUN Creatinine Ratio 28.7 (10-20); Calcium 8.2 mg/dl (8.6-10.3); Creatinine Clr Calc Pharmacy 26.5 ml/min; Est GFR (African American) 39.7 ml/min; Est GFR (Non-African American) 34.2 ml/min; Potassium 3.8 mmol/L (3.5-5.1)
[2023-06-11] MEDS: DEXTROSE 50% 50 ML SYRINGE IV PRN (16:11)
[2023-06-11 16:12] LABS: Troponin I High Sensitivity 556.4 pg/ml (0-20)
--- NOTE | 2023-06-11 16:24 | Pulmonology Progress Note ---
Date of Service June 11, 2023 Assessment & Plan (1) Pleural effusion, right: (2) Acute respiratory failure with hypoxia: (3) Acute kidney injury: Plan Impression: 87-year-old male status post fall with left-sided hip fracture and multiple subacute right-sided rib fractures with right-sided effusion of unclear etiology. Echocardiogram unrevealing. He is status post thoracentesis and has undergone repair of the hip fracture but now has increasing oxygen requirement and altered mental status. Chest x-ray does not demonstrate significant reaccumulation of the pleural fluid. Blood gas does not demonstrate hypercarbic respiratory failure. The patient did receive packed red blood cells and transfusion associated circulatory overload would be in the differential. No fevers to suggest transfusion associated acute lung injury and the x-ray does not demonstrate significant worsening of airspace opacities Recommendations: 1. Pleural effusion: Pleural fluid is not significantly reaccumulated so I do not think that is the etiology for his hypoxemic respiratory failure. Other etiologies including pulmonary embolism (the patient has been on prophylactic Eliquis since surgery) or potentially fat emboli syndrome would be on the differential. Cardiac etiologies would also need to be investigated. Recommend proceeding with duplex ultrasound of the lower extremities and systemic anticoagulation if clot is identified. Agree with assessment of troponins, EKG, and BNP. May need to repeat echocardiogram depending on clinical course. 2. If this is a fat emboli syndrome, treatment is primarily supportive. Diagnosis is empirical after excluding other potential etiologies. Would hold off on sending panel for potential transfusion associated lung injury. Would hold on diuretics at this point in time given his recent acute kidney injury. Again embolic phenomenon on may be a unifying diagnoses with renal failure, mental status changes, and hypoxemic respiratory failure 3. Altered mental status: Management per primary service. Patient's prognosis at this point in time is somewhat guarded. Disposition will depend on clinical course and results of diagnostic testing. Admission and Anticipated Discharge Date Admission Date: June 07, 2023 Subjective Asked by hospitalist to repeat evaluation for this patient. Had evaluated him initially when he presented and was found have a large pleural effusion which was tapped. This may have been secondary to multiple rib fractures. He underwent repair of his hip fracture but postoperatively had issues within the last 24 hours of increasing oxygen requirement and sinus tachycardia. Apparently his condition worsened this afternoon. He is currently on CPAP at 5 cmH2O with an FiO2 of 60% and an oxygen saturation of 100%. According to the nurse, he looks much better but remains hypoglycemic and with an altered level of sensorium. The patient is not really able to provide coherent history currently Review of Systems Review of Systems: Unobtainable due to reduced consciousness Physical Exam Constitutional: WD/WN, vitals as above Neck: trachea midline, no thyromegaly Respiratory: no respiratory distress, no labored breathing, no cough and not tachypneic Auscultation: + diminished lung sounds; no crackles and no wheezes Cardiovascular: Rate/Rhythm: regular rhythm and + tachycardic Heart Sounds: normal S1 and normal S2 Gastrointestinal (Abdomen): normal bowel sounds, soft, nontender, no hepatosplenomegaly Skin: no rashes, warm and dry Neurologic: Patient's mildly obtunded Lymphatic: no cervical lymphadenopathy Results & Data Results & Data Vital Signs (Past 12 Hours) Vital Signs Temp Pulse Pulse Resp BP Pulse Ox O2 Del Method 06/11/23 15:47 96 H 06/11/23 14:57 119 H 30 H 98 06/11/23 14:50 122 H 22 168/77 H 88 L Nasal Cannula, Oxymask 06/11/23 12:57 92 06/11/23 11:53 36.3 C L 101 H 18 125/70 97 Room Air 06/11/23 08:01 37.1 C 112 H 18 120/41 L 93 High Flow Nasal Cannula 06/11/23 08:00 104 H 06/11/23 08:00 High Flow Nasal Cannula O2 Flow Rate FiO2 06/11/23 15:47 06/11/23 14:57 70 06/11/23 14:50 15 06/11/23 12:57 11 06/11/23 11:53 06/11/23 08:01 10 06/11/23 08:00 06/11/23 08:00 10 Critical Care Results & Data Vital Signs (Past 12 Hours) Vital Signs Temp Pulse Pulse Resp BP Pulse Ox O2 Del Method 06/11/23 15:47 96 H 06/11/23 14:57 119 H 30 H 98 06/11/23 14:50 122 H 22 168/77 H 88 L Nasal Cannula, Oxymask 06/11/23 12:57 92 06/11/23 11:53 36.3 C L 101 H 18 125/70 97 Room Air 06/11/23 08:01 37.1 C 112 H 18 120/41 L 93 High Flow Nasal Cannula 06/11/23 08:00 104 H 06/11/23 08:00 High Flow Nasal Cannula O2 Flow Rate FiO2 06/11/23 15:47 06/11/23 14:57 70 06/11/23 14:50 15 06/11/23 12:57 11 06/11/23 11:53 06/11/23 08:01 10 06/11/23 08:00 06/11/23 08:00 10 Lab & Micro Results (Past 24 Hours) RBC 3.01 M/uL (4.70-6.10) L 06/11/23 WBC 9.79 K/ul (4.8-10.8) 06/11/23 Hgb 9.6 g/dl (14.0-18.0) L 06/11/23 Hct 27.7 % (42.0-52.0) L 06/11/23 MCV 92.0 fL (80.0-100.0) 06/11/23 MCH 31.9 pg (25.0-34.0) 06/11/23 MCHC 34.7 g/dL (32.0-36.0) 06/11/23 RDW Standard Deviation 47.7 fL (36.4-46.3) H 06/11/23 RDW Coefficient of Variation 14.1 % (11.5-14.5) 06/11/23 Plt Count 171 K/uL (130-400) 06/11/23 MPV 9.9 fL (9.4-12.4) 06/11/23 Neutrophils (%) (Auto) 85.0 % 06/11/23 Lymphocytes (%) (Auto) 7.8 % 06/11/23 Monocytes # (Auto) 0.68 K/uL (0.11-0.59) H 06/11/23 Eosinophils # (Auto) 0.00 K/uL (0.00-0.50) 06/11/23 Immature Granulocyte % (Auto) 0.3 % 06/11/23 Neutrophils # (Auto) 8.32 K/uL (1.40-6.50) H 06/11/23 Lymphocytes # (Auto) 0.76 K/uL (1.20-3.40) L 06/11/23 Monocytes # (Auto) 0.68 K/uL (0.11-0.59) H 06/11/23 Eosinophils # (Auto) 0.00 K/uL (0.00-0.50) 06/11/23 Basophils # (Auto) 0.00 K/uL (0.00-0.20) 06/11/23 Immature Granulocyte # (Auto) 0.03 K/uL (0.01-0.20) 4 Na 137 mmol/L (136-145) 06/11/23 K 3.8 mmol/L (3.5-5.1) 06/11/23 Cl 107 mmol/L (98-107) 06/11/23 CO2 22 mmol/L (21-32) 06/11/23 Anion Gap 8 (3-11) 06/11/23 BUN 50 mg/dl (6-23) H 06/11/23 Creatinine 1.74 mg/dl (0.6-1.4) H 06/11/23 Estimated GFR ( Amer) 39.7 ml/min 06/11/23 Estimated GFR (Non-Af Amer) 34.2 ml/min 06/11/23 BUN/Creatinine Ratio 28.7 (10-20) H 06/11/23 Glu 53 mg/dl (70-99(Fasting)) L* 06/11/23 Ca 8.2 mg/dl (8.6-10.3) L 06/11/23 Mg 2.0 mg/dl (1.7-2.4) 06/11/23 08:06 Calcium Level 8.2 mg/dl (8.6-10.3) L 06/11/23 15:24 Arterial Blood pH 7.46 (7.35-7.45) H 06/11/23 15:24 Arterial Blood Partial Pressure CO2 31 mmHg (35-46) L 06/11/23 15:24 Arterial Blood Partial Pressure O2 138 mmHg (80-95) H 06/11/23 15:24 Arterial Blood HCO3 22 mmol/L (19-24) 06/11/23 15:24 Arterial Blood Base Excess -0.9 mEq/L (-9-1.8) 06/11/23 15:24 Arterial Blood Oxygen Saturation 98.9 % (90-95) H 06/11/23 15:2 4 Blood Gas Oxygen Given 70% 06/11/23 15:24 Sheng Test Pos (Pos) 06/11/23 15:24 Microbiology 06/07/23 Unknown Gram Stain - Final Pleural Fluid Aerobic and Anaerobic Culture - Preliminary No growth to date. Diagnostic Findings (Past 24 Hours) Chest X-Ray 06/10/23 23:51 SINGLE VIEW CHEST CLINICAL HISTORY: Dyspnea. FINDINGS: An AP, portable, upright chest radiograph is compared to study dated 06/08/2023 and correlated with chest CT dated 06/07/2023. The examination is degraded by portable technique and patient rotation. The cardiomediastinal silhouette is top normal for projection. Chronic interstitial thickening is similar to previous. There are right larger than left pleural effusions with dependent consolidation. Fluid is seen along the minor fissure. No pneumothorax is seen. The skeletal structures are osteopenic. There are acute subacute right- sided rib fractures. Arthritic change is noted in the shoulders. IMPRESSION: 1. Right larger than left pleural effusions with dependent consolidation. 2. Right-sided rib fractures are again noted. ACT 112: Negative or not required by law. Electronically signed by: Stanislaw Tang M.D. 06/11/2023 8:16 AM Chest X-Ray 06/11/23 14:56 SINGLE VIEW CHEST CLINICAL HISTORY: Respiratory distress. FINDINGS: 2 AP, portable, upright chest radiographs are compared to study performed earlier the same day 06/11/2023 and correlated with chest CT dated 06/07/2023. The examination is degraded by portable technique and patient rotation. The cardiomediastinal silhouette is top normal for projection. Chronic interstitial thickening is similar to previous. There are right larger than left pleural effusions with dependent consolidation. Fluid is seen along the minor fissure. No pneumothorax is seen. The skeletal structures are osteopenic. There are acute subacute right-sided rib fractures. Arthritic change is noted in the shoulders. IMPRESSION: 1. Right larger than left pleural effusions with dependent consolidation. This is similar to today's earlier examination. 2. Right-sided rib fractures are again noted. ACT 112: Negative or not required by law. Electronically signed by: Stanislaw Tang M.D. 06/11/2023 3:36 PM I & O Totals 24 Hours 06/10/23 06/11/23 06/12/23 06:59 06:59 06:59 Intake Total 2315.333 / 2315.333 1310 / 1310 Output Total 315 / 315 2300 / 2300 250 / 250 Balance 2000.333 / 1999.333 -990 / -990 -250 / -250 Cumulative 06/07/23 13:04 thru 06/11/23 14:13 Intake Total 9614.916 Output Total 3427 Balance 6187.916 RT Ventilator Mngmt (Last Documented) Ventilator Ordered Settings Respiratory Rate 30 06/11/23 14:57 Fraction of Inspired Oxygen 70 06/11/23 14:57 Ventilator - PT Measurements Respiratory Rate 30 PG Care Time/CCT Total # of Minutes Spent Total Time Spent with Patient: Total time spent is greater than 50% in coordination of care (as documented) at patient's floor/unit and/or counseling patient: Coding Level of Care Code 04332 SUB INP/OBS CARE 3/50MIN Diagnoses Pleural effusion, right J90 Acute respiratory failure with hypoxia J96.01 Acute kidney injury N17.9
[2023-06-11 18:52] LABS: iSTAT Arterial Blood Gas HCO3 21 meg/L (19-24); iSTAT Arterial Blood Gas pCO2 31 mmHg (35-46); iSTAT Arterial Blood Gas pH 7.43 (7.35-7.45); iSTAT Arterial Blood Gas pO2 143 mmHg (80-95); iSTAT Carbon Dioxide 22 mmol/L (24-31); iSTAT Hematocrit 28 % (42-52); iSTAT Hemoglobin 9.5 g/dl (14.0-18.0); iSTAT Sodium 137 mmol/L (135-144)
[2023-06-11] MEDS: ACETAMINOPHEN 1,000 MG/100 ML VIAL IV PRN (19:15)
--- NOTE | 2023-06-11 19:20 | Critical Care Consultation ---
Date of Consultation June 11, 2023 Assessment & Plan (1) Acute respiratory failure with hypoxia: (2) Acute kidney injury: (3) Pleural effusion, right: (4) Fracture of rib of right side: (5) Closed fracture of left hip: (6) Chronic kidney disease, stage III (moderate): (7) Hypercholesteremia: (8) Aspiration into airway: (9) Hypoglycemia: Plan Reason Critically Ill: 87 YOM HD #4, POD 3 from left hip nailing for intertrochanteric fracture. Transferred to ICU for asymptomatic bradycardia, tachycardia, and hypoxia. Neuro - Encephalopathy CAM ICU: [facility] - Patient reportedly has been with eyes closed and minimally interactive over the past 2 days- this is likely multifocal to include medication induced, endocrinological in nature, or delirium induced, or other - On arrival to ICU patient is awake, moving all extremities and conversing appropriately as well as following directions briskly - Will continue to hold sedating medications including narcotics unless directly needed- currently pain tolerable per patient with minimal movement - Will add Thiamine 300mg IV now and in then daily - Will check TSH and Cortisol level see further in endo section - Hypoglycemia as below Cardiac - Asymptomatic Bradycardia, Elevated HsCTNI - Patient with acute bradycardia that was with preserved hemodynamics- this was in setting of hypoxia requiring BiPAP placement on PCU - This spontaneously resolved that transitioned to tachycardia 120s and slowly trended down to 90-100- this has not re-occurred since initial episode - He is with elevated HsCTNI without STEMI noted on ECG- ECHO previously on 06/09 was reviewed- LVH with preserved EF and normal valvular physiology- no previous HsCTNI for review - This is likely demand type II from tachycardia and hypoxia- continue to trend - repeat ECHO in morning possibility of stress induced cardiomyopathy is possibility as well - Will obtain CTA of the chest to rule out pulmonary/fat embolism - Supportive care at this time - vasopressors if required - Currently no concern for sepsis at this time however follow hemodynamics Respiratory - Hypoxic respiratory failure, aspiration into airways, pleural effusion, - Appears that his hypoxic respiratory failure is resolved following NIPPV as well as his tachypnea- this is likely related to aspiration pneumonitis/pneumonia complicating already atelectatic lungs - Aspiration pneumonitis/pneumonia - He is with bilateral opacities on CXR with atelectasis as well - Now with ronchorus cough and sputum production - Increase oxygen demand - WBC count 9 with NLR 4.5:1 - Send sputum with Gram stain - Will add on Zosyn at this time as he is now with bilateral opacities - De-escalate as able - Consider bronchoscopy if remains with lobar collapse - May need NIPPV for brief periods for recruitment and assisting in relieving tachypnea - ABG is with mild hypercarbia from his VT of 700 on initial BIPAP and with Hyperoxia > 130s - Hypertonic saline nebulizers with Chest PT and Incentive Spirometry - Pleural Effusion noted on right side moderate- at this time this does not appear to be primarily effecting respiratory mechanics- follow GI - Poor nutritional intake - Noted by family for a few weeks prior to hospitalization as he does not want to be incontinent so he eats less and drinks less - NPO tonight - and continued as per TALENT MANAGER recommendations - Add Thiamine as above RENAL/LYTES - KAT II on CKD III - Continue to follow renal function - avoid further nephrotoxic medications as able, and if needed minimize exposure time - Continue with D5LR overnight x1 liter - BPH - no acute needs - Ross in place ENDO - Bradycardia, Hypoglcyemia - TSH, random cortisol sent- both appropriate - For his HYPOglcyemia- this maybe possible to his decrease oral intake in setting of still receiving coverage of aspart insulin - C-peptide as well as proinsulin and insulin level sent- however likely to be negatively affected as he received aspart insulin at 0800 and 1200 today at 5 and 2 units respectively - D5LR overnight while NPO with q6 hour glucose checks - Insulin coverage has been discontinued at this time with goal BG <180 with no acute need for tight control HEME - Anemia - Multifactorial to include nutritional and acute blood loss earlier- did receive units of blood 2 days ago- HGB levels stable normocytic - Follow at this time does not appear ID - Aspiration into airway - As above will add Zosyn as now with bilateral opacities, increase oxygen, productive cough, NLR of 4.5:1 - Sputum Gram stain and Culture pending LINES/IV ACCESS - PIV, Ross catheter Continue use of these lines DVT PROPHYLAXIS - SCDS, Lovenox 30mg BID DISPO: ICU until hemodynamic proven stable CODE: Conditional - Do NOT Intubate for respiratory or cardiac arrest, DO ACLS protocol for cardiac arrest without advanced airway placement I have personally spent 65 minutes of critical care time in the direct management of this patient. This is a life/limb threatening event. This includes time spent evaluating patient, direct bedside care, chart review, placing orders, interpretation of diagnostic studies, discussion with consultants, patient, and family members, as well as other required patient management activities. This time is exclusive of all separately billable procedures, and teaching time and separate from and in addition to any other critical care service time. Thank you for allowing us to participate in the care of this patient. Please refer to my attending physician's documentation for any further recommendations. History of Present Illness Reason for Consultation: bradycardia Requesting Physician: Bri Huang Attending Physician: Bri Huang MD History of Present Illness 87 YOM with medical history of: Fall, DM II, HLD, BPH, Right sided subacute rib fractures, plueral effusion. Patient is HD #4 for admission for fall resulting in closed hip fracture of the LEFT hip for which he is POD #3 from closed reduction and fixation with nailing by orthopaedics. Patient is also post procedure day #4 from diagnostic/therapeutic Thoracentesis- with negative cytology and likely associated with rib fractures. Patient has been appears to have been progressing poorly with increasing in encephalopathy, respiratory distress with tachypnea and hypoxia requiring diuresis as well as increase in oxygen delivery devices, he also appears to have been hypoglycemic today into the 50s and borderline in the 70-80s a few days ago. His [employer] has been as high as 2.27 and is down to 1.74 today. The patient has also been having increase in respiratory rate today into the 30s with SPo2 in 70s and 80s and was placed on BiPAP that may have been triggered by earlier aspiration during swallow eval as well as by chart review possibly lunch as well. Was called to the bedside this evening at 1820 by primary service for reports of bradycardia into the 40s. The patient was on BiPAP with eyes closed previous ABG was reviewed wtih no evidence of hypoxia or hypercarbia. He is answering yes and no questions and able to say he has pain in his hip. No overall focal deficits of other extremities. During discussion with primary service he was noted to have variable HR from 40s to 126 with adequate blood pressure response 130s -140s MAPS in the 80s. Review of telemetry showed that this appeared to be NSR with no blocks noted or fib/flut ter involvement. He is having occasional unifocal PVCS. Repeat ABG was obtained as well which was with mild hyperventilation and hyperoxia. CODE status reviewed with both sons on arrival to the ICU- Sons report he has his wishes at home on advanced directive that state he would not want intubated or on ventilator or kept alive with artificial feedings. They are unsure what his wishes were in regards to cardiac arrest- so at this time he will be ACLS only for cardiac arrest without intubation and mechanical ventilation. Allergies Allergy/AdvReac Type Severity Reaction Status Date / Time No Known Allergies Allergy Verified 06/07/23 15:29 Home Medications Medication Instructions Recorded Confirmed Type nitroglycerin 0.4 mg sublingual 0.4 mg sublingual Q5M PRN chest 08/22/19 06/07/23 Rx tablet pain #30 tabs ipratropium bromide 21 mcg (0.03 2 spray intranasal TID #90 mL 09/30/22 06/07/23 Rx %) nasal spray simvastatin 20 mg tablet 20 mg PO HS #90 tabs 12/23/22 06/07/23 Rx OneTouch Verio test strips (blood #200 ea 03/05/23 06/07/23 Rx sugar diagnostic) blood-glucose meter #1 ea 03/05/23 06/07/23 Rx lancets #200 ea 03/05/23 06/07/23 Rx walker #1 ea 03/30/23 06/07/23 Rx diclofenac sodium 1 % topical gel 2 g topical QID #100 grams 05/25/23 06/07/23 Rx (Voltaren Arthritis Pain) glipizide 5 mg tablet 5 mg PO BID 06/07/23 06/07/23 History terazosin 5 mg capsule 5 mg PO HS 06/07/23 06/07/23 History Patient History Medical History Vitamin D deficiency Diabetes mellitus with neuropathy Neutrophilic leukocytosis BPH (benign prostatic hyperplasia) Controlled type 2 diabetes mellitus with chronic kidney disease Hypercholesteremia Type 2 diabetes mellitus Rhabdomyolysis Hypertension Surgical History Status post open reduction and internal fixation (ORIF) of fracture L ankle History of wisdom tooth extraction Family History Daughter Breast cancer Father No problems noted. Mother No problems noted. Other COPD (chronic obstructive pulmonary disease) Denies family history of Ovarian cancer Prostate cancer Myocardial infarction Colorectal cancer Social History Smoking Status: Unknown if ever smoked Second Hand Exposure: No; Do You Dip or Chew Tobacco: No; Hx Alcohol Use: No Hx Substance Use: No Preferred Language: Slovak Communication Ability: Effective Visual Impairment: No Limitations Hearing Ability: Hard of Hearing Crystalizer Tender Required: No Beliefs That Will Affect Care: None marital status: / Current Living Situation: Family Current Living Situation Comment: lives w/ son current occupational status: retired How many Children do You have: 3 How many Children do You have Comment: 2 sons, 1 daughter ([place]) Feels Safe at Home: Yes Childhood Exposure to Second-Hand Smoke: Yes Diet: regular Diet Comment: Regular caffeine: Yes during the past year weight has: remained stable Dental Care, Regularly: No Physical Activity Frequency: Daily Seatbelt Use: always Sunscreen Use: No Assistive Devices: Walker Review of Systems Review of Systems: REVIEW OF SYSTEMS: Constitutional: No fever, sweats or chills Eyes: No diplopia, no worsening or blurred vision ENT: (+) difficulty swallowing, normal hearing, Respiratory: (+) cough, sputum, dyspnea at rest or on exertion Cardiovascular: No chest pain, tightness or palpitations Abdomen: No pain, nausea, vomiting, diarrhea or constipation Musculoskeletal: (+) left hip joint pain, Neurologic: No weakness Skin: (+) multiple skin tears Physical Exam Physical Exam: PHYSICAL EXAM: General: on arrival to the ICU patient now awake and communicating Head: Normocephalic, atraumatic ENT: PERRLA, EOMI, no pharyngeal exudate, mucous membranes dry Neuro: AAO x 1, speech clear and appropriate, strength intact bilaterally 5/5, sensation intact and equal all extremities and dermatomes, no pronator drift Chest: equal rise and fall of the chest, no accessory muscle use, productive cough that he is swallowing, scattered rhonchi bilaterally throughout Cardiac: Regular rate and rhythm, telemetry reviewed- NSR with PVC, skin warm dry, cap refill <3 seconds, peripheral pusles +2 no JVD, no murmur, +3 edema to bilateral upper extremities, trace to lower, and left hip to knee GI: NABS x 4 quadrants, soft, nontender to palpation, no rebound, guarding or tenderness : Spontaneously voiding, no pain, no CVA tenderness, Psych: Normal mood and affect Skin: multiple skin tears bilateral upper extremities with weeping serous fluid Results & Data Results & Data Vital Signs (Past 12 Hours) Vital Signs Temp Pulse Pulse Resp BP BP Pulse Ox 06/11/23 19:04 136/88 100 06/11/23 18:43 116 H 31 H 100 06/11/23 18:00 47 L 29 H 141/46 H 71 L 06/11/23 15:47 96 H 06/11/23 14:57 119 H 30 H 98 06/11/23 14:50 122 H 22 168/77 H 88 L 06/11/23 12:57 92 06/11/23 11:53 36.3 C L 101 H 18 125/70 97 06/11/23 08:01 37.1 C 112 H 18 120/41 L 93 06/11/23 08:00 104 H 06/11/23 08:00 O2 Del Method O2 Flow Rate FiO2 06/11/23 19:04 BiPAP 06/11/23 18:43 80 06/11/23 18:00 BiPAP 06/11/23 15:47 06/11/23 14:57 70 06/11/23 14:50 Nasal Cannula, Oxymask 15 06/11/23 12:57 11 06/11/23 11:53 Room Air 06/11/23 08:01 High Flow Nasal Cannula 10 06/11/23 08:00 06/11/23 08:00 High Flow Nasal Cannula 10 Laboratory Results Abnormal lab results 06/10/23 06/11/23 06/11/23 Range/Units 20:35 07:29 08:06 RBC 3.01 L (4.70-6.10) M/uL Hgb 9.6 L (14.0-18.0) g/dl POC Hgb (14.0-18.0) g/dl Hct 27.7 L (42.0-52.0) % POC Hct (42-52) % RDW Std Deviation 47.7 H (36.4-46.3) fL Neut # (Auto) 8.32 H (1.40-6.50) K/uL Lymph # (Auto) 0.76 L (1.20-3.40) K/uL [place] # (Auto) 0.68 H (0.11-0.59) K/uL POC pCO2 (35-46) mmHg POC pO2 (80-95) mmHg POC Total CO2 (24-31) mmol/L ABG pH (7.35-7.45) ABG pCO2 (35-46) mmHg ABG pO2 (80-95) mmHg POC ABG O2 Sat (90-95) % ABG O2 Saturation (90-95) % Sodium 134 L (136-145) mmol/L Carbon Dioxide 20 L (21-32) mmol/L BUN 47 H (6-23) mg/dl Creatinine 1.75 H D (0.6-1.4) mg/dl BUN/Creatinine Ratio 26.9 H (10-20) Glucose 199 H (70-99(Fasting)) mg/dl POC Glucose 150 H 187 H (70-99) mg/dl Calcium 7.6 L (8.6-10.3) mg/dl Total Bilirubin (0.2-1.0) mg/dl Direct Bilirubin (0-0.2) mg/dl Troponin I High Sens (0-20) pg/ml Albumin (3.4-5.0) gm/dl 06/11/23 06/11/23 06/11/23 Range/Units 11:29 15:01 15:24 RBC (4.70-6.10) M/uL Hgb (14.0-18.0) g/dl POC Hgb 9.2 L (14.0-18.0) g/dl Hct (42.0-52.0) % POC Hct 27 L (42-52) % RDW Std Deviation (36.4-46.3) fL Neut # (Auto) (1.40-6.50) K/uL Lymph # (Auto) (1.20-3.40) K/uL [place] # (Auto) (0.11-0.59) K/uL POC pCO2 31 L (35-46) mmHg POC pO2 68 L (80-95) mmHg POC Total CO2 21 L (24-31) mmol/L ABG pH 7.46 H (7.35-7.45) ABG pCO2 31 L (35-46) mmHg ABG pO2 138 H (80-95) mmHg POC ABG O2 Sat (90-95) % ABG O2 Saturation 98.9 H (90-95) % Sodium (136-145) mmol/L Carbon Dioxide (21-32) mmol/L BUN 50 H (6-23) mg/dl Creatinine 1.74 H (0.6-1.4) mg/dl BUN/Creatinine Ratio 28.7 H (10-20) Glucose 53 L* (70-99(Fasting)) mg/dl POC Glucose 186 H (70-99) mg/dl Calcium 8.2 L (8.6-10.3) mg/dl Total Bilirubin (0.2-1.0) mg/dl Direct Bilirubin (0-0.2) mg/dl Troponin I High Sens 556.4 H* (0-20) pg/ml Albumin (3.4-5.0) gm/dl 06/11/23 06/11/23 06/11/23 Range/Units 16:07 16:27 18:33 RBC (4.70-6.10) M/uL Hgb (14.0-18.0) g/dl POC Hgb 9.5 L (14.0-18.0) g/dl Hct (42.0-52.0) % POC Hct 28 L (42-52) % RDW Std Deviation (36.4-46.3) fL Neut # (Auto) (1.40-6.50) K/uL Lymph # (Auto) (1.20-3.40) K/uL [place] # (Auto) (0.11-0.59) K/uL POC pCO2 31 L (35-46) mmHg POC pO2 143 H (80-95) mmHg POC Total CO2 22 L (24-31) mmol/L ABG pH (7.35-7.45) ABG pCO2 (35-46) mmHg ABG pO2 (80-95) mmHg POC ABG O2 Sat 99.0 H (90-95) % ABG O2 Saturation (90-95) % Sodium (136-145) mmol/L Carbon Dioxide (21-32) mmol/L BUN (6-23) mg/dl Creatinine (0.6-1.4) mg/dl BUN/Creatinine Ratio (10-20) Glucose (70-99(Fasting)) mg/dl POC Glucose 52 L* 144 H (70-99) mg/dl Calcium (8.6-10.3) mg/dl Total Bilirubin (0.2-1.0) mg/dl Direct Bilirubin (0-0.2) mg/dl Troponin I High Sens (0-20) pg/ml Albumin (3.4-5.0) gm/dl 06/11/23 Range/Units 19:52 RBC (4.70-6.10) M/uL Hgb (14.0-18.0) g/dl POC Hgb (14.0-18.0) g/dl Hct (42.0-52.0) % POC Hct (42-52) % RDW Std Deviation (36.4-46.3) fL Neut # (Auto) (1.40-6.50) K/uL Lymph # (Auto) (1.20-3.40) K/uL [place] # (Auto) (0.11-0.59) K/uL POC pCO2 (35-46) mmHg POC pO2 (80-95) mmHg POC Total CO2 (24-31) mmol/L ABG pH (7.35-7.45) ABG pCO2 (35-46) mmHg ABG pO2 (80-95) mmHg POC ABG O2 Sat (90-95) % ABG O2 Saturation (90-95) % Sodium 134 L (136-145) mmol/L Carbon Dioxide (21-32) mmol/L BUN (6-23) mg/dl Creatinine (0.6-1.4) mg/dl BUN/Creatinine Ratio (10-20) Glucose (70-99(Fasting)) mg/dl POC Glucose (70-99) mg/dl Calcium 7.2 L (8.6-10.3) mg/dl Total Bilirubin 1.5 H (0.2-1.0) mg/dl Direct Bilirubin 0.4 H (0-0.2) mg/dl Troponin I High Sens (0-20) pg/ml Albumin 2.2 L (3.4-5.0) gm/dl Diagnostic Findings Chest X-Ray 06/10/23 23:51 SINGLE VIEW CHEST CLINICAL HISTORY: Dyspnea. FINDINGS: An AP, portable, upright chest radiograph is compared to study dated 06/08/2023 and correlated with chest CT dated 06/07/2023. The examination is degraded by portable technique and patient rotation. The cardiomediastinal silhouette is top normal for projection. Chronic interstitial thickening is similar to previous. There are right larger than left pleural effusions with dependent consolidation. Fluid is seen along the minor fissure. No pneumothorax is seen. The skeletal structures are osteopenic. There are acute subacute right- sided rib fractures. Arthritic change is noted in the shoulders. IMPRESSION: 1. Right larger than left pleural effusions with dependent consolidation. 2. Right-sided rib fractures are again noted. ACT 112: Negative or not required by law. Electronically signed by: Stanislaw Tang M.D. 06/11/2023 8:16 AM Chest X-Ray 06/11/23 14:56 SINGLE VIEW CHEST CLINICAL HISTORY: Respiratory distress. FINDINGS: 2 AP, portable, upright chest radiographs are compared to study performed earlier the same day 06/11/2023 and correlated with chest CT dated 06/07/2023. The examination is degraded by portable technique and patient rotation. The cardiomediastinal silhouette is top normal for projection. Chronic interstitial thickening is similar to previous. There are right larger than left pleural effusions with dependent consolidation. Fluid is seen along the minor fissure. No pneumothorax is seen. The skeletal structures are osteopenic. There are acute subacute right-sided rib fractures. Arthritic change is noted in the shoulders. IMPRESSION: 1. Right larger than left pleural effusions with dependent consolidation. This is similar to today's earlier examination. 2. Right-sided rib fractures are again noted. ACT 112: Negative or not required by law. Electronically signed by: Stanislaw Tang M.D. 06/11/2023 3:36 PM Chest CTA 06/11/23 19:12 Exam(s): CTA CHEST IV Amt: OPTIRAY [id number] EXAM: CT Angiography Chest With Intravenous Contrast CLINICAL HISTORY: Reason for exam: PE. TECHNIQUE: Axial computed tomographic angiography images of the chest with intravenous contrast. CTDI is 23.75 mGy and DLP is 765.43 mGy-cm. Automated exposure control was utilized for the study. A dose lowering technique was utilized adhering to the principles of ALARA. MIP reconstructed images were created and reviewed. COMPARISON: 06/07/2023 FINDINGS: Pulmonary arteries: No pulmonary embolism. Aorta: No acute findings. Normal caliber. No dissection. Lungs: New airspace opacities in the left lower lobe. Pneumonia or aspiration can have this appearance. Unchanged consolidative atelectasis/partial collapse of the right lower lobe and right middle lobe. Pleural space: Moderate right pleural effusion. No pneumothorax. Heart: Unremarkable. Bones/joints: Multiple right-sided rib and transverse process fractures again visualized. Soft tissues: Unremarkable. Lymph nodes: Unremarkable. IMPRESSION: 1. No pulmonary embolism. 2. Moderate right pleural effusion. 3. New airspace opacities in the left lower lobe. Pneumonia or aspiration can have this appearance. 4. Unchanged consolidative atelectasis/partial collapse of the right lower lobe and right middle lobe. Electronically signed by: Fan Lao MD 06/11/23 20:06 PM ECG Additional Comments: Sinus tachycardia Right bundle branch block Left anterior fascicular block Bifascicular block Septal infarct (cited on or before 11-JUN-2023) T wave abnormality, consider lateral ischemia Abnormal ECG When compared with ECG of 07-JUN-2023 19:52, Serial changes of Septal infarct Present Coding Level of Care Code 53567 CRITICAL CARE 1ST 30-74M Diagnoses Acute respiratory failure with hypoxia J96.01 Acute kidney injury N17.9 Pleural effusion, right J90 Fracture of rib of right side S22.31XA Closed fracture of left hip S72.002A Encounter type: initial encounter Stage 3b chronic kidney disease N18.32 Chronic kidney disease stage 3 subtype: stage 3b (GFR 30-44) Hypercholesteremia E78.00 Aspiration into airway T17.908A Hypoglycemia E16.2 (5) Closed fracture of left hip Encounter type: initial encounter Qualified Code(s): S72.002A - Fracture of unspecified part of neck of left femur, initial encounter for closed fracture (6) Chronic kidney disease, stage III (moderate) Chronic kidney disease stage 3 subtype: stage 3b (GFR 30-44) Qualified Code(s): N18.32 - Chronic kidney disease, stage 3b
[2023-06-11] MEDS: OPTIRAY 320 125ml IV ONE (19:39)
[2023-06-11] MEDS: D5W AND LACTATED RINGERS 1,000 ML IV SCH (19:49)
--- NOTE | 2023-06-11 20:07 | CT Scan Report ---
Exam(s): CTA CHEST IV Amt: OPTIRAY [id number] EXAM: CT Angiography Chest With Intravenous Contrast CLINICAL HISTORY: Reason for exam: PE. TECHNIQUE: Axial computed tomographic angiography images of the chest with intravenous contrast. CTDI is 23.75 mGy and DLP is 765.43 mGy-cm. Automated exposure control was utilized for the study. A dose lowering technique was utilized adhering to the principles of ALARA. MIP reconstructed images were created and reviewed. COMPARISON: 06/07/2023 FINDINGS: Pulmonary arteries: No pulmonary embolism. Aorta: No acute findings. Normal caliber. No dissection. Lungs: New airspace opacities in the left lower lobe. Pneumonia or aspiration can have this appearance. Unchanged consolidative atelectasis/partial collapse of the right lower lobe and right middle lobe. Pleural space: Moderate right pleural effusion. No pneumothorax. Heart: Unremarkable. Bones/joints: Multiple right-sided rib and transverse process fractures again visualized. Soft tissues: Unremarkable. Lymph nodes: Unremarkable. IMPRESSION: 1. No pulmonary embolism. 2. Moderate right pleural effusion. 3. New airspace opacities in the left lower lobe. Pneumonia or aspiration can have this appearance. 4. Unchanged consolidative atelectasis/partial collapse of the right lower lobe and right middle lobe. Electronically signed by: Fan Lao MD 06/11/23 20:06 PM
[2023-06-11 20:29] LABS: Albumin Level 2.2 gm/dl (3.4-5.0); Bilirubin Direct 0.4 mg/dl (0-0.2); Bilirubin,Total 1.5 mg/dl (0.2-1.0); Calcium 7.2 mg/dl (8.6-10.3); Magnesium 1.9 mg/dl (1.7-2.4); Potassium 3.8 mmol/L (3.5-5.1)
[2023-06-11 20:36] LABS: BUN Creatinine Ratio 26.9 (10-20); Creatinine Clr Calc Pharmacy 24.8 ml/min; Est GFR (African American) 36.6 ml/min; Est GFR (Non-African American) 31.6 ml/min; Total Protein 4.1 gm/dl (6.0-8.3)
[2023-06-11] MEDS: PIPER/TAZO 4.5g in D5W MINI-B 100 ML IV ONE (20:36)
[2023-06-11] MEDS: ENOXAPARIN INJ 30 MG/0.3 ML SYR SQ SCH (20:41)
[2023-06-11] MEDS: THIAMINE HCL 300 MG in SODIUM CHLORIDE 0.9% 50 ML IV STA (20:41)
[2023-06-11 20:42] LABS: Troponin I High Sensitivity 502.5 pg/ml (0-20)
[2023-06-11 20:50] LABS: Thyroid Stimulating Hormone 1.901 uIu/ml (0.300-4.500)
[2023-06-12] MEDS: PIPERACILLIN/TAZOBACTAM 4.5 GM in DEXTROSE 5% MINI-B 100 ML IV SCH (01:58)
[2023-06-12 04:50] LABS: Basophils # (auto) 0.01 K/uL (0.00-0.20); Basophils % (auto) 0.1 %; Hemoglobin 8.9 g/dl (14.0-18.0); Immature Granulocytes # (auto) 0.02 K/uL (0.01-0.20); Immature Granulocytes % (auto) 0.3 %; Lymphocytes # (auto) 0.66 K/uL (1.20-3.40); Lymphocytes % (auto) 9.1 %; Mean Corpuscular Hemoglobin 31.1 pg (25.0-34.0); Mean Corpuscular Volume 94.4 fL (80.0-100.0); Mean Platelet Volume 9.4 fL (9.4-12.4); Monocytes # (auto) 0.68 K/uL (0.11-0.59); Monocytes % (auto) 9.4 %; Neutrophils # (auto) 5.85 K/uL (1.40-6.50); Neutrophils % (auto) 81.1 %; Platelet Count 171 K/uL (130-400); RDW Coefficient of Variation 13.9 % (11.5-14.5); RDW Standard Deviation 47.8 fL (36.4-46.3); Red Blood Count 2.86 M/uL (4.70-6.10); White Blood Count 7.22 K/ul (4.8-10.8)
[2023-06-12 05:05] LABS: Albumin Globulin Ratio 1.5 (0.9-2); Albumin Level 2.5 gm/dl (3.4-5.0); BUN Creatinine Ratio 27.5 (10-20); Bilirubin,Total 1.7 mg/dl (0.2-1.0); Calcium 7.4 mg/dl (8.6-10.3); Creatinine Clr Calc Pharmacy 24.4 ml/min; Est GFR (African American) 35.9 ml/min; Globulin 1.7 gm/dl (2.5-4.0); Potassium 3.8 mmol/L (3.5-5.1); Total Protein 4.2 gm/dl (6.0-8.3)
[2023-06-12 05:27] LABS: Troponin I High Sensitivity 358.5 pg/ml (0-20)
[2023-06-12] MEDS: ICU Protocol for HYPERglycemia SCH (05:34)
[2023-06-12] MEDS: INSULIN ASPART PER UNIT CHARGE SC SCH ×2 (06:06→16:44)
[2023-06-12] MEDS: SODIUM CHLOR 7% 4 ML NEB NEB SCH (07:17)
--- NOTE | 2023-06-12 07:22 | XRay Report ---
XR chest 1V portable HISTORY: 87 years-old Male eval lung opacities/effusions acute shortness of breath COMPARISON: CT chest June 11, 2023 TECHNIQUE: AP view of the chest FINDINGS: Cardiac silhouette is enlarged. No pneumothorax. Moderate right pleural effusion with bibasilar conso lidation redemonstrated. Pulmonary vascular congestion. Bones appear grossly intact. IMPRESSION: 1. Cardiomegaly with pulmonary vascular congestion. 2. Stable moderate right pleural effusion with persistent bibasilar consolidation. ACT 112: Negative or not required by law. The above report was generated using voice recognition software. It may contain grammatical, syntax o r spelling errors. Electronically signed by: Deny Escamilla M.D. 06/12/2023 7:20 AM
[2023-06-12] MEDS: THIAMINE HCL 300 MG in SODIUM CHLORIDE 0.9% 50 ML IV SCH (08:14)
--- NOTE | 2023-06-12 08:50 | Critical Care Progress Note ---
Date of Service June 12, 2023 Assessment & Plan (1) Pleural effusion, right: (2) Acute respiratory failure with hypoxia: (3) Acute kidney injury: Plan Impression: 87-year-old male status post fall with left-sided hip fracture and multiple subacute right-sided rib fractures with right-sided effusion of unclear etiology. Echocardiogram unrevealing. He is status post thoracentesis and has undergone repair of the hip fracture but now has increasing oxygen requirement and altered mental status. He was transferred to the ICU yesterday evening due to continued encephalopathy and hypoxemia as well as bradycardia and hypotension. These have resolved this morning with supportive care. He was initiated on antibiotics and had imaging performed which demonstrated no PE. Recommendations: 1. Pleural effusion: Stable at this point in time. As the patient is on room air and minimally symptomatic currently, I think at this point in time clinical observation is warranted. Can continue his Lovenox or Eliquis. 2. Hypoxemic respiratory failure: Resolved spontaneously and the patient is now on room air. Unclear etiology. An aspiration event may have this temporal timeframe. The patient is pending repeat speech evaluation and is currently NPO. Fat emboli syndrome could also appear similarly. Treatment would be supportive. Given the temporal relation to transfusion, transfusion related syndromes would also be on the differential however this does not appear to be consistent with transfusion associated lung injury but could be transfusion associated circulatory overload. Will hold diuresis given his kidney function at this point in time would recommend continued pulmonary toilet with incentive spirometry and flutter valve and out of bed to chair is much as possible. Continue physical therapy and Occupational Therapy 3. Altered mental status: Currently resolved. Follow clinically. Will try to avoid medications potentially associated with delirium. 4. Bradycardia: Unclear etiology but hemodynamically stable currently. No additional interventions required. 5. Hypoglycemia: Again unclear etiology but resolved. 6. Mild anemia: No evidence of acute blood loss. Follow clinically at this point in time. No indication for transfusion. 7. Acute on chronic kidney disease: Baseline serum creatinine around 1.3. Currently 1.89. Avoid additional nephrotoxins and follow intake and output. Would hold on diuresis for now. Patient appears to be back to his baseline. He will need continued rehab. At this point time I think his critical care needs are resolved and he can be transferred back to the floor with the medicine service. Disposition per medicine. Admission and Anticipated Discharge Date Admission Date: June 07, 2023 Subjective Patient seen and examined. EMR reviewed. Discussed with overnight critical care [facility] as well as with bedside critical care nurse. Patient is markedly improved this morning. He is on room air. He is breathing comfortably. His mental status is significantly improved. He is not offering any complaints and denies any pain including hip pain. He does not report any cough or sputum production. No chest pains. Review of Systems Review of Systems: All systems reviewed & are unremarkable except as noted in Subjective Physical Exam Constitutional: WD/WN, vitals as above Neck: trachea midline, no thyromegaly Respiratory: no respiratory distress, no labored breathing, no cough and not tachypneic Auscultation: + diminished lung sounds; no crackles and no wheezes Cardiovascular: RRR, no murmur, no edema Rate/Rhythm: regular rhythm and + tachycardic Heart Sounds: normal S1 and normal S2 Gastrointestinal (Abdomen): normal bowel sounds, soft, nontender, no hepatosplenomegaly Skin: no rashes, warm and dry Lymphatic: no cervical lymphadenopathy Results & Data Results & Data Vital Signs (Past 12 Hours) Vital Signs Temp Pulse Pulse Resp BP Pulse Ox O2 Del Method 06/12/23 08:31 36.3 C L 06/12/23 08:30 69 14 95 06/12/23 08:30 105/52 L 06/12/23 08:15 103/53 L 06/12/23 08:15 70 13 95 06/12/23 08:00 66 15 95 06/12/23 08:00 116/57 L 06/12/23 07:45 69 14 96 06/12/23 07:45 102/57 L 06/12/23 07:30 111/53 L 06/12/23 07:30 66 14 100 06/12/23 07:30 36.6 C 06/12/23 07:23 71 06/12/23 07:17 72 18 99 Room Air 06/12/23 07:15 73 18 97 06/12/23 07:15 101/49 L 06/12/23 07:00 96/45 L 06/12/23 07:00 68 14 96 06/12/23 06:00 88 18 97 06/12/23 06:00 128/54 L 06/12/23 05:00 79 14 95 06/12/23 05:00 112/54 L 06/12/23 04:00 79 13 97 06/12/23 04:00 108/53 L 06/12/23 04:00 36.7 C 06/12/23 03:00 89 19 90 06/12/23 03:00 111/57 L 06/12/23 02:00 93 H 21 90 06/12/23 02:00 109/57 L 06/12/23 01:45 85 16 97 06/12/23 01:45 97/51 L 06/12/23 01:00 87 19 95 06/12/23 01:00 111/56 L 06/12/23 00:00 98 H 06/12/23 00:00 93 H 18 95 06/12/23 00:00 110/55 L 06/11/23 23:00 90 18 95 06/11/23 23:00 98/51 L 06/11/23 22:54 36.5 C 06/11/23 22:15 100/50 L 06/11/23 22:15 98 H 21 95 06/11/23 21:00 98 H 24 94 06/11/23 21:00 95/51 L Critical Care Results & Data Vital Signs (Past 12 Hours) Vital Signs Temp Pulse Pulse Resp BP Pulse Ox O2 Del Method 06/12/23 08:31 36.3 C L 06/12/23 08:30 69 14 95 06/12/23 08:30 105/52 L 06/12/23 08:15 103/53 L 06/12/23 08:15 70 13 95 06/12/23 08:00 66 15 95 06/12/23 08:00 116/57 L 06/12/23 07:45 69 14 96 06/12/23 07:45 102/57 L 06/12/23 07:30 111/53 L 06/12/23 07:30 66 14 100 06/12/23 07:30 36.6 C 06/12/23 07:23 71 06/12/23 07:17 72 18 99 Room Air 06/12/23 07:15 73 18 97 06/12/23 07:15 101/49 L 06/12/23 07:00 96/45 L 06/12/23 07:00 68 14 96 06/12/23 06:00 88 18 97 06/12/23 06:00 128/54 L 06/12/23 05:00 79 14 95 06/12/23 05:00 112/54 L 06/12/23 04:00 79 13 97 06/12/23 04:00 108/53 L 06/12/23 04:00 36.7 C 06/12/23 03:00 89 19 90 06/12/23 03:00 111/57 L 06/12/23 02:00 93 H 21 90 06/12/23 02:00 109/57 L 06/12/23 01:45 85 16 97 06/12/23 01:45 97/51 L 06/12/23 01:00 87 19 95 06/12/23 01:00 111/56 L 06/12/23 00:00 98 H 06/12/23 00:00 93 H 18 95 06/12/23 00:00 110/55 L 06/11/23 23:00 90 18 95 06/11/23 23:00 98/51 L 06/11/23 22:54 36.5 C 06/11/23 22:15 100/50 L 06/11/23 22:15 98 H 21 95 06/11/23 21:00 98 H 24 94 06/11/23 21:00 95/51 L Lab & Micro Results (Past 24 Hours) RBC 2.86 M/uL (4.70-6.10) L 06/12/23 WBC 7.22 K/ul (4.8-10.8) 06/12/23 Hgb 8.9 g/dl (14.0-18.0) L 06/12/23 Hct 27.0 % (42.0-52.0) L 06/12/23 MCV 94.4 fL (80.0-100.0) 06/12/23 MCH 31.1 pg (25.0-34.0) 06/12/23 MCHC 33.0 g/dL (32.0-36.0) 06/12/23 RDW Standard Deviation 47.8 fL (36.4-46.3) H 06/12/23 RDW Coefficient of Variation 13.9 % (11.5-14.5) 06/12/23 Plt Count 171 K/uL (130-400) 06/12/23 MPV 9.4 fL (9.4-12.4) 06/12/23 Neutrophils (%) (Auto) 81.1 % 06/12/23 Lymphocytes (%) (Auto) 9.1 % 06/12/23 Monocytes # (Auto) 0.68 K/uL (0.11-0.59) H 06/12/23 Eosinophils # (Auto) 0.00 K/uL (0.00-0.50) 06/12/23 Immature Granulocyte % (Auto) 0.3 % 06/12/23 Neutrophils # (Auto) 5.85 K/uL (1.40-6.50) 06/12/23 Lymphocytes # (Auto) 0.66 K/uL (1.20-3.40) L 06/12/23 Monocytes # (Auto) 0.68 K/uL (0.11-0.59) H 06/12/23 Eosinophils # (Auto) 0.00 K/uL (0.00-0.50) 06/12/23 Basophils # (Auto) 0.01 K/uL (0.00-0.20) 06/12/23 Immature Granulocyte # (Auto) 0.02 K/uL (0.01-0.20) 4 2 Na 137 mmol/L (136-145) 06/12/23 K 3.8 mmol/L (3.5-5.1) 06/12/23 Cl 105 mmol/L (98-107) 06/12/23 CO2 23 mmol/L (21-32) 06/12/23 Anion Gap 9 (3-11) 06/12/23 BUN 52 mg/dl (6-23) H 06/12/23 Creatinine 1.89 mg/dl (0.6-1.4) H 06/12/23 Estimated GFR ( Amer) 35.9 ml/min 06/12/23 Estimated GFR (Non-Af Amer) 31.0 ml/min 06/12/23 BUN/Creatinine Ratio 27.5 (10-20) H 06/12/23 Glu 231 mg/dl (70-99(Fasting)) H 06/12/23 Ca 7.4 mg/dl (8.6-10.3) L 06/12/23 Total Bilirubin 1.7 mg/dl (0.2-1.0) H 06/12/23 Direct Bilirubin 0.4 mg/dl (0-0.2) H 06/11/23 AST 26 U/L (13-39) 06/12/23 ALT 7 U/L (7-52) 06/12/23 Alkaline Phosphatase 52 U/L (34-104) 06/12/23 TP 4.2 gm/dl (6.0-8.3) L 06/12/23 Albumin 2.5 gm/dl (3.4-5.0) L 06/12/23 Globulin 1.7 gm/dl (2.5-4.0) L 06/12/23 Albumin/Globulin Ratio 1.5 (0.9-2) 06/12/23 Mg 2.0 mg/dl (1.7-2.4) 06/12/23 04:28 Calcium Level 7.4 mg/dl (8.6-10.3) L 06/12/23 04:28 Arterial Blood pH 7.46 (7.35-7.45) H 06/11/23 15:24 Arterial Blood Partial Pressure CO2 31 mmHg (35-46) L 06/11/23 15:24 Arterial Blood Partial Pressure O2 138 mmHg (80-95) H 06/11/23 15:24 Arterial Blood HCO3 22 mmol/L (19-24) 06/11/23 15:24 Arterial Blood Base Excess -0.9 mEq/L (-9-1.8) 06/11/23 15:24 Arterial Blood Oxygen Saturation 98.9 % (90-95) H 06/11/23 15:2 4 Blood Gas Oxygen Given 70% 06/11/23 15:24 Sheng Test Pos (Pos) 06/11/23 15:24 Microbiology 06/07/23 Unknown Gram Stain - Final Pleural Fluid Aerobic and Anaerobic Culture - Preliminary No growth to date. Diagnostic Findings (Past 24 Hours) Chest X-Ray 06/11/23 14:56 SINGLE VIEW CHEST CLINICAL HISTORY: Respiratory distress. FINDINGS: 2 AP, portable, upright chest radiographs are compared to study performed earlier the same day 06/11/2023 and correlated with chest CT dated 06/07/2023. The examination is degraded by portable technique and patient rotation. The cardiomediastinal silhouette is top normal for projection. Chronic interstitial thickening is similar to previous. There are right larger than left pleural effusions with dependent consolidation. Fluid is seen along the minor fissure. No pneumothorax is seen. The skeletal structures are osteopenic. There are acute subacute right-sided rib fractures. Arthritic change is noted in the shoulders. IMPRESSION: 1. Right larger than left pleural effusions with dependent consolidation. This is similar to today's earlier examination. 2. Right-sided rib fractures are again noted. ACT 112: Negative or not required by law. Electronically signed by: Stanislaw Tang M.D. 06/11/2023 3:36 PM Chest CTA 06/11/23 19:12 Exam(s): CTA CHEST IV Amt: OPTIRAY [id number] EXAM: CT Angiography Chest With Intravenous Contrast CLINICAL HISTORY: Reason for exam: PE. TECHNIQUE: Axial computed tomographic angiography images of the chest with intravenous contrast. CTDI is 23.75 mGy and DLP is 765.43 mGy-cm. Automated exposure control was utilized for the study. A dose lowering technique was utilized adhering to the principles of ALARA. MIP reconstructed images were created and reviewed. COMPARISON: 06/07/2023 FINDINGS: Pulmonary arteries: No pulmonary embolism. Aorta: No acute findings. Normal caliber. No dissection. Lungs: New airspace opacities in the left lower lobe. Pneumonia or aspiration can have this appearance. Unchanged consolidative atelectasis/partial collapse of the right lower lobe and right middle lobe. Pleural space: Moderate right pleural effusion. No pneumothorax. Heart: Unremarkable. Bones/joints: Multiple right-sided rib and transverse process fractures again visualized. Soft tissues: Unremarkable. Lymph nodes: Unremarkable. IMPRESSION: 1. No pulmonary embolism. 2. Moderate right pleural effusion. 3. New airspace opacities in the left lower lobe. Pneumonia or aspiration can have this appearance. 4. Unchanged consolidative atelectasis/partial collapse of the right lower lobe and right middle lobe. Electronically signed by: Fan Lao MD 06/11/23 20:06 PM Chest X-Ray 06/12/23 06:01 XR chest 1V portable HISTORY: 87 years-old Male eval lung opacities/effusions acute shortness of breath COMPARISON: CT chest June 11, 2023 TECHNIQUE: AP view of the chest FINDINGS: Cardiac silhouette is enlarged. No pneumothorax. Moderate right pleural effusion with bibasilar consolidation redemonstrated. Pulmonary vascular congestion. Bones appear grossly intact. IMPRESSION: 1. Cardiomegaly with pulmonary vascular congestion. 2. Stable moderate right pleural effusion with persistent bibasilar consolidation. ACT 112: Negative or not required by law. The above report was generated using voice recognition software. It may contain grammatical, syntax or spelling errors. Electronically signed by: Deny Escamilla M.D. 06/12/2023 7:20 AM I & O Totals 24 Hours 06/11/23 06/12/23 06/13/23 06:59 06:59 06:59 Intake Total 1310 / 1310 453 / 453 1041 / 1041 Output Total 2300 / 2300 1140 / 1140 150 / 150 Balance -990 / -990 -687 / -687 891 / 891 Cumulative 06/07/23 13:04 thru 06/12/23 08:31 Intake Total 24387.916 Output Total 4467 Balance 6641.916 RT Ventilator Mngmt (Last Documented) Ventilator Ordered Settings Respiratory Rate 14 06/12/23 08:30 Fraction of Inspired Oxygen 80 06/11/23 18:43 Ventilator - PT Measurements Respiratory Rate 14 Coding Level of Care Code 18426 SUB INP/OBS CARE 3/50MIN Diagnoses Pleural effusion, right J90 Acute respiratory failure with hypoxia J96.01 Acute kidney injury N17.9
--- NOTE | 2023-06-12 10:01 | Cardiology Consultation ---
Date of Consultation June 12, 2023 Assessment & Plan (1) Complete heart block, transient: (2) Acute respiratory failure with hypoxia: (3) Hypertension: (4) Hypercholesteremia: (5) Elevated troponin: Plan ASSESSMENT/PLAN: 1. Transient complete heart block: Occurred in the setting of acute respiratory failure and severe hip pain. Likely vagal. Blood pressure remained stable and did not require any specific treatment. Has not had any further recurrence. Recommend continuous telemetry while hospitalized. Call cardiology for any recurrence. No specific treatment necessary at this time and has not had any history to suggest symptomatic episodes. Likely vagal. 2. Tachycardia: He was noted to have sinus tachycardia in the setting of hip pain and acute respiratory failure. This was likely appropriate physiologic response. No specific treatment warranted. Heart rate normal today after clinically improved. 3. Elevated troponin: Likely demand ischemia. He did not present with acute coronary syndrome and has not had any angina. Given his multiple CAD risk factors and advanced age, likely to have underlying CAD. If Eliquis is discontinued in the future, would recommend aspirin 81 mg daily. Continue statin therapy. Monitor for symptoms. 4. Wall motion abnormality on echo: Likely has underlying ischemic heart disease given multiple risk factors and advanced age. No anginal symptoms. Risk factor modification and medical therapy as above. 5. Hypertension: Blood pressure well-controlled. 6. Dyslipidemia: Excellent LDL. 7. Acute respiratory failure: He seemed to worsen quickly and had complete spontaneous resolution and now on room air. This is not consistent with heart failure. BNP normal. Critical care as mentioned potential for fat emboli syndrome, aspiration event (known to aspirate with speech therapy), and possible transfusion related syndrome. Defer to pulmonology/critical care, and hospitalist service. Currently on room air and appears euvolemic. 8. Disposition: I will be off service tomorrow. Will ask on-call velvet steamer to review telemetry. Please call on-call velvet steamer with any further questions or concerns. Patient care discussed with primary hospitalist, Dr. Benavides, and nursing staff. Thank you for allowing me to participate in the care of your patient. Please call for any other questions or concerns. Sincerely, Ryan Wesley M.D. History of Present Illness Reason for Consultation: Bradycardia and tachycardia Requesting Physician: Bri Huang Attending Physician: Aaron Benavides MD History of Present Illness Mr. Domingo is a very pleasant 87-year-old with a history significant for type 2 diabetes, hypertension, dyslipidemia, and BPH. He was hospitalized on 06/07/2023 after a mechanical fall and left hip fracture. He denies syncope. 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 He denies having any significant cardiac history. While hospitalized, he was seen by orthopedics and underwent left hip open reduction internal fixation on 06/08/2023. He was also seen by pulmonology for a right pleural effusion and underwent diagnostic/therapeutic thoracentesis on 06/07/2023. He had acute kidney injury with hyperkalemia and metabolic acidosis which improved during the hospital stay. He underwent PRBC transfusion after hemoglobin dropped from 14 on admission to 7.5 and had orthostatic hypotension during this hospital stay. Overnight on 06/02 to 06/11/2023, he developed acute respiratory failure with hypoxia, requiring 15 L of supplemental oxygen via nasal cannula. He was given Lasix 20 mg IV x 2 doses. Speech therapy reported that patient had deb aspiration with clear liquids. In the afternoon on 06/11/2023, his respiratory status further worsened with oxygen saturation in the 80s on 15 L. He was placed on BiPAP. BNP was normal. There was concern for possible fat emboli and he underwent CTA of the chest which demonstrated no pulmonary embolism but a moderate right pleural effusion and new airspace opacities in the left lower lobe concerning for pneumonia or aspiration. On 06/11/2023, he was noted to be tachycardic on ECG with sinus tachycardia but then had abrupt bradycardia beginning at 1815. Heart rate seem to be into the 30s very transiently and then otherwise into the 40s. Based on telemetry strip reviewed this morning, he appeared to develop transient complete heart block. At 1836 on 06/11/2023, his heart rate immediately increased consistent with sinus tachycardia. At that particular time, his respiratory status had significantly worsened and he had significant pain in his left hip. There was no specific intervention taken in regards to the heart rate. He did not receive any additional diuretic with his worsening respiratory status. This morning, he is now on room air and denies any shortness of breath. He denies chest pain, syncope, near syncope. He does not recall any syncope, lightheadedness, near syncope prehospital or any time. He denies edema, palpitations. Review of systems: As above. Review of systems otherwise negative/unremarkable. Family history: No known premature CAD. Social history: Quit smoking in the 1960s. Rare alcohol. Lives with his son. Has 3 children, which all live locally. . 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 He was alone in his hospital room. Allergies Allergy/AdvReac Type Severity Reaction Status Date / Time No Known Allergies Allergy Verified 06/07/23 15:29 Home Medications Medication Instructions Recorded Confirmed Type nitroglycerin 0.4 mg sublingual 0.4 mg sublingual Q5M PRN chest 08/22/19 06/07/23 Rx tablet pain #30 tabs ipratropium bromide 21 mcg (0.03 2 spray intranasal TID #90 mL 09/30/22 06/07/23 Rx %) nasal spray simvastatin 20 mg tablet 20 mg PO HS #90 tabs 12/23/22 06/07/23 Rx OneTouch Verio test strips (blood #200 ea 03/05/23 06/07/23 Rx sugar diagnostic) blood-glucose meter #1 ea 03/05/23 06/07/23 Rx lancets #200 ea 03/05/23 06/07/23 Rx walker #1 ea 03/30/23 06/07/23 Rx diclofenac sodium 1 % topical gel 2 g topical QID #100 grams 05/25/23 06/07/23 Rx (Voltaren Arthritis Pain) glipizide 5 mg tablet 5 mg PO BID 06/07/23 06/07/23 History terazosin 5 mg capsule 5 mg PO HS 06/07/23 06/07/23 History Patient History Medical History Vitamin D deficiency Diabetes mellitus with neuropathy Neutrophilic leukocytosis BPH (benign prostatic hyperplasia) Controlled type 2 diabetes mellitus with chronic kidney disease Hypercholesteremia Type 2 diabetes mellitus Rhabdomyolysis Hypertension Surgical History Status post open reduction and internal fixation (ORIF) of fracture L ankle History of wisdom tooth extraction Family History Daughter Breast cancer Father No problems noted. Mother No problems noted. Other COPD (chronic obstructive pulmonary disease) Denies family history of Ovarian cancer Prostate cancer Myocardial infarction Colorectal cancer Social History Smoking Status: Unknown if ever smoked Second Hand Exposure: No; Do You Dip or Chew Tobacco: No; Hx Alcohol Use: No Hx Substance Use: No Preferred Language: [place] Communication Ability: Effective Visual Impairment: No Limitations Hearing Ability: Hard of Hearing Fishing Manager Required: No Beliefs That Will Affect Care: None marital status: / Current Living Situation: Family Current Living Situation Comment: lives w/ son current occupational status: retired How many Children do You have: 3 How many Children do You have Comment: 2 sons, 1 daughter ([place]) Feels Safe at Home: Yes Childhood Exposure to Second-Hand Smoke: Yes Diet: regular Diet Comment: Regular caffeine: Yes during the past year weight has: remained stable Dental Care, Regularly: No Physical Activity Frequency: Daily Seatbelt Use: always Sunscreen Use: No Assistive Devices: Walker Physical Exam Physical Exam: Gen.: No acute distress. Alert. HEENT: Anicteric sclera. Neck: No JVD. No bruits. Normal carotid upstrokes bilaterally. Cardiac: PMI was nondisplaced. No ventricular heave. Regular. Normal S1-S2. 2/6 systolic murmur. Pulmonary: Decreased breath sounds, but otherwise clear to auscultation bilaterally without wheezes, rales, or rhonchi. Abdomen: Soft, nontender, nondistended, with normoactive bowel sounds. No bruits noted. Extremities: 2+ radial pulses bilaterally. 2+ posterior tibialis pulses bilaterally. No lower extremity edema or cyanosis. Psychiatric: Affect appears appropriate. Results & Data Vital Signs (Past 12 Hours) Vital Signs Temp Pulse Pulse Resp BP Pulse Ox O2 Del Method 06/12/23 08:31 36.3 C L 06/12/23 08:30 69 14 95 06/12/23 08:30 105/52 L 06/12/23 08:15 103/53 L 06/12/23 08:15 70 13 95 06/12/23 08:00 66 15 95 06/12/23 08:00 116/57 L 06/12/23 07:45 69 14 96 06/12/23 07:45 102/57 L 06/12/23 07:45 Room Air 06/12/23 07:30 111/53 L 06/12/23 07:30 66 14 100 06/12/23 07:30 36.6 C 06/12/23 07:23 71 06/12/23 07:17 72 18 99 Room Air 06/12/23 07:15 73 18 97 06/12/23 07:15 101/49 L 06/12/23 07:00 96/45 L 06/12/23 07:00 68 14 96 06/12/23 06:00 88 18 97 06/12/23 06:00 128/54 L 06/12/23 05:00 79 14 95 06/12/23 05:00 112/54 L 06/12/23 04:00 79 13 97 06/12/23 04:00 108/53 L 06/12/23 04:00 36.7 C 06/12/23 03:00 89 19 90 06/12/23 03:00 111/57 L 06/12/23 02:00 93 H 21 90 06/12/23 02:00 109/57 L 06/12/23 01:45 85 16 97 06/12/23 01:45 97/51 L 06/12/23 01:00 87 19 95 06/12/23 01:00 111/56 L 06/12/23 00:00 98 H 06/12/23 00:00 93 H 18 95 06/12/23 00:00 110/55 L 06/11/23 23:00 90 18 95 06/11/23 23:00 98/51 L 06/11/23 22:54 36.5 C 06/11/23 22:15 100/50 L 06/11/23 22:15 98 H 21 95 Laboratory Results Laboratory Results - last 24 hr 06/11/23 06/11/23 06/11/23 15:01 15:24 16:07 WBC RBC Hgb POC Hgb 9.2 L Hct POC Hct 27 L MCV MCH MCHC RDW Std Deviation RDW Coeff of Glenn Plt Count MPV Immature Gran % (Auto) Neut % (Auto) Lymph % (Auto) [place] % (Auto) Eos % (Auto) Baso % (Auto) Neut # (Auto) Lymph # (Auto) [place] # (Auto) Eos # (Auto) Baso # (Auto) Immature Gran # (Auto) POC pH 7.41 POC pCO2 31 L POC pO2 68 L POC HCO3 20 POC Total CO2 21 L POC Base Excess -5.0 ABG pH 7.46 H ABG pCO2 31 L ABG pO2 138 H ABG HCO3 22 POC ABG O2 Sat 94.0 ABG O2 Saturation 98.9 H ABG Base Excess -0.9 Sheng Test Pos Oxygen Given 70% POC Sodium 138 Sodium 137 POC Potassium 3.9 Potassium 3.8 Chloride 107 Carbon Dioxide 22 Anion Gap 8 BUN 50 H Creatinine 1.74 H Est Cr Clr Drug Dosing 26.5 Est GFR ( Amer) 39.7 Est GFR (Non-Af Amer) 34.2 BUN/Creatinine Ratio 28.7 H Glucose 53 L* POC Glucose 52 L* Fasting Insulin Proinsulin C-Peptide Calcium 8.2 L Magnesium Total Bilirubin Direct Bilirubin AST ALT Alkaline Phosphatase Troponin I High Sens 556.4 H* B-Natriuretic Peptide 91 Total Protein Albumin Globulin Albumin/Globulin Ratio TSH Random Cortisol 06/11/23 06/11/23 06/11/23 16:27 18:33 19:17 WBC RBC Hgb POC Hgb 9.5 L Hct POC Hct 28 L MCV MCH MCHC RDW Std Deviation RDW Coeff of Glenn Plt Count MPV Immature Gran % (Auto) Neut % (Auto) Lymph % (Auto) [place] % (Auto) Eos % (Auto) Baso % (Auto) Neut # (Auto) Lymph # (Auto) [place] # (Auto) Eos # (Auto) Baso # (Auto) Immature Gran # (Auto) POC pH 7.43 POC pCO2 31 L POC pO2 143 H POC HCO3 21 POC Total CO2 22 L POC Base Excess -4.0 ABG pH ABG pCO2 ABG pO2 ABG HCO3 POC ABG O2 Sat 99.0 H ABG O2 Saturation ABG Base Excess Sheng Test Oxygen Given POC Sodium 137 Sodium POC Potassium 4.0 Potassium Chloride Carbon Dioxide Anion Gap BUN Creatinine Est Cr Clr Drug Dosing Est GFR ( Amer) Est GFR (Non-Af Amer) BUN/Creatinine Ratio Glucose POC Glucose 144 H 93 Fasting Insulin Proinsulin C-Peptide Calcium Magnesium Total Bilirubin Direct Bilirubin AST ALT Alkaline Phosphatase Troponin I High Sens B-Natriuretic Peptide Total Protein Albumin Globulin Albumin/Globulin Ratio TSH Random Cortisol 02/02/24 02/02/24 02/03/24 19:52 19:52 00:00 WBC RBC Hgb POC Hgb Hct POC Hct MCV MCH MCHC RDW Std Deviation RDW Coeff of Glenn Plt Count MPV Immature Gran % (Auto) Neut % (Auto) Lymph % (Auto) [place] % (Auto) Eos % (Auto) Baso % (Auto) Neut # (Auto) Lymph # (Auto) [place] # (Auto) Eos # (Auto) Baso # (Auto) Immature Gran # (Auto) POC pH POC pCO2 POC pO2 POC HCO3 POC Total CO2 POC Base Excess ABG pH ABG pCO2 ABG pO2 ABG HCO3 POC ABG O2 Sat ABG O2 Saturation ABG Base Excess Sheng Test Oxygen Given POC Sodium Sodium 134 L POC Potassium Potassium 3.8 Chloride 105 Carbon Dioxide 22 Anion Gap 7 BUN 50 H Creatinine 1.86 H Est Cr Clr Drug Dosing 24.8 Est GFR ( Amer) 36.6 Est GFR (Non-Af Amer) 31.6 BUN/Creatinine Ratio 26.9 H Glucose 87 POC Glucose 186 H Fasting Insulin Pending Proinsulin Pending C-Peptide Pending Calcium 7.2 L Magnesium 1.9 Total Bilirubin 1.5 H Direct Bilirubin 0.4 H AST 29 ALT 7 Alkaline Phosphatase 51 Troponin I High Sens Cancelled 502.5 H* B-Natriuretic Peptide Total Protein 4.1 L Albumin 2.2 L Globulin Albumin/Globulin Ratio TSH 1.901 Random Cortisol 54.04 06/12/23 04:28 WBC 7.22 RBC 2.86 L Hgb 8.9 L POC Hgb Hct 27.0 L POC Hct MCV 94.4 MCH 31.1 MCHC 33.0 RDW Std Deviation 47.8 H RDW Coeff of Glenn 13.9 Plt Count 171 MPV 9.4 Immature Gran % (Auto) 0.3 Neut % (Auto) 81.1 Lymph % (Auto) 9.1 [place] % (Auto) 9.4 Eos % (Auto) 0.0 Baso % (Auto) 0.1 Neut # (Auto) 5.85 Lymph # (Auto) 0.66 L [place] # (Auto) 0.68 H Eos # (Auto) 0.00 Baso # (Auto) 0.01 Immature Gran # (Auto) 0.02 POC pH POC pCO2 POC pO2 POC HCO3 POC Total CO2 POC Base Excess ABG pH ABG pCO2 ABG pO2 ABG HCO3 POC ABG O2 Sat ABG O2 Saturation ABG Base Excess Sheng Test Oxygen Given POC Sodium Sodium 137 POC Potassium Potassium 3.8 Chloride 105 Carbon Dioxide 23 Anion Gap 9 BUN 52 H Creatinine 1.89 H Est Cr Clr Drug Dosing 24.4 Est GFR ( Amer) 35.9 Est GFR (Non-Af Amer) 31.0 BUN/Creatinine Ratio 27.5 H Glucose 231 H POC Glucose Fasting Insulin Proinsulin C-Peptide Calcium 7.4 L Magnesium 2.0 Total Bilirubin 1.7 H Direct Bilirubin AST 26 ALT 7 Alkaline Phosphatase 52 Troponin I High Sens 358.5 H* D B-Natriuretic Peptide Total Protein 4.2 L Albumin 2.5 L Globulin 1.7 L Albumin/Globulin Ratio 1.5 TSH Random Cortisol Intake & Output 06/10/23 06/11/23 06/12/23 06/13/23 06:59 06:59 06:59 06:59 Intake Total 2315.333 / 2315.333 1310 / 1310 453 / 453 1041 / 1041 Output Total 315 / 315 2300 / 2300 1140 / 1140 150 / 150 Balance 1999.333 / 1999.333 -990 / -990 -687 / -687 891 / 891 Weight 157 lb 3.033 oz 156 lb 4.924 oz 154 lb 8.705 oz Diagnostic Findings Telemetry personally reviewed: Currently sinus rhythm. Was sinus tachycardia with transient complete heart block on 06/11/2023 for approximately 21 minutes in the setting of significant left hip pain and acute respiratory distress/failure. Otherwise, no significant pauses. No further heart block. Echo 06/09/2023: Images personally reviewed. Hypokinetic inferolateral wall. Limited echo 06/12/2023: Limited 2D study. Normal LV size. EF 50 to 55%. Hypokinetic inferolateral wall. Septal motion consistent with bundle branch block. Sclerotic aortic valve. History and physical report, critical care notes, pulmonary and hospitalist notes reviewed. ECGs personally reviewed: ECG 06/07/2023 1340: Sinus 93 bpm. RBBB. LAFB. ECG 120 02/01/1953: Sinus rhythm 96 bpm. RBBB. LAFB. ECG 06/11/2023 1642: Sinus tachycardia at 108 bpm. RBBB. LAFB. ECG 06/11/2023 1841: Sinus tachycardia 117 bpm. RBBB. LAFB. CTA report reviewed as noted above in HPI. Chest x-ray 06/12/2023 image personally reviewed: Right pleural effusion. Bibasilar consolidation per radiology with pulmonary vascular congestion. Labs reviewed and notable for anemia, normal potassium, abnormal but stable renal function from yesterday, normal BNP, high-sensitivity troponin elevated at 556 on 06/11/2023 and since has trended downward, normal TSH. Medications Administered Current Inpatient Medications Apixaban (Apixaban 2.5 Mg Tab) 2.5 mg PO BID [facility] Stop: 07/12/23 20:59 Bisacodyl (Bisacodyl 10 Mg Supp) 10 mg MT DAILY PRN PRN Reason: Constipation Stop: 07/07/23 17:32 Dextrose (Dextrose 50% 50 Ml Syringe) 25 - 50 ml IV UD PRN; Protocol PRN Reason: Hypoglycemia Protocol Stop: 07/07/23 17:53 Last Admin: 06/11/23 16:11 Dose: 50 ml Glucagon (Glucagon For Inj 1 Mg Vial) 1 mg SQ UD PRN; Protocol PRN Reason: Hypoglycemia Protocol Stop: 07/07/23 17:53 Glucose (Glucose 10 Tab/Tube) 4 - 8 tab PO UD PRN; Protocol PRN Reason: Hypoglycemia Treatment Stop: 07/07/23 17:53 Glucose (Glucose 40% Gel 15 Gm Tube) 15 - 30 gm PO UD PRN; Protocol PRN Reason: Hypoglycemia Protocol Stop: 07/07/23 17:53 Acetaminophen (Ofirmev) 1,000 mg in 100 mls @ 400 mls/hr IV Q8H PRN PRN Reason: Pain or Fever Stop: 06/14/23 13:25 Last Infusion: 06/12/23 05:33 Dose: Infused Dextrose/Lactated Ringer's (D5w And Lactated Ringers) 1,000 mls @ 80 mls/hr IV .[id number] [facility] Stop: 07/11/23 19:44 Last Admin: 06/12/23 08:10 Dose: 80 mls/hr Thiamine HCl 300 mg/ Sodium (Chloride) 53 mls @ 210 mls/hr IV QAM [facility] Stop: 07/12/23 08:59 Last Infusion: 06/12/23 08:31 Dose: Infused Piperacillin Sod/Tazobactam (Sod 4.5 gm/ Dextrose) 100 mls @ 25 mls/hr IV Q8H [facility]; Protocol Stop: 06/19/23 01:29 Last Admin: 06/12/23 08:14 Dose: 25 mls/hr Insulin Aspart (Insulin Aspart Per Unit Charge) 0 units SC Q6 [facility] Stop: 07/12/23 05:59 Last Admin: 06/12/23 06:06 Dose: 3 units Magnesium Hydroxide (Magnesium Hydroxide Susp 30 Ml Udc) 30 ml PO DAILY PRN PRN Reason: Constipation Stop: 07/07/23 17:32 Menthol (Cough Drop (Sugar Free) Eleanor 24 Eleanor/1 Box) 1 eleanor BUCCAL Q2H PRN PRN Reason: Sore Throat Stop: 07/08/23 19:40 Miscellaneous (Carbohydrates For Hypoglycemia ) 15 - 30 gm PO UD PRN PRN Reason: Hypoglycemia Protocol Stop: 07/07/23 17:53 Naloxone HCl (Naloxone Hcl 0.4 Mg/1 Ml Vial/Carp) 0.1 mg IV UD PRN PRN Reason: Opiate Overdose Stop: 07/07/23 17:32 Simvastatin (Simvastatin 20 Mg Tab) 20 mg PO [facility] Stop: 07/07/23 20:59 Last Admin: 06/10/23 21:16 Dose: 20 mg Sodium Chloride (Sodium Chlor 7% 4 Ml Neb) 4 ml NEB BIDR [facility] Stop: 07/12/23 06:59 Last Admin: 06/12/23 07:17 Dose: 4 ml Terazosin HCl (Terazosin Hcl 5 Mg Cap) 5 mg PO [facility] Stop: 07/08/23 20:59 Last Admin: 06/10/23 21:22 Dose: 5 mg Vitamin D (Cholecalciferol 25 Mcg (1000 Units) Tab) 25 mcg PO QAM [facility] Stop: 07/11/23 08:59 Last Admin: 06/11/23 07:51 Dose: 25 mcg PG Care Time/CCT Total # of Minutes Spent Total Time Spent with Patient: Total time spent is greater than 50% in coordination of care (as documented) at patient's floor/unit and/or counseling patient: Coding Level of Care Code 04075 INT INP/OBS CARE 3/75MIN Diagnoses Complete heart block, transient I44.2 Acute respiratory failure with hypoxia J96.01 Hypertension I10 Hypercholesteremia E78.00 Elevated troponin R79.89
--- NOTE | 2023-06-12 11:06 | XCELERA ---
[id number] \\[id number]
--- NOTE | 2023-06-12 11:29 | Hospitalist Progress Note ---
Date of Service June 12, 2023 Assessment & Plan (1) Closed fracture of left hip: Plan: s/p mechanical fall now s/p ORIF 06/[address] Barrow Had orthostasis from acute blood loss anemia preventing PT. Transfused 1 unit PRBCs, followed by pulm edema, pleural effusions, hypoxia Hgb now improved Postoperative pain being managed by Tylenol. Morphine discontinued. Oxycodone discontinued as well. Narcotics were likely leading to respiratory depression, confusion, drowsiness. DVT prophylaxis with SCDs and Eliquis 2.5 p.o. twice daily. PT/OT on board Ross to be removed once mobile and once ROSI and respiratory failure improve Bowel regimen as needed Appreciate Orthopedics management-WBAT, no hip restrictions (2) Acute metabolic encephalopathy: Plan: Most likely narcotic induced Was associated with respiratory depression, bradycardia, hypotension Resolved Narcotics discontinued There is a question of fat embolism due to recent hip fracture. Continue supportive treatment Client Relationship Executive on board (3) Aspiration into airway: Plan: Patient had gone into respiratory distress Aspiration could have contributed Currently on room air, off of BiPAP and nasal cannula Speech therapy involved Will reevaluate today Patient is more awake. Hopeful for improvement. N.p.o. for now until further swallow eval (4) Acute kidney injury: Plan: Commercial Maintenance Technician peaked at 2.27 with associated hyperkalemia and metabolic acidosis- hyperkalemia now improved, foreign collection clerk trending downward to 1.9 Hold off on further diuretics Ross catheter in place Avoid nephrotoxins (5) Acute blood loss anemia: Plan: hgb dropped to 7.5 from 14 on admission, with orthostasis post-op with SBPs in 70s with standing, no new bleeding but likely from prior hip fracture Transfused 1 unit PRBCs 06/10 Hemoglobin improved and with volume overload -was diuresed on 06/11 Follow CBC in AM Ok to continue ELiquis provided can take p.o. after swallow evaluation (6) Acute respiratory failure with hypoxia: Plan: developed overnight 06/10-06/11, requiring 15L NC CXR with pleural effusions R>L, some atelectasis Secondary to acute on chronic HFpEF as well as atelectasis from being bedridden. Echo performed earlier this hospitalization with preserved EF Was given Lasix 20 Mg IV x 1 overnight on 06/10, Lasix 20 Mg IV x 1 on 06/11 Monitor I's and O's Resolved Now on room air Could have been due to a combination of fluid overload, aspiration, narcotic use leading to altered mental status (7) Fracture of rib of right side: Plan: Multiple rib fractures without pain therefore do not suspect acute although new since March 2023 He was not having any pain in the ribs prior to admission Associated large right sided pleural effusion now drained (8) Pleural effusion, right: Plan: Large right sided pleural effusion with compressive atelectasis found on admission Suspect traumatic given rib fractures BNP normal, ECHO normal Does not appear acute with no pain, shortness of breath or hypoxia on admission Consult pulmonology for thoracentesis appreciated-removed 1.7 L loy cloudy, bloody fluid, exudative, with cultures no growth to date, and cytology negative- likely from rib fractures Follow pleural fluid cxs-no growth Check CXR in 2-4 weeks as per PULM Appreciate PULM consult (9) Fall: Plan: No concerning findings prior to falling needing further workup Skin tears on elbow following fall, appreciate wound care nurse management (10) Type 2 diabetes mellitus: Plan: Hemoglobin A1c 6.1 [05/25/2023], no need to repeat this Hold glipizide Continue NovoLog supplemental insulin as needed (11) Hypercholesteremia: Plan: simvastatin placed on hold while n.p.o. (12) BPH (benign prostatic hyperplasia): Plan: terazosin placed on hold while n.p.o. Ross in place (13) Vitamin D deficiency: Plan: Vit D level severely low at 8 Started Vitamin D 1000uits once daily but now placed on hold while n.p.o. Plan VTE prophylaxis -Eliquis to be resumed provided he passes the swallow test today Of note, the Eliquis is to be given for 2 to 4 weeks postoperatively as per orthopedic surgery Disposition -transfer out of the ICU PT/OT recommending acute rehab, needs referrals placed but not medically stable for discharge Admission and Anticipated Discharge Date Admission Date: June 07, 2023 Subjective Patient is awake and alert. He says that his mind was foggy but is clearing up now. He was able to tell me that he is in the hospital, that he came to the hospital after a fall and hip fracture. He remembers that he had surgery for the fracture. Review of Systems Review of Systems: All systems reviewed & are unremarkable except as noted in Subjective Physical Exam Physical Exam: General: Awake, conversant, elderly, frail looking Heart: S1, S2/regular rate and rhythm, no murmur rubs or gallops Lungs: Diminished breath sounds. Normal effort Abdomen: Soft/nontender/nondistended. No hepatosplenomegaly Extremities: No clubbing/cyanosis. No edema Behavior: Appropriate, cooperative Results & Data Results & Data Vital Signs (Past 12 Hours) Vital Signs Temp Pulse Pulse Resp BP Pulse Ox O2 Del Method 06/12/23 11:00 82 20 104/72 91 06/12/23 10:00 80 16 91 06/12/23 10:00 130/56 L 06/12/23 09:31 86 22 94 06/12/23 09:31 103/75 06/12/23 09:00 113/54 L 06/12/23 09:00 71 15 95 06/12/23 08:31 36.3 C L 06/12/23 08:30 69 14 95 06/12/23 08:30 105/52 L 06/12/23 08:15 103/53 L 06/12/23 08:15 70 13 95 06/12/23 08:00 66 15 95 06/12/23 08:00 116/57 L 06/12/23 07:45 69 14 96 06/12/23 07:45 102/57 L 06/12/23 07:45 Room Air 06/12/23 07:30 111/53 L 06/12/23 07:30 66 14 100 06/12/23 07:30 36.6 C 06/12/23 07:23 71 06/12/23 07:17 72 18 99 Room Air 06/12/23 07:15 73 18 97 06/12/23 07:15 101/49 L 06/12/23 07:00 96/45 L 06/12/23 07:00 68 14 96 06/12/23 06:00 88 18 97 06/12/23 06:00 128/54 L 06/12/23 05:00 79 14 95 06/12/23 05:00 112/54 L 06/12/23 04:00 79 13 97 06/12/23 04:00 108/53 L 06/12/23 04:00 36.7 C 06/12/23 03:00 89 19 90 02/03/24 03:00 111/57 L 06/12/23 02:00 93 H 21 90 06/12/23 02:00 109/57 L 06/12/23 01:45 85 16 97 06/12/23 01:45 97/51 L 06/12/23 01:00 87 19 95 06/12/23 01:00 111/56 L 06/12/23 00:00 98 H 06/12/23 00:00 93 H 18 95 06/12/23 00:00 110/55 L Laboratory Results Abnormal lab results 06/11/23 06/11/23 06/11/23 Range/Units 15:01 15:24 16:07 RBC (4.70-6.10) M/uL Hgb (14.0-18.0) g/dl POC Hgb 9.2 L (14.0-18.0) g/dl Hct (42.0-52.0) % POC Hct 27 L (42-52) % RDW Std Deviation (36.4-46.3) fL Lymph # (Auto) (1.20-3.40) K/uL [place] # (Auto) (0.11-0.59) K/uL POC pCO2 31 L (35-46) mmHg POC pO2 68 L (80-95) mmHg POC Total CO2 21 L (24-31) mmol/L ABG pH 7.46 H (7.35-7.45) ABG pCO2 31 L (35-46) mmHg ABG pO2 138 H (80-95) mmHg POC ABG O2 Sat (90-95) % ABG O2 Saturation 98.9 H (90-95) % Sodium (136-145) mmol/L BUN 50 H (6-23) mg/dl Creatinine 1.74 H (0.6-1.4) mg/dl BUN/Creatinine Ratio 28.7 H (10-20) Glucose 53 L* (70-99(Fasting)) mg/dl POC Glucose 52 L* (70-99) mg/dl Calcium 8.2 L (8.6-10.3) mg/dl Total Bilirubin (0.2-1.0) mg/dl Direct Bilirubin (0-0.2) mg/dl Troponin I High Sens 556.4 H* (0-20) pg/ml Total Protein (6.0-8.3) gm/dl Albumin (3.4-5.0) gm/dl Globulin (2.5-4.0) gm/dl 06/11/23 06/11/23 06/11/23 Range/Units 16:27 18:33 19:52 RBC (4.70-6.10) M/uL Hgb (14.0-18.0) g/dl POC Hgb 9.5 L (14.0-18.0) g/dl Hct (42.0-52.0) % POC Hct 28 L (42-52) % RDW Std Deviation (36.4-46.3) fL Lymph # (Auto) (1.20-3.40) K/uL [place] # (Auto) (0.11-0.59) K/uL POC pCO2 31 L (35-46) mmHg POC pO2 143 H (80-95) mmHg POC Total CO2 22 L (24-31) mmol/L ABG pH (7.35-7.45) ABG pCO2 (35-46) mmHg ABG pO2 (80-95) mmHg POC ABG O2 Sat 99.0 H (90-95) % ABG O2 Saturation (90-95) % Sodium 134 L (136-145) mmol/L BUN 50 H (6-23) mg/dl Creatinine 1.86 H (0.6-1.4) mg/dl BUN/Creatinine Ratio 26.9 H (10-20) Glucose (70-99(Fasting)) mg/dl POC Glucose 144 H (70-99) mg/dl Calcium 7.2 L (8.6-10.3) mg/dl Total Bilirubin 1.5 H (0.2-1.0) mg/dl Direct Bilirubin 0.4 H (0-0.2) mg/dl Troponin I High Sens 502.5 H* (0-20) pg/ml Total Protein 4.1 L (6.0-8.3) gm/dl Albumin 2.2 L (3.4-5.0) gm/dl Globulin (2.5-4.0) gm/dl 06/12/23 06/12/23 Range/Units 00:00 04:28 RBC 2.86 L (4.70-6.10) M/uL Hgb 8.9 L (14.0-18.0) g/dl POC Hgb (14.0-18.0) g/dl Hct 27.0 L (42.0-52.0) % POC Hct (42-52) % RDW Std Deviation 47.8 H (36.4-46.3) fL Lymph # (Auto) 0.66 L (1.20-3.40) K/uL [place] # (Auto) 0.68 H (0.11-0.59) K/uL POC pCO2 (35-46) mmHg POC pO2 (80-95) mmHg POC Total CO2 (24-31) mmol/L ABG pH (7.35-7.45) ABG pCO2 (35-46) mmHg ABG pO2 (80-95) mmHg POC ABG O2 Sat (90-95) % ABG O2 Saturation (90-95) % Sodium (136-145) mmol/L BUN 52 H (6-23) mg/dl Creatinine 1.89 H (0.6-1.4) mg/dl BUN/Creatinine Ratio 27.5 H (10-20) Glucose 231 H (70-99(Fasting)) mg/dl POC Glucose 186 H (70-99) mg/dl Calcium 7.4 L (8.6-10.3) mg/dl Total Bilirubin 1.7 H (0.2-1.0) mg/dl Direct Bilirubin (0-0.2) mg/dl Troponin I High Sens 358.5 H* D (0-20) pg/ml Total Protein 4.2 L (6.0-8.3) gm/dl Albumin 2.5 L (3.4-5.0) gm/dl Globulin 1.7 L (2.5-4.0) gm/dl PG Care Time/CCT Total # of Minutes Spent Total Time Spent with Patient: Total time spent is greater than 50% in coordination of care (as documented) at patient's floor/unit and/or counseling patient: Coding Level of Care Code 47782 SUB INP/OBS CARE 2/35MIN Diagnoses Closed fracture of left hip S72.002A Encounter type: initial encounter Acute metabolic encephalopathy G93.41 Aspiration into airway T17.908A Acute kidney injury N17.9 Acute blood loss anemia D62 Acute respiratory failure with hypoxia J96.01 Fracture of rib of right side S22.31XA Pleural effusion, right J90 Fall W19.XXXA Encounter type: initial encounter Type 2 diabetes mellitus E11.9 Hypercholesteremia E78.00 Benign prostatic hyperplasia with nocturia N40.1; R35.1 Lower urinary tract symptom presence: symptoms present Lower urinary tract symptom detail: nocturia Vitamin D deficiency E55.9 (1) Closed fracture of left hip Encounter type: initial encounter Qualified Code(s): S72.002A - Fracture of unspecified part of neck of left femur, initial encounter for closed fracture (9) Fall Encounter type: initial encounter Qualified Code(s): W19.XXXA - Unspecified fall, initial encounter (12) BPH (benign prostatic hyperplasia) Lower urinary tract symptom presence: symptoms present Lower urinary tract symptom detail: nocturia Qualified Code(s): N40.1 - Benign prostatic hyperplasia with lower urinary tract symptoms; R35.1 - Nocturia
[2023-06-12] MEDS ORDERED: Nursing to Pharmacy Communication SCH (12:00)
[2023-06-12] MEDS: APIXABAN 2.5 MG TAB PO SCH (20:12)
--- NOTE | 2023-06-13 06:05 | Electrocardiogram Report ---
Test Reason : Blood Pressure : / mmHG Vent. Rate : 108 BPM Atrial Rate : 108 BPM P-R Int : 190 ms QRS Dur : 126 ms QT Int : 356 ms P-R-T Axes : 028 -47 105 degrees QTc Int : 477 ms Sinus tachycardia Right bundle branch block Left anterior fascicular block Bifascicular block Cannot rule out Septal infarct (cited on or before 11-JUN-2023) T wave abnormality, consider lateral ischemia Abnormal ECG When compared with ECG of 07-JUN-2023 19:52, No significant change Confirmed by Gen Wesley ([id number] on 06/13/2023 6:05:18 AM Referred By: REFERRED SELF Confirmed By:Gen Wesley
--- NOTE | 2023-06-13 06:09 | Electrocardiogram Report ---
Test Reason : Blood Pressure : / mmHG Vent. Rate : 117 BPM Atrial Rate : 117 BPM P-R Int : 152 ms QRS Dur : 128 ms QT Int : 386 ms P-R-T Axes : 000 -51 099 degrees QTc Int : 538 ms Sinus tachycardia Left axis deviation Right bundle branch block Left anterior fascicular block Cannot rule out Septal infarct (cited on or before 11-JUN-2023) T wave abnormality, consider lateral ischemia Abnormal ECG When compared with ECG of 11-JUN-2023 16:42, No significant change Confirmed by Gen Wesley [id number] on 06/13/2023 6:09:20 AM Referred By: REFERRED SELF Confirmed By:Gen Wesley
[2023-06-13 07:12] LABS: Eosinophils # (auto) 0.31 K/uL (0.00-0.50); Eosinophils % (auto) 4.2 %; Hematocrit (blood only) 25.9 % (42.0-52.0); Hemoglobin 8.7 g/dl (14.0-18.0); Immature Granulocytes # (auto) 0.03 K/uL (0.01-0.20); Immature Granulocytes % (auto) 0.4 %; Lymphocytes # (auto) 0.92 K/uL (1.20-3.40); Lymphocytes % (auto) 12.4 %; Mean Corpuscular Hemoglobin 31.3 pg (25.0-34.0); Mean Corpuscular Hgb Conc 33.6 g/dL (32.0-36.0); Mean Corpuscular Volume 93.2 fL (80.0-100.0); Mean Platelet Volume 9.6 fL (9.4-12.4); Monocytes # (auto) 0.67 K/uL (0.11-0.59); Neutrophils # (auto) 5.48 K/uL (1.40-6.50); Platelet Count 196 K/uL (130-400); RDW Coefficient of Variation 14.1 % (11.5-14.5); RDW Standard Deviation 47.5 fL (36.4-46.3); Red Blood Count 2.78 M/uL (4.70-6.10); White Blood Count 7.41 K/ul (4.8-10.8)
[2023-06-13 07:27] LABS: Albumin Globulin Ratio 1.3 (0.9-2); Albumin Level 2.4 gm/dl (3.4-5.0); BUN Creatinine Ratio 30.7 (10-20); Bilirubin,Total 1.4 mg/dl (0.2-1.0); Calcium 7.4 mg/dl (8.6-10.3); Creatinine Clr Calc Pharmacy 28.3 ml/min; Est GFR (Non-African American) 37.1 ml/min; Globulin 1.9 gm/dl (2.5-4.0); Magnesium 2.2 mg/dl (1.7-2.4); Potassium 3.4 mmol/L (3.5-5.1); Total Protein 4.3 gm/dl (6.0-8.3)
--- NOTE | 2023-06-13 08:31 | Pulmonology Progress Note ---
Date of Service June 13, 2023 Assessment & Plan (1) Pleural effusion, right: (2) Acute respiratory failure with hypoxia: (3) Acute kidney injury: Plan Impression: 87-year-old male status post fall with left-sided hip fracture and multiple subacute right-sided rib fractures with right-sided effusion of unclear etiology. Echocardiogram unrevealing. He is status post thoracentesis with fluid demonstrating negative cultures and a lymphocytic exudate with negative cytology Recommendations: 1. Pleural effusion: Stable at this point in time. As the patient is on room air and minimally symptomatic currently, I think at this point in time clinical observation is warranted. Can continue his Eliquis for DVT prophylaxis. Chest x-ray in a.m. 2. Hypoxemic respiratory failure: Resolved. Discussed with bedside nurse. Recommend discontinuation of Ross catheter and getting the patient up to the chair. PT will be contacted as the patient needs physical therapy on a daily basis given his recent hip pinning. Incentive spirometry while bedbound Admission and Anticipated Discharge Date Admission Date: June 07, 2023 Subjective Patient reports he is doing well. He is not particularly enthused with the food here at the hospital. He has not been out of bed or working with PT as of yesterday. He is coughing but is expectorating phlegm. He is slightly confused regarding the date and thinks it is Wednesday Review of Systems 2 Review of Systems: All systems reviewed & are unremarkable except as noted in Subjective Physical Exam 2 Constitutional: WD/WN, vitals as above Neck: trachea midline, no thyromegaly Respiratory: no respiratory distress, no labored breathing, no cough and not tachypneic Auscultation: + diminished lung sounds; no crackles and no wheezes Cardiovascular: RRR, no murmur, no edema Rate/Rhythm: regular rhythm and + tachycardic Heart Sounds: normal S1 and normal S2 Gastrointestinal (Abdomen): normal bowel sounds, soft, nontender, no hepatosplenomegaly Skin: no rashes, warm and dry Lymphatic: no cervical lymphadenopathy Results & Data Results & Data Vital Signs (Past 12 Hours) Vital Signs Temp Pulse Pulse Resp BP BP Pulse Ox 06/13/23 07:17 74 18 96 06/13/23 06:00 67 17 97 06/13/23 05:00 71 15 98 06/13/23 04:00 80 20 131/63 94 06/13/23 04:00 36.7 C 06/13/23 03:00 73 16 97 06/13/23 02:00 77 17 99 06/13/23 01:56 75 06/13/23 01:00 70 15 100 06/13/23 00:00 74 17 114/51 L 97 06/13/23 00:00 36.3 C L 77 20 114/51 L 98 06/12/23 23:00 72 19 98 06/12/23 22:28 06/12/23 22:00 80 20 100 06/12/23 21:00 78 17 93 O2 Del Method O2 Flow Rate 06/13/23 07:17 Nasal Cannula 2 06/13/23 06:00 06/13/23 05:00 06/13/23 04:00 06/13/23 04:00 06/13/23 03:00 06/13/23 02:00 06/13/23 01:56 06/13/23 01:00 06/13/23 00:00 06/13/23 00:00 Nasal Cannula 1 06/12/23 23:00 06/12/23 22:28 Nasal Cannula 1 06/12/23 22:00 06/12/23 21:00 Laboratory Results Microbiology 06/07/23 Unknown Pleural Fluid Acid Fast Bacilli Smear - Final 06/07/23 Unknown Pleural Fluid Acid Fast Bacilli Culture - Preliminary No Acid-Fast Bacilli Isolated - Report 1, Additional Report to Follow. 06/07/23 Unknown Pleural Fluid Gram Stain - Final 06/07/23 Unknown Pleural Fluid Aerobic and Anaerobic Culture - Final No growth 06/13/23 06:54 06/13/23 06:54 Diagnostic Findings No new imaging PG Care Time/CCT Total # of Minutes Spent Total Time Spent with Patient: Total time spent is greater than 50% in coordination of care (as documented) at patient's floor/unit and/or counseling patient: Coding Level of Care Code 13420 SUB INP/OBS CARE 2/35MIN Diagnoses Pleural effusion, right J90 Acute respiratory failure with hypoxia J96.01 Acute kidney injury N17.9
--- NOTE | 2023-06-13 11:22 | Hospitalist Progress Note ---
Date of Service June 13, 2023 Assessment & Plan (1) Closed fracture of left hip: Plan: s/p mechanical fall now s/p ORIF 06/[address] Barrow Had orthostasis from acute blood loss anemia preventing PT. Transfused 1 unit PRBCs, followed by pulm edema, pleural effusions, hypoxia Hgb now improved Postoperative pain being managed by Tylenol. Morphine discontinued. Oxycodone discontinued as well. Narcotics were likely leading to respiratory depression, confusion, drowsiness. DVT prophylaxis with SCDs and Eliquis 2.5 p.o. twice daily. PT/OT on board Ross to be removed today now that respiratory status is improved and ROSI has improved Bowel regimen as needed Appreciate Orthopedics management-WBAT, no hip restrictions (2) Acute metabolic encephalopathy: Plan: Most likely narcotic induced Was associated with respiratory depression, bradycardia, hypotension Resolved Narcotics discontinued There was a question of fat embolism due to recent hip fracture with altered mental status, acute kidney injury and respiratory failure. Continue supportive treatment Collection Systems Worker on board (3) Aspiration into airway: Plan: Patient had gone into respiratory distress Aspiration could have contributed Currently on 2 L nasal cannula On Zosyn Speech therapy allowed a p.o. 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 at 2.27 with associated hyperkalemia and metabolic acidosis- hyperkalemia now improved, resolution analyst trending downward to 1.6 today Hold off on further diuretics Ross catheter to be removed today Avoid nephrotoxins (5) Acute blood loss anemia: Plan: hgb dropped to 7.5 from 14 on admission, with orthostasis post-op with SBPs in 70s with standing, no new bleeding but likely from prior hip fracture Transfused 1 unit PRBCs 06/10 Hemoglobin improved and with volume overload -was diuresed on 06/11 Follow CBC in AM Ok to continue ELiquis (6) Acute respiratory failure with hypoxia: Plan: developed overnight 06/10-06/11, requiring 15L NC CXR with pleural effusions R>L, some atelectasis Secondary to acute on chronic HFpEF as well as atelectasis from being bedridden. Echo performed earlier this hospitalization with preserved EF Was given Lasix 20 Mg IV x 1 overnight on 06/10, Lasix 20 Mg IV x 1 on 06/11 Monitor I's and O's Resolved Now on 2 L of O2 Could have been due to a combination of fluid overload, aspiration, narcotic use leading to altered mental status (7) Fracture of rib of right side: Plan: Multiple rib fractures without pain therefore do not suspect acute although new since March 2023 He was not having any pain in the ribs prior to admission Associated large right sided pleural effusion now drained (8) Pleural effusion, right: Plan: Large right sided pleural effusion with compressive atelectasis found on admission Suspect traumatic given rib fractures BNP normal, ECHO normal Does not appear acute with no pain, shortness of breath or hypoxia on admission Consult pulmonology for thoracentesis appreciated-removed 1.7 L loy cloudy, bloody fluid, exudative, with cultures no growth to date, and cytology negative- likely from rib fractures Follow pleural fluid cxs-no growth Stable now Appreciate PULM consult Continue Eliquis (9) Fall: Plan: No concerning findings prior to falling needing further workup Skin tears on elbow following fall, appreciate wound care nurse management (10) Type 2 diabetes mellitus: Plan: Hemoglobin A1c 6.1 [05/25/2023], no need to repeat this Hold glipizide Continue NovoLog supplemental insulin as needed (11) Hypercholesteremia: Plan: simvastatin placed on hold while n.p.o. (12) BPH (benign prostatic hyperplasia): Plan: terazosin placed on hold while n.p.o. Ross in place (13) Vitamin D deficiency: Plan: Vit D level severely low at 8 Started Vitamin D 1000uits once daily but now placed on hold while n.p.o. Plan VTE prophylaxis -Eliquis to be resumed provided he passes the swallow test today Of note, the Eliquis is to be given for 2 to 4 weeks postoperatively as per orthopedic surgery Disposition -transfer out of the ICU PT/OT recommending acute rehab, needs referrals placed but not medically stable for discharge Admission and Anticipated Discharge Date Admission Date: June 07, 2023 Subjective Patient continues to feel well. He is awake and alert. Denies any chest pain or shortness of breath. Nurse has no concerns. Review of Systems Review of Systems: All systems reviewed & are unremarkable except as noted in Subjective Physical Exam Physical Exam: General: Awake, conversant, elderly, frail looking. AO x 2. Heart: S1, S2/regular rate and rhythm, no murmur rubs or gallops Lungs: Diminished breath sounds. Normal effort Abdomen: Soft/nontender/nondistended. No hepatosplenomegaly Extremities: No clubbing/cyanosis. No edema Behavior: Appropriate, cooperative Results & Data Results & Data Vital Signs (Past 12 Hours) Vital Signs Temp Pulse Pulse Resp BP BP BP 06/13/23 09:28 36.4 C L 116/67 06/13/23 09:00 70 15 06/13/23 08:00 79 18 06/13/23 07:17 74 18 06/13/23 07:00 76 17 06/13/23 06:00 67 17 06/13/23 05:00 71 15 06/13/23 04:00 80 20 131/63 06/13/23 04:00 36.7 C 06/13/23 03:00 73 16 06/13/23 02:00 77 17 06/13/23 01:56 75 06/13/23 01:00 70 15 06/13/23 00:00 74 17 114/51 L 06/13/23 00:00 36.3 C L 77 20 114/51 L Pulse Ox O2 Del Method O2 Flow Rate 06/13/23 09:28 06/13/23 09:00 100 06/13/23 08:00 93 06/13/23 07:17 96 Nasal Cannula 2 06/13/23 07:00 95 06/13/23 06:00 97 06/13/23 05:00 98 06/13/23 04:00 94 06/13/23 04:00 06/13/23 03:00 97 06/13/23 02:00 99 06/13/23 01:56 06/13/23 01:00 100 06/13/23 00:00 97 06/13/23 00:00 98 Nasal Cannula 1 Laboratory Results Abnormal lab results 06/12/23 06/12/23 06/12/23 Range/Units 11:39 11:41 15:58 RBC (4.70-6.10) M/uL Hgb (14.0-18.0) g/dl Hct (42.0-52.0) % RDW Std Deviation (36.4-46.3) fL Lymph # (Auto) (1.20-3.40) K/uL [place] # (Auto) (0.11-0.59) K/uL Potassium (3.5-5.1) mmol/L BUN (6-23) mg/dl Creatinine (0.6-1.4) mg/dl BUN/Creatinine Ratio (10-20) Glucose (70-99(Fasting)) mg/dl POC Glucose 307 H* 286 H 181 H (70-99) mg/dl Calcium (8.6-10.3) mg/dl Total Bilirubin (0.2-1.0) mg/dl Total Protein (6.0-8.3) gm/dl Albumin (3.4-5.0) gm/dl Globulin (2.5-4.0) gm/dl 06/12/23 06/13/23 Range/Units 20:02 06:54 RBC 2.78 L (4.70-6.10) M/uL Hgb 8.7 L (14.0-18.0) g/dl Hct 25.9 L (42.0-52.0) % RDW Std Deviation 47.5 H (36.4-46.3) fL Lymph # (Auto) 0.92 L (1.20-3.40) K/uL [place] # (Auto) 0.67 H (0.11-0.59) K/uL Potassium 3.4 L (3.5-5.1) mmol/L BUN 50 H (6-23) mg/dl Creatinine 1.63 H (0.6-1.4) mg/dl BUN/Creatinine Ratio 30.7 H (10-20) Glucose 165 H (70-99(Fasting)) mg/dl POC Glucose 144 H (70-99) mg/dl Calcium 7.4 L (8.6-10.3) mg/dl Total Bilirubin 1.4 H (0.2-1.0) mg/dl Total Protein 4.3 L (6.0-8.3) gm/dl Albumin 2.4 L (3.4-5.0) gm/dl Globulin 1.9 L (2.5-4.0) gm/dl PG Care Time/CCT Total # of Minutes Spent Total Time Spent with Patient: Total time spent is greater than 50% in coordination of care (as documented) at patient's floor/unit and/or counseling patient: Coding Level of Care Code 09939 SUB INP/OBS CARE MIN Diagnoses Closed fracture of left hip S72.002A Encounter type: initial encounter Acute metabolic encephalopathy G93.41 Aspiration into airway T17.908A Acute kidney injury N17.9 Acute blood loss anemia D62 Acute respiratory failure with hypoxia J96.01 Fracture of rib of right side S22.31XA Pleural effusion, right J90 Fall W19.XXXA Encounter type: initial encounter Type 2 diabetes mellitus E11.9 Hypercholesteremia E78.00 Benign prostatic hyperplasia with nocturia N40.1; R35.1 Lower urinary tract symptom detail: nocturia Lower urinary tract symptom presence: symptoms present Vitamin D deficiency E55.9 (1) Closed fracture of left hip Encounter type: initial encounter Qualified Code(s): S72.002A - Fracture of unspecified part of neck of left femur, initial encounter for closed fracture (9) Fall Encounter type: initial encounter Qualified Code(s): W19.XXXA - Unspecified fall, initial encounter (12) BPH (benign prostatic hyperplasia) Lower urinary tract symptom detail: nocturia Lower urinary tract symptom presence: symptoms present Qualified Code(s): N40.1 - Benign prostatic hyper plasia with lower urinary tract symptoms; R35.1 - Nocturia
[2023-06-13] MEDS: POTASSIUM CHLORIDE CRTAB 20 MEQ TABCR PO STA (12:12)
[2023-06-13] MEDS: ACETAMINOPHEN 325 MG TAB PO PRN (23:28)
[2023-06-14 02:21] LABS: Albumin Level 2.4 gm/dl (3.4-5.0); Bilirubin,Total 1.6 mg/dl (0.2-1.0); Calcium 7.3 mg/dl (8.6-10.3); Magnesium 2.1 mg/dl (1.7-2.4); Potassium 3.4 mmol/L (3.5-5.1)
[2023-06-14 02:27] LABS: Albumin Globulin Ratio 1.3 (0.9-2); BUN Creatinine Ratio 31.3 (10-20); Creatinine Clr Calc Pharmacy 31.3 ml/min; Est GFR (African American) 48.7 ml/min; Globulin 1.9 gm/dl (2.5-4.0); Total Protein 4.3 gm/dl (6.0-8.3)
--- NOTE | 2023-06-14 07:17 | XRay Report ---
XR chest 1V portable HISTORY: Follow-up pleural effusion COMPARISON: Chest 06/12/2023. FINDINGS: No pneumothorax. The heart remains mildly enlarged. Pulmonary vascular congestion and bibas ilar densities persist. There are small bilateral pleural effusions most pronounced on the right. Thi s is also unchanged. Calcifications within the aortic knob. The upper lung zones remain clear. No acu te fractures. IMPRESSION: 1. No change in the bilateral pleural effusions and bibasilar densities. 2. Cardiomegaly and mild pulmonary vascular congestion persists. ACT 112: Negative or not required by law. Electronically signed by: Je Sarkar M.D. 06/14/2023 7:16 AM
--- NOTE | 2023-06-14 09:13 | Pulmonology Progress Note ---
Date of Service June 14, 2023 Assessment & Plan (1) Pleural effusion, right: (2) Acute respiratory failure with hypoxia: (3) Acute kidney injury: Plan Impression: 87-year-old male status post fall with left-sided hip fracture and multiple subacute right-sided rib fractures with right-sided effusion of unclear etiology. Echocardiogram unrevealing. He is status post thoracentesis with fluid demonstrating negative cultures and a lymphocytic exudate with negative cytology Recommendations: 1. Pleural effusion: Stable at this point in time. As the patient is on room air and minimally symptomatic currently, I think at this point in time clinical observation is warranted. Can continue his Eliquis for DVT prophylaxis. Chest x-ray this morning personally reviewed with no change compared to prior. No further interventions required from pulmonary perspective. 2. Hypoxemic respiratory failure: Resolved. Pulmonary to sign off at this time. Please call with questions. Thank you for the consult. Admission and Anticipated Discharge Date Admission Date: June 07, 2023 Subjective Patient seen and examined. Denies any complaints. No shortness of breath or chest pain. Review of Systems Review of Systems: All systems reviewed & are unremarkable except as noted in Subjective Physical Exam Constitutional: WD/WN, vitals as above Neck: trachea midline, no thyromegaly Respiratory: no respiratory distress, no labored breathing, no cough and not tachypneic Auscultation: + diminished lung sounds; no crackles and no wheezes Cardiovascular: RRR, no murmur, no edema Rate/Rhythm: regular rhythm and + tachycardic Heart Sounds: normal S1 and normal S2 Gastrointestinal (Abdomen): normal bowel sounds, soft, nontender, no hepatosplenomegaly Skin: no rashes, warm and dry Lymphatic: no cervical lymphadenopathy Results & Data Results & Data Vital Signs (Past 12 Hours) Vital Signs Temp Pulse Pulse Resp BP Pulse Ox O2 Del Method 06/14/23 07:25 36.4 C L 69 16 149/64 H 94 Room Air 06/14/23 06:30 66 06/14/23 04:30 36.6 C 74 20 116/66 92 Room Air 06/14/23 00:53 37.2 C 76 20 102/54 L 92 Room Air 06/13/23 21:58 80 PG Care Time/CCT Total # of Minutes Spent Total Time Spent with Patient: Total time spent is greater than 50% in coordination of care (as documented) at patient's floor/unit and/or counseling patient: Coding Level of Care Code 99608 SUB INP/OBS CARE 06/03MIN Diagnoses Pleural effusion, right J90 Acute respiratory failure with hypoxia J96.01 Acute kidney injury N17.9
--- NOTE | 2023-06-14 09:58 | Orthopedic Progress Note ---
Date of Service June 14, 2023 Assessment & Plan (1) Closed fracture of left hip: Plan: Doing well. Continue mobilization with PT and OT. Continue Eliquis. Hemoglobin 9. Hematocrit 26 status post transfusion. Appears stable. Ross is out. Will continue to monitor wound. He may weight-bear as tolerated. Admission and Anticipated Discharge Date Admission Date: June 07, 2023 Subjective Resting comfortably in bed. Nursing reports that PT had him up in chair yesterday. Physical Exam Physical Exam: He is able to flex and extend his toes and ankle. He can do a leg lift today. He can bend his knee about 90 degrees. There is extensive bruising over the left lateral leg with some induration but no fluctuance or hematoma. His dressings are moist from serous drainage. New dressings are applied. There is no active drainage and no cindy-incisional erythema. Results & Data Vital Signs (Past 12 Hours) Vital Signs Temp Pulse Pulse Resp BP Pulse Ox O2 Del Method 06/14/23 07:47 Room Air 06/14/23 07:25 36.4 C L 69 16 149/64 H 94 Room Air 06/14/23 06:30 66 06/14/23 04:30 36.6 C 74 20 116/66 92 Room Air 06/14/23 00:53 37.2 C 76 20 102/54 L 92 Room Air 06/13/23 21:58 80 (1) Closed fracture of left hip Encounter type: initial encounter Qualified Code(s): S72.002A - Fracture of unspecified part of neck of left femur, initial encounter for closed fracture
--- NOTE | 2023-06-14 13:11 | Fluoroscopy Report ---
FL video swallow CLINICAL HISTORY: 87 years-old Male with r/o aspiration. Dysphagia TECHNIQUE: Video fluoroscopic evaluation of swallowing was performed in the AP and lateral projection s by the speech pathology staff. The patient is fed varying consistencies of barium. FLUOROSCOPY TIME: 2.02 minutes. 3234 images.11.0 mGy COMPARISON STUDY: None. FINDINGS: There is abnormal hyoid excursion and epiglottic deflection. Trace silent aspiration with t hin liquid barium and nectar consistencies. Additionally, there is mild esophageal dysmotility with d istal esophageal retention and gastroesophageal reflux. IMPRESSION: 1. Aspiration as above. 2. Please see the speech pathologist report for detailed findings and recommendations. ACT 112: Negative or not required by law. Electronically signed by: Deny Escamilla M.D. 06/14/2023 1:10 PM
--- NOTE | 2023-06-14 15:02 | Hospitalist Progress Note ---
Date of Service June 14, 2023 Assessment & Plan (1) Closed fracture of left hip: Plan: s/p mechanical fall now s/p ORIF 06/[address] Barrow Had orthostasis from acute blood loss anemia preventing PT. Transfused 1 unit PRBCs, followed by pulm edema, pleural effusions, hypoxia Hgb now improved Postoperative pain being managed by Tylenol. Morphine discontinued. Oxycodone discontinued as well. Narcotics were likely leading to respiratory depression, confusion, drowsiness. DVT prophylaxis with SCDs and Eliquis 2.5 p.o. twice daily. PT/OT on board Ross catheter removed. Bowel regimen as needed Appreciate Orthopedics management-WBAT, no hip restrictions (2) Acute metabolic encephalopathy: Plan: Most likely narcotic induced Was associated with respiratory depression, bradycardia, hypotension Resolved Narcotics discontinued There was a question of fat embolism due to recent hip fracture with altered mental status, acute kidney injury and respiratory failure. Continue supportive treatment (3) Aspiration into airway: Plan: Patient had gone into respiratory distress Aspiration could have contributed Currently on room On J.G. inkn Speech therapy allowed a p.o. 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 Hold off on further diuretics Ross catheter removed Avoid nephrotoxins (5) Acute blood loss anemia: Plan: hgb dropped to 7.5 from 14 on admission, with orthostasis post-op with SBPs in 70s with standing, no new bleeding but likely from prior hip fracture Transfused 1 unit PRBCs 06/10 Hemoglobin improved and with volume overload -was diuresed on 06/11 Follow CBC in AM Ok to continue ELiquis (6) Acute respiratory failure with hypoxia: Plan: developed overnight 06/10-06/11, requiring 15L NC CXR with pleural effusions R>L, some atelectasis Secondary to acute on chronic HFpEF as well as atelectasis from being bedridden. Echo performed earlier this hospitalization with preserved EF Was given Lasix 20 Mg IV x 1 overnight on 06/10, Lasix 20 Mg IV x 1 on 06/11 Monitor I's and O's Resolved Now on room air Could have been due to a combination of fluid overload, aspiration, narcotic use leading to altered mental status (7) Fracture of rib of right side: Plan: Multiple rib fractures without pain therefore do not suspect acute although new since March 2023 He was not having any pain in the ribs prior to admission Associated large right sided pleural effusion now drained (8) Pleural effusion, right: Plan: Large right sided pleural effusion with compressive atelectasis found on admission Suspect traumatic given rib fractures BNP normal, ECHO normal Does not appear acute with no pain, shortness of breath or hypoxia on admission Consult pulmonology for thoracentesis appreciated-removed 1.7 L loy cloudy, bloody fluid, exudative, with cultures no growth to date, and cytology negative- likely from rib fractures Follow pleural fluid cxs-no growth Stable now Appreciate PULM consult Continue Eliquis (9) Fall: Plan: No concerning findings prior to falling needing further workup Skin tears on elbow following fall, appreciate wound care nurse management (10) Type 2 diabetes mellitus: Plan: Hemoglobin A1c 6.1 [05/25/2023], no need to repeat this Hold glipizide Continue NovoLog supplemental insulin as needed (11) Hypercholesteremia: Plan: simvastatin placed on hold while n.p.o. (12) BPH (benign prostatic hyperplasia): Plan: terazosin placed on hold while n.p.o. Ross in place (13) Vitamin D deficiency: Plan: Vit D level severely low at 8 Started Vitamin D 1000uits once daily but now placed on hold while n.p.o. Plan VTE prophylaxis -Eliquis to be resumed provided he passes the swallow test today Of note, the Eliquis is to be given for 2 to 4 weeks postoperatively as per orthopedic surgery PT/OT recommending acute rehab Admission and Anticipated Discharge Date Admission Date: June 07, 2023 Subjective Patient feels well. Quite weak in general. Denies chest pain or shortness of breath. Review of Systems Review of Systems: All systems reviewed & are unremarkable except as noted in Subjective Physical Exam Physical Exam: General: Awake, conversant, elderly, frail looking. AO x 2. Heart: S1, S2/regular rate and rhythm, no murmur rubs or gallops Lungs: Diminished breath sounds. Normal effort Abdomen: Soft/nontender/nondistended. No hepatosplenomegaly Extremities: No clubbing/cyanosis. No edema Behavior: Appropriate, cooperative Results & Data Results & Data Vital Signs (Past 12 Hours) Vital Signs Temp Pulse Pulse Resp BP Pulse Ox O2 Del Method 06/14/23 14:03 70 06/14/23 11:46 36.3 C L 65 18 135/73 98 Room Air 06/14/23 07:47 Room Air 06/14/23 07:25 36.4 C L 69 16 149/64 H 94 Room Air 06/14/23 06:30 66 06/14/23 04:30 36.6 C 74 20 116/66 92 Room Air Laboratory Results Abnormal lab results 06/13/23 06/13/23 06/14/23 Range/Units 16:36 20:51 01:51 Potassium 3.4 L (3.5-5.1) mmol/L BUN 46 H (6-23) mg/dl Creatinine 1.47 H (0.6-1.4) mg/dl BUN/Creatinine Ratio 31.3 H (10-20) Glucose 106 H (70-99(Fasting)) mg/dl POC Glucose 162 H 176 H (70-99) mg/dl Calcium 7.3 L (8.6-10.3) mg/dl Total Bilirubin 1.6 H (0.2-1.0) mg/dl Total Protein 4.3 L (6.0-8.3) gm/dl Albumin 2.4 L (3.4-5.0) gm/dl Globulin 1.9 L (2.5-4.0) gm/dl 06/14/23 06/14/23 Range/Units 08:09 12:01 Potassium (3.5-5.1) mmol/L BUN (6-23) mg/dl Creatinine (0.6-1.4) mg/dl BUN/Creatinine Ratio (10-20) Glucose (70-99(Fasting)) mg/dl POC Glucose 155 H 224 H (70-99) mg/dl Calcium (8.6-10.3) mg/dl Total Bilirubin (0.2-1.0) mg/dl Total Protein (6.0-8.3) gm/dl Albumin (3.4-5.0) gm/dl Globulin (2.5-4.0) gm/dl Diagnostic Findings Chest X-Ray 06/14/23 07:00 XR chest 1V portable HISTORY: Follow-up pleural effusion COMPARISON: Chest 06/12/2023. FINDINGS: No pneumothorax. The heart remains mildly enlarged. Pulmonary vascular congestion and bibasilar densities persist. There are small bilateral pleural effusions most pronounced on the right. This is also unchanged. Calcifications within the aortic knob. The upper lung zones remain clear. No acute fractures. IMPRESSION: 1. No change in the bilateral pleural effusions and bibasilar densities. 2. Cardiomegaly and mild pulmonary vascular congestion persists. ACT 112: Negative or not required by law. Electronically signed by: Je Sarkar M.D. 06/14/2023 7:16 AM Videofluoroscopic Swallow 06/14/23 11:24 FL video swallow CLINICAL HISTORY: 87 years-old Male with r/o aspiration. Dysphagia TECHNIQUE: Video fluoroscopic evaluation of swallowing was performed in the AP and lateral projections by the speech pathology staff. The patient is fed varying consistencies of barium. FLUOROSCOPY TIME: 2.02 minutes. 3234 images.11.0 mGy COMPARISON STUDY: None. FINDINGS: There is abnormal hyoid excursion and epiglottic deflection. Trace silent aspiration with thin liquid barium and nectar consistencies. Additionally, there is mild esophageal dysmotility with distal esophageal retention and gastroesophageal reflux. IMPRESSION: 1. Aspiration as above. 2. Please see the speech pathologist report for detailed findings and recommendations. ACT 112: Negative or not required by law. Electronically signed by: Deny Escamilla M.D. 06/14/2023 1:10 PM PG Care Time/CCT Total # of Minutes Spent Total Time Spent with Patient: Total time spent is greater than 50% in coordination of care (as documented) at patient's floor/unit and/or counseling patient: Coding Level of Care Code 83271 SUB INP/OBS CARE 2/35MIN Diagnoses Closed fracture of left hip S72.002A Encounter type: initial encounter Acute metabolic encephalopathy G93.41 Aspiration into airway T17.908A Acute kidney injury N17.9 Acute blood loss anemia D62 Acute respiratory failure with hypoxia J96.01 Fracture of rib of right side S22.31XA Pleural effusion, right J90 Fall W19.XXXA Encounter type: initial encounter Type 2 diabetes mellitus E11.9 Hypercholesteremia E78.00 Benign prostatic hyperplasia with nocturia N40.1; R35.1 Lower urinary tract symptom presence: symptoms present Lower urinary tract symptom detail: nocturia Vitamin D deficiency E55.9 (1) Closed fracture of left hip Encounter type: initial encounter Qualified Code(s): S72.002A - Fracture of unspecified part of neck of left femur, initial encounter for closed fracture (9) Fall Encounter type: initial encounter Qualified Code(s): W19.XXXA - Unspecified fall, initial encounter (12) BPH (benign prostatic hyperplasia) Lower urinary tract symptom presence: symptoms present Lower urinary tract symptom detail: nocturia Qualified Code(s): N40.1 - Benign prostatic hyperplasia with lower urinary tract symptoms; R35.1 - Nocturia
--- NOTE | 2023-06-15 10:04 | Orthopedic Progress Note ---
Date of Service June 15, 2023 Assessment & Plan (1) Closed fracture of left hip: Plan: Dressings were clean dry and intact and left in place Patient will be discharged to detention facility for rehabilitation hopefully today or tomorrow. He has been approved and is just waiting for a bed to open up. Continue mobilization with PT and OT. Continue Eliquis. Hemoglobin 9. Hematocrit 26 status post transfusion. Ross is out. Will continue to monitor wound. He may weight-bear as tolerated. Follow-up at our clinic for staple removal in approximately 1 week Admission and Anticipated Discharge Date Admission Date: June 07, 2023 Subjective This patient is seen for follow-up of open reduction internal fixation for a left trochanteric hip fracture performed by Dr. Barrow on the on June 08. Patient states he is doing well. He understands that he will need to go to detention facility for rehab. He states that he has had significant difficulty participating with physical therapy while inpatient. States that the pain in his hip is well-controlled with p.o. pain medication. He is currently on Eliquis for DVT prophylaxis. Patient denies chest pain, shortness of breath, fever, chills, sweats, numbness or tingling in his left lower extremity. He also denies nausea, vomiting, diarrhea or difficulty voiding. Review of Systems Review of Systems: As per HPI. Physical Exam Physical Exam: Left lower extremity: Patient is able to slightly perform an active straight leg raise test. He can actively dorsi and plantarflex his foot. Knee is slightly flexed. He tolerates light logroll testing. Passive hip flexion to 80 degrees does not cause pain. He has no pain with passive light internal and external hip rotation. All dressings were clean, dry and intact. They were left in place. He is able to detect light sensation to touch in the L 4, L5 and S1 dermatomes. He is neurovascularly intact in left lower extremity. Results & Data Vital Signs (Past 12 Hours) Vital Signs Temp Pulse Pulse Resp BP Pulse Ox O2 Del Method 06/15/23 07:28 36.7 C 78 18 134/70 95 Room Air 06/15/23 07:07 77 06/14/23 23:00 36.4 C L 77 16 102/56 L 96 Room Air 06/14/23 22:07 74 Diagnostic Findings Laboratory Results WBC 7.41 K/ul (4.8-10.8) 06/13/23 06:54 RBC 2.78 M/uL (4.70-6.10) L 06/13/23 06:54 Hgb 8.7 g/dl (14.0-18.0) L 06/13/23 06:54 POC Hgb 9.5 g/dl (14.0-18.0) L 06/11/23 18:33 Hct 25.9 % (42.0-52.0) L 06/13/23 06:54 POC Hct 28 % (42-52) L 06/11/23 18:33 MCV 93.2 fL (80.0-100.0) 06/13/23 06:54 MCH 31.3 pg (25.0-34.0) 06/13/23 06:54 MCHC 33.6 g/dL (32.0-36.0) 06/13/23 06:54 RDW Std Deviation 47.5 fL (36.4-46.3) H 06/13/23 06:54 RDW Coeff of Glenn 14.1 % (11.5-14.5) 06/13/23 06:54 Plt Count 196 K/uL (130-400) 06/13/23 06:54 MPV 9.6 fL (9.4-12.4) 06/13/23 06:54 Immature Gran % (Auto) 0.4 % 06/13/23 06:54 Neut % (Auto) 74.0 % 06/13/23 06:54 Lymph % (Auto) 12.4 % 06/13/23 06:54 Mccone % (Auto) 9.0 % 06/13/23 06:54 Eos % (Auto) 4.2 % 06/13/23 06:54 Baso % (Auto) 0.0 % 06/13/23 06:54 Neut # (Auto) 5.48 K/uL (1.40-6.50) 06/13/23 06:54 Lymph # (Auto) 0.92 K/uL (1.20-3.40) L 06/13/23 06:54 Mccone # (Auto) 0.67 K/uL (0.11-0.59) H 06/13/23 06:54 Eos # (Auto) 0.31 K/uL (0.00-0.50) 06/13/23 06:54 Baso # (Auto) 0.00 K/uL (0.00-0.20) 06/13/23 06:54 Immature Gran # (Auto) 0.03 K/uL (0.01-0.20) 06/13/23 06:54 Polychromasia 1+ 06/10/23 10:20 PT 11.6 Seconds (9.0-12.0) 06/07/23 15:02 INR 1.1 (0.9-1.1) 06/07/23 15:02 POC pH 7.43 (7.35-7.45) 06/11/23 18:33 POC pCO2 31 mmHg (35-46) L 06/11/23 18:33 POC pO2 143 mmHg (80-95) H 06/11/23 18:33 POC HCO3 21 arnoldo/L (19-24) 06/11/23 18:33 POC Total CO2 22 mmol/L (24-31) L 06/11/23 18:33 POC Base Excess -4.0 arnoldo/L (-9-1.8) 06/11/23 18:33 ABG pH 7.46 (7.35-7.45) H 06/11/23 15:24 ABG pCO2 31 mmHg (35-46) L 06/11/23 15:24 ABG pO2 138 mmHg (80-95) H 06/11/23 15:24 ABG HCO3 22 mmol/L (19-24) 06/11/23 15:24 POC ABG O2 Sat 99.0 % (90-95) H 06/11/23 18:33 ABG O2 Saturation 98.9 % (90-95) H 06/11/23 15:24 ABG Base Excess -0.9 mEq/L (-9-1.8) 06/11/23 15:24 Sheng Test Pos (Pos) 06/11/23 15:24 Oxygen Given 70% 06/11/23 15:24 POC Sodium 137 mmol/L (135-144) 06/11/23 18:33 Sodium 137 mmol/L (136-145) 06/14/23 01:51 POC Potassium 4.0 mmol/L (3.3-5.0) 06/11/23 18:33 Potassium 3.4 mmol/L (3.5-5.1) L 06/14/23 01:51 Chloride 107 mmol/L (98-107) 06/14/23 01:51 Carbon Dioxide 23 mmol/L (21-32) 06/14/23 01:51 Anion Gap 7 (3-11) 06/14/23 01:51 BUN 46 mg/dl (6-23) H 06/14/23 01:51 Creatinine 1.47 mg/dl (0.6-1.4) H 06/14/23 01:51 Est Cr Clr Drug Dosing 31.3 ml/min 06/14/23 01:51 Est GFR ( Amer) 48.7 ml/min 06/14/23 01:51 Est GFR (Non-Af Amer) 42.0 ml/min 06/14/23 01:51 BUN/Creatinine Ratio 31.3 (10-20) H 06/14/23 01:51 Glucose 106 mg/dl (70-99(Fasting)) H 06/14/23 01:51 POC Glucose 179 mg/dl (70-99) H 06/15/23 07:53 Calcium 7.3 mg/dl (8.6-10.3) L 06/14/23 01:51 Magnesium 2.1 mg/dl (1.7-2.4) 06/14/23 01:51 Total Bilirubin 1.6 mg/dl (0.2-1.0) H 06/14/23 01:51 Direct Bilirubin 0.4 mg/dl (0-0.2) H 06/11/23 19:52 AST 29 U/L (13-39) 06/14/23 01:51 ALT 10 U/L (7-52) 06/14/23 01:51 Alkaline Phosphatase 48 U/L (34-104) 06/14/23 01:51 Troponin I High Sens 358.5 pg/ml (0-20) H* D 06/12/23 04:28 B-Natriuretic Peptide 91 pg/ml (0-100) 06/11/23 15:24 Total Protein 4.3 gm/dl (6.0-8.3) L 06/14/23 01:51 Albumin 2.4 gm/dl (3.4-5.0) L 06/14/23 01:51 Globulin 1.9 gm/dl (2.5-4.0) L 06/14/23 01:51 Albumin/Globulin Ratio 1.3 (0.9-2) 06/14/23 01:51 25-OH Vitamin D Total 8.8 ng/ml (30-100) L 06/08/23 07:10 Procalcitonin 0.06 ng/ml (0-0.5) 06/07/23 13:45 TSH 1.901 uIu/ml (0.300-4.500) 06/11/23 19:52 Random Cortisol 54.04 mcg/dl 06/11/23 19:52 Fluid Neutrophils % 0 % 06/07/23 Unknown Fluid Lymphocytes % 57 % 06/07/23 Unknown Fluid Eosinophils % 15 % 06/07/23 Unknown Fluid Meso/Macro/Mccone % 28 % 06/07/23 Unknown Fluid Comment 06/07/23 Unknown Pleural Fluid Source Right Lung 06/07/23 Unknown Pleural Color Katya 06/07/23 Unknown Pleural Appearance Hazy 06/07/23 Unknown Pleural pH 7.44 (7.3-7.4) H 06/07/23 Unknown Pleural WBC (Auto) 230 /uL 06/07/23 Unknown Pleural RBC (Auto) 12174 /uL 06/07/23 Unknown Pleural Total Protein 3.4 gm/dl 06/07/23 Unknown Pleural LDH 147 U/L 06/07/23 Unknown Pleural Glucose 159 mg/dl 06/07/23 Unknown Nasal Screen MRSA (PCR) Negative (Negative) 06/07/23 Unknown SARS-CoV-2, RNA, NAAT NEGATIVE (NEGATIVE) 06/07/23 13:45 Blood Type A Positive 06/10/23 13:31 Blood Type Recheck A Positive 06/07/23 15:02 Antibody Screen NEGATIVE 06/10/23 13:31 Crossmatch See Detail 06/10/23 13:31 Impressions Femur X-Ray 06/07/23 13:23 XR femur LT 2V routine CLINICAL HISTORY: fall COMPARISON STUDY: None. FINDINGS: Comminuted and mildly displaced intertrochanteric fracture within the proximal left femur. The visualized pelvic bones are intact. The femoral fracture demonstrates up to 1.6 cm of superior displacement. No dislocation of the femoral head. Soft tissue swelling within the left hip. IMPRESSION: Comminuted and mildly displaced intertrochanteric fracture within the proximal left femur. ACT 112: Negative or not required by law. Electronically signed by: Je Sarkar M.D. 06/07/2023 3:04 PM Hip/Pelvis X-Ray 06/07/23 13:23 XR hip LT 2V w pelvis HISTORY: 87 years-old Male fall, pain acute left hip pain COMPARISON: Femur radiographs of same day TECHNIQUE: AP view of the pelvis with 2 views of the left hip FINDINGS: Mild ostial arthritis of the hips. There is acute and comminuted intratrochanteric left femoral fracture which demonstrates impaction/foreshortening with 1.6 m superior displacement. No dislocation. Mild soft tissue swelling. IMPRESSION: Acute, comminuted and displaced intertrochanteric left femoral fracture. ACT 112: Negative or not required by law. The above report was generated using voice recognition software. It may contain grammatical, syntax or spelling errors. Electronically signed by: Deny Escamilla M.D. 06/07/2023 3:[address] 06/07/23 15:31 CT cervical spine wo con CLINICAL HISTORY: 87 years-old Male with fall. Acute neck pain status post fall COMPARISON: Chest radiograph of same day. TECHNIQUE: Multiple axial CT images of the cervical spine were obtained without contrast. A dose lowering technique was utilized adhering to the principles of ALARA. FINDINGS: Right pleural effusion with right lung volume loss. Demineralized appearance of the bones. 30% superior endplate compression at T1 without retropulsion is likely chronic. Multilevel degenerative changes include severe C3-C4 and moderate C5-C6 intervertebral disc space narrowing. Moderate multi level spondylotic spurring and facet arthrosis. No acute cervical spine fracture or subluxation identified. Unremarkable soft tissues. No acute intracranial abnormality identified. IMPRESSION: 1. No acute cervical spine fracture or subluxation identified. 2. Partially imaged large right pleural effusion. ACT 112: Negative or not required by law. The above report was generated using voice recognition software. It may contain grammatical, syntax or spelling errors. Electronically signed by: Deny Escamilla M.D. 06/07/2023 4:[address] 06/07/23 15:31 CT SCAN OF THE BRAIN WITHOUT IV CONTRAST CLINICAL HISTORY: Fall. COMPARISON STUDY: No priors. TECHNIQUE: Unenhanced axial CT scan of the brain is performed from the vertex to the skull base. A dose lowering technique was utilized adhering to the principles of ALARA. 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 There is age-related involutional change noting moderate subcortical and periventricular microangiopathic disease. There is no hemorrhage, mass effect, or evidence of acute territorial ischemia by CT c riteria. Ponce-white matter differentiation is preserved. No extra-axial fluid collection is seen. Ventricles, sulci, cisterns: Prominent secondary to involutional change. Intracranial vasculature: There is atherosclerotic calcification of the cavernous carotid arteries. Calvarium: The skeletal structures are osteopenic. No depressed calvarial fracture is seen. Sinuses and mastoids: The visualized paranasal sinuses are clear. The mastoid air cells are well pneumatized. Orbits: The bony orbits are grossly intact. IMPRESSION: There is no hemorrhage, mass effect, or evidence of acute territorial ischemia by CT criteria. ACT 112: Negative or not required by law. Electronically signed by: Stanislaw Tang M.D. 06/07/2023 4:08 PM Abdomen/Pelvis CT 06/07/23 15:[address] WITH IV CONTRAST CT DOSE: HISTORY: fall TECHNIQUE: Multiaxial CT images of the abdomen and pelvis were performed following the use of intravenous contrast. A dose lowering technique was utilized adhering to the principles of ALARA. COMPARISON STUDY: None. FINDINGS: The lung bases will be reported on the same day chest CTA. There is a large right pleural effusion resulting in compressive atelectasis of the right middle lobe and right lower lobe. There are multiple subacute/healing right- sided rib fractures. There are old, healed left-sided rib fractures. No pneumoperitoneum. No pneumatosis. There are healing right seventh T8-T10 transverse process fractures noted. Small fat-containing bilateral inguinal hernias. There is a comminuted and displaced intertrochanteric fracture within the proximal left femur. The lesser trochanter fragment abuts and slightly displaces the proximal left superficial femoral artery. However, no active arterial extravasation to suggest an arterial injury. This is best seen on axial image 372. The liver, gallbladder, pancreas, spleen, and adrenal glands are unremarkable. Mild bilateral cortical renal scarring. There is a 3.5 cm left lower pole renal cyst. No hydronephrosis. The main portal vein is patent. Calcified plaque within the normal caliber abdominal aorta. No retroperitoneal hematoma or lymphadenopathy identified. The bladder is unremarkable. The prostate gland is mildly enlarged. Colonic diverticulosis. No evidence for acute diverticulitis. No bowel wall thickening or obstruction. Normal appendix. IMPRESSION: 1. Acute comminuted and displaced intertrochanteric fracture of the proximal left femur. The lesser trochanter bony fragment abuts and slightly displaces the proximal left superficial femoral artery. However, no evidence for active arterial extravasation to suggest an acute arterial injury. 2. Large right pleural effusion and multiple subacute right rib and thoracic transverse process fractures are better appreciated on the same day chest CT. 3. Additional findings as described above. ACT 112: Negative or not required by law. Electronically signed by: Je Sarkar M.D. 06/07/2023 4:[address] 06/07/23 15:[address] WITH CONTRAST CT DOSE: 2683.6 mGy.cm HISTORY: Acute chest trauma status post fall fall TECHNIQUE: Multiaxial CT images of the chest were performed following the IV administration of 90 cc of Optiray. A dose lowering technique was utilized adhering to the principles of ALARA. COMPARISON: Chest radiograph of same day FINDINGS: Unremarkable thyroid. There is no lymphadenopathy. Extensive coronary artery calcifications. The heart is mildly enlarged. Unremarkable thoracic aorta with moderate atherosclerosis. The opacified pulmonary artery is unremarkable. The study is degraded by respiratory motion. There is a large right pleural effusion. Right lung volume loss with compressive atelectasis. Near complete collapse of the right lower and middle lobes. Tracheobronchial secretions with mucous plugging. Patchy left basilar densities suggestive of atelectasis. Mild left upper lung scarring. No acute upper abdominal abnormality identified. Degenerative changes of the shoulders and spine. Subacute nondisplaced healing fractures of the right T6-T10 transverse processes. Chronic appearing nondisplaced fractures of the anterior right second, third and fourth ribs. Subacute fractures of the anterior right fifth through seventh ribs without displacement. Additionally, there are subacute mildly displaced fractures of the posterolateral right fourth through 10th ribs. No acute vertebral body fracture identified. IMPRESSION: 1. Chronic and subacute right-sided rib fractures as above with healing subacute nondisplaced fractures of the right T6-T10 transverse processes. 2. Large right pleural effusion with partial collapse of the right lung. 3. No pneumothorax. 4. Please refer to the CT abdomen and pelvis study of same day for additional findings. ACT 112: Negative or not required by law. Electronically signed by: Deny Escamilla M.D. 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 There is persistent displacement of the lesser trochanteric fracture fragment. Expected postoperative soft tissue swelling with deep tissue air. Radiopaque sponge projects over the distal thigh on image 2. IMPRESSION: Fluoroscopic assistance as above. ACT 112: Negative or not required by law. Electronically signed by: Deny Escamilla M.D. 06/08/2023 6:11 PM Chest CTA 06/11/23 19:12 Exam(s): CTA CHEST IV Amt: OPTIRAY [id number] EXAM: CT Angiography Chest With Intravenous Contrast CLINICAL HISTORY: Reason for exam: PE. TECHNIQUE: Axial computed tomographic angiography images of the chest with intravenous contrast. CTDI is 23.75 mGy and DLP is 765.43 mGy-cm. Automated exposure control was utilized for the study. A dose lowering technique was utilized adhering to the principles of ALARA. MIP reconstructed images were created and reviewed. COMPARISON: 06/07/2023 FINDINGS: Pulmonary arteries: No pulmonary embolism. Aorta: No acute findings. Normal caliber. No dissection. Lungs: New airspace opacities in the left lower lobe. Pneumonia or aspiration can have this appearance. Unchanged consolidative atelectasis/partial collapse of the right lower lobe and right middle lobe. Pleural space: Moderate right pleural effusion. No pneumothorax. Heart: Unremarkable. Bones/joints: Multiple right-sided rib and transverse process fractures again visualized. Soft tissues: Unremarkable. Lymph nodes: Unremarkable. IMPRESSION: 1. No pulmonary embolism. 2. Moderate right pleural effusion. 3. New airspace opacities in the left lower lobe. Pneumonia or aspiration can have this appearance. 4. Unchanged consolidative atelectasis/partial collapse of the right lower lobe and right middle lobe. Electronically signed by: Fan Lao MD 06/11/23 20:06 PM Chest X-Ray 06/14/23 07:00 XR chest 1V portable HISTORY: Follow-up pleural effusion COMPARISON: Chest 06/12/2023. FINDINGS: No pneumothorax. The heart remains mildly enlarged. Pulmonary vascular congestion and bibasilar densities persist. There are small bilateral pleural effusions most pronounced on the right. This is also unchanged. Calcifications within the aortic knob. The upper lung zones remain clear. No acute fractures. IMPRESSION: 1. No change in the bilateral pleural effusions and bibasilar densities. 2. Cardiomegaly and mild pulmonary vascular congestion persists. ACT 112: Negative or not required by law. Electronically signed by: Je Sarkar M.D. 06/14/2023 7:16 AM Videofluoroscopic Swallow 06/14/23 11:24 FL video swallow CLINICAL HISTORY: 87 years-old Male with r/o aspiration. Dysphagia TECHNIQUE: Video fluoroscopic evaluation of swallowing was performed in the AP and lateral projections by the speech pathology staff. The patient is fed varying consistencies of barium. FLUOROSCOPY TIME: 2.02 minutes. 3234 images.11.0 mGy COMPARISON STUDY: None. FINDINGS: There is abnormal hyoid excursion and epiglottic deflection. Trace silent aspiration with thin liquid barium and nectar consistencies. Additionally, there is mild esophageal dysmotility with distal esophageal retention and gastroesophageal reflux. IMPRESSION: 1. Aspiration as above. 2. Please see the speech pathologist report for detailed findings and recommendations. ACT 112: Negative or not required by law. Electronically signed by: Deny Escamilla M.D. 06/14/2023 1:10 PM (1) Closed fracture of left hip Encounter type: initial encounter Qualified Code(s): S72.002A - Fracture of unspecified part of neck of left femur, initial encounter for closed fracture
[2023-06-15 10:14] LABS: Calcium 7.4 mg/dl (8.6-10.3); Creatinine Clr Calc Pharmacy 34.9 ml/min; Est GFR (African American) 55.4 ml/min; Est GFR (Non-African American) 47.8 ml/min; Potassium 4.1 mmol/L (3.5-5.1)
--- NOTE | 2023-06-15 16:12 | Hospitalist Progress Note ---
Date of Service June 15, 2023 Assessment & Plan (1) Closed fracture of left hip: Plan: s/p mechanical fall now s/p ORIF 06/[address] Barrow Had orthostasis from acute blood loss anemia preventing PT. Transfused 1 unit PRBCs, followed by pulm edema, pleural effusions, hypoxia Hgb now improved Postoperative pain being managed by Tylenol. Morphine discontinued. Oxycodone discontinued as well. Narcotics were likely leading to respiratory depression, confusion, drowsiness. DVT prophylaxis with SCDs and Eliquis 2.5 p.o. twice daily. PT/OT on board Ross catheter removed. Bowel regimen as needed Appreciate Orthopedics management-WBAT, no hip restrictions (2) Acute metabolic encephalopathy: Plan: Most likely narcotic induced Was associated with respiratory depression, bradycardia, hypotension Resolved Narcotics discontinued There was a question of fat embolism due to recent hip fracture with altered mental status, acute kidney injury and respiratory failure. Continue supportive treatment (3) Aspiration into airway: Plan: Patient had gone into respiratory distress Aspiration could have contributed Currently on room On Zosyn. Will discontinue upon discharge. Speech therapy allowed a p.o. 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 Hold off on further diuretics Ross catheter removed Avoid nephrotoxins (5) Acute blood loss anemia: Plan: hgb dropped to 7.5 from 14 on admission, with orthostasis post-op with SBPs in 70s with standing, no new bleeding but likely from prior hip fracture Transfused 1 unit PRBCs 06/10 Hemoglobin improved and with volume overload -was diuresed on 06/11 Follow CBC in AM Ok to continue ELiquis (6) Acute respiratory failure with hypoxia: Plan: developed overnight 06/10-06/11, requiring 15L NC CXR with pleural effusions R>L, some atelectasis Secondary to acute on chronic HFpEF as well as atelectasis from being bedridden. Echo performed earlier this hospitalization with preserved EF Was given Lasix 20 Mg IV x 1 overnight on 06/10, Lasix 20 Mg IV x 1 on 06/11 Monitor I's and O's Resolved Now on room air Could have been due to a combination of fluid overload, aspiration, narcotic use leading to altered mental status (7) Fracture of rib of right side: Plan: Multiple rib fractures without pain therefore do not suspect acute although new since March 2023 He was not having any pain in the ribs prior to admission Associated large right sided pleural effusion now drained (8) Pleural effusion, right: Plan: Large right sided pleural effusion with compressive atelectasis found on admission Suspect traumatic given rib fractures BNP normal, ECHO normal Does not appear acute with no pain, shortness of breath or hypoxia on admission Consult pulmonology for thoracentesis appreciated-removed 1.7 L loy cloudy, bloody fluid, exudative, with cultures no growth to date, and cytology negative- likely from rib fractures Follow pleural fluid cxs-no growth Stable now Appreciate PULM consult Continue Eliquis (9) Fall: Plan: No concerning findings prior to falling needing further workup Skin tears on elbow following fall, appreciate wound care nurse management (10) Type 2 diabetes mellitus: Plan: Hemoglobin A1c 6.1 [05/25/2023], no need to repeat this Hold glipizide Continue NovoLog supplemental insulin as needed (11) Hypercholesteremia: Plan: simvastatin placed on hold while n.p.o. (12) BPH (benign prostatic hyperplasia): Plan: terazosin placed on hold while n.p.o. Ross in place (13) Vitamin D deficiency: Plan: Vit D level severely low at 8 Started Vitamin D 1000uits once daily but now placed on hold while n.p.o. Plan VTE prophylaxis -Eliquis Of note, the Eliquis is to be given for 2 to 4 weeks postoperatively as per orthopedic surgery PT/OT recommending acute rehab Likely discharge tomorrow Admission and Anticipated Discharge Date Admission Date: June 07, 2023 Subjective Patient feels well. Denies chest pain or shortness of breath.. Just complains of feeling weak in general Review of Systems Review of Systems: All systems reviewed & are unremarkable except as noted in Subjective Physical Exam Physical Exam: General: Awake, conversant, elderly, frail looking. AO x 2. Heart: S1, S2/regular rate and rhythm, no murmur rubs or gallops Lungs: Diminished breath sounds. Normal effort Abdomen: Soft/nontender/nondistended. No hepatosplenomegaly Extremities: No clubbing/cyanosis. No edema Behavior: Appropriate, cooperative Results & Data Results & Data Vital Signs (Past 12 Hours) Vital Signs Temp Pulse Pulse Resp BP Pulse Ox O2 Del Method 06/15/23 16:00 68 06/15/23 15:04 36.6 C 73 18 128/71 98 Room Air 06/15/23 11:37 36.8 C 78 16 107/58 L 91 Room Air 06/15/23 07:28 36.7 C 78 18 134/70 95 Room Air 06/15/23 07:07 77 Laboratory Results Abnormal lab results 06/14/23 06/14/23 06/15/23 Range/Units 17:03 21:16 07:53 Sodium (136-145) mmol/L BUN (6-23) mg/dl BUN/Creatinine Ratio (10-20) Glucose (70-99(Fasting)) mg/dl POC Glucose 207 H 210 H 179 H (70-99) mg/dl Calcium (8.6-10.3) mg/dl 06/15/23 06/15/23 Range/Units 09:32 12:09 Sodium 134 L (136-145) mmol/L BUN 33 H (6-23) mg/dl BUN/Creatinine Ratio 25.0 H (10-20) Glucose 236 H (70-99(Fasting)) mg/dl POC Glucose 155 H (70-99) mg/dl Calcium 7.4 L (8.6-10.3) mg/dl PG Care Time/CCT Total # of Minutes Spent Total Time Spent with Patient: Total time spent is greater than 50% in coordination of care (as documented) at patient's floor/unit and/or counseling patient: Coding Level of Care Code 57998 SUB INP/OBS CARE 2/35MIN Diagnoses Closed fracture of left hip S72.002A Encounter type: initial encounter Acute metabolic encephalopathy G93.41 Aspiration into airway T17.908A Acute kidney injury N17.9 Acute blood loss anemia D62 Acute respiratory failure with hypoxia J96.01 Fracture of rib of right side S22.31XA Pleural effusion, right J90 Fall W19.XXXA Encounter type: initial encounter Type 2 diabetes mellitus E11.9 Hypercholesteremia E78.00 Benign prostatic hyperplasia with nocturia N40.1; R35.1 Lower urinary tract symptom presence: symptoms present Lower urinary tract symptom detail: nocturia Vitamin D deficiency E55.9 (1) Closed fracture of left hip Encounter type: initial encounter Qualified Code(s): S72.002A - Fracture of unspecified part of neck of left femur, initial encounter for closed fracture (9) Fall Encounter type: initial encounter Qualified Code(s): W19.XXXA - Unspecified fall, initial encounter (12) BPH (benign prostatic hyperplasia) Lower urinary tract symptom presence: symptoms present Lower urinary tract symptom detail: nocturia Qualified Code(s): N40.1 - Benign prostatic hyperplasia with lower urinary tract symptoms; R35.1 - Nocturia
--- NOTE | 2023-06-16 10:14 | Discharge Summary ---
Date of Service June 16, 2023 Admission HPI Per Admitting Provider Jung Domingo is an 87-year-old male who presents to the ER after falling and injuring his left hip. No loss of consciousness. No antiplatelets or anticoagulation. He was kicking a box of coins on the floor when he tripped and fell. No chest pain, shortness of breath or dizziness prior to the fall. In the ER his routine preop chest x-ray showed a new right-sided large pneumothorax with multiple subacute rib fractures. Subsequent CT chest confirmed these rib fractures are subacute to chronic however the presumed traumatic pleural effusion is new since chest x-ray in March 2023. ER physician discussed with pulmonology and given this is not acute this will be managed here and no need to transfer to a trauma center at this time. The patient denies any fall onto his right side, no shortness of breath, no right sided chest pain. Principal Diagnosis Left hip fracture status post open reduction internal fixation on 06/08 Large right sided hemothorax, most likely traumatic from previous fall and rib fractures. Status post paracentesis Fall with generalized weakness Acute hypoxic respiratory failure secondary to aspiration and narcotic overuse Metabolic encephalopathy now resolved Acute kidney injury Aspiration Discharge Exam General: Awake, conversant, elderly, frail looking. AO x 2. Heart: S1, S2/regular rate and rhythm, no murmur rubs or gallops Lungs: Diminished breath sounds. Normal effort Abdomen: Soft/nontender/nondistended. No hepatosplenomegaly Extremities: No clubbing/cyanosis. No edema Behavior: Appropriate, cooperative Discharge Data Allergies Allergy/AdvReac Type Severity Reaction Status Date / Time No Known Allergies Allergy Verified 06/07/23 15:29 Consultations 06/07/23 15:15 Consult Orthopedic Surgery Routine 06/07/23 15:29 ED Decision to Admit Stat 06/07/23 16:45 Consult Pulmonology Routine 06/11/23 18:49 Consult Economic Historian Stat 06/11/23 19:08 Consult Cardiology Routine Procedures Performed Operation Date: 06/08/23 08:25 Actual Procedures p Left Hip Open Reduction Internal Fixation(Left) - Jung Barrow MD Ordered Studies 06/07/23 15:31 CT cervical spine wo con Stat CT head/brain wo con Stat 06/07/23 15:41 CT abd pelvis IV con only Stat CT chest diagnostic w con Stat 06/08/23 12:00 FL hip LT 2-3V Routine 06/11/23 19:12 CT angio chest PE protocol Stat 06/14/23 11:24 Fluoro video [FL video swallow] Routine Hospital Course (1) Closed fracture of left hip: s/p mechanical fall now s/p ORIF 06/[address] Barrow Had orthostasis from acute blood loss anemia preventing PT. Transfused 1 unit PRBCs, followed by pulm edema, pleural effusions, hypoxia Hgb now improved Postoperative pain being managed by Tylenol. Morphine discontinued. Oxycodone discontinued as well. Narcotics were likely leading to respiratory depression, confusion, drowsiness. DVT prophylaxis with SCDs and Eliquis 2.5 p.o. twice daily. PT/OT on board Ross catheter removed. Bowel regimen as needed Appreciate Orthopedics management-WBAT, no hip restrictions (2) Acute metabolic encephalopathy: Most likely narcotic induced Was associated with respiratory depression, bradycardia, hypotension Resolved Narcotics discontinued Continue supportive treatment (3) Aspiration into airway: Patient had gone into respiratory distress Aspiration could have contributed Currently on room Discontinue Zosyn upon discharge Speech therapy allowed a p.o. 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 Hold off on further diuretics Ross catheter removed Avoid nephrotoxins (5) Acute blood loss anemia: hgb dropped to 7.5 from 14 on admission, with orthostasis post-op with SBPs in 70s with standing, no new bleeding but likely from prior hip fracture Transfused 1 unit PRBCs 06/10 Hemoglobin improved and with volume overload -was diuresed on 06/11 Follow CBC in AM Ok to continue ELiquis (6) Acute respiratory failure with hypoxia: developed overnight 06/10-06/11, requiring 15L NC CXR with pleural effusions R>L, some atelectasis Secondary to acute on chronic HFpEF as well as atelectasis from being bedridden. Echo performed earlier this hospitalization with preserved EF Was given Lasix 20 Mg IV x 1 overnight on 06/10, Lasix 20 Mg IV x 1 on 06/11 Monitor I's and O's Resolved Now on room air Could have been due to a combination of fluid overload, aspiration, narcotic use leading to altered mental status (7) Fracture of rib of right side: Multiple rib fractures without pain therefore do not suspect acute although new since March 2023 He was not having any pain in the ribs prior to admission Associated large right sided pleural effusion now drained (8) Pleural effusion, right: Large right sided pleural effusion with compressive atelectasis found on admission Suspect traumatic given rib fractures BNP normal, ECHO normal Does not appear acute with no pain, shortness of breath or hypoxia on admission Consult pulmonology for thoracentesis appreciated-removed 1.7 L loy cloudy, bloody fluid, exudative, with cultures no growth to date, and cytology negative- likely from rib fractures Follow pleural fluid cxs-no growth Stable now Appreciate PULM consult Continue Eliquis (9) Fall: No concerning findings prior to falling needing further workup Skin tears on elbow following fall, appreciate wound care nurse management (10) Type 2 diabetes mellitus: Hemoglobin A1c 6.1 [05/25/2023], no need to repeat this Hold glipizide Continue NovoLog supplemental insulin as needed (11) Hypercholesteremia: simvastatin placed on hold while n.p.o. (12) BPH (benign prostatic hyperplasia): terazosin placed on hold while n.p.o. Ross in place (13) Vitamin D deficiency: Vit D level severely low at 8 Started Vitamin D 1000uits once daily but now placed on hold while n.p.o. Plan VTE prophylaxis -Eliquis Of note, the Eliquis is to be given for 2 to 4 weeks postoperatively as per orthopedic surgery PT/OT recommending acute rehab Discharged today Total Time Total Time Spent Total Time Spent (In Minutes): 35 Discharge Plan Discharge Items Patient Disposition: Transfer [facility] Reason For Visit: HIP FX, LARGE R PLEURAL EFFUSION W/ SUBACUTE/CHRON Discharge Diagnosis: Left hip fracture status post open reduction internal fixation on 06/08 Large right sided hemothorax, most likely traumatic from previous fall and rib fractures. Status post paracentesis Fall with generalized weakness Acute hypoxic respiratory failure secondary to aspiration and narcotic overuse Metabolic encephalopathy now resolved Acute kidney injury Aspiration Activity: As commented below Activity Comment: Per PT/OT recommendation Weightbearing: Right weightbearing Weightbearing Comment: with walker Non-emergency contact: Primary Care Provider Call non-emergency contact if: you have any medication questions and your symptoms worsen Follow-up/Referrals: Devorah Martínez DO [Primary Care Provider] - Joslyn Sorto PA-C [Physician Loader Operator Supervisor] - 06/23/23 3:30 pm Diet: Heart Healthy Diet Texture: Easy to Chew Addtl Attending Provider Instructions: Advised to follow-up with PCP in 1 week Advised to follow-up with orthopedics Addtl Geology Associate Provider Instructions: Patient instructions: -Weight-bear as tolerated left lower extremity with the assistance of a walker at all times. - Keep dressing covered. Reinforce as needed. Redress as needed. -Okay to shower beginning postoperative day 4. May let the soap and water run over this incision. Redress post bathing. Pat incision dry. -Allowed for full range of motion of the left hip, knee and ankle as tolerated. -Ice and elevation to left hip and lower extremity as needed for pain and swelling. -Keep incisions covered at all times. Redress daily if saturated. Call with any increased drainage. Having serous drainage currently (suspect from edema). -Call with any increased pain, swelling, drainage from incision or need to reschedule appointment. [phone]. -Follow-up as scheduled for your postoperative appointment. Pending Studies at Discharge: No Stand-Alone Forms: My [facility] Skilled Items Patient informed of condition?: Yes DNR: No Discharge Level of Care: Skilled Communicable Disease: No Discharge Prognosis: Stable Lines: None Urinary Catheter: No Medications and DC Order Prescriptions: New Eliquis 2.5 mg Tablet 2.5 mg PO BID 30 Days Qty: 60 0RF cholecalciferol (vitamin D3) 25 mcg (1,000 unit) Capsule 25 mcg PO QAM 30 Days Qty: 30 0RF Continued ipratropium bromide 21 mcg (0.03 %) spray,non-aerosol 2 spray intranasal TID Qty: 90 3RF Rx Instructions: administer into each nostril simvastatin 20 mg tablet 20 mg PO HS Qty: 90 3RF (DME) blood-glucose meter Mis See Rx Instructions .Route Qty: 1 0RF Rx Instructions: As directed- test twice daily (DME) lancets Misc See Rx Instructions .Route Qty: 200 3RF Rx Instructions: As directed twice per day (DME) OneTouch Verio test strips Strip See Rx Instructions .Route Qty: 200 3RF Rx Instructions: use to test 2-3 times daily (DME) [facility] See Rx Instructions .Route Qty: 1 0RF Rx Instructions: As directed diclofenac sodium [Voltaren Arthritis Pain] 1 % gel 2 g topical QID Qty: 100 3RF nitroglycerin 0.4 mg tablet, sublingual 0.4 mg sublingual Q5M PRN (Reason: chest pain) Qty: 30 0RF terazosin 5 mg capsule 5 mg PO HS Rx Instructions: TAKE ONE CAPSULE BY MOUTH AT BEDTIME glipizide 5 mg tablet 5 mg PO BID Discharge Orders: Discharge Order (Routine); Ordered 06/16/23 Ordered By: Aaron Benavides Admission Data Admit Date/Time: 06/07/23 16:59 Attending Provider: Aaron Benavides Admit Provider: Davin Triana Primary Care Provider: Devorah Martínez Other Providers: Jourdan Jiménez; [facility]; Jung Barrow; Davin Triana; Gen Wesley Coding Level of Care Code 03739 INP/OBS DISCH >30 MIN Diagnoses Closed fracture of left hip S72.002A Encounter type: initial encounter Acute metabolic encephalopathy G93.41 Aspiration into airway T17.908A Acute kidney injury N17.9 Acute blood loss anemia D62 Acute respiratory failure with hypoxia J96.01 Fracture of rib of right side S22.31XA Pleural effusion, right J90 Fall W19.XXXA Encounter type: initial encounter Type 2 diabetes mellitus E11.9 Hypercholesteremia E78.00 Benign prostatic hyperplasia with nocturia N40.1; R35.1 Lower urinary tract symptom detail: nocturia Lower urinary tract symptom presence: symptoms present Vitamin D deficiency E55.9
--- NOTE | 2023-06-16 10:59 | Orthopedic Progress Note ---
Date of Service June 16, 2023 Assessment & Plan (1) Closed fracture of left hip: Plan: Postop day #8-status post ORIF left hip. He may be out of bed, weight-bear as tolerated with a walker. PT and OT as prescribed. Pain medication as prescribed. Keep incisions covered. Reapply dressings as needed and change daily. No evidence of infection today but he does have serosanguineous drainage. Ice and elevate as needed for pain and swelling. No hip precautions necessary. He may do full range of motion of the ankle, knee and left hip. Okay from orthopedic standpoint for discharge when medically stable. Eliquis chronically which will suffice for DVT prophylaxis. Follow-up next week as scheduled. Admission and Anticipated Discharge Date Admission Date: June 07, 2023 Supervising Physician Co-Signing Physician Notes After discussing with Joslyn, the wound drainage has improved but not resolved. The distal incision was dry. The upper 2 incisions had drainage on the dressing but nothing active. No seroma or expressible fluid collection.I do not see any medications such as Lovenox that would contribute to ongoing wound drainage. We will apply a negative pressure incisional wound vacuum prior to discharge today and he will be in mid next week for wound check. Thank you Subjective Physical Exam Musculoskeletal: He has 3 left hip incisions. The distal incision is clean, dry and intact with a dry dressing in place. The middle and proximal incisions have [address] which are saturated with serosanguineous fluid. The dressings were removed. The incisions are clean, dry and intact. There is no active drainage or underlying seroma or hematoma. The incisions are nontender with palpation. Margarita are retained and in place. There is no surrounding erythema. He does have a lot of ecchymosis in the left thigh and edema of the left thigh. New dressings were applied with Xeroform, 4 x 4 and Tegaderm. An ABD pad was placed on the most proximal excision. Distal pulses are 1+. He is able to gently move the leg and bend the knee with some reproduction of pain in the left hip. Results & Data Vital Signs (Past 12 Hours) Vital Signs Temp Pulse Pulse Resp BP BP Pulse Ox 06/16/23 08:18 36.4 C L 63 12 140/72 97 06/16/23 02:28 36.7 C 64 18 133/66 94 06/15/23 22:55 36.4 C L 69 18 104/61 94 O2 Del Method 06/16/23 08:18 Room Air 06/16/23 02:28 Room Air 06/15/23 22:55 Room Air Laboratory Results 06/16/23 06/15/23 06/15/23 Range/Units 08:06 20:20 17:24 POC Glucose 145 H 212 H 155 H (70-99) mg/dl 06/15/23 Range/Units 12:09 POC Glucose 155 H (70-99) mg/dl (1) Closed fracture of left hip Encounter type: initial encounter Qualified Code(s): S72.002A - Fracture of unspecified part of neck of left femur, initial encounter for closed fracture
--- NOTE | 2023-06-16 15:36 | Procedure Note ---
Procedure Note Date of Service June 16, 2023 Note 20 inch prevena dressing was applied to patients two proximal incisions on patient's left hip. Vac was turned on and suctioning properly. Patient was given instructions on use. He will leave in place until he is seen for his first post op appointment. Coding
[2023-06-18 05:52] LABS: C-Peptide 0.56 ng/mL (0.80-3.85); Insulin Total, Fasting 5.4 uIU/mL; Proinsulin <4.0 pmol/L (< OR = 18.8)
== END 2023-06-16 16:07 | DRG 956 ==
LOC: ED 13:18 → SUATTDRO 16:59 → EDINP 16:59 → 2E 17:30 → 1E 06-11 18:59 → 2W 06-13 16:26

== ENCOUNTER 2023-08-02 12:09 | Inpatient (IN) ==
--- NOTE | 2023-08-02 12:35 | Emergency Department Note ---
Impression & Plan Weakness, Anemia, Ambulatory dysfunction ED Provider Note NAME: JOSS ROMERO AGE: 87 SEX: M : 1935 ARRIVES VIA: Ambulance INFORMANT: Patient ED PROVIDER(S): Kong Majano DO CHIEF COMPLAINT: weakness HPI: Patient is an 87-year-old female who presents to the ER with a past medical history of complete heart block, diabetes, hypertension, hyperlipidemia for weakness and falls. Patient was just at rehab following a fall and hip fracture. She denies any headache or change in vision. No chest pain or shortness of breath. No nausea, vomiting, or diarrhea. No dysuria, urgency, or frequency. No other exacerbating or remitting factors. Additional history obtained from son who is present at bedside who notes that he cannot take care of him at home. He cannot walk or get around. ADDITIONAL HISTORY OBTAINED: Per HPI Chronic Medical/Social Conditions Affecting Care: Per HPI PAST MEDICAL HISTORY:See Below PAST SURGICAL HISTORY:See Below FAMILY HISTORY:See Below SOCIAL HISTORY:See Below HOME MEDICATIONS:See Below ALLERGIES:See Below VITALS:See Below PHYSICAL EXAMINATION: GENERAL: Sitting up in bed, alert, well appearing, well nourished, no distress, non-toxic EYE EXAM: normal conjunctiva. OROPHARYNX: no exudate, no erythema, lips, buccal mucosa, and tongue normal and mucous membranes are moist NECK: supple, no nuchal rigidity, no adenopathy, non-tender LUNGS: Clear to auscultation. Normal chest wall mechanics HEART: no murmurs, S1 normal and S2 normal ABDOMEN: abdomen soft, non-tender, normo-active bowel sounds, no masses, no rebound or guarding. BACK: Back is symmetrical on inspection and there is no deformity, no midline tenderness, no CVA tenderness. SKIN: no rashes and no bruising UPPER EXTREMITIES: upper extremities are grossly normal. LOWER EXTREMITIES: No pitting edema. NEURO EXAM: Normal sensorium, cranial nerves II-XII grossly intact, normal speech, no gross weakness of arms, no gross weakness of legs. MEDICAL DECISION MAKING: Patient is an 87-year-old male who presents the ER brought in by son for weakness. Patient was discharged from rehab within the past 48 hours. Unable to get up and walk around per the son. IV was established blood work was obtained. Labs show no significant leukocytosis. Mild anemia 11. Mild thrombocytopenia at 126. BMP with a slightly elevated glucose. LFTs were unremarkable. T. bili at 1.1. BMP at 120. Lipase normal. Chest x-ray with pleural effusions do not appear to be significant change from previous. Venous Doppler was unremarkable. Discussed case with hospitalist Dr. Triana for further evaluation management treatment. Consults/Care Managements Discussions: Per [facility] Triage Nursing notes reviewed. Limited review of prior medical records performed Vital Signs: reviewed and remarkable for hypotension Differential diagnosis: Differential diagnosis includes etiologies such as sepsis, UTI, pneumonia, metabolic, electrolyte abnormalities, cardiac sources, intracerebral event, toxicologic, neurological, as well as others were entertained. ER treatment provided: See below Diagnostics interpreted by me include EKG and cardiac monitoring as listed below: -Cardiac Monitoring: An order was placed for continuous cardiac monitoring. The monitor shows a rate of 80 with sinus rhythm. -ECG: Sinus rhythm rate 81 Left axis Right bundle branch block QTc 457 -Laboratory studies:Interpreted by me as stated above in MDM and shown below. Imaging studies: Xrays: As interpreted by me: Portable AP upright 1 view of the chest shows pleural effusions. Do not appear to be significant change from previous. CTs show: none Venous duplex was unremarkable Procedures:none Critical Care: None Past Med/Surg History Medical History Vitamin D deficiency Diabetes mellitus with neuropathy Neutrophilic leukocytosis BPH (benign prostatic hyperplasia) Controlled type 2 diabetes mellitus with chronic kidney disease Hypercholesteremia Type 2 diabetes mellitus Rhabdomyolysis Hypertension Surgical History Status post open reduction and internal fixation (ORIF) of fracture History of wisdom tooth extraction Family History Daughter Breast cancer Father No problems noted. Mother No problems noted. 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 Beliefs That Will Affect Care: None marital status: / Current Living Situation: Family Current Living Situation Comment: lives w/ son current occupational status: retired How many Children do You have: 3 How many Children do You have Comment: 2 sons, 1 daughter ([place]) Feels Safe at Home: Yes Childhood Exposure to Second-Hand Smoke: Yes Diet: regular Diet Comment: Regular caffeine: Yes during the past year weight has: remained stable Dental Care, Regularly: No Physical Activity Frequency: Daily Seatbelt Use: always Sunscreen Use: No Assistive Devices: Walker Allergies Allergies Allergy/AdvReac Type Severity Reaction Status Date / Time No Known Allergies Allergy Verified 08/02/23 15:41 Home Meds Previous Rx's Medication Instructions Recorded nitroglycerin 0.4 mg sublingual 0.4 mg sublingual Q5M PRN chest 08/22/19 tablet pain #30 tabs ipratropium bromide 21 mcg (0.03 2 spray intranasal TID #90 mL 09/30/22 %) nasal spray OneTouch Verio test strips (blood #200 ea 03/05/23 sugar diagnostic) blood-glucose meter #1 ea 03/05/23 lancets #200 ea 03/05/23 walker #1 ea 03/30/23 diclofenac sodium 1 % topical gel 2 g topical QID #100 grams 05/25/23 (Voltaren Arthritis Pain) cholecalciferol (vitamin D3) 25 25 mcg PO DAILY #90 caps 07/30/23 mcg (1,000 unit) capsule glipizide 5 mg tablet 5 mg PO QAM #90 tabs 07/30/23 simvastatin 20 mg tablet 20 mg PO HS #90 tabs 07/30/23 terazosin 5 mg capsule 5 mg PO HS #90 caps 07/30/23 Results & Data (ED) Vital Signs Vital Signs - 24 hr 08/02/23 12:27 08/02/23 12:27 08/02/23 12:27 Temperature 36.9 C Temperature Source Oral Pulse Rate 92 H Pulse Rate from SpO2 Sensor Pulse Rhythm Respiratory Rate 18 Respiratory Effort / Characteristics SOB on Exertion Respiratory Depth Normal Respiratory Pattern Regular Blood Pressure 93/62 L Blood Pressure Mean 72 Pulse Oximetry 95 95 Oxygen Delivery Method Room Air Room Air Oxygen Flow Rate 0 Sepsis Recent Fever Within 48 Hours No Sepsis New/Unexplained Change in Mental Status No Sepsis Action Taken by Nursing No Action Required 08/02/23 12:32 08/02/23 12:34 08/02/23 13:00 Temperature Temperature Source Pulse Rate 92 H 86 74 Pulse Rate from SpO2 Sensor 74 71 Pulse Rhythm Regular Respiratory Rate 18 20 17 Respiratory Effort / Characteristics Respiratory Depth Respiratory Pattern Blood Pressure 124/67 102/58 L Blood Pressure Mean 86 72 Pulse Oximetry 95 97 95 Oxygen Delivery Method Room Air Oxygen Flow Rate Sepsis Recent Fever Within 48 Hours Sepsis New/Unexplained Change in Mental Status Sepsis Action Taken by Nursing 08/02/23 13:30 08/02/23 14:00 08/02/23 14:30 Temperature Temperature Source Pulse Rate 81 77 90 Pulse Rate from SpO2 Sensor 77 84 87 Pulse Rhythm Respiratory Rate 17 20 20 Respiratory Effort / Characteristics Respiratory Depth Respiratory Pattern Blood Pressure 128/68 134/72 142/62 H Blood Pressure Mean 88 92 88 Pulse Oximetry 93 94 94 Oxygen Delivery Method Oxygen Flow Rate Sepsis Recent Fever Within 48 Hours Sepsis New/Unexplained Change in Mental Status Sepsis Action Taken by Nursing 08/02/23 14:39 08/02/23 15:00 08/02/23 16:25 Temperature Temperature Source Pulse Rate 80 84 85 Pulse Rate from SpO2 Sensor 74 Pulse Rhythm Respiratory Rate 21 24 Respiratory Effort / Characteristics Respiratory Depth Respiratory Pattern Blood Pressure 132/74 120/71 Blood Pressure Mean 93 87 Pulse Oximetry 94 Oxygen Delivery Method Oxygen Flow Rate Sepsis Recent Fever Within 48 Hours Sepsis New/Unexplained Change in Mental Status Sepsis Action Taken by Nursing 08/02/23 16:30 08/02/23 17:00 Temperature Temperature Source Pulse Rate 94 H 95 H Pulse Rate from SpO2 Sensor 92 H 96 H Pulse Rhythm Respiratory Rate 29 H 23 Respiratory Effort / Characteristics Respiratory Depth Respiratory Pattern Blood Pressure 143/82 H 130/75 Blood Pressure Mean 102 93 Pulse Oximetry 93 94 Oxygen Delivery Method Oxygen Flow Rate Sepsis Recent Fever Within 48 Hours Sepsis New/Unexplained Change in Mental Status Sepsis Action Taken by Nursing Laboratory Data 08/02/23 12:35 08/02/23 12:35 Lab Results 08/02/23 08/02/23 Range/Units 12:35 17:39 WBC 7.35 (4.8-10.8) K/ul RBC 3.59 L (4.70-6.10) M/uL Hgb 11.0 L (14.0-18.0) g/dl Hct 33.2 L (42.0-52.0) % MCV 92.5 (80.0-100.0) fL MCH 30.6 (25.0-34.0) pg MCHC 33.1 (32.0-36.0) g/dL RDW Std Deviation 54.1 H (36.4-46.3) fL RDW Coeff of Glenn 15.9 H (11.5-14.5) % Plt Count 126 L (130-400) K/uL MPV 10.0 (9.4-12.4) fL Immature Gran % (Auto) 0.4 % Neut % (Auto) 79.5 % Lymph % (Auto) 10.7 % [place] % (Auto) 8.6 % Eos % (Auto) 0.7 % Baso % (Auto) 0.1 % Neut # (Auto) 5.84 (1.40-6.50) K/uL Lymph # (Auto) 0.79 L (1.20-3.40) K/uL [place] # (Auto) 0.63 H (0.11-0.59) K/uL Eos # (Auto) 0.05 (0.00-0.50) K/uL Baso # (Auto) 0.01 (0.00-0.20) K/uL Immature Gran # (Auto) 0.03 (0.01-0.20) K/uL Sodium 136 (136-145) mmol/L Potassium 4.3 (3.5-5.1) mmol/L Chloride 105 (98-107) mmol/L Carbon Dioxide 23 (21-32) mmol/L Anion Gap 8 (3-11) BUN 37 H (6-23) mg/dl Creatinine 1.34 (0.6-1.4) mg/dl Est Cr Clr Drug Dosing 34.4 ml/min Est GFR ( Amer) 54.4 ml/min Est GFR (Non-Af Amer) 47.0 ml/min BUN/Creatinine Ratio 27.6 H (10-20) Glucose 185 H (70-99(Fasting)) mg/dl Calcium 8.2 L (8.6-10.3) mg/dl Magnesium 1.9 (1.7-2.4) mg/dl Total Bilirubin 1.1 H (0.2-1.0) mg/dl AST 18 (13-39) U/L ALT 17 (7-52) U/L Alkaline Phosphatase 100 (34-104) U/L Troponin I High Sens 17.0 (0-20) pg/ml B-Natriuretic Peptide 120 H (0-100) pg/ml Total Protein 4.9 L (6.0-8.3) gm/dl Albumin 2.9 L (3.4-5.0) gm/dl Globulin 2.0 L (2.5-4.0) gm/dl Albumin/Globulin Ratio 1.5 (0.9-2) Lipase 25 (11-82) U/L Administered Medications Discontinued Medications Sodium Chloride (Nss) 500 mls @ 999 mls/hr IV .Q31M ONE Stop: 08/02/23 13:02 Last Infusion: 08/02/23 13:16 Dose: Infused Documented By: Admin: 08/02/23 12:40 Dose: 999 mls/hr Documented By: SRIDEVI Imaging Data Radiologist's Impression: Chest X-Ray 08/02/23 12:32 SINGLE VIEW CHEST CLINICAL HISTORY: Atypical chest pain FINDINGS: An AP, portable, upright chest radiograph is compared to study dated 06/14/2023 and correlated with chest CT dated 06/11/2023. The heart is enlarged noting atherosclerotic calcification of the thoracic aorta. There is pulmonary vascular congestion. Chronic interstitial thickening similar to previous. The right larger than left pleural effusions with dependent consolidation. No pneumothorax is seen. The skeletal structures are osteopenic. There are subacute appearing right-sided rib fractures. Arthritic change is seen in the shoulders and spine. IMPRESSION: 1. Cardiomegaly with pulmonary vascular congestion. 2. Right larger than left pleural effusions with dependent consolidation. Radiographic follow-up to resolution is recommended. 3. Subacute/healing right-sided rib fractures. ACT 112: Negative or not required by law. Electronically signed by: Stanislaw Tang M.D. 08/02/2023 1:09 PM Venous Doppler Study 08/02/23 12:35 US venous doppler LE LT CLINICAL HISTORY: lle swelling TECHNIQUE: Left lower extremity real-time compression venous ultrasound with Color Doppler imaging. Utilizing real-time ultrasonic imaging multiple real time high-resolution ultrasonic images with compression and noncompression maneuvers of the deep venous system in addition to color doppler imaging were performed from the common femoral vein through the proximal calf veins. COMPARISON: Comparison is made to left lower extremity Doppler ultrasound 01/25/2022 FINDINGS/IMPRESSION: Currently there is normal compressibility of the deep venous system from the common femoral vein through the proximal calf veins. Popliteal cyst is seen. ACT 112: Negative or not required by law. Electronically signed by: Jae Ball M.D. 08/02/2023 4:07 PM Discharge Plan Visit Data Chief Complaint: Shortness of Breath/Dyspnea Stated Complaint: SOB, weakness ED Provider: Kong Majano Discharge Problem: Weakness, Anemia, Ambulatory dysfunction Forms Stand Alone Forms: [facility] [employer] Prescriptions Prescriptions: No Action ipratropium bromide 21 mcg (0.03 %) spray,non-aerosol 2 spray intranasal TID Qty: 90 3RF Rx Instructions: administer into each nostril (DME) blood-glucose meter Misc See Rx Instructions .Route Qty: 1 0RF Rx Instructions: As directed- test twice daily (DME) lancets Misc See Rx Instructions .Route Qty: 200 3RF Rx Instructions: As directed twice per day (DME) OneTouch Verio test strips Strip See Rx Instructions .Route Qty: 200 3RF Rx Instructions: use to test 2-3 times daily (DME) walker Misc See Rx Instructions .Route Qty: 1 0RF Rx Instructions: As directed diclofenac sodium [Voltaren Arthritis Pain] 1 % gel 2 g topical QID Qty: 100 3RF glipizide 5 mg tablet 5 mg PO QAM Qty: 90 3RF terazosin 5 mg capsule 5 mg PO HS Qty: 90 3RF Rx Instructions: TAKE ONE CAPSULE BY MOUTH AT BEDTIME simvastatin 20 mg tablet 20 mg PO HS Qty: 90 3RF cholecalciferol (vitamin D3) 25 mcg (1,000 unit) capsule 25 mcg PO DAILY Qty: 90 3RF nitroglycerin 0.4 mg tablet, sublingual 0.4 mg sublingual Q5M PRN (Reason: chest pain) Qty: 30 0RF Referrals Referrals: Dave Zhang DO [Primary Care Provider] - Discharge Problem: Anemia Qualifiers: Anemia type: unspecified type Qualified Code(s): D64.9 - Anemia, unspecified
[2023-08-02] MEDS: SODIUM CHLORIDE 0.9% 500 ML IV ONE (12:40)
--- NOTE | 2023-08-02 13:10 | XRay Report ---
SINGLE VIEW CHEST CLINICAL HISTORY: Atypical chest pain FINDINGS: An AP, portable, upright chest radiograph is compared to study dated 06/14/2023 and correlate d with chest CT dated 06/11/2023. The heart is enlarged noting atherosclerotic calcification of the tho racic aorta. There is pulmonary vascular congestion. Chronic interstitial thickening similar to previ ous. The right larger than left pleural effusions with dependent consolidation. No pneumothorax is se en. The skeletal structures are osteopenic. There are subacute appearing right-sided rib fractures. A rthritic change is seen in the shoulders and spine. IMPRESSION: 1. Cardiomegaly with pulmonary vascular congestion. 2. Right larger than left pleural effusions with dependent consolidation. Radiographic follow-up to r esolution is recommended. 3. Subacute/healing right-sided rib fractures. ACT 112: Negative or not required by law. Electronically signed by: Stanislaw Tang M.D. 08/02/2023 1:09 PM
[2023-08-02 13:13] LABS: Basophils # (auto) 0.01 K/uL (0.00-0.20); Basophils % (auto) 0.1 %; Eosinophils # (auto) 0.05 K/uL (0.00-0.50); Eosinophils % (auto) 0.7 %; Hematocrit (blood only) 33.2 % (42.0-52.0); Immature Granulocytes # (auto) 0.03 K/uL (0.01-0.20); Immature Granulocytes % (auto) 0.4 %; Lymphocytes # (auto) 0.79 K/uL (1.20-3.40); Lymphocytes % (auto) 10.7 %; Mean Corpuscular Hemoglobin 30.6 pg (25.0-34.0); Mean Corpuscular Hgb Conc 33.1 g/dL (32.0-36.0); Mean Corpuscular Volume 92.5 fL (80.0-100.0); Monocytes # (auto) 0.63 K/uL (0.11-0.59); Monocytes % (auto) 8.6 %; Neutrophils # (auto) 5.84 K/uL (1.40-6.50); Neutrophils % (auto) 79.5 %; Platelet Count 126 K/uL (130-400); RDW Coefficient of Variation 15.9 % (11.5-14.5); RDW Standard Deviation 54.1 fL (36.4-46.3); Red Blood Count 3.59 M/uL (4.70-6.10); White Blood Count 7.35 K/ul (4.8-10.8)
[2023-08-02 13:23] LABS: Albumin Globulin Ratio 1.5 (0.9-2); Albumin Level 2.9 gm/dl (3.4-5.0); BUN Creatinine Ratio 27.6 (10-20); Bilirubin,Total 1.1 mg/dl (0.2-1.0); Calcium 8.2 mg/dl (8.6-10.3); Creatinine Clr Calc Pharmacy 34.4 ml/min; Est GFR (African American) 54.4 ml/min; Potassium 4.3 mmol/L (3.5-5.1); Total Protein 4.9 gm/dl (6.0-8.3)
--- NOTE | 2023-08-02 14:01 | Electrocardiogram Report ---
Test Reason : Blood Pressure : / mmHG Vent. Rate : 081 BPM Atrial Rate : 081 BPM P-R Int : 194 ms QRS Dur : 104 ms QT Int : 394 ms P-R-T Axes : 022 -52 072 degrees QTc Int : 457 ms Sinus rhythm with Premature atrial complexes with Blocked Premature atrial complexes Left axis deviation Incomplete right bundle branch block Cannot rule out Anterior infarct (cited on or before 11-JUN-2023) Abnormal ECG When compared with ECG of 11-JUN-2023 18:41, Incomplete right bundle branch block has replaced Right bundle branch block Questionable change in initial forces of Anterior leads Confirmed by Lorne Melendrez ([id number]) on 08/02/2023 2:01:02 PM Referred By: REFERRED SELF Confirmed By:Lorne Melendrez
--- NOTE | 2023-08-02 15:49 | History & Physical Report ---
Date of Service August 02, 2023 Assessment & Plan (1) Impaired mobility and ADLs: Plan: LE weakness, left thigh pain, and FRYE since discharge from [facility] rehab on 07/28 Hx of recent fall and L femoral fracture on 06/07/23 Recurrent falls with the last fall being on 07/29; no head strike; no LOC; patient reports feeling dizzy and having his legs go out from under him Patient ambulates with a walker at baseline; also has wheelchair Case management consulted for placement PT/OT consulted Fall precautions Left LE venous Doppler noted popliteal cyst; no DVT noted Voltaren gel and acetaminophen as needed for left thigh pain A.m. CBC, BMP (2) FRYE (dyspnea on exertion): Plan: CXR revealed cardiomegaly with pulmonary vascular congestion, as well as R>L bilateral pleural effusions Last echo on 06/12/2023 revealed LVEF at 50-55%; hypokinetic inferolateral wall No anginal symptoms; per review of Cardiology note on 06/12, underlying ischemic heart disease with multiple risk factors; medical management for now Patient had thoracentesis on 06/09 for pleural effusions; cytology negative; exudative; likely secondary to rib fractures BNP mildly elevated at 120 Unclear if reaccumulation of fluid Will trial Lasix 20 mg IV QAM Recheck a.m. BMP (3) Type 2 diabetes mellitus: Plan: Last A1c at 6.1% on 05/25/2023 Glucose 185 on admission Hold glipizide Lantus 6u BID while inpatient SSI; with target BSG range 110-140mg/dL, CF 55, carb ratio 20 T2DM diet BSG ACHS Adjust regimen as needed (4) Complete heart block, transient: Plan: EKG showed sinus rhythm with PACs and blocked PACs at 81 bpm; QTc 457 Troponin WNL Continuous telemetry monitoring (5) BPH (benign prostatic hyperplasia): Plan: Continue terazosin (6) Hypercholesteremia: Plan: Continue simvastatin (7) Anemia: Plan: Chronic; mild; Hgb 11.0 and HCT 33.2 No signs of active bleeding on clinical exam Recheck a.m. labs (8) Decubitus ulcer of heel, bilateral: Plan: Daily wound care/dressing Heel suspension boots (9) Acute heart failure with preserved ejection fraction: Plan Disposition: Admit to [facility] telemetry DNR/DNI AHA, T2DM diet VTE PPx: Heparin 5000u SQ q12h History of Present Illness Chief Complaint: FRYE, LE weakness Primary Care Provider: Dave Zhang DO Feng is an 87-year-old male with PMH of T2DM, BPH, HTN, tinnitus, CKD stage III, falls, and transient complete heart block. He presented for ambulatory dysfunction, LE weakness, and FRYE on 08/01. Patient was discharged from [facility] on 07/28; he was there fpr rehab of a left femur fracture. Patient's son/POA (Sandeep) is present at the bedside and provides additional history. Son reports that he took 10 steps towards the bathroom, and was complaining of FRYE and left thigh pain. When they called his PCP, they told him to come to the ER. Patient reports that the shortness of breath is only with exertion, not at rest; not positional or worse when lying flat. Patient recently had a fall on Saturday 07/29, 1 day after leaving rehab; no head strike; no LOC; patient fell in the bathroom after he felt dizzy and his legs gave out on him. Patient ambulates with a walker at baseline, but has had trouble standing up straight, and requires a wheelchair for the most part. He did not take any of his regular morning medications today; the patient was at the doctor on Wednesday, and reports no recent change in medications. Patient lives with his other son (Yane) who helps to manage the medications at home. He endorses left thigh pain that comes and goes; no radiation of the back or down the leg. He has not been taking any additional medications for the pain. He rates the pain 5/10 at present. No alcohol/tobacco use. Patient and patient's son/POA confirmed that they recently redid his living will and that he is now a DNR/DNI. Patient's son also reports that there has been some acute changes in memory recently; for instance, the patient is not running what he had for breakfast today. Vital stable at time of admission; SpO2 94% on RA. ED course: NSS 500 mL IV ROS: Patient endorses FRYE, dizziness with standing and walking, falls, ambulatory dysfunction, and LE weakness. Patient denies fever, chills, nightsweats, dizziness/lightheadedness at rest, OROZCO, changes in vision, chest pain, SOB at rest, abdominal pain, N/V/D, urinary s/s, and burning with urination. Allergies Allergy/AdvReac Type Severity Reaction Status Date / Time No Known Allergies Allergy Verified 08/02/23 15:41 Home Medications Medication Instructions Recorded Confirmed Type nitroglycerin 0.4 mg sublingual 0.4 mg sublingual Q5M PRN chest 08/22/19 08/02/23 Rx tablet pain #30 tabs ipratropium bromide 21 mcg (0.03 2 spray intranasal TID #90 mL 09/30/22 08/02/23 Rx %) nasal spray OneTouch Verio test strips (blood #200 ea 03/05/23 07/30/23 Rx sugar diagnostic) blood-glucose meter #1 ea 03/05/23 07/30/23 Rx lancets #200 ea 03/05/23 07/30/23 Rx walker #1 ea 03/30/23 07/30/23 Rx diclofenac sodium 1 % topical gel 2 g topical QID #100 grams 05/25/23 08/02/23 Rx (Voltaren Arthritis Pain) cholecalciferol (vitamin D3) 25 25 mcg PO DAILY #90 caps 07/30/23 08/02/23 Rx mcg (1,000 unit) capsule glipizide 5 mg tablet 5 mg PO QAM #90 tabs 07/30/23 08/02/23 Rx simvastatin 20 mg tablet 20 mg PO HS #90 tabs 07/30/23 08/02/23 Rx terazosin 5 mg capsule 5 mg PO HS #90 caps 07/30/23 08/02/23 Rx Past Med/Surg History Medical History Vitamin D deficiency Diabetes mellitus with neuropathy Neutrophilic leukocytosis BPH (benign prostatic hyperplasia) Controlled type 2 diabetes mellitus with chronic kidney disease Hypercholesteremia Type 2 diabetes mellitus Rhabdomyolysis Hypertension Surgical History Status post open reduction and internal fixation (ORIF) of fracture History of wisdom tooth extraction Family History Daughter Breast cancer Father No problems noted. Mother No problems noted. Other COPD (chronic obstructive pulmonary disease) Denies family history of Ovarian cancer Prostate cancer Myocardial infarction Colorectal cancer Social History (Updated 07/30/23 @ 10:49 by Radha Booth LPN) Smoking Status: Former smoker Tobacco Type: Cigarettes Age Quit Using Tobacco: 24; Second Hand Exposure: No; Do You Dip or Chew Tobacco: No; Hx Alcohol Use: Yes Alcohol type: beer Alcohol Intake Frequency: 2-3 x/Week Alcohol Intake Frequency Comment: 1-2 cans per week Hx Substance Use: No Preferred Language: Azeri Communication Ability: Effective Visual Impairment: No Limitations Hearing Ability: Hard of Hearing Grazing Examiner Required: No Beliefs That Will Affect Care: Protestant Protestant Beliefs: pentecostal marital status: / Current Living Situation: Family Current Living Situation Comment: with son current occupational status: retired How many Children do You have: 3 How many Children do You have Comment: 2 sons, 1 daughter ([place]) Feels Safe at Home: Yes Childhood Exposure to Second-Hand Smoke: Yes Diet: regular Diet Comment: Regular caffeine: Yes during the past year weight has: remained stable Dental Care, Regularly: No Physical Activity Frequency: Daily Seatbelt Use: always Sunscreen Use: No Assistive Devices: Walker Review of Systems Review of Systems: See HPI above Physical Exam Physical Exam: General: no acute distress; non-toxic appearing; well-nourished; cooperative HEENT: normocephalic, atraumatic; no scleral icterus; PERRLA w/ EOMs intact; moist mucus membrane; vision and hearing grossly intact Neck: supple; no JVD; no lymphadenopathy; trachea midline Skin: warm, dry without signs of tenting; no cyanosis; notable lesions on the heels bilaterally CV: chest wall NTP; RRR; S1/S2 normal; 2/6 systolic ejection murmur auscultated at the second ICS MCL; pulses intact and symmetric at radial, DP, and PT Lungs: no acute respiratory distress; symmetrical chest wall expansion; clear breath sounds across all lung li w/o adventitious sounds; no wheezing ABD: Soft, NTP; BS present; no rebound/guarding; no ascites; no distention; negative CVA tenderness MSK: no tics or fasciculations; +2 pitting edema in LLE on top of the foot, extending up to the mid calf, mildly erythematous; +1 pitting edema in RLE; 4/5 strength B/L in the lower extremities when lifting legs at the hip supine Neuro: A&Ox3; normal mood and affect; fluent speech; sensation grossly intact in the LEs b/l Results & Data Results & Data Vital Signs (Past 12 Hours) Vital Signs Temp Pulse Resp BP Pulse Ox O2 Del Method O2 Flow Rate 08/02/23 15:00 84 21 132/74 08/02/23 14:39 80 08/02/23 14:30 90 20 142/62 H 94 08/02/23 14:00 77 20 134/72 94 08/02/23 13:30 81 17 128/68 93 08/02/23 13:00 74 17 102/58 L 95 08/02/23 12:34 86 20 124/67 97 08/02/23 12:32 92 H 18 95 Room Air 08/02/23 12:27 95 Room Air 0 08/02/23 12:27 36.9 C 92 H 18 93/62 L 95 Room Air Laboratory Results Abnormal lab results 08/02/23 Range/Units 12:35 RBC 3.59 L (4.70-6.10) M/uL Hgb 11.0 L (14.0-18.0) g/dl Hct 33.2 L (42.0-52.0) % RDW Std Deviation 54.1 H (36.4-46.3) fL RDW Coeff of Glenn 15.9 H (11.5-14.5) % Plt Count 126 L (130-400) K/uL Lymph # (Auto) 0.79 L (1.20-3.40) K/uL Cocke # (Auto) 0.63 H (0.11-0.59) K/uL BUN 37 H (6-23) mg/dl BUN/Creatinine Ratio 27.6 H (10-20) Glucose 185 H (70-99(Fasting)) mg/dl Calcium 8.2 L (8.6-10.3) mg/dl Total Bilirubin 1.1 H (0.2-1.0) mg/dl Total Protein 4.9 L (6.0-8.3) gm/dl Albumin 2.9 L (3.4-5.0) gm/dl Globulin 2.0 L (2.5-4.0) gm/dl Diagnostic Findings Chest X-Ray 08/02/23 12:32 SINGLE VIEW CHEST CLINICAL HISTORY: Atypical chest pain FINDINGS: An AP, portable, upright chest radiograph is compared to study dated 06/14/2023 and correlated with chest CT dated 06/11/2023. The heart is enlarged noting atherosclerotic calcification of the thoracic aorta. There is pulmonary vascular congestion. Chronic interstitial thickening similar to previous. The right larger than left pleural effusions with dependent consolidation. No pneumothorax is seen. The skeletal structures are osteopenic. There are subacute appearing right-sided rib fractures. Arthritic change is seen in the shoulders and spine. IMPRESSION: 1. Cardiomegaly with pulmonary vascular congestion. 2. Right larger than left pleural effusions with dependent consolidation. Radiographic follow-up to resolution is recommended. 3. Subacute/healing right-sided rib fractures. ACT 112: Negative or not required by law. Electronically signed by: Stanislaw Tang M.D. 08/02/2023 1:09 PM Venous Doppler Study 08/02/23 12:35 US venous doppler LE LT CLINICAL HISTORY: lle swelling TECHNIQUE: Left lower extremity real-time compression venous ultrasound with Color Doppler imaging. Utilizing real-time ultrasonic imaging multiple real time high-resolution ultrasonic images with compression and noncompression maneuvers of the deep venous system in addition to color doppler imaging were performed from the common femoral vein through the proximal calf veins. COMPARISON: Comparison is made to left lower extremity Doppler ultrasound 01/25/2022 FINDINGS/IMPRESSION: Currently there is normal compressibility of the deep venous system from the common femoral vein through the proximal calf veins. Popliteal cyst is seen. ACT 112: Negative or not required by law. Electronically signed by: Jae Ball M.D. 08/02/2023 4:07 PM Code Status & VTE Plan Code Status DNR/DNI (confirmed with both patient and patient's son/POA at the bedside) VTE Prophylaxis Plan VTE Prophylaxis will be ordered: Yes Supervising Physician Co-Signing Physician Notes I personally saw and examined the patient. I independently reviewed the labs, EKG, imaging, problem list, medication list, past medical history and family history. I verified all martinez points and agree with Je Patricio PA-C with the following exceptions and/or additions: 87 year old male presents to the ER following recent rehabilitation following hip fracture and aspiration pneumonia. Progressive shortness of breath over the last week with bilateral leg swelling not present on prior admission. No chest pain, cough, fever, chills. No known further aspiration. As soon as he came out of rehab he has been unsteady on his feet and fallen again - does not think he hit his head. O/E HS RRR, no murmurs, Chest CTAB, Abdo SNT, pedal edema 1+ b/l equal, no one sided weakness, no pronator drift A/P Shortness of breath on exertion - possible heart failure with preserved ejection fraction. Lasix 20mg IV daily. Monitor I&Os, daily weights, BMP Generalized deconditioning - PT/OT, possible need for longer term rehab placement Fall - suspect due to leg swelling and generalized deconditioning. CT head to assess for any intracranial abnormality PG Care Time/CCT Total # of Minutes Spent Total Time Spent with Patient: Total time spent is greater than 50% in coordination of care (as documented) at patient's floor/unit and/or counseling patient: [place] [id number] INT INP/OBS CARE 3/75MIN Patient Type Established Medical Decision Making High Complexity Diagnoses Impaired mobility and ADLs Z74.09; Z78.9 FRYE (dyspnea on exertion) R06.09 Type 2 diabetes mellitus E11.9 Complete heart block, transient I44.2 Benign prostatic hyperplasia with nocturia N40.1; R35.1 Lower urinary tract symptom detail: nocturia Lower urinary tract symptom presence: symptoms present Hypercholesteremia E78.00 Anemia D64.9 Decubitus ulcer of heel, bilateral L89.619; L89.629 Acute heart failure with preserved ejection fraction I50.31 (5) BPH (benign prostatic hyperplasia) Lower urinary tract symptom detail: nocturia Lower urinary tract symptom presence: symptoms present Qualified Code(s): N40.1 - Benign prostatic hyperplasia with lower urinary tract symptoms; R35.1 - Nocturia
--- NOTE | 2023-08-02 16:09 | Ultrasound Report ---
US venous doppler LE LT CLINICAL HISTORY: lle swelling TECHNIQUE: Left lower extremity real-time compression venous ultrasound with Color Doppler imaging. U tilizing real-time ultrasonic imaging multiple real time high-resolution ultrasonic images with compr ession and noncompression maneuvers of the deep venous system in addition to color doppler imaging we re performed from the common femoral vein through the proximal calf veins. COMPARISON: Comparison is made to left lower extremity Doppler ultrasound 01/25/2022 FINDINGS/IMPRESSION: Currently there is normal compressibility of the deep venous system from the common femoral vein thro ugh the proximal calf veins. Popliteal cyst is seen. ACT 112: Negative or not required by law. Electronically signed by: Jae Ball M.D. 08/02/2023 4:07 PM
[2023-08-02 17:18] LABS: Magnesium 1.9 mg/dl (1.7-2.4)
[2023-08-02] MEDS: FUROSEMIDE INJ 20 MG/2 ML VIAL IV STA (20:44)
[2023-08-02] MEDS ORDERED: GLUCOSE 10 TAB/TUBE PO PRN (20:44)
[2023-08-02] MEDS ORDERED: DEXTROSE 50% 50 ML SYRINGE IV PRN (20:44)
[2023-08-02] MEDS ORDERED: GLUCOSE 40% GEL 15 GM TUBE PO PRN (20:44)
[2023-08-02] MEDS ORDERED: GLUCAGON FOR INJ 1 MG VIAL SQ PRN (20:44)
[2023-08-02] MEDS: HEPARIN SOD 5,000 UNIT/0.5 ML VIAL SQ SCH (21:19)
[2023-08-02] MEDS: SIMVASTATIN 20 MG TAB PO SCH (21:20)
[2023-08-02] MEDS: TERAZOSIN HCL 5 MG CAP PO SCH (21:20)
[2023-08-02] MEDS: IPRATROPIUM BROMIDE NASAL SPRAY 0.06% 15ML NAE SCH (21:21)
--- NOTE | 2023-08-02 21:58 | CT Scan Report ---
Exam(s): CT HEAD Without Contrast EXAM: CT Head Without Intravenous Contrast CLINICAL HISTORY: Reason for exam: fall ?intracranial bleed. TECHNIQUE: Axial computed tomography images of the head/brain without intravenous contrast. CTDI is 54 mGy and DLP is 787 mGy-cm. Automated exposure control was utilized for the study. A dose lowering technique was utilized adhering to the principles of ALARA. COMPARISON: Head CT 06/07/2023 FINDINGS: Brain: No intracranial hemorrhage, mass-effect, or cerebral edema. Atrophy. Confluent chronic white matter changes. 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 Ventricles: Unremarkable. Bones/joints: Unremarkable. No fracture. Soft tissues: Unremarkable. Sinuses: No acute sinusitis. Mastoid air cells: Unremarkable as visualized. IMPRESSION: 1. No acute intracranial abnormality. 2. Chronic changes. Electronically signed by: Fan Lao MD 08/02/23 21:57 PM
[2023-08-03] MEDS: DICLOFENAC SOD 1% GEL 100 GM TUBE EXT SCH (01:00)
[2023-08-03 07:20] LABS: BUN Creatinine Ratio 26.2 (10-20); Calcium 7.7 mg/dl (8.6-10.3); Creatinine Clr Calc Pharmacy 37.8 ml/min; Est GFR (Non-African American) 52.6 ml/min; Potassium 3.5 mmol/L (3.5-5.1)
[2023-08-03 07:33] LABS: Basophils # (auto) 0.03 K/uL (0.00-0.20); Basophils % (auto) 0.5 %; Eosinophils # (auto) 0.25 K/uL (0.00-0.50); Hematocrit (blood only) 33.5 % (42.0-52.0); Hemoglobin 11.3 g/dl (14.0-18.0); Immature Granulocytes # (auto) 0.03 K/uL (0.01-0.20); Immature Granulocytes % (auto) 0.5 %; Lymphocytes # (auto) 1.27 K/uL (1.20-3.40); Lymphocytes % (auto) 20.3 %; Mean Corpuscular Hgb Conc 33.7 g/dL (32.0-36.0); Mean Platelet Volume 9.8 fL (9.4-12.4); Monocytes # (auto) 0.62 K/uL (0.11-0.59); Monocytes % (auto) 9.9 %; Neutrophils # (auto) 4.05 K/uL (1.40-6.50); Neutrophils % (auto) 64.8 %; Platelet Count 128 K/uL (130-400); RDW Coefficient of Variation 15.9 % (11.5-14.5); RDW Standard Deviation 53.9 fL (36.4-46.3); Red Blood Count 3.64 M/uL (4.70-6.10); White Blood Count 6.25 K/ul (4.8-10.8)
[2023-08-03] MEDS ORDERED: glipiZIDE 5 MG TAB PO SCH (09:00)
[2023-08-03] MEDS: FUROSEMIDE INJ 20 MG/2 ML VIAL IV SCH (09:31)
[2023-08-03] MEDS: CHOLECALCIFEROL 25 MCG (1000 UNITS) TAB PO SCH (09:31)
[2023-08-03] MEDS: LANTUS PER UNIT CHARGE SQ SCH (10:09)
[2023-08-03] MEDS: INSULIN ASPART PER UNIT CHARGE SC SCH (10:09)
--- NOTE | 2023-08-03 11:31 | Hospitalist Progress Note ---
Date of Service August 03, 2023 Assessment & Plan (1) Impaired mobility and ADLs: Plan: LE weakness, left thigh pain, and FRYE since discharge from [facility] rehab on 07/28 Hx of recent fall and L femoral fracture on 06/07/23 Recurrent falls with the last fall being on 07/29; no head strike; no LOC; The etiology of his falls may be multifactorial, I noticed he has tremors as well Patient ambulates with a walker at baseline; also has wheelchair Case management consulted for placement PT/OT consulted Fall precautions (2) Acute heart failure with preserved ejection fraction: Plan: CXR revealed cardiomegaly with pulmonary vascular congestion, as well as R>L bilateral pleural effusions Last echo on 06/12/2023 revealed LVEF at 50-55%; hypokinetic inferolateral wall No anginal symptoms; per review of Cardiology note on 06/12, underlying ischemic heart disease with multiple risk factors; medical management for now Patient had thoracentesis on 06/09 for pleural effusions; cytology negative; exudative; likely secondary to rib fractures BNP mildly elevated at 120 Repeat chest x-ray showed evidence of bilateral pleural effusion Will trial Lasix 20 mg IV QAM Monitor input and output, daily weight (3) Type 2 diabetes mellitus: Plan: Last A1c at 6.1% on 05/25/2023 Glucose 185 on admission Hold glipizide Lantus 6u BID while inpatient SSI; with target BSG range 110-140mg/dL, CF 55, carb ratio 20 T2DM diet BSG ACHS Adjust regimen as needed (4) Coarse tremors: Plan: I noticed he has some coarse tremors, although no overt purulent of tremor at rest. Most of his tremor is on movement Parkinson's still a possibility and this may be contributing to his frequent fa lls Patient will benefit from outpatient follow-up with neurology (5) Complete heart block, transient: Plan: EKG showed sinus rhythm with PACs and blocked PACs at 81 bpm; QTc 457 Troponin WNL Continuous telemetry monitoring (6) BPH (benign prostatic hyperplasia): Plan: Continue terazosin (7) Hypercholesteremia: Plan: Continue simvastatin (8) Anemia: Plan: Chronic; mild; Hgb 11.0 and HCT 33.2 No signs of active bleeding on clinical exam Recheck a.m. labs (9) FRYE (dyspnea on exertion): (10) Decubitus ulcer of heel, bilateral: Plan: Daily wound care/dressing Heel suspension boots Plan Disposition: Continue to monitor, patient will need placement rehab DNR/DNI AHA, T2DM diet VTE PPx: Heparin 5000u SQ q12h Admission and Anticipated Discharge Date Admission Date: August 02, 2023 Subjective Patient seen and examined today, says shortness of breath is at baseline, but still complains of lower extremity weakness and some tremors Review of Systems Review of Systems: All systems reviewed are negative, apart from the ones contained in the history. Physical Exam Physical Exam: The patient is awake, alert and oriented 3, well developed and well nourished, normocephalic and atraumatic, lying in bed and in no acute distress. HEENT--PERRL, EOMI, mucous membranes and oropharynx mildly dry Neck--supple. No JVD. No bruits. Thyroid normal, trachea midline, no adenopathy. Heart--normal S1 and S2. No murmurs, rubs or gallops. Lungs--clear bilaterally, no respiratory distress, no accessory muscle use. Abdomen--normal bowel sounds and soft. Extremities--no cyanosis or clubbing. No edema. Dermatologic--normal skin turgor, normal color, no abnormal lymph nodes, no rash. Neurologic--cranial nerves II through XII grossly intact. Mild coarse tremors Rheumatologic--normal range of motion. Psychiatric--normal affect. Results & Data Results & Data Vital Signs (Past 12 Hours) Vital Signs Temp Pulse Pulse Resp BP Pulse Ox O2 Del Method 08/03/23 07:42 97.5 F L 82 18 149/71 H 91 Room Air 08/03/23 07:40 59 L 08/03/23 04:04 97.5 F L 88 18 125/70 92 Room Air 08/02/23 23:38 88 PG Care Time/CCT Total # of Minutes Spent Total Time Spent with Patient: Total time spent is greater than 50% in coordination of care (as documented) at patient's floor/unit and/or counseling patient: Coding Level of Care Code 88475 SUB INP/OBS CARE 2/35MIN Diagnoses Impaired mobility and ADLs Z74.09; Z78.9 Acute heart failure with preserved ejection fraction I50.31 Type 2 diabetes mellitus E11.9 Coarse tremors G25.2 Complete heart block, transient I44.2 Benign prostatic hyperplasia with nocturia N40.1; R35.1 Lower urinary tract symptom presence: symptoms present Lower urinary tract symptom detail: nocturia Hypercholesteremia E78.00 Anemia D64.9 FRYE (dyspnea on exertion) R06.09 Decubitus ulcer of heel, bilateral L89.619; L89.629 Time Spent (min) 35 (6) BPH (benign prostatic hyperplasia) Lower urinary tract symptom presence: symptoms present Lower urinary tract symptom detail: nocturia Qualified Code(s): N40.1 - Benign prostatic hyperplasia with lower urinary tract symptoms; R35.1 - Nocturia
[2023-08-03 11:57] LABS: Appearance Urine Clear (Clear); Bilirubin Urine Negative (Negative); Blood Urine Negative (Negative); Color Urine Yellow; Glucose Urine UA Negative (Negative); Ketones Urine Negative (Negative); Leukocyte Esterase Urine Negative (Negative); Nitrite Urine Negative (Negative); Protein Urine Negative (Negative); Specific Gravity Urine 1.011 (1.000-1.030); Urobilinogen Urine Negative (Negative)
[2023-08-03] MEDS: CARBOHYDRATES FOR HYPOGLYCEMIA PO PRN (17:19)
[2023-08-04 07:51] LABS: Basophils # (auto) 0.03 K/uL (0.00-0.20); Basophils % (auto) 0.5 %; Eosinophils # (auto) 0.28 K/uL (0.00-0.50); Eosinophils % (auto) 4.2 %; Hematocrit (blood only) 36.1 % (42.0-52.0); Hemoglobin 11.7 g/dl (14.0-18.0); Immature Granulocytes # (auto) 0.03 K/uL (0.01-0.20); Immature Granulocytes % (auto) 0.5 %; Lymphocytes # (auto) 1.33 K/uL (1.20-3.40); Mean Corpuscular Hemoglobin 30.2 pg (25.0-34.0); Mean Corpuscular Hgb Conc 32.4 g/dL (32.0-36.0); Mean Platelet Volume 9.9 fL (9.4-12.4); Monocytes # (auto) 0.65 K/uL (0.11-0.59); Monocytes % (auto) 9.8 %; Neutrophils # (auto) 4.32 K/uL (1.40-6.50); Platelet Count 131 K/uL (130-400); RDW Coefficient of Variation 15.7 % (11.5-14.5); RDW Standard Deviation 53.9 fL (36.4-46.3); Red Blood Count 3.88 M/uL (4.70-6.10); White Blood Count 6.64 K/ul (4.8-10.8)
[2023-08-04 08:08] LABS: BUN Creatinine Ratio 27.7 (10-20); Calcium 8.2 mg/dl (8.6-10.3); Creatinine Clr Calc Pharmacy 37.7 ml/min; Est GFR (African American) 62.8 ml/min; Est GFR (Non-African American) 54.2 ml/min; Potassium 3.6 mmol/L (3.5-5.1)
--- NOTE | 2023-08-04 10:58 | Neurology Consultation ---
Date of Consultation August 04, 2023 Assessment & Plan (1) Tremor: (2) Cogwheel rigidity: (3) Gait disorder: (4) Closed fracture of left hip: Plan This patient has a very mild action tremor, without resting tremor, head tremor, or voice tremor. It is bilateral. There is some slowness to the patient but I would not label him as significantly bradykinesia and he has no masklike face. He does have cogwheeling but this may be a function of the tremor and joint problems. There is no leadpipe rigidity to the cogwheeling. This tremor has been subacute in origin He has very poor gait with imbalance and tendency to fall backwards. He has a recent hip surgery and the left hip flexor is still weak. I believe his gait is multifactorial in origin. Although he has some parkinsonism features I do not believe he has primary Parkinson's disease. There may be a very mild dementia present (although he is 87). Recommendations: 1. Check TSH, B12, Lyme antibody titers, folate, sed rate, magnesium. 2. MRI of the brain with and without contrast. 3. Physical therapy and Occupational Therapy for strengthening and balance. 4. I see no reason for treatment of this tremor at this time. 5. I can follow-up as an outpatient. Overall, I spent a total of 60 minutes with this case including review of records, direct evaluation the patient at bedside, report generation, and discussion of the case with the patient and RN at bedside as well as Dr. Garcia including differential diagnosis and treatment options. History of Present Illness Reason for Consultation: Patient is an 87-year-old, who was asked to see at the request of Dr. Garcia, for neurologic consultation regarding tremor and other issues. Requesting Physician: Dr. Garcia Attending Physician: Elizabeth Garcia MD History of Present Illness This patient carries a history of diabetes, heart block, CKD stage III, hypertension, type 2 diabetes, and BPH. In May of this year he fell fracturing his left hip requiring ORIF by Dr. Barrow, June 08, 2023. He went to [facility] and had rehab and is now walking better. He still has poor balance and needs a walker for support. He claims that prior to the fall he did not need a walker and walked "fine". He denies stiffness but realizes he is somewhat slow. He has a tremor in the left arm, but not the right. He fell and has been weak and was admitted on August 01 brought in from home for a fall. He is afebrile and his blood pressure was 93/62. He is 95% O2 sat with a pulse of 90s and regular. CBC and CHEM profile were unremarkable except for a mild anemia. CT scan of the head was unremarkable. He has had no new issues since admission but his gait is described as the assistance of 2 He has some pain in his knees but denies pain anywhere else including his left hip. He denies weakness or numbness in the arms or legs. Allergies Allergy/AdvReac Type Severity Reaction Status Date / Time No Known Allergies Allergy Verified 08/02/23 15:41 Home Medications Medication Instructions Recorded Confirmed Type nitroglycerin 0.4 mg sublingual 0.4 mg sublingual Q5M PRN chest 08/22/19 08/02/23 Rx tablet pain #30 tabs ipratropium bromide 21 mcg (0.03 2 spray intranasal TID #90 mL 09/30/22 08/02/23 Rx %) nasal spray OneTouch Verio test strips (blood #200 ea 03/05/23 07/30/23 Rx sugar diagnostic) blood-glucose meter #1 ea 03/05/23 07/30/23 Rx lancets #200 ea 03/05/23 07/30/23 Rx walker #1 ea 03/30/23 07/30/23 Rx diclofenac sodium 1 % topical gel 2 g topical QID #100 grams 05/25/23 08/02/23 Rx (Voltaren Arthritis Pain) cholecalciferol (vitamin D3) 25 25 mcg PO DAILY #90 caps 07/30/23 08/02/23 Rx mcg (1,000 unit) capsule glipizide 5 mg tablet 5 mg PO QAM #90 tabs 07/30/23 08/02/23 Rx simvastatin 20 mg tablet 20 mg PO HS #90 tabs 07/30/23 08/02/23 Rx terazosin 5 mg capsule 5 mg PO HS #90 caps 07/30/23 08/02/23 Rx Patient History Medical History Vitamin D deficiency Diabetes mellitus with neuropathy Neutrophilic leukocytosis BPH (benign prostatic hyperplasia) Controlled type 2 diabetes mellitus with chronic kidney disease Hypercholesteremia Type 2 diabetes mellitus Rhabdomyolysis Hypertension Surgical History Status post open reduction and internal fixation (ORIF) of fracture L ankle History of wisdom tooth extraction Family History Daughter Breast cancer Father No problems noted. Mother No problems noted. Other COPD (chronic obstructive pulmonary disease) Denies family history of Ovarian cancer Prostate cancer Myocardial infarction Colorectal cancer Social History Smoking Status: Former smoker Tobacco Type: Cigarettes Age Quit Using Tobacco: 24; Second Hand Exposure: No; Do You Dip or Chew Tobacco: No; Hx Alcohol Use: Yes Alcohol type: beer Alcohol Intake Frequency: 2-3 x/Week Alcohol Intake Frequency Comment: 1-2 cans per week Hx Substance Use: No Preferred Language: Croatian Communication Ability: Effective Visual Impairment: No Limitations Hearing Ability: Hard of Hearing Admitted Attorneys Required: No Beliefs That Will Affect Care: Adventism Adventism Beliefs: islam marital status: / Current Living Situation: Family Current Living Situation Comment: with son current occupational status: retired How many Children do You have: 3 How many Children do You have Comment: 2 sons, 1 daughter ([place]) Feels Safe at Home: Yes Childhood Exposure to Second-Hand Smoke: Yes Diet: regular Diet Comment: Regular caffeine: Yes during the past year weight has: remained stable Dental Care, Regularly: No Physical Activity Frequency: Daily Seatbelt Use: always Sunscreen Use: No Assistive Devices: Cane, Raised Toilet Seat, Walker and Wheelchair Review of Systems Constitutional: no fever, no fatigue and no weakness Eyes: no diplopia, no eye pain and no worsening vision Ear, Nose, Mouth, Throat: no ear pain, no tinnitus, no hearing loss, no dizziness, no snoring, no hoarseness and no dysphagia Respiratory: no cough and no dyspnea Cardiovascular: no chest pain, no palpitations and no lightheadedness Gastrointestinal: no abdominal pain, no nausea and no vomiting Musculoskeletal: + joint pain; no back pain, no neck pain , no radicular pain and no myalgia Integumentary: no rash and no lesions Neurologic: + gait abnormality, + localized weakness and + tremor(s); no generalized weakness, no tingling, no numbness, no abnormal movements, no headache(s), no abnormal speech, no confusion and no memory loss Psychiatric: no depression, no irritability, no anxiety, no difficulty concentrating, no confusion and no hallucinations Endocrine: no fatigue and no flushing Hematologic / Lymphatic: no easy bleeding and no easy bruising Allergy / Immunological: no urticaria and no problem reported Exam (Neuro) Physical Exam: The patient is right-handed. The patient is awake, alert, and attentive. Speech is normal without any aphasia or dysarthria. Mentation and thought processes are intact, with reasonable orientation and normal fund of knowledge. Mood and affect are normal and appropriate. Appearance and grooming are normal. The patient has some mild memory deficits to conversation Pupils are 3 mm bilaterally and reactive to light. Extraocular eye muscles are intact without nystagmus. Visual acuity and visual li seem normal grossly to confrontation. There are no deficits to sensation in the face in all 3 distributions of the fifth cranial nerve bilaterally. Corneal reflexes are positive bilaterally. Facial strength and symmetry was normal bilaterally. Hearing seems intact grossly to voice and finger rub bilaterally. Palate moves well without asymmetry. There is normal sternocleidomastoid and trapezius strength bilaterally. Tongue is midline with good strength bilaterally. Neck has a full range of motion without discomfort. There are no cervical bruits bilaterally. There are no cranial or ocular bruits. Heart is without murmur. There is a regular rhythm and rate. Cervical, thoracic, and lumbar spine are nontender to palpation. Gait is narrow based but his stance was very poor. He tended to fall backwards, particularly with feet together (whether eyes were open or closed). He needed the assistance of at least 1, if not too, to navigate and was very slow and cautious and unstable moving forward. With outstretched arms there is no drift. There are no resting tremors. There is very mild bilateral postural and action tremor perhaps left greater than right side. There was no head tremor or voice tremor. There is no ataxia with finger to nose testing. There is good facility in the hands. No other abnormal involuntary movements are noted. Motor strength is 5/5 diffusely in the arms bilaterally including deltoids, biceps, triceps, brachioradialis, wrist flexors and extensors, deliverer merchandise, and intrinsic hand muscles. Motor strength is 5/5 diffusely in the legs bilaterally including quadriceps, hamstrings, gastrocnemius, tibialis anterior, tibialis posterior, and Peroneii muscles bilaterally. The left hip flexor was 4/5 compared to the right which was 5/5. The hip abductors were 5/5 and abductors were 4/5 on the left and 5/5 on the right. Toe extensors are normal and there is good bulk in the extensor digitorum brevis muscles bilaterally. The patient had joint deformities at the knees and elbows and had considerable osteoarthritic changes. He had obvious cogwheeling in the arms and legs at these joints without a leadpipe rigidity. Sensory examination is intact to touch and pin throughout all 4 limbs diffusely. Reflexes are 2/4 in the biceps, triceps, brachioradialis, quadriceps tendons bilaterally. Achilles tendon reflexes are absent bilaterally. Toes are downgoing with plantar stimulation bilaterally. Peripheral pulses are present and of normal quality distally in all 4 limbs. There is no peripheral edema noted in the limbs. Results & Data Vital Signs (Past 12 Hours) Vital Signs Temp Pulse Pulse Resp BP BP Pulse Ox 08/04/23 07:57 36.4 C L 63 18 151/72 H 94 08/04/23 07:53 70 08/04/23 07:32 08/04/23 03:11 36.4 C L 78 20 150/77 H 94 08/03/23 23:41 36.3 C L 84 18 137/74 91 O2 Del Method 08/04/23 07:57 Room Air 08/04/23 07:53 08/04/23 07:32 Room Air 08/04/23 03:11 Room Air 08/03/23 23:41 Room Air PG Care Time/CCT Total # of Minutes Spent Total Time Spent with Patient: Total time spent is greater than 50% in coordination of care (as documented) at patient's floor/unit and/or counseling patient: Coding Level of Care Code 69909 INT INP/OBS CARE 3/75MIN Diagnoses Tremor R25.1 Cogwheel rigidity R29.898 Gait disorder R26.9 Closed fracture of left hip S72.002A Encounter type: initial encounter Time Spent (min) 60 (4) Closed fracture of left hip Encounter type: initial encounter Qualified Code(s): S72.002A - Fracture of unspecified part of neck of left femur, initial encounter for closed fracture
--- NOTE | 2023-08-04 11:13 | Hospitalist Progress Note ---
Date of Service August 04, 2023 Assessment & Plan (1) Impaired mobility and ADLs: Plan: LE weakness, left thigh pain, and FRYE since discharge from [facility] rehab on 07/28 Hx of recent fall and L femoral fracture on 06/07/23 Recurrent falls with the last fall being on 07/29; no head strike; no LOC; The etiology of his falls may be multifactorial, I noticed he has tremors as well Patient ambulates with a walker at baseline; also has wheelchair Case management consulted for placement PT/OT consulted Fall precautions (2) Acute heart failure with preserved ejection fraction: Plan: CXR revealed cardiomegaly with pulmonary vascular congestion, as well as R>L bilateral pleural effusions Last echo on 06/12/2023 revealed LVEF at 50-55%; hypokinetic inferolateral wall No anginal symptoms; per review of Cardiology note on 06/12, underlying ischemic heart disease with multiple risk factors; medical management for now Patient had thoracentesis on 06/09 for pleural effusions; cytology negative; exudative; likely secondary to rib fractures BNP mildly elevated at 120 Repeat chest x-ray showed evidence of bilateral pleural effusion Will trial Lasix 20 mg IV QAM Monitor input and output, daily weight (3) Coarse tremors: Plan: I noticed he has some coarse tremors, mostly on movement, not at rest This tremors coupled with a shuffling gait could be contributing to his frequent falls Has been evaluated by neurology, per recommendations Will obtain MRI brain, TSH, folate level, vitamin B12 level, Lyme titer Patient will benefit from outpatient follow-up with neurology (4) Type 2 diabetes mellitus: Plan: Last A1c at 6.1% on 05/25/2023 Glucose 185 on admission Hold glipizide Lantus 6u BID while inpatient SSI; with target BSG range 110-140mg/dL, CF 55, carb ratio 20 T2DM diet BSG ACHS Adjust regimen as needed (5) Complete heart block, transient: Plan: EKG showed sinus rhythm with PACs and blocked PACs at 81 bpm; QTc 457 Troponin WNL Continuous telemetry monitoring (6) BPH (benign prostatic hyperplasia): Plan: Continue terazosin (7) Hypercholesteremia: Plan: Continue simvastatin (8) Anemia: Plan: Chronic; mild; Hgb 11.0 and HCT 33.2 No signs of active bleeding on clinical exam Recheck a.m. labs (9) FRYE (dyspnea on exertion): (10) Decubitus ulcer of heel, bilateral: Plan: Daily wound care/dressing Heel suspension boots Plan Disposition: Continue to monitor, patient will need placement rehab DNR/DNI AHA, T2DM diet VTE PPx: Heparin 5000u SQ q12h Admission and Anticipated Discharge Date Admission Date: August 02, 2023 Subjective Patient seen and examined today, no new complaints today, lying quietly in bed, still has some tremors Review of Systems Review of Systems: All systems reviewed are negative, apart from the ones contained in the history. Physical Exam Physical Exam: The patient is awake, alert and oriented 3, well developed and well nourished, normocephalic and atraumatic, lying in bed and in no acute distress. HEENT--PERRL, EOMI, mucous membranes and oropharynx mildly dry Neck--supple. No JVD. No bruits. Thyroid normal, trachea midline, no adenopathy. Heart--normal S1 and S2. No murmurs, rubs or gallops. Lungs--clear bilaterally, no respiratory distress, no accessory muscle use. Abdomen--normal bowel sounds and soft. Extremities--no cyanosis or clubbing. No edema. Dermatologic--normal skin turgor, normal color, no abnormal lymph nodes, no rash. Neurologic--cranial nerves II through XII grossly intact. Mild coarse tremors Rheumatologic--normal range of motion. Psychiatric--normal affect. Results & Data Results & Data Vital Signs (Past 12 Hours) Vital Signs Temp Pulse Pulse Resp BP BP Pulse Ox 08/04/23 07:57 97.5 F L 63 18 151/72 H 94 08/04/23 07:53 70 08/04/23 07:32 08/04/23 03:11 97.5 F L 78 20 150/77 H 94 08/03/23 23:41 97.3 F L 84 18 137/74 91 O2 Del Method 08/04/23 07:57 Room Air 08/04/23 07:53 08/04/23 07:32 Room Air 08/04/23 03:11 Room Air 08/03/23 23:41 Room Air PG Care Time/CCT Total # of Minutes Spent Total Time Spent with Patient: Total time spent is greater than 50% in coordination of care (as documented) at patient's floor/unit and/or counseling patient: Coding Level of Care Code 93813 SUB INP/OBS CARE 235MIN Diagnoses Impaired mobility and ADLs Z74.09; Z78.9 Acute heart failure with preserved ejection fraction I50.31 Coarse tremors G25.2 Type 2 diabetes mellitus E11.9 Complete heart block, transient I44.2 Benign prostatic hyperplasia with nocturia N40.1; R35.1 Lower urinary tract symptom presence: symptoms present Lower urinary tract symptom detail: nocturia Hypercholesteremia E78.00 Anemia D64.9 FRYE (dyspnea on exertion) R06.09 Decubitus ulcer of heel, bilateral L89.619; L89.629 Time Spent (min) 35 (6) BPH (benign prostatic hyperplasia) Lower urinary tract symptom presence: symptoms present Lower urinary tract symptom detail: nocturia Qualified Code(s): N40.1 - Benign prostatic hyperplasia with lower urinary tract symptoms; R35.1 - Nocturia
[2023-08-04 12:04] LABS: Magnesium 1.8 mg/dl (1.7-2.4)
[2023-08-04 12:19] LABS: Thyroid Stimulating Hormone 2.924 uIu/ml (0.300-4.500)
[2023-08-04 12:30] LABS: Folate (Folic Acid),Ser orPlas 14.09 ng/ml (>5.38)
[2023-08-04] MEDS: GADOBUTROL 65ML VIAL IV ONE (12:37)
--- NOTE | 2023-08-04 12:52 | Magnetic Resonance Report ---
MRI OF THE BRAIN COMBO CLINICAL HISTORY: Tremor. Change in mental status. COMPARISON STUDY: CT of the brain dated 08/02/2023. TECHNIQUE: MRI of the brain was performed utilizing various T1 and T2-weighted sequences in the axial , sagittal, and coronal planes. Contrast-enhanced sequences were acquired following the administratio n of 6 cc of Gadavist. FINDINGS: Brain parenchyma: There is age-related involutional change noting advanced confluent subcortical and periventricular microangiopathic disease. Foci of right frontal encephalomalacia are consistent with a remote insult. There is no hemorrhage or mass effect. There is no restricted diffusion to suggest a cute ischemia. No enhancing mass lesion is identified on the postcontrast images. Ponce-white matter d ifferentiation is preserved. No extra-axial fluid collection is seen. The cerebellar tonsils are norm al in configuration. Ventricles, sulci, and cisterns: Prominent secondary to involutional change. Pituitary and sella: Unremarkable. Intracranial vasculature: Normal flow voids are maintained at the skull base. Orbits: The bony orbits are grossly intact. Orbital contents are normal in appearance. Sinuses and mastoids: Clear. Calvarium: Unremarkable. Cervical cord: Partially visualized cervical spinal cord is normal in morphology and signal intensity . IMPRESSION: No acute intracranial abnormality. ACT 112: Negative or not required by law. Electronically signed by: Stanislaw Tang M.D. 08/04/2023 12:51 PM
[2023-08-05] MEDS: ACETAMINOPHEN 325 MG TAB PO PRN (00:57)
--- NOTE | 2023-08-05 08:37 | Neurology Progress Note ---
Date of Service August 05, 2023 Assessment & Plan (1) Tremor: (2) Cogwheel rigidity: (3) Gait disorder: (4) Closed fracture of left hip: Plan This patient has a very mild action tremor, without resting tremor, head tremor, or voice tremor. It is bilateral. There is some slowness to the patient but I would not label him as significantly bradykinesia and he has no masklike face. He does have cogwheeling but this may be a function of the tremor and joint problems. There is no leadpipe rigidity to the cogwheeling. This tremor has been subacute in origin MRI is remarkable for old small vessel ischemic disease and changes consistent with age. These changes seen on MRI of the brain could result in some cognitive issues and gait problems. He has very poor gait with imbalance and tendency to fall backwards. He has a recent hip surgery and the left hip flexor is still mildly weak. I believe his gait is multifactorial in origin. 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 Although he has some parkinsonism features I do not believe he has primary Parkinson's disease. There may be a very mild dementia present (although he is 87). Recommendations: 1. Physical therapy and Occupational Therapy for strengthening and balance. 2. I see no reason for treatment of this tremor at this time. 3. Please contact me if I can be of further assistance on this caseI can follow-up as an outpatient if desired. Overall, I spent a total of 50 minutes with this case including review of records, review of MRI films, direct evaluation the patient at bedside, report generation, and discussion of the case with the patient and RN at bedside as well as Dr. Garcia including differential diagnosis and treatment options. Admission and Anticipated Discharge Date Admission Date: August 02, 2023 Subjective Patient has no complaint of pain. He is not dizzy. Nursing reports no new issues overnight. MRI of the brain was obtained and showed no acute changes. 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 I reviewed these films. CBC was unremarkable and a sed rate was 11. CHEM profile showed a BUN of 37 and a glucose of 69. Calcium was mildly low and magnesium was normal. TSH, folate, B12 are all unremarkable. Lyme is pending. Patient is afebrile and blood pressure is 113/66. Results & Data Vital Signs (Past 12 Hours) Vital Signs Temp Pulse Pulse Resp BP BP Pulse Ox 08/05/23 08:10 35.8 C L 56 L 16 107/32 L 92 08/05/23 06:22 70 08/05/23 04:14 35.9 C L 73 20 131/86 90 08/05/23 00:04 08/04/23 23:34 36.3 C L 82 20 94/59 L 92 08/04/23 22:01 75 O2 Del Method 08/05/23 08:10 Room Air 08/05/23 06:22 08/05/23 04:14 Room Air 08/05/23 00:04 Room Air 08/04/23 23:34 Room Air 08/04/23 22:01 Exam (Neuro) Physical Exam: He is sleepy but easily arousable. He is awake and alert and his speech is without aphasia or dysarthria. Mood is reasonable and affect is appropriate. He is oriented to his name the fact that he is in the hospital (but he did not know which 1). He knows the month the year and the president but not the day or date. Extraocular eye muscles are intact without nystagmus. He had no facial droop. Tongue is midline. Sternocleidomastoid muscles were 5/5 as were trapezius. Coordination is normal in the arms with some very mild action tremor bilaterally. There is no rest tremor. Motor strength is essentially 5/5 bilaterally in the upper extremities both proximally and distally. Strength is closer to 5/5 in the legs this morning compared to yesterday. Reflexes are 1/4 throughout except for the Achilles which are absent. Toes are downgoing to plantar stimulation bilaterally. Gait is poor and stance is poor he tends to fall backwards eyes open with feet together. PG Care Time/CCT Total # of Minutes Spent Total Time Spent with Patient: Total time spent is greater than 50% in coordination of care (as documented) at patient's floor/unit and/or counseling patient: Coding Level of Care Code 43180 SUB INP/OBS CARE 3/50MIN Diagnoses Tremor R25.1 Cogwheel rigidity R29.898 Gait disorder R26.9 Closed fracture of left hip S72.002A Encounter type: initial encounter Time Spent (min) 50 (4) Closed fracture of left hip Encounter type: initial encounter Qualified Code(s): S72.002A - Fracture of unspecified part of neck of left femur, initial encounter for closed fracture
--- NOTE | 2023-08-05 11:47 | Hospitalist Progress Note ---
Date of Service August 05, 2023 Assessment & Plan (1) Impaired mobility and ADLs: Plan: LE weakness, left thigh pain, and FRYE since discharge from [facility] rehab on 07/28 Hx of recent fall and L femoral fracture on 06/07/23 Recurrent falls with the last fall being on 07/29; no head strike; no LOC; The etiology of his falls may be multifactorial, I noticed he has tremors as well MRI of the brain showed evidence of old ischemic changes, which could be responsible for shuffling gait and tremors However I spoke to the son today who also gives the recent history of current fecal urinary incontinence. Will obtain MRI lumbar spine, if negative may need workup for Guillain-Yu Thiamine and folate levels within normal limits, Lyme serology pending Continue physical therapy (2) Acute heart failure with preserved ejection fraction: Plan: CXR revealed cardiomegaly with pulmonary vascular congestion, as well as R>L bilateral pleural effusions Last echo on 06/12/2023 revealed LVEF at 50-55%; hypokinetic inferolateral wall No anginal symptoms; per review of Cardiology note on 06/12, underlying ischemic heart disease with multiple risk factors; medical management for now Patient had thoracentesis on 06/09 for pleural effusions; cytology negative; exudative; likely secondary to rib fractures BNP mildly elevated at 120 Repeat chest x-ray showed evidence of bilateral pleural effusion Will trial Lasix 20 mg IV QAM Monitor input and output, daily weight (3) Coarse tremors: Plan: I noticed he has some coarse tremors, mostly on movement, not at rest This tremors coupled with a shuffling gait could be contributing to his frequent falls Has been evaluated by neurology, per recommendations MRI of the brain showed evidence of old ischemic changes TSH, folate level, vitamin B12 level all within normal limits, Lyme titer pending Patient will benefit from outpatient follow-up with neurology (4) Type 2 diabetes mellitus: Plan: Last A1c at 6.1% on 05/25/2023 Glucose 185 on admission Hold glipizide Lantus 6u BID while inpatient SSI; with target BSG range 110-140mg/dL, CF 55, carb ratio 20 T2DM diet BSG ACHS Adjust regimen as needed (5) Complete heart block, transient: Plan: EKG showed sinus rhythm with PACs and blocked PACs at 81 bpm; QTc 457 Troponin WNL Continuous telemetry monitoring (6) BPH (benign prostatic hyperplasia): Plan: Continue terazosin (7) Hypercholesteremia: Plan: Continue simvastatin (8) Anemia: Plan: Chronic; mild; Hgb 11.0 and HCT 33.2 No signs of active bleeding on clinical exam Recheck a.m. labs (9) FRYE (dyspnea on exertion): (10) Decubitus ulcer of heel, bilateral: Plan: Daily wound care/dressing Heel suspension boots Plan Disposition: Continue to monitor, patient will need placement rehab DNR/DNI AHA, T2DM diet VTE PPx: Heparin 5000u SQ q12h Admission and Anticipated Discharge Date Admission Date: August 02, 2023 Subjective Patient seen and examined, lying quietly in bed no new complaints. Review of Systems Review of Systems: All systems reviewed are negative, apart from the ones contained in the history. Physical Exam Physical Exam: The patient is awake, alert and oriented 3, well developed and well nourished, normocephalic and atraumatic, lying in bed and in no acute distress. HEENT--PERRL, EOMI, mucous membranes and oropharynx mildly dry Neck--supple. No JVD. No bruits. Thyroid normal, trachea midline, no adenopathy. Heart--normal S1 and S2. No murmurs, rubs or gallops. Lungs--clear bilaterally, no respiratory distress, no accessory muscle use. Abdomen--normal bowel sounds and soft. Extremities--no cyanosis or clubbing. No edema. Dermatologic--normal skin turgor, normal color, no abnormal lymph nodes, no rash. Neurologic--cranial nerves II through XII grossly intact. Mild coarse tremors Rheumatologic--normal range of motion. Psychiatric--normal affect. Results & Data Results & Data Vital Signs (Past 12 Hours) Vital Signs Temp Pulse Pulse Resp BP BP Pulse Ox 08/05/23 11:09 96.1 F L 67 16 116/64 92 08/05/23 08:40 113/66 08/05/23 08:10 96.4 F L 56 L 16 107/32 L 92 08/05/23 06:22 70 08/05/23 04:14 96.6 F L 73 20 131/86 90 08/05/23 00:04 O2 Del Method 08/05/23 11:09 Room Air 08/05/23 08:40 08/05/23 08:10 Room Air 08/05/23 06:22 08/05/23 04:14 Room Air 08/05/23 00:04 Room Air PG Care Time/CCT Total # of Minutes Spent Total Time Spent with Patient: Total time spent is greater than 50% in coordination of care (as documented) at patient's floor/unit and/or counseling patient: Coding Level of Care Code 35211 SUB INP/OBS CARE 2/35MIN Diagnoses Impaired mobility and ADLs Z74.09; Z78.9 Acute heart failure with preserved ejection fraction I50.31 Coarse tremors G25.2 Type 2 diabetes mellitus E11.9 Complete heart block, transient I44.2 Benign prostatic hyperplasia with nocturia N40.1; R35.1 Lower urinary tract symptom presence: symptoms present Lower urinary tract symptom detail: nocturia Hypercholesteremia E78.00 Anemia D64.9 FRYE (dyspnea on exertion) R06.09 Decubitus ulcer of heel, bilateral L89.619; L89.629 Time Spent (min) 35 (6) BPH (benign prostatic hyperplasia) Lower urinary tract symptom presence: symptoms present Lower urinary tract symptom detail: nocturia Qualified Code(s): N40.1 - Benign prostatic hyperplasia with lower urinary tract symptoms; R35.1 - Nocturia
[2023-08-05] MEDS: GADOBUTROL 65ML VIAL IV ONE (13:15)
--- NOTE | 2023-08-05 18:32 | Magnetic Resonance Report ---
MRI OF THE LUMBAR SPINE COMBO CLINICAL HISTORY: Fecal and urinary incontinence. Tremor. Leg weakness. COMPARISON STUDY: Abdominal CT dated 06/07/2023. TECHNIQUE: MRI of the lumbar spine was performed utilizing various T1 and T2-weighted sequences in th e axial and sagittal planes. Contrast-enhanced sequences were acquired following the IV administratio n of 6 cc of Gadavist. The examination is degraded by motion artifact. FINDINGS: Lumbar spine: Marrow signal intensity is heterogeneous. Vertebral body height and alignment are maint ained throughout the lumbar spine. Large anterior and lateral marginal osteophytes are seen throughou t. The transverse and spinous processes appear intact. There is no evidence of spondylolysis. No enha ncing or destructive bony lesion is seen. Chronic degenerative endplate change is noted at most level s. There is mild endplate edema at L3-L4. Intervertebral discs: Disc desiccation and loss of height is seen throughout the lumbar spine. Loss o f height is ngchhhpz-wt-zcsxoe at all levels between L2-L3 and L5-S1. Spinal cord: The visualized spinal cord is normal in morphology and signal intensity. The conus medul bruce terminates at the level of L1. The nerve roots of the cauda equina are normal in morphology. No abnormal postcontrast enhancement is seen. L1-L2: Unremarkable. L2-L3: There is broad-based posterior disc bulge, which abuts the transiting nerve roots. There is no significant central canal stenosis. Lateral disc bulge contributes to mild bilateral subarticular st enosis. Facet arthropathy is of no consequence. The neural foramina are patent. L3-L4: There is broad-based posterior disc bulge and annular fissure. This abuts the transiting nerve roots. In conjunction with hypertrophy of the ligamentum flavum, there is udab-rl-isorygfb central c anal stenosis at this level with a minimum AP diameter of 6.5 mm. Large lateral disc bulges are seen bilaterally. This contributes to bilateral subarticular stenosis and may impinge on the exiting bilat eral L3 nerve roots. In conjunction with facet arthropathy, there is evaldoum-dx-lvgfam right and mil d left neural foraminal stenosis. L4-L5: There is broad-based posterior disc bulge. This abuts the transiting nerve roots. In conjuncti on with hypertrophy of the ligamentum flavum, there is jdlu-ix-bwnrkumh central canal stenosis at thi s level with a minimum AP diameter of 7.5 mm. Lateral disc bulge contributes to bilateral subarticula r stenosis. This may abut the exiting bilateral L4 nerve roots. In conjunction with facet arthropathy , there is lbzhctev-qd-tuozlv right and mild left neural foraminal stenosis. L5-S1: There is a small posterior disc bulge with annular fissure. This abuts the transiting nerve ro ots. There is no significant acquired compromise of the central canal. Lateral disc bulges contribute to bilateral subarticular stenosis, right greater than left. This may abut the exiting right L5 nerv e root. In conjunction with facet arthropathy, there is mild bilateral neural foraminal stenosis. Sacrum: There is marrow edema at the sacrococcygeal junction seen on sagittal image #9. There may be nondisplaced fracture at this site. The remainder of the sacrum is normal in morphology and signal in tensity. Soft tissues: There is fatty atrophy of the paraspinous musculature. Bilateral renal cysts are partia lly visualized and measure up to 3.5 cm. No retroperitoneal lymphadenopathy is seen. The bladder is d istended, and the wall is thickened/trabeculated indicating chronic outlet obstruction. IMPRESSION: 1. There is marrow edema at the sacrococcygeal junction with a possible nondisplaced fracture. Correl ate clinically. 2. No additional findings are suspicious for acute fracture involving the lumbosacral spine. 3. Multilevel lumbosacral spondylosis as above. See discussion for detailed vzvva-jw-dbdyh analysis. 4. No abnormal postcontrast enhancement is identified. Dictated: 08/05/2023 4:07 PM Transcribed: 08/05/2023 5:29 PM Donnie [id number] [email or web address] Electronically signed by: Stanislaw Tang M.D. 08/05/2023 6:30 PM
[2023-08-05 18:37] LABS: 18KDIGG Band REACTIVE; 23KDIGG Band NON-REACTIVE; 23KDIGM Band NON-REACTIVE; 28KDIGG Band NON-REACTIVE; 30KDIGG Band NON-REACTIVE; 39KDIGG Band NON-REACTIVE; 39KDIGM Band NON-REACTIVE; 41KDIGG Band NON-REACTIVE; 41KDIGM Band NON-REACTIVE; 45KDIGG Band NON-REACTIVE; 58KDIGG Band NON-REACTIVE; 66KDIGG Band NON-REACTIVE; 93KDIGG Band NON-REACTIVE; Lyme Antibodies, WB IgG NEGATIVE (NEGATIVE); Lyme Antibodies, WB IgM NEGATIVE (NEGATIVE)
[2023-08-06 07:47] LABS: BUN Creatinine Ratio 25.8 (10-20); Calcium 8.5 mg/dl (8.6-10.3); Creatinine Clr Calc Pharmacy 36.6 ml/min; Est GFR (African American) 59.8 ml/min; Est GFR (Non-African American) 51.6 ml/min; Potassium 3.4 mmol/L (3.5-5.1)
--- NOTE | 2023-08-06 11:00 | Hospitalist Progress Note ---
Date of Service August 06, 2023 Assessment & Plan (1) Impaired mobility and ADLs: Plan: LE weakness, left thigh pain, and FRYE since discharge from [facility] rehab on 07/28 Hx of recent fall and L femoral fracture on 06/07/23 Recurrent falls with the last fall being on 07/29; no head strike; no LOC; The etiology of his falls may be multifactorial, I noticed he has tremors as well MRI of the brain showed evidence of old ischemic changes, which could be responsible for shuffling gait and tremors However I spoke to the son who also gives the recent history of current fecal urinary incontinence. Thiamine and folate levels within normal limits, Lyme serology pending MRI lumbar spine showed evidence of marrow edema at the sacrococcygeal junction with possible nondisplaced fracture. Also there is multilevel lumbosacral spondylosis, there is a disc bulge between L4-L5 which abuts the transiting nerve roots and also disc bulging at L5-S1 which abuts the transiting nerve roots Will start p.o. Decadron 4 mg twice daily Consult ortho spine Continue physical therapy (2) Acute heart failure with preserved ejection fraction: Plan: CXR revealed cardiomegaly with pulmonary vascular congestion, as well as R>L bilateral pleural effusions Last echo on 06/12/2023 revealed LVEF at 50-55%; hypokinetic inferolateral wall No anginal symptoms; per review of Cardiology note on 06/12, underlying ischemic heart disease with multiple risk factors; medical management for now Patient had thoracentesis on 06/09 for pleural effusions; cytology negative; exudative; likely secondary to rib fractures BNP mildly elevated at 120 Repeat chest x-ray showed evidence of bilateral pleural effusion Will trial Lasix 20 mg IV QAM Monitor input and output, daily weight (3) Coarse tremors: Plan: I noticed he has some coarse tremors, mostly on movement, not at rest This tremors coupled with a shuffling gait could be contributing to his frequent falls Has been evaluated by neurology, per recommendations MRI of the brain showed evidence of old ischemic changes TSH, folate level, vitamin B12 level all within normal limits, Lyme titer pending Patient will benefit from outpatient follow-up with neurology (4) Type 2 diabetes mellitus: Plan: Last A1c at 6.1% on 05/25/2023 Glucose 185 on admission Hold glipizide Lantus 6u BID while inpatient SSI; with target BSG range 110-140mg/dL, CF 55, carb ratio 20 T2DM diet BSG ACHS Adjust regimen as needed (5) Complete heart block, transient: Plan: EKG showed sinus rhythm with PACs and blocked PACs at 81 bpm; QTc 457 Troponin WNL Continuous telemetry monitoring (6) BPH (benign prostatic hyperplasia): Plan: Continue terazosin (7) Hypercholesteremia: Plan: Continue simvastatin (8) Anemia: Plan: Chronic; mild; Hgb 11.0 and HCT 33.2 No signs of active bleeding on clinical exam Recheck a.m. labs (9) FRYE (dyspnea on exertion): (10) Decubitus ulcer of heel, bilateral: Plan: Daily wound care/dressing Heel suspension boots Plan Disposition: Continue to monitor, insurance denied acute rehab, will offer peer to peer. However SNF is good enough DNR/DNI AHA, T2DM diet VTE PPx: Heparin 5000u SQ q12h Admission and Anticipated Discharge Date Admission Date: August 02, 2023 Subjective Patient seen and examined, sitting up in the chair Review of Systems Review of Systems: All systems reviewed are negative, apart from the ones contained in the history. Physical Exam Physical Exam: The patient is awake, alert and oriented 3, well developed and well nourished, normocephalic and atraumatic, lying in bed and in no acute distress. HEENT--PERRL, EOMI, mucous membranes and oropharynx mildly dry Neck--supple. No JVD. No bruits. Thyroid normal, trachea midline, no adenopathy. Heart--normal S1 and S2. No murmurs, rubs or gallops. Lungs--clear bilaterally, no respiratory distress, no accessory muscle use. Abdomen--normal bowel sounds and soft. Extremities--no cyanosis or clubbing. No edema. Dermatologic--normal skin turgor, normal color, no abnormal lymph nodes, no rash. Neurologic--cranial nerves II through XII grossly intact. Mild coarse tremors Rheumatologic--normal range of motion. Psychiatric--normal affect. Results & Data Results & Data Vital Signs (Past 12 Hours) Vital Signs Temp Pulse Pulse Resp BP BP Pulse Ox 08/06/23 07:54 96.8 F L 76 16 115/65 92 08/06/23 05:58 65 08/06/23 04:11 97.9 F 67 20 109/63 91 08/05/23 23:09 98.4 F 66 18 133/70 95 O2 Del Method 08/06/23 07:54 Room Air 08/06/23 05:58 08/06/23 04:11 Room Air 08/05/23 23:09 Room Air PG Care Time/CCT Total # of Minutes Spent Total Time Spent with Patient: Total time spent is greater than 50% in coordination of care (as documented) at patient's floor/unit and/or counseling patient: Coding Level of Care Code 07333 SUB INP/OBS CARE 2/35MIN Diagnoses Impaired mobility and ADLs Z74.09; Z78.9 Acute heart failure with preserved ejection fraction I50.31 Coarse tremors G25.2 Type 2 diabetes mellitus E11.9 Complete heart block, transient I44.2 Benign prostatic hyperplasia with nocturia N40.1; R35.1 Lower urinary tract symptom presence: symptoms present Lower urinary tract symptom detail: nocturia Hypercholesteremia E78.00 Anemia D64.9 FRYE (dyspnea on exertion) R06.09 Decubitus ulcer of heel, bilateral L89.619; L89.629 Time Spent (min) 35 (6) BPH (benign prostatic hyperplasia) Lower urinary tract symptom presence: symptoms present Lower urinary tract symptom detail: nocturia Qualified Code(s): N40.1 - Benign prostatic hyperplasia with lower urinary tract symptoms; R35.1 - Nocturia
[2023-08-06] MEDS: dexAMETHasone 4 MG TAB PO SCH (21:09)
--- NOTE | 2023-08-07 11:05 | Hospitalist Progress Note ---
Date of Service August 07, 2023 Assessment & Plan (1) Impaired mobility and ADLs: Plan: LE weakness, left thigh pain, and FRYE since discharge from [facility] rehab on 07/28 Hx of recent fall and L femoral fracture on 06/07/23 Recurrent falls with the last fall being on 07/29; no head strike; no LOC; The etiology of his falls may be multifactorial, I noticed he has tremors as well MRI of the brain showed evidence of old ischemic changes, which could be responsible for shuffling gait and tremors However I spoke to the son who also gives the recent history of current fecal urinary incontinence. Thiamine and folate levels within normal limits, Lyme serology pending MRI lumbar spine showed evidence of marrow edema at the sacrococcygeal junction with possible nondisplaced fracture. Also there is multilevel lumbosacral spondylosis, there is a disc bulge between L4-L5 which abuts the transiting nerve roots and also disc bulging at L5-S1 which abuts the transiting nerve roots Will start p.o. Decadron 4 mg twice daily Consult ortho spine Continue physical therapy (2) Acute heart failure with preserved ejection fraction: Plan: CXR revealed cardiomegaly with pulmonary vascular congestion, as well as R>L bilateral pleural effusions Last echo on 06/12/2023 revealed LVEF at 50-55%; hypokinetic inferolateral wall No anginal symptoms; per review of Cardiology note on 06/12, underlying ischemic heart disease with multiple risk factors; medical management for now Patient had thoracentesis on 06/09 for pleural effusions; cytology negative; exudative; likely secondary to rib fractures BNP mildly elevated at 120 Repeat chest x-ray showed evidence of bilateral pleural effusion Will continue Lasix 20 mg IV QAM, transition to PO Monitor input and output, daily weight (3) Coarse tremors: Plan: I noticed he has some coarse tremors, mostly on movement, not at rest This tremors coupled with a shuffling gait could be contributing to his frequent falls Has been evaluated by neurology, per recommendations MRI of the brain showed evidence of old ischemic changes TSH, folate level, vitamin B12 level all within normal limits, Lyme titer pending Patient will benefit from outpatient follow-up with neurology (4) Type 2 diabetes mellitus: Plan: Last A1c at 6.1% on 05/25/2023 Glucose 185 on admission Hold glipizide Lantus 6u BID while inpatient SSI; with target BSG range 110-140mg/dL, CF 55, carb ratio 20 T2DM diet BSG ACHS Adjust regimen as needed (5) Complete heart block, transient: Plan: EKG showed sinus rhythm with PACs and blocked PACs at 81 bpm; QTc 457 Troponin WNL Continuous telemetry monitoring (6) BPH (benign prostatic hyperplasia): Plan: Continue terazosin (7) Hypercholesteremia: Plan: Continue simvastatin (8) Anemia: Plan: Chronic; mild; Hgb 11.0 and HCT 33.2 No signs of active bleeding on clinical exam Recheck a.m. labs (9) FRYE (dyspnea on exertion): (10) Decubitus ulcer of heel, bilateral: Plan: Daily wound care/dressing Heel suspension boots Plan Disposition: Discharge to SNF when accepted DNR/DNI AHA, T2DM diet VTE PPx: Heparin 5000u SQ q12h Admission and Anticipated Discharge Date Admission Date: August 02, 2023 Subjective Patient seen and examined, sitting up in the chair Review of Systems Review of Systems: All systems reviewed are negative, apart from the ones contained in the history. Physical Exam Physical Exam: The patient is awake, alert and oriented 3, well developed and well nourished, normocephalic and atraumatic, lying in bed and in no acute distress. HEENT--PERRL, EOMI, mucous membranes and oropharynx mildly dry Neck--supple. No JVD. No bruits. Thyroid normal, trachea midline, no adenopathy. Heart--normal S1 and S2. No murmurs, rubs or gallops. Lungs--clear bilaterally, no respiratory distress, no accessory muscle use. Abdomen--normal bowel sounds and soft. Extremities--no cyanosis or clubbing. No edema. Dermatologic--normal skin turgor, normal color, no abnormal lymph nodes, no rash. Neurologic--cranial nerves II through XII grossly intact. Mild coarse tremors Rheumatologic--normal range of motion. Psychiatric--normal affect. Results & Data Results & Data Vital Signs (Past 12 Hours) Vital Signs Temp Pulse Pulse Resp BP BP Pulse Ox 08/07/23 08:00 96.8 F L 72 16 135/70 90 08/07/23 07:23 99 H 08/07/23 03:00 97.3 F L 78 18 150/83 H 93 08/07/23 00:26 68 O2 Del Method 08/07/23 08:00 Room Air 08/07/23 07:23 08/07/23 03:00 Room Air 08/07/23 00:26 PG Care Time/CCT Total # of Minutes Spent Total Time Spent with Patient: Total time spent is greater than 50% in coordination of care (as documented) at patient's floor/unit and/or counseling patient: Coding Level of Care Code 96430 SUB INP/OBS CARE 2/35MIN Diagnoses Impaired mobility and ADLs Z74.09; Z78.9 Acute heart failure with preserved ejection fraction I50.31 Coarse tremors G25.2 Type 2 diabetes mellitus E11.9 Complete heart block, transient I44.2 Benign prostatic hyperplasia with nocturia N40.1; R35.1 Lower urinary tract symptom presence: symptoms present Lower urinary tract symptom detail: nocturia Hypercholesteremia E78.00 Anemia D64.9 FRYE (dyspnea on exertion) R06.09 Decubitus ulcer of heel, bilateral L89.619; L89.629 Time Spent (min) 35 (6) BPH (benign prostatic hyperplasia) Lower urinary tract symptom presence: symptoms present Lower urinary tract symptom detail: nocturia Qualified Code(s): N40.1 - Benign prostatic hyperplasia with lower urinary tract symptoms; R35.1 - Nocturia
[2023-08-07] MEDS: POTASSIUM CHLORIDE CRTAB 20 MEQ TABCR PO STA (11:28)
[2023-08-07] MEDS: LANTUS PER UNIT CHARGE SQ SCH (20:37)
[2023-08-08] MEDS: FUROSEMIDE 20 MG TAB PO SCH (08:20)
[2023-08-08 08:54] LABS: BUN Creatinine Ratio 30.7 (10-20); Calcium 8.6 mg/dl (8.6-10.3); Creatinine Clr Calc Pharmacy 32.4 ml/min; Est GFR (African American) 51.6 ml/min; Est GFR (Non-African American) 44.5 ml/min; Potassium 4.5 mmol/L (3.5-5.1)
--- NOTE | 2023-08-08 10:36 | Hospitalist Progress Note ---
Date of Service August 08, 2023 Assessment & Plan (1) Impaired mobility and ADLs: Plan: LE weakness, left thigh pain, and FRYE since discharge from [facility] rehab on 07/28 Hx of recent fall and L femoral fracture on 06/07/23 Recurrent falls with the last fall being on 07/29; no head strike; no LOC; The etiology of his falls may be multifactorial, I noticed he has tremors as well MRI of the brain showed evidence of old ischemic changes, which could be responsible for shuffling gait and tremors However I spoke to the son who also gives the recent history of current fecal urinary incontinence. Thiamine and folate levels within normal limits, Lyme serology pending MRI lumbar spine showed evidence of marrow edema at the sacrococcygeal junction with possible nondisplaced fracture. Also there is multilevel lumbosacral spondylosis, there is a disc bulge between L4-L5 which abuts the transiting nerve roots and also disc bulging at L5-S1 which abuts the transiting nerve roots Will start p.o. Decadron 4 mg twice daily Consult ortho spine Continue physical therapy (2) Acute heart failure with preserved ejection fraction: Plan: CXR revealed cardiomegaly with pulmonary vascular congestion, as well as R>L bilateral pleural effusions Last echo on 06/12/2023 revealed LVEF at 50-55%; hypokinetic inferolateral wall No anginal symptoms; per review of Cardiology note on 06/12, underlying ischemic heart disease with multiple risk factors; medical management for now Patient had thoracentesis on 06/09 for pleural effusions; cytology negative; exudative; likely secondary to rib fractures BNP mildly elevated at 120 Repeat chest x-ray showed evidence of bilateral pleural effusion Will continue Lasix 20 mg IV QAM, transition to PO Monitor input and output, daily weight (3) Coarse tremors: Plan: I noticed he has some coarse tremors, mostly on movement, not at rest This tremors coupled with a shuffling gait could be contributing to his frequent falls Has been evaluated by neurology, per recommendations MRI of the brain showed evidence of old ischemic changes TSH, folate level, vitamin B12 level all within normal limits, Lyme titer pending Patient will benefit from outpatient follow-up with neurology (4) Orthostatic hypotension: Plan: When participating in physical therapy couple of days ago, patient had a positive orthostatics Blood pressure dropped from 100 systolic to 70s and he got dizzy Patient was advised to get up from a lying position in stages (5) Type 2 diabetes mellitus: Plan: Last A1c at 6.1% on 05/25/2023 Glucose 185 on admission Hold glipizide Lantus 6u BID while inpatient SSI; with target BSG range 110-140mg/dL, CF 55, carb ratio 20 T2DM diet BSG ACHS Adjust regimen as needed (6) Complete heart block, transient: Plan: EKG showed sinus rhythm with PACs and blocked PACs at 81 bpm; QTc 457 Troponin WNL Continuous telemetry monitoring (7) BPH (benign prostatic hyperplasia): Plan: Continue terazosin (8) Hypercholesteremia: Plan: Continue simvastatin (9) Anemia: Plan: Chronic; mild; Hgb 11.0 and HCT 33.2 No signs of active bleeding on clinical exam Recheck a.m. labs (10) FRYE (dyspnea on exertion): (11) Decubitus ulcer of heel, bilateral: Plan: Daily wound care/dressing Heel suspension boots Plan Disposition: Discharge to SNF when accepted, pending evaluation by orthospine DNR/DNI AHA, T2DM diet VTE PPx: Heparin 5000u SQ q12h Admission and Anticipated Discharge Date Admission Date: August 02, 2023 Subjective Patient seen and examined, sitting up in the chair, denies any new complaints. Review of Systems Review of Systems: All systems reviewed are negative, apart from the ones contained in the history. Physical Exam Physical Exam: The patient is awake, alert and oriented 3, well developed and well nourished, normocephalic and atraumatic, lying in bed and in no acute distress. HEENT--PERRL, EOMI, mucous membranes and oropharynx mildly dry Neck--supple. No JVD. No bruits. Thyroid normal, trachea midline, no adenopathy. Heart--normal S1 and S2. No murmurs, rubs or gallops. Lungs--clear bilaterally, no respiratory distress, no accessory muscle use. Abdomen--normal bowel sounds and soft. Extremities--no cyanosis or clubbing. No edema. Dermatologic--normal skin turgor, normal color, no abnormal lymph nodes, no rash. Neurologic--cranial nerves II through XII grossly intact. Mild coarse tremors Rheumatologic--normal range of motion. Psychiatric--normal affect. Results & Data Results & Data Vital Signs (Past 12 Hours) Vital Signs Temp Pulse Pulse Resp BP BP Pulse Ox 08/08/23 09:00 08/08/23 07:47 97.5 F L 62 18 135/79 95 08/08/23 07:00 80 08/08/23 03:13 97.3 F L 67 18 132/73 94 08/08/23 00:04 67 08/07/23 23:15 97.7 F 65 18 144/69 H 93 08/07/23 22:46 O2 Del Method 08/08/23 09:00 Room Air 08/08/23 07:47 Room Air 08/08/23 07:00 08/08/23 03:13 Room Air 08/08/23 00:04 08/07/23 23:15 Room Air 08/07/23 22:46 Room Air PG Care Time/CCT Total # of Minutes Spent Total Time Spent with Patient: Total time spent is greater than 50% in coordination of care (as documented) at patient's floor/unit and/or counseling patient: Coding Level of Care Code 76424 SUB INP/OBS CARE 2/35MIN Diagnoses Impaired mobility and ADLs Z74.09; Z78.9 Acute heart failure with preserved ejection fraction I50.31 Coarse tremors G25.2 Orthostatic hypotension I95.1 Type 2 diabetes mellitus E11.9 Complete heart block, transient I44.2 Benign prostatic hyperplasia with nocturia N40.1; R35.1 Lower urinary tract symptom presence: symptoms present Lower urinary tract symptom detail: nocturia Hypercholesteremia E78.00 Anemia D64.9 FRYE (dyspnea on exertion) R06.09 Decubitus ulcer of heel, bilateral L89.619; L89.629 Time Spent (min) 35 (7) BPH (benign prostatic hyperplasia) Lower urinary tract symptom presence: symptoms present Lower urinary tract symptom detail: nocturia Qualified Code(s): N40.1 - Benign prostatic hyperplasia with lower urinary tract symptoms; R35.1 - Nocturia
--- NOTE | 2023-08-09 08:38 | XRay Report ---
XR chest 1V portable HISTORY: 87 years-old Male CHF acute shortness of breath COMPARISON: 08/02/2023 TECHNIQUE: AP view of the chest FINDINGS: Cardiac silhouette is enlarged. Atherosclerosis of aorta. Pulmonary vascular congestion. No pneumotho rax. Right greater than left layering pleural effusions with bibasilar consolidation. Healing subacut e right-sided rib fractures again noted. IMPRESSION: 1. Cardiomegaly with pulmonary vascular congestion. 2. Right greater than left layering pleural effusions with bibasilar opacities redemonstrated. There is mildly improved aeration of the right lung base. 3. Healing subacute right-sided rib fractures redemonstrated. ACT 112: Negative or not required by law. The above report was generated using voice recognition software. It may contain grammatical, syntax o r spelling errors. Electronically signed by: Deny Escamilla M.D. 08/09/2023 8:37 AM
[2023-08-09] MEDS: glipiZIDE 5 MG TAB PO SCH (09:08)
--- NOTE | 2023-08-09 12:39 | Hospitalist Progress Note ---
Date of Service August 09, 2023 Assessment & Plan (1) Impaired mobility and ADLs: Plan: Continue OT and PT while hospitalized. Eventual discharge to the [facility] with continued therapy. [facility] Hx of recent fall and L femoral fracture on 06/07/23. MRI of the brain showed evidence of chronic ischemic changes. Neurology consultation and recommendations appreciated. Highly doubtful he has underlying Parkinson's disease. MRI lumbar spine showed evidence of marrow edema at the sacrococcygeal junction with possible nondisplaced fracture. Also there is multilevel lumbosacral spondylosis, there is a disc bulge between L4-L5 which abuts the transiting nerve roots and also disc bulging at L5-S1 which abuts the transiting nerve roots. Minimal symptoms however. Dexamethasone therapy has been discontinued. Orthopedic spine consultation pending. nue physical therapy (2) Acute heart failure with preserved ejection fraction: Plan: Acute on chronic diastolic CHF present on admission. Chest x-ray done today, August 08, looks better. Parenteral Lasix has now been switched to oral therapy. Continue to monitor intake and output. He is on room air. cardiomegaly with pulmonary vascular congestion, as well as R>L bilateral pleural effusions (3) Coarse tremors: Plan: Neurology consultation and recommendations appreciated. They are doubtful that he has underlying Parkinson's disease and states that the tremors do not need treated at this time. Supportive care (4) Orthostatic hypotension: Plan: Occurred when participating in physical therapy earlier this hospitalization. Now resolved. (5) Type 2 diabetes mellitus: Plan: ADA diet. Sliding scale coverage as needed. Glipizide has been restarted. He is insulin kristyn and scheduled basal insulin has been discontinued. (6) Complete heart block, transient: Plan: EKG showed sinus rhythm with PACs and several nonconducted PACs. No intervention necessary. Continue telemetry. (7) Decubitus ulcer of heel, bilateral: Plan: Daily wound care/dressing. Heel suspension boots Plan Anticipate discharge to the [facility] tomorrow, August 09 Admission and Anticipated Discharge Date Admission Date: August 02, 2023 Subjective Alert and oriented. No new problems. Glipizide has been restarted and Lantus discontinued. He has moderate lumbar spinal stenosis which is not new and minimal symptoms. Dexamethasone has also been discontinued. Chest x-ray was repeated today, Joyce 1, and looks better after treatment of the diastolic CHF. Neurology consultation appreciated. Doubtful that he has Parkinson's disease. Hopeful discharge to the [facility] tomorrow, August 09 Review of Systems 2 Review of Systems: Constitutional-no fever or chills ENT-no blurred vision, no double vision, no epistaxis, no sore throat Respiratory-no cough, no wheezing, no shortness of breath Cardiac-no palpitations, no chest pain, no syncope GI-no nausea, vomiting, diarrhea, melena, hematochezia -no urinary retention, no urinary incontinence, no dysuria, no hematuria Musculoskeletal-no joint pain, no muscle tenderness Skin-no bruising, no rashes, no pruritus Neuro-no isolated weakness, no paresthesia, no weakness Psych-no depression, no anxiety Physical Exam 2 Physical Exam: General-alert and oriented x3, no fever, no chills HEENT-head atraumatic and normocephalic, pupils equal and reactive to light, extraocular muscles intact Neck-no lymphadenopathy or thyromegaly, trachea midline Chest-clear to auscultation. No rales, wheezing or rhonchi Cardiac-regular rate and rhythm, normal S1 and S2 Abdomen-normal bowel sounds, nontender, no hepatosplenomegaly Extremities-no cyanosis, clubbing, or edema Neuro-cranial nerves II through XII intact, motor and sensory function within normal limits, strength symmetrical, no focal deficits Psych-normal affect, normal mood Results & Data Results & Data Vital Signs (Past 12 Hours) Vital Signs Temp Pulse Pulse Resp BP BP Pulse Ox 08/09/23 11:36 36.3 C L 63 17 115/63 97 08/09/23 09:28 63 08/09/23 07:51 36.3 C L 70 17 121/71 95 08/09/23 07:40 08/09/23 03:15 36.5 C 71 18 127/71 96 O2 Del Method 08/09/23 11:36 Room Air 08/09/23 09:28 08/09/23 07:51 Room Air 08/09/23 07:40 Room Air 08/09/23 03:15 Room Air Laboratory Results 08/04/23 07:13 08/08/23 06:40 PG Care Time/CCT Total # of Minutes Spent Total Time Spent with Patient: Total time spent is greater than 50% in coordination of care (as documented) at patient's floor/unit and/or counseling patient: Coding Level of Care Code 70217 SUB INP/OBS CARE 350MIN Diagnoses Impaired mobility and ADLs Z74.09; Z78.9 Acute heart failure with preserved ejection fraction I50.31 Coarse tremors G25.2 Orthostatic hypotension I95.1 Type 2 diabetes mellitus E11.9 Complete heart block, transient I44.2 Decubitus ulcer of heel, bilateral L89.619; L89.629
--- NOTE | 2023-08-10 13:09 | Discharge Summary ---
Date of Service August 10, 2023 Admission HPI Per Admitting Provider Jung is an 87-year-old male with PMH of T2DM, BPH, HTN, tinnitus, CKD stage III, falls, and transient complete heart block. He presented for ambulatory dysfunction, LE weakness, and FRYE on 08/01. Patient was discharged from [facility] on 07/28; he was there fpr rehab of a left femur fracture. Patient's son/POA (Sandeep) is present at the bedside and provides additional history. Son reports that he took 10 steps towards the bathroom, and was complaining of FRYE and left thigh pain. When they called his PCP, they told him to come to the ER. Patient reports that the shortness of breath is only with e xertion, not at rest; not positional or worse when lying flat. Patient recently had a fall on Saturday 07/29, 1 day after leaving rehab; no head strike; no LOC; patient fell in the bathroom after he felt dizzy and his legs gave out on him. Patient ambulates with a walker at baseline, but has had trouble standing up straight, and requires a wheelchair for the most part. He did not take any of his regular morning medications today; the patient was at the doctor on Wednesday, and reports no recent change in medications. Patient lives with his other son (Yane) who helps to manage the medications at home. He endorses left thigh pain that comes and goes; no radiation of the back or down the leg. He has not been taking any additional medications for the pain. He rates the pain 5/10 at present. No alcohol/tobacco use. Patient and patient's son/POA confirmed that they recently redid his living will and that he is now a DNR/DNI. Patient's son also reports that there has been some acute changes in memory recently; for instance, the patient is not running what he had for breakfast today. Vital stable at time of admission; SpO2 94% on RA. ED course: NSS 500 mL IV ROS: Patient endorses FRYE, dizziness with standing and walking, falls, ambulatory dysfunction, and LE weakness. Patient denies fever, chills, nightsweats, dizziness/lightheadedness at rest, OROZCO, changes in vision, chest pain, SOB at rest, abdominal pain, N/V/D, urinary s/s, and burning with urination. Principal Diagnosis Acute on chronic diastolic congestive heart failure, moderate lumbar spinal stenosis, recurrent falls Discharge Exam General-alert and oriented x3, no fever, no chills HEENT-head atraumatic and normocephalic, pupils equal and reactive to light, extraocular muscles intact Neck-no lymphadenopathy or thyromegaly, trachea midline Chest-clear to auscultation. No rales, wheezing or rhonchi Cardiac-regular rate and rhythm, normal S1 and S2 Abdomen-normal bowel sounds, nontender, no hepatosplenomegaly Extremities-no cyanosis, clubbing, or edema Neuro-cranial nerves II through XII intact, motor and sensory function within normal limits, strength symmetrical, no focal deficits Psych-normal affect, normal mood Discharge Data Allergies Allergy/AdvReac Type Severity Reaction Status Date / Time No Known Allergies Allergy Verified 08/02/23 15:41 Consultations 08/02/23 16:23 ED Decision to Admit Stat 08/04/23 07:35 Consult Neurology Routine Ordered Studies 08/02/23 12:35 US venous doppler LE LT Stat 08/02/23 18:11 CT head/brain wo con Stat 08/04/23 11:01 MRI Brain [MR brain wo/w con] Routine 08/05/23 11:20 MRI Lumbar Spine [MR lumbar spine wo/w con] Routine Hospital Course (1) Impaired mobility and ADLs: Continue OT and PT while hospitalized. Discharge to the [facility] with continued therapy. Recent discharge from [facility] rehab on 07/29/23. Hx of recent fall and L femoral fracture on 06/07/23. MRI of the brain showed evidence of chronic ischemic changes. Neurology consultation and recommendations appreciated. Highly doubtful he has underlying Parkinson's disease. MRI lumbar spine showed evidence of marrow edema at the sacrococcygeal junction with possible nondisplaced fracture. Also there is multilevel lumbosacral spondylosis, there is a disc bulge between L4-L5 which abuts the transiting nerve roots and also disc bulging at L5-S1 which abuts the transiting nerve roots. Minimal symptoms however. Dexamethasone therapy has been discontinued. Lumbar films were reviewed by orthopedic spine physician and there is no indication for anything surgical at this point. The son was updated by phone today, August 09. (2) Acute heart failure with preserved ejection fraction: Acute on chronic diastolic CHF present on admission. Chest x-ray done on August 08 looked better. CHF has resolved. Parenteral Lasix has now been switched to oral therapy. Continue to monitor intake and output. He is on room air. (3) Coarse tremors: Neurology consultation and recommendations appreciated. They are doubtful that he has underlying Parkinson's disease and states that the tremors do not need treated at this time. Supportive care (4) Orthostatic hypotension: Occurred when participating in physical therapy earlier this hospitalization. Now resolved. (5) Type 2 diabetes mellitus: ADA diet. Sliding scale coverage as needed. Glipizide has been restarted. He is insulin kristyn and scheduled basal insulin has been discontinued. (6) Complete heart block, transient: EKG showed sinus rhythm with PACs and several nonconducted PACs. No intervention necessary. Continue telemetry. (7) Decubitus ulcer of heel, bilateral: Daily wound care/dressing. Heel suspension boots Plan discharge to the [facility] today, August 09 Total Time Total Time Spent Total Time Spent (In Minutes): 45 minutes Discharge Plan Discharge Items Patient Disposition: Transfer [facility] Reason For Visit: LE WEAKNESS, FRYE, PLACEMENT Discharge Diagnosis: Acute on chronic diastolic congestive heart failure, moderate lumbar spinal st enosis, recurrent falls Activity: Resume your previous activity Non-emergency contact: Primary Care Provider Call non-emergency contact if: your symptoms worsen Follow-up/Referrals: Dave Zhang DO [Primary Care Provider] - Diet: Carb Consistent or DM2 and Heart Healthy Addtl Attending Provider Instructions: See primary care provider soon as possible after discharge from the [facility] Pending Studies at Discharge: No Stand-Alone Forms: My [facility] Skilled Items Patient informed of condition?: Yes DNR: Yes Discharge Level of Care: Skilled Communicable Disease: No Discharge Prognosis: Stable Lines: None Urinary Catheter: No Medications and DC Order Prescriptions: New furosemide 20 mg Tablet 20 mg PO QAM Qty: 10 0RF Continued ipratropium bromide 21 mcg (0.03 %) spray,non-aerosol 2 spray intranasal TID Qty: 90 3RF Rx Instructions: administer into each nostril (DME) blood-glucose meter Misc See Rx Instructions .Route Qty: 1 0RF Rx Instructions: As directed- test twice daily (DME) lancets Misc See Rx Instructions .Route Qty: 200 3RF Rx Instructions: As directed twice per day (DME) OneTouch Verio test strips Strip See Rx Instructions .Route Qty: 200 3RF Rx Instructions: use to test 2-3 times daily (DME) walker [facility] See Rx Instructions .Route Qty: 1 0RF Rx Instructions: As directed diclofenac sodium [Voltaren Arthritis Pain] 1 % gel 2 g topical QID Qty: 100 3RF glipizide 5 mg tablet 5 mg PO QAM Qty: 90 3RF terazosin 5 mg capsule 5 mg PO HS Qty: 90 3RF Rx Instructions: TAKE ONE CAPSULE BY MOUTH AT BEDTIME simvastatin 20 mg tablet 20 mg PO HS Qty: 90 3RF cholecalciferol (vitamin D3) 25 mcg (1,000 unit) capsule 25 mcg PO DAILY Qty: 90 3RF nitroglycerin 0.4 mg tablet, sublingual 0.4 mg sublingual Q5M PRN (Reason: chest pain) Qty: 30 0RF Discharge Orders: Discharge Order- CHF (Routine); Ordered 08/10/23 Ordered By: Jarocho Field Admission Data Admit Date/Time: 08/02/23 16:21 Attending Provider: Jarocho Field Admit Provider: Davin Triana Primary Care Provider: Dave Zhang Other Providers: Davin Triana; [facility]; Re[facility] Bar[facility]; [facility]; [facility] [place]; [facility]; [facility] Coding Level of Care Code 48778 INP/OBS DISCH >30 MIN Diagnoses Impaired mobility and ADLs Z74.09; Z78.9 Acute heart failure with preserved ejection fraction I50.31 Coarse tremors G25.2 Orthostatic hypotension I95.1 Type 2 diabetes mellitus E11.9 Complete heart block, transient I44.2 Decubitus ulcer of heel, bilateral L89.619; L89.629
== END 2023-08-10 13:55 | DRG 291 ==
LOC: SUATTDRO → ED 12:09 → EDINP 16:21 → SUATTDRO 16:21 → 2N 20:44